=== PATIENT | female | born 1970 | race Caucasian/White ===

== ENCOUNTER 2019-07-11 16:27 | Emergency (ER) | payer OTHER, SELFPAY ==
[2019-07-11 16:30] VITALS: PULSE 78; RESP 18; TEMP 36.6; O2SAT 99; BMI 35.2
--- NOTE | 2019-07-11 16:38 | ED_ITS ---
Entered by Radha Lewis, acting as scribe for HPI - Abdominal Pain General: Chief Complaint: Abdominal Pain Stated Complaint: abd pain Time Seen by Provider: 07/11/19 16:36 Source: patient, family and RN notes reviewed Mode of arrival: ambulatory Limitations: no limitations History of Present Illness: HPI narrative: 48 yo female presents to ED with complaints of abdominal pain. She states she has had this for 1 week but it became severe last night. She said the pain is in her LUQ with radiation to her L shoulder and across her abdomen. She said her pain is constant but it is varying intensity. She has had shortness of breath, nausea, vomiting and mild diarrhea. She has a history of a hiatal hernia and diverticulitis. She has had gall bladder surgery and her tubes tied. MD elicited complaint: abdominal pain Pertinent past history: diverticulitis Onset (ago): week(s) (1) Pain Consistency: constant (worsening) Location: LUQ Severity: severe Quality: cramping and sharp Radiation: epigastric and chest (L side chest/shoulder) Migration to: epigastric and other (L side chest/shoulder) Exacerbating factors: movement Relieving factors: nothing Context: history of similar episodes Associated Symptoms: Reports diarrhea, nausea and vomiting; Denies chills, dysuria, fever(s), hematuria and syncope Review of Systems General: Reports: other (negative unless marked) Const: Denies: fever, chills, body aches, fatigue, malaise or diaphoresis Eyes: Denies: change in vision or blurry vision ENMT: Denies: throat pain, painful swallowing, hoarseness, ear pain, ear discharge, Change in hearing or nasal discharge Card: Denies: chest pain, palpitations, irregular heart rhythm, syncope, pre- syncope, shortness of breath on exertion or shortness of breath when lying down Resp: Denies: productive cough, non-productive cough, wheezing, coughing up blood or chest congestion GI: Reports: nausea, vomiting and diarrhea : Denies: flank pain, painful urination, urinary frequency, urinary urgency, decreased urine ouput, urinary incontinence or blood in urine Musc: Denies: neck pain, back pain, extremity pain, extremity swelling, joint pain, joint swelling, joint warmth or joint stiffness Skin/Breast: Denies: rash, skin tenderness or yellow skin Neuro: Denies: headache, numbness in extremities, weakness in extremities, changes in sensation, lack of coordination, difficulty walking, dizziness, vertigo or confusion Endo: Denies: excessive thirst, tired all the time, cold intolerance, excessive sweating, flushing or hot flashes Axel/Lymph: Denies: easy bruising, easy bleeding, petechiae or enlarged lymph nodes All/Imm: Denies: hives, throat swelling, tongue swelling, facial swelling or acute wheezing Physical Exam Const: COMMON NORMALS: no apparent distress, oriented x3, no limitations, healthy appearing and well nourished EXAM LIMITATIONS: no altered mental status GENERAL APPEARANCE: cooperative, well kempt and well developed ORIENTATION/CONSCIOUSNESS: Yes awake HENMT: COMMON NORMALS: normocephalic, head/scalp atraumatic, hearing grossly normal bilaterally, external ears normal, EAC's normal, external nose normal and moist oral mucous membranes HEAD & SCALP: normal to inspection, normocephalic and atraumatic FACE & SINUS: normal facial exam and face symmetric NOSE: external nose normal and nares normal EXTERNAL EAR: Yes external ears normal EXTERNAL AUDITORY CANAL: EAC's normal MOUTH: oral and palatal mucosa normal and tongue normal Eye: COMMON NORMALS: PERRL, EOMs intact bilaterally, conjunctivae normal and no scleral icterus GENERAL EYE: normal appearance of both eyes and normal light reflex CONJUNCTIVA: Yes conjunctivae normal SCLERA: sclerae normal CORNEA: Yes corneas normal PUPIL: Yes PERRL DIRECT OPHTHALMOSCOPY: Yes normal light reflex Neck/C-Spine: COMMON NORMALS: full ROM, no lymphadenopathy, supple, no meningeal signs and no JVD GENERAL: Yes normal visual inspection and Yes trachea midline CERVICAL SPINE: Yes cervical ROM normal Chest: COMMONS NORMALS: inspection of chest normal and palpation of chest normal Resp: COMMON NORMALS: normal respiratory effort, no retractions, no use of accessory muscles and clear to auscultation bilaterally EFFORT & INSPECTION: Yes able to speak in complete sentences AUSCULTATION: clear to auscultation bilaterally Cardio: COMMON NORMALS: no JVD, regular rate, regular rhythm, S1 normal heart sound, S2 normal heart sound, no gallops, no clicks, no murmurs and no rub JUGULAR VENOUS DISTENTION: no JVD RATE: regular rate RHYTHM: regular rhythm HEART SOUNDS: S1 normal and S2 normal GI: COMMON NORMALS: soft to palpation, no hepatosplenomegaly and no masses PALPATION: Yes soft and Yes no hepatosplenomegaly : COMMON NORMALS: Yes no CVA tenderness BLADDER/KIDNEY EXAM: Yes no CVA tenderness Back/Pelvis: COMMON NORMALS: no CVA tenderness, thoracic and lumbar spine normal to inspection, no thoracic nor lumbar tenderness and thoraco-lumbar ROM normal Extremity: COMMON NORMALS: normal to inspection, full ROM, normal capillary refill, no joint enlargement, no clubbing, cyanosis or edema and no calf tenderness Neuro: COMMON NORMALS: oriented x3, CN's II-XII intact bilaterally, moves all extremities, no focal motor deficits and no sensory deficits noted MENINGEAL SIGNS: Yes no meningeal signs Psych: COMMON NORMALS: mental status grossly normal, thought process normal, cooperative, affect normal, speech normal and activity/motor behavior normal APPEARANCE: Yes well kempt SPEECH: Yes normal speech THOUGHT PROCESS: normal thought process Skin: COMMON NORMALS: no rashes or lesions noted, skin turgor normal, no jaundice, no petechiae and no mottling GENERAL SKIN EXAM: no rashes or lesions noted and turgor normal Course Vital Signs: Vital signs: Vital Signs Temperature 97.8 F 07/11/19 18:42 Pulse Rate 67 07/11/19 18:42 Respiratory Rate 16 07/11/19 18:42 Blood Pressure 109/55 07/11/19 18:42 Pulse Oximetry 96 07/11/19 18:42 MDM - Abdominal Pain MDM Narrative: Medical decision making narrative: Miryam is a nice 48-year-old female who comes in complaining of left lower and left upper quadrant pain. This pain is exactly similar to when she is had diverticulitis in the past. Her CT scan is unremarkable. Her repeat abdominal exam does not show peritonitis. She has no vaginal discharge or bleeding or dysuria. None of her symptoms sound renal or urinary in nature. Her lab work is unremarkable. She is convinced this is her diverticulitis so I will go ahead and place her on Cipro and Flagyl for possible developing diverticular disease that is not seen on CT scan. She understands to return should her symptoms change or worsen but at this time she would like to be discharged. Lab Data: Attestation: I reviewed the patient's lab results. Labs: Lab Results 03/11/2207/11/19 07/11/19 Range/Units 16:47 16:47 16:47 WBC 6.5 (4.0-10.0) 10^3/ uL RBC 4.87 (4.1-5.3) 10^6/u L Hgb 13.1 (11.5-15.3) g/dL Hct 41.5 (37.0-47.0) % MCV 85.2 (81-99) fL MCH 26.9 L (28.0-34.0) pg MCHC 31.6 (30.0-36.0) g/dL RDW 13.2 (12.1-15.1) % Plt Count 353 (130-400) 10^3/c mm MPV 11.4 H (7.4-10.4) fL Neut % (Auto) 58.4 % Lymph % (Auto) 31.0 % Coles % (Auto) 7.0 % Eos % (Auto) 2.8 % Baso % (Auto) 0.6 % Neut # (Auto) 3.8 (1.8-7.7) 10^3/u L Lymph # (Auto) 2.0 (0.8-4.8) 10^3/u L Coles # (Auto) 0.5 (0.2-0.9) 10^3/u L Eos # (Auto) 0.2 (0.0-0.8) 10^3/u L Baso # (Auto) 0.0 (0.0-0.1) 10^3/u L Nucleated RBC % (a uto) 0 % Nucleated RBCs # 0.0 /100WBC Sodium 138 (136-145) mmol/L Potassium 3.8 (3.5-5.1) mmol/L Chloride 106 (98-107) mmol/L Carbon Dioxide 20 L (22-29) mmol/L Anion Gap 15.8 (5-19) BUN 8 (6-20) mg/dL Creatinine 0.7 (0.5-0.9) mg/dL GFR Calculation 90.1 (90-130) mL/min Glucose 115 (65-115) mg/dL Calcium 9.6 (8.5-10.5) mg/dL Total Bilirubin 1.3 H (0.15-1.2) mg/dL AST 20 (0-32) U/L ALT 17 (0-33) U/L Alkaline Phosphata se 59 (35-105) IU/L Total Protein 7.5 (6.6-8.7) g/dL Albumin 4.0 (3.5-5.2) g/dL Globulin 3.5 (1.3-4.6) g/dL Lipase 33 (13-60) U/L HCG, Qual Negative (Negative) Urine Color (Yellow) Urine Appearance (CLEAR) Urine pH (5-7) Ur Specific Gravit y (1.005-1.030) Urine Protein (Negative) Urine Glucose (UA) (Normal) Urine Ketones (Negative) Urine Blood (Negative) Urine Nitrate (Negative) Urine Bilirubin (NEGATIVE) Urine Urobilinogen (Negative) mg/dL Ur Leukocyte Haydee ase (Negative) Urine RBC (0-2) /hpf Urine WBC (0-5) /hpf Ur Squamous Epith Cells (0-5) Urine Bacteria (NONE) 07/11/19 Range/Units 17:54 WBC (4.0-10.0) 10^3/ uL RBC (4.1-5.3) 10^6/u L Hgb (11.5-15.3) g/dL Hct (37.0-47.0) % MCV (81-99) fL MCH (28.0-34.0) pg MCHC (30.0-36.0) g/dL RDW (12.1-15.1) % Plt Count (130-400) 10^3/c mm MPV (7.4-10.4) fL Neut % (Auto) % Lymph % (Auto) % Coles % (Auto) % Eos % (Auto) % Baso % (Auto) % Neut # (Auto) (1.8-7.7) 10^3/u L Lymph # (Auto) (0.8-4.8) 10^3/u L Coles # (Auto) (0.2-0.9) 10^3/u L Eos # (Auto) (0.0-0.8) 10^3/u L Baso # (Auto) (0.0-0.1) 10^3/u L Nucleated RBC % (a uto) % Nucleated RBCs # /100WBC Sodium (136-145) mmol/L Potassium (3.5-5.1) mmol/L Chloride (98-107) mmol/L Carbon Dioxide (22-29) mmol/L Anion Gap (5-19) BUN (6-20) mg/dL Creatinine (0.5-0.9) mg/dL GFR Calculation (90-130) mL/min Glucose (65-115) mg/dL Calcium (8.5-10.5) mg/dL Total Bilirubin (0.15-1.2) mg/dL AST (0-32) U/L ALT (0-33) U/L Alkaline Phosphata se (35-105) IU/L Total Protein (6.6-8.7) g/dL Albumin (3.5-5.2) g/dL Globulin (1.3-4.6) g/dL Lipase (13-60) U/L HCG, Qual (Negative) Urine Color Yellow (Yellow) Urine Appearance Clear (CLEAR) Urine pH 7.0 (5-7) Ur Specific Gravit y 1.010 (1.005-1.030) Urine Protein Neg (Negative) Urine Glucose (UA) Norm (Normal) Urine Ketones 1+ H (Negative) Urine Blood Neg (Negative) Urine Nitrate Negative (Negative) Urine Bilirubin Neg (NEGATIVE) Urine Urobilinogen 1 H (Negative) mg/dL Ur Leukocyte Haydee ase Negative (Negative) Urine RBC None (0-2) /hpf Urine WBC None (0-5) /hpf Ur Squamous Epith Cells 0-4 H (0-5) Urine Bacteria Trace (NONE) Imaging Data ^: CT Abd/Pel: Radiologist's impression: [place] [address] CT Scan Report Signed Patient: Elizabeth Yoder Unit #: [id number] : 10/30/1998 Age/Sex: 20 / F ADM Date: 07/11/19 Loc: ER Room/Bed: Attending Dr: Ordering Provider/Ordering MD: Lc Longoria NP Date of Service: 07/11/19 Procedure(s): CT abdomen pelvis w con* [id number] Accession Number(s): [id number] Report Number: [id number] PROCEDURE INFORMATION: Exam: CT Abdomen And Pelvis With Contrast Exam date and time: 07/11/2019 5:09 PM Age: 20 years old Clinical indication: Nausea and vomiting; Prior surgery; Surgery date: 6+ months; Surgery type: Gb; Additional info: Vomiting blood TECHNIQUE: Imaging protocol: Computed tomography of the abdomen and pelvis with intravenous contrast. Axial, coronal and sagittal reformatted images were created and reviewed. Total DLP: 1374.56 mGy-cm Radiation optimization: All CT scans at this facility use at least one of these dose optimization techniques: automated exposure control; mA and/or kV adjustment per patient size (includes targeted exams where dose is matched to clinical indication); or iterative reconstruction. Contrast material: OMNI 300; Contrast volume: 95 ml; Contrast route: LTAC; COMPARISON: CT abdomen pelvis w con* [id number] 11/03/2018 9:22 PM FINDINGS: Liver: Unremarkable. Gallbladder and bile ducts: Status post cholecystectomy. No biliary ductal dilatation. Pancreas: Unremarkable. Spleen: Unremarkable. Adrenals: Unremarkable. Kidneys and ureters: No mass. No radiodense calculi. No hydronephrosis. Stomach and bowel: No bowel wall thickening. No obstruction. No pneumatosis. Appendix: Normal. Intraperitoneal space: No free fluid. No organized fluid collection. No free air. Vasculature: Unremarkable. No aneurysm. Lymph nodes: Small mesenteric lymph nodes, nonspecific in appearance. No pathologically enlarged lymph nodes. Bladder: Unremarkable. Reproductive: Unremarkable. Bones/joints: No acute osseous abnormality. Soft tissues: Unremarkable. CT/CT abdomen pelvis w con* [id number]: 1[address] No [address] evidence of acute intra-abdominal or pelvic pathology. 2. Additional findings, as above. Radiation Dose CTDIVOL = (mGy): DLP = 1374.56 (mGy-cm) Dictated By: Quintin Mora MD Signed By: Quintin Mora MD Signed Date/Time: 07/11/191740 DD/ 38 Discharge Plan Discharge Patient Disposition: Home, Self-Care Clinical Impression: Abdominal pain Qualifiers: Abdominal location: left lower quadrant Qualified Code(s): R10.32 - Left lower quadrant pain Condition: Stable Prescriptions: New Zofran 4 mg tablet 4 mg PO Q6H PRN (Reason: nausea and vomiting) Qty: 20 RF: 0 Flagyl 500 mg tablet 500 mg PO TID 10 Days Qty: 30 RF: 0 Cipro 500 mg tablet 500 mg PO BID Qty: 20 RF: 0 Discharge Orders: Discharge Order (Routine); Ordered 07/11/19 Ordered By: Sahra Cordon Referrals: Arsenio Rossi MD [Primary Care Provider] - 1-3 days Discharge Diet: Clear Liquid Patient Instructions: Diverticulitis (ED), Abdominal Pain (ED) Activity Restrictions/Additional Instructions: Please return to the ER immediately for any of the signs or symptoms listed on your discharge instruction sheets, worsening/changing of your symptoms, you are not getting better as quickly as expected, or for ANY other cause or concerns. Discharge Date/Time: 07/11/19 18:41 Coding Level of Care Code ED Dining Room Hostess for g Fwd The documentation recorded by the Joshua valdovinos Valerie R, accurately reflects the service I personally performed and the decisions made by Bravo ravi Eli N Jul 11, 2019 16:27
--- NOTE | 2019-07-11 16:43 | CTR_ITS ---
PROCEDURE INFORMATION: Exam: CT Abdomen And Pelvis With Contrast Exam date and time: 07/11/2019 5:22 PM Age: 48 years old Clinical indication: Abdominal pain; Localized; Left; Prior surgery; Surgery date: 6+ months; Surgery type: Gb, tubal; Patient HX: C/O L sided abd pain w n/v TECHNIQUE: Imaging protocol: Computed tomography of the abdomen and pelvis with intravenous contrast. Total DLP: 1540.14 mGy-cm Radiation optimization: All CT scans at this facility use at least one of these dose optimization techniques: automated exposure control; mA and/or kV adjustment per patient size (includes targeted exams where dose is matched to clinical indication); or iterative reconstruction. Contrast material: OMNI 300; Contrast volume: 95 ml; Contrast route: 20G; COMPARISON: CT abdomen pelvis w con* [id number] 02/06/2019 10:40 PM FINDINGS: Lungs: Limited assessment of the lung bases without visible evidence of active cardiopulmonary pathology. Liver: Unremarkable. No mass. Gallbladder and bile ducts: Status post cholecystectomy. No intra or extrahepatic biliary ectasia. Pancreas: Pancreas unremarkable. No visible pancreatic ductal ectasia. Spleen: Small splenule. Spleen otherwise unremarkable. Adrenals: Adrenal glands unremarkable. Kidneys and ureters: Simple parapelvic cysts right kidney stable. No further workup recommended. No hydronephrosis or perinephric fluid bilaterally. Stable small focus of nonobstructing calyceal nephrolithiasis equator right kidney measuring under 5 mm. Stomach and bowel: Extensive diverticulosis coli, primarily of the sigmoid colon, without evidence for diverticulitis. No visible evidence of epiploic appendagitis. Appendix noninflamed. Nonobstructive bowel pattern. No visible adynamic or reactive ileus. Large paraesophageal hiatal hernia unchanged. Appendix: See Stomach And Bowel Finding. Intraperitoneal space: No free fluid the pelvis. Vasculature: The abdominal aorta is nonaneurysmal. Lymph nodes: Unremarkable. No enlarged lymph nodes. Bladder: Unremarkable as visualized. Reproductive: Unremarkable as visualized. Bones/joints: Age-appropriate degenerative disease of the spine. Soft tissues: Unremarkable. CT/CT abdomen pelvis w con* [id number] IMPRESSION: 1. Extensive diverticulosis coli, primarily the sigmoid colon, without evidence for active or acute diverticulitis. 2. Currently no visible evidence of active or acute abdominal or pelvic pathologic process. 3. Stable additional findings as detailed in text above. Radiation Dose CTDIVOL = (mGy): DLP = 1540.14 (mGy-cm)
[2019-07-11 16:53] LABS: Basophils % 0.6 %; Eosinophils # 0.2 10^3/uL (0.0-0.8); Eosinophils % 2.8 %; Hematocrit 41.5 % (37.0-47.0); Hemoglobin 13.1 g/dL (11.5-15.3); Mean Corpuscular HGB Conc 31.6 g/dL (30.0-36.0); Mean Corpuscular Hemoglobin 26.9 pg (28.0-34.0); Mean Corpuscular Volume 85.2 fL (81-99); Mean Platelet Volume 11.4 fL (7.4-10.4); Monocytes # 0.5 10^3/uL (0.2-0.9); Neutrophils # 3.8 10^3/uL (1.8-7.7); Neutrophils % 58.4 %; Nucleated Red Blood Cells % 0 %; Platelet Count 353 10^3/cmm (130-400); Red Blood Count 4.87 10^6/uL (4.1-5.3); Red Cell Distribution Width 13.2 % (12.1-15.1); White Blood Count 6.5 10^3/uL (4.0-10.0)
[2019-07-11] MEDS: ondansetron 2 mg/ML SDV 2 mL 4 MG IVP (16:53)
[2019-07-11 16:54] VITALS: RESP 17; O2SAT 98
[2019-07-11] MEDS: morphine 4 mg/mL SDV 1 mL IVP ×2 (16:54→17:56)
[2019-07-11 17:09] VITALS: BP 125/70; PULSE 78; RESP 18
[2019-07-11 17:10] LABS: HCG, Serum Qual Negative (Negative)
[2019-07-11 17:11] LABS: Alanine Aminotransferase 17 U/L (0-33); Alkaline Phosphatase 59 IU/L (35-105); Anion Gap 15.8 (5-19); Aspartate Amino Transferase 20 U/L (0-32); Blood Urea Nitrogen 8 mg/dL (6-20); Calcium 9.6 mg/dL (8.5-10.5); Carbon Dioxide 20 mmol/L (22-29); Chloride 106 mmol/L (98-107); Globulin 3.5 g/dL (1.3-4.6); Glomerular Filtration Rate 90.1 mL/min (90-130); Glucose 115 mg/dL (65-115); Lipase 33 U/L (13-60); Potassium 3.8 mmol/L (3.5-5.1); Sodium 138 mmol/L (136-145); Total Bilirubin 1.3 mg/dL (0.15-1.2); Total Protein 7.5 g/dL (6.6-8.7)
[2019-07-11] MEDS: iohexol 300 mg/mL 100 mL Btl IV (17:24)
[2019-07-11 17:56] VITALS: RESP 18; O2SAT 98
[2019-07-11 17:58] LABS: Bilirubin Urine Neg (NEGATIVE); Blood Urine Neg (Negative); Glucose Urine UA Norm (Normal); Ketones Urine 1+ (Negative); Leukocyte Esterase Urine Negative (Negative); Nitrate Urine Negative (Negative); Protein Urine Neg (Negative); Urine Appearance Clear (CLEAR); Urine Color Yellow (Yellow); Urobilinogen Urine 1 mg/dL (Negative)
[2019-07-11 18:15] LABS: Add Urine Culture? No; Bacteria Urine TRACE; Squamous Epithelial Cell Urine 0-4 (0-5)
[2019-07-11 18:42] VITALS: BP 109/55; PULSE 67; RESP 16; TEMP 36.6; O2SAT 96
== END 2019-07-11 18:41 | disposition home or self-care (01) ==
PROVIDERS: Emergency Provider Emergency Medicine; Family Provider Internal Medicine; PCP Internal Medicine
DX: R10.32 Left lower quadrant pain (principal); R10.12 Left upper quadrant pain; K57.30 Diverticulosis of large intestine without perforation or abscess without bleeding
CPT/HCPCS: 12345; 36415; 74177; 80053; 81001; 83690; 84703; 85025; 96374; 96375; 96376; 99282; 99283; A9270; J2270; J2405; Q9967

== ENCOUNTER 2019-08-26 07:36 | Day surgery (SDC) | payer OTHER, SELFPAY ==
[2019-08-25 15:43] VITALS: BMI 34.4
[2019-08-26 07:52] LABS: OR HCG Qualitative Urine Negative (Negative)
[2019-08-26 07:55] VITALS: BP 121/84; PULSE 74; RESP 16; TEMP 36.7
[2019-08-26] MEDS: sodium chloride 0.9% 1,000 ML 30 ML IV (08:08)
--- NOTE | 2019-08-26 08:15 | ANES.PREANE2 ---
Pre-Anesthetic Assessment Pre-Anesthetic Assessment: Height/Weight: Height 1.7 m Weight 99.79 kg Temp Pulse Resp BP 98.1 F 74 16 121/84 08/26/19 07:55 08/26/19 07:55 08/26/19 07:55 08/26/19 07:55 Preop Diagnosis: dysphagia Proposed Procedure: Operation Date: 08/26/19 09:10 Proposed Procedures p EGD Dilation W/ Bougie [id number] R13.10(Not Applicable) - Arsenio Rossi MD Familial anesthetic complications: None Was Beta Chandrika taken within 24 hours: N/A Last intake: Intake Last Liquid Date 08/25/19 Last Liquid Time 22:00 Last Solid Date 08/25/19 Last Solid Time 22:00 Social: Social History: No alcohol and No tobacco Exam: Pre-Anes Outpt Exam: alert, oriented x 3, clear to auscultation bilaterally and regular rate & rhythm Airway: Cervical ROM: WNL MP: 4 Additional comments: chipped, missing Pulmonary: Pulmonary: None reported CV/HEM: CV/HEM: Arrythmia Comments: ? atrial fibrillation : : None reported Hepatic: Comments: fatty liver disease GI: GI: GERD Metabolic: Metabolic: None reported Musc/skel: Musc/skel: None reported Neuropsych: Neuropsych: None reported Anesthetic Plan: ASA status: 2 Anesthesia: MAC Risk of > 500 ml blood loss (7ml/kg in children): No Meds/Allergies Current Medications: Current Medications Generic Name Dose Route Start Last Admin Trade Name Freq PRN Reason Stop Dose Admin Sodium Chloride 1,000 mls @ 30 ml s/hr 08/26/19 07:45 08/26/19 08:08 Sodium Chloride 0.9% IV 30 mls/hr .Q24H ROSANNE Administration PFSH Anesthesia PFSH: Medical History (Updated 08/25/19 @ 14:01 by Arsenio Rossi MD) GERD (gastroesophageal reflux disease) Hiatal hernia Surgical History (Updated 08/25/19 @ 13:52 by Arsenio Rossi MD) History of cholecystectomy Social History (Updated 08/25/19 @ 13:16 by Sydni Ceja RN) Smoking and tobacco status: former smoker Alcohol intake: current Alcohol intake frequency: holidays/special occasions only Female Reproductive History: Date of last menstrual period: 08/25/19 Data Anesthesia Other Labs: Laboratory Results - last 48 hr 08/26/19 07:39 Urine HCG, Qual Negative Cardiac Studies: No Data to Display
--- NOTE | 2019-08-26 09:23 | W.PM.OPSUD ---
Surgery/Procedure H&P Update DATE OF PROCEDURE: August 26, 2019 DATE H&P PERFORMED: 08/25/19 PREOP DIAGNOSIS: dysphagia PLANNED PROCEDURE: Operation Date: 08/26/19 09:10 Proposed Procedures p EGD Dilation W/ [place] [id number] R13.10(Not Applicable) - Arsenio Rossi MD
--- NOTE | 2019-08-26 09:38 | FL_ITS ---
WS: [id number] ESOPHAGRAM TECHNIQUE: Single contrast examination was performed with thin barium in the supine position due to r ecent anesthesia. CLINICAL INFORMATION: Very unusual anatomy as discovered on EGD COMPARISON: None. FINDINGS: Study performed in the supine position due to patient's difficulty standing from recent ane sthesia. Swallowing: Normal. Esophagus/stomach: No evidence of esophageal stricture or mass. Mild esophageal dysmotility with daniel yed emptying and reflux. Large esophageal hiatal hernia with intrathoracic stomach. Somewhat delayed imaging likely due to camarena pine position and recent anesthesia administration. Majority of the stomach is intrathoracic. Greater curvature extends below the diaphragm. Duodenal bulb and C-loop are normal. Proximal small bowel and jejunum are visualized.No evidence of high-grade obstruction or strangulation Gastroesophageal reflux: Present Fluoroscopy time: 3.1 minutes. FL/FL barium swallow [id number] IMPRESSION: 1. Exam performed in the supine position to the recent anesthesia. 2. Large esophageal hiatal hernia with majority of the stomach intrathoracic. Greater Curvature extending below the diaphragm. Normal duodenal C-loop and pro ximal small bowel visualized. 3. Active esophageal reflux is visualized in the supine position with delayed emptying. 4. No evidence of high-grade obstruction or strangulation
[2019-08-26 09:42] VITALS: BP 101/55; PULSE 71; RESP 16; TEMP 36.3; O2SAT 94
--- NOTE | 2019-08-26 09:45 | ANE.PACU2 ---
 Inpatient post-anesthesia follow up: Airway intact: Yes Vital signs: Temperature 98.1 F Pulse Rate 74 Respiratory Rate 16 Blood Pressure 121/84 Pulse Oximetry Oxygen Delivery Me thod Room Air Oxygen Flow Rate Fraction of Inspir ed Oxygen Hydration adequate: Yes Nausea and vomiting: No Pain level: 1 Mental status: Baseline
[2019-08-26 10:15] VITALS: BP 100/58; PULSE 77; RESP 18; O2SAT 96
== END 2019-08-26 12:20 | disposition home or self-care (01) ==
PROVIDERS: Anesthesiology; Family Provider Internal Medicine; PCP Internal Medicine; Visit Provider Internal Medicine
PROC: (CPT 43235; principal; 2019-08-26 09:00)
DX: R13.10 Dysphagia, unspecified (principal); K21.9 Gastro-esophageal reflux disease without esophagitis; Z87.891 Personal history of nicotine dependence; K31.89 Other diseases of stomach and duodenum; K44.9 Diaphragmatic hernia without obstruction or gangrene
CPT/HCPCS: 43235; 12345; 74220; 84703; J2001; J2704; J7030

== ENCOUNTER 2019-10-27 17:15 | Observation (INO) | payer OTHER, SELFPAY ==
[2019-10-26 10:14] VITALS: BMI 33.6
[2019-10-27] VITALS (23 sets, daily range): BP systolic 102–136; BP diastolic 57–103; PULSE 67–89; RESP 16–22; TEMP 36.2–36.8; O2SAT 92–100
[2019-10-27] MEDS: scopolamine 1.5 Patch 1 PATCH TRANSDERMA (09:06)
[2019-10-27] MEDS: heparin 5,000 unit/mL INJ 1 mL 3000 UNIT SUBCUT (09:24)
--- NOTE | 2019-10-27 09:26 | W.PM.OPSUD ---
Surgery/Procedure H&P Update DATE OF PROCEDURE: October 27, 2019 DATE H&P PERFORMED: 10/05/19 H&P UPDATE INFORMATION: I have reviewed H&P completed within last 30 days, I have examined patient prior to procedure and No changes to prior documentation (Except that the patient dropped her weight to 207 pounds) PREOP DIAGNOSIS: Symptomatic paraesophageal hernia PRIMARY INDICATION FOR PROCEDURE: The same PLANNED PROCEDURE: Operation Date: 10/27/19 10:05 Proposed Procedures p Laparoscopic poss open Esophageal Hernia Repair with Mesh [id number] K44.9(Not Applicable) - Dayday Montenegro MD s Laparoscopic Kellie Fundoplication(Not Applicable) - Dayday Montenegro MD s EGD(Not Applicable) - Dayday Montenegro MD
[2019-10-27 09:42] LABS: OR HCG Qualitative Urine Negative (Negative)
--- NOTE | 2019-10-27 09:45 | P.ANESASSM_ITS ---
Pre-Anesthetic Assessment Pre-Anesthetic Assessment: Height/Weight: Height 1.7 m Weight 97.522 kg Temp Pulse Resp BP Pulse Ox 98.2 F 77 18 131/77 98 10/27/19 08:49 10/27/19 08:49 10/27/19 08:49 10/27/19 08:49 10/27/19 08:49 Preop Diagnosis: Symptomatic paraesophageal hernia Proposed Procedure: Operation Date: 10/27/19 10:05 Proposed Procedures p Laparoscopic poss open Esophageal Hernia Repair with Mesh [id number] K44.9(Not Applicable) - Dayday Montenegro MD s Laparoscopic Kellie Fundoplication(Not Applicable) - Dayday Montenegro MD s EGD(Not Applicable) - Dayday Montenegro MD Last intake: Intake Last Liquid Date 10/26/19 Last Liquid Time 19:30 Last Solid Date 10/26/19 Last Solid Time 19:30 Social: Social History: Tobacco (quit 2006) and No alcohol Exam: Pre-Anes Outpt Exam: alert, oriented x 3, clear to auscultation bi laterally and regular rate & rhythm Airway: Submandibular: WNL Cervical ROM: WNL MP: 2 Dentition: Other (very poor dentation) History/ROS: No significant history except as noted Pulmonary: Pulmonary: None reported CV/HEM: CV/HEM: None reported : : None reported Hepatic: Comments: fatty liver GI: GI: GERD (occ) and Hiatus hernia Metabolic: Metabolic: Morbid obesity Musc/skel: Musc/skel: None reported Neuropsych: Neuropsych: Anxiety and Depression Anesthetic Plan: ASA status: 3 Anesthesia: Anesthesia Evaluation and General Risk of > 500 ml blood loss (7ml/kg in children): No PFSH Anesthesia PFSH: Medical History Diverticulitis Epigastric pain GERD (gastroesophageal reflux disease) Hiatal hernia Tubal infertility in female Surgical History History of cholecystectomy History of tubal ligation Family History Denies family history of Anesthesia complication Bleeding disorder Social History Smoking and tobacco status: former smoker Alcohol intake: current Alcohol intake frequency: holidays/special occasions only Female Reproductive History: Date of last menstrual period: 10/23/19 Data Anesthesia Other Labs: Laboratory Results - last 48 hr 10/27/19 09:40 Urine HCG, Qual Negative Cardiac Studies: No Data to Display
[2019-10-27] MEDS: sodium chloride 0.9% 1,000 ML 30 ML IV (10:23)
[2019-10-27] MEDS: lidocaine 2% INJ 20 mL INJECTION (11:33)
--- NOTE | 2019-10-27 11:44 | SUR.OPER ---
Called and updated him on surgical progress.
--- NOTE | 2019-10-27 12:53 | SUR.OPER ---
1235 Dr. Rossi in room at Dr. Montenegro' request to review scope image. Out of room at 1236.
--- NOTE | 2019-10-27 13:03 | SUR.OPER ---
called and updated on surgical progress.
--- NOTE | 2019-10-27 14:12 | SUR.OPER ---
Called and updated him on surgical progress.
[2019-10-27] MEDS: ceFAZolin 2,000 MG in sodium chloride 0.9% (plus) 50 ML 100 MG IV (15:41)
--- NOTE | 2019-10-27 15:52 | SUR.OPER ---
1525 patients updated of surgical progress
--- NOTE | 2019-10-27 16:19 | SUR.OPER ---
updated of surgical status
--- NOTE | 2019-10-27 16:38 | PM.OP ---
Operative Report Date of procedure: October 27, 2019 Pre-op Diagnosis: Symptomatic paraesophageal hernia Post-op diagnosis: same Post-op Findings: Incarcerated paraesophageal hernia Enlarged liver Procedure Done: Laparoscopic paraesophageal hernia repair with mesh placement and Kellie fundoplication with intraoperative EGD Excision of mediastinal lipoma 6 x 7 Implants: Bio A mesh Specimens removed/disposition: 1. Hernial sac 2. Mediastinal lipoma 5 x 6 cm Surgeon: Dayday Montenegro Nitrating Acid Mixer: Nitrating Acid Mixer surgeon Dr. Perez Surgical techs Luis Enrique Murray Jessica Circulating nurses Carmelita and Arabella Anesthesia: General (information systems coordinator is Ally, Keagan, Jose Angel and Will) Estimated blood loss (mL): 25 IV fluids (mL): 1,200 Urine output (mL): 300 Complications: No immediate complication Condition: stable Disposition: floor Brief History: This is a pleasant 49 years old female patient referred to my practice with symptomatic paraesophageal hernia, after thorough history physical examination and reviewing the images with my personal interpretation and further counseling the patient for laparoscopic paraesophageal hernia repair and Kellie fundoplication with possible mesh placement, patient agreed to proceed, and informed consent per chart. Procedure: Patient was identified in holding area,appropriate pharmacologic DVT prophylaxis was given, patient was then taken to the operating room where the patient was placed in supine position, intubated by anesthesia prophylactic antibiotics were given per protocol,Time-out was done verifying the patient's name/date of /planned procedure and destination after the procedure, all were in agreement. SCDs confirmed to be functioning, preoperative antibiotics administered per protocol, and beta rik protocol was confirmed. patient was placed in a low lithotomy position, both arms were tucked to the sides.and all pressure points were padded, a Ramírez catheter was placed by the circulating nurse that revealed clear urine. The patient was appropriately secured to the operating table, and I asked anesthesia to swing the table [id number] in different positions that the patient is appropriately secured to the OR table which it was the case. Prep and drape of the abdomen was done under the usual sterile technique, started by 1.2 cm transverse incision with 15 blade knife, 12 cm below the xiphoid and 3 cm to the left of the midline, followed by that a 12 mm optical trocar was used under direct vision and placed in the peritoneal cavity without difficulty. The peritoneal cavity was insufflated with CO2 gas up to 15 mmHg, followed by that an angled scope 10 mm was inserted in the abdominal cavity, the abdomen was surveyed there was no evidence of blood or fluid or other evidence of intra-abdominal injury Following that two 5 mm ports were placed one at 10 cm from the xiphoid process under the left subcostal region and the other one was placed at the left flank. A 12 mm port was placed in the subxiphoid region towards the right upper subcostal region. An epigastric incision was created with a 15 blade knife and the obturator of 5 mm trocar was used to have an access to the abdominal cavity where a laparoscopic clinch was introduced through this stab incision placed underneath the left lobe of the liver and onto the diaphragm to lift the liver up under direct visualization(as the liver was extending all the way to the left upper quadrant and occupied a big domain of the upper abdomen despite that the patient has been on liquid protein diet),yet that was not enough to retract the liver, I decided at this point to insert an additional 5 mm trocar 15 centimeter to the right of the xiphoid process at the upper abdomen, and liver retractor was placed under direct visualization to lift the liver up and helped for appropriate visualization of the hiatus, again was not enough so I had to substitute it by a 10 mm fan liver retractor that was handheld by one of my surgical scrub techs as the 10 mm placed to substitute the previously inserted the right upper quadrant 5 mm after extending the skin incision under direct visualization. Patient was placed in steep reverse T Gunderson and I stood between the patient's legs. I Started at that point delivering the Hiatal Hernia content about 70% of the stomach being up in the chest. Started dissecting using the harmonic scalpel near the caudate lobe and right chhaya of the diaphragm where it was identified. Dissection was continued around the border of the chhaya from the right side to the left side circumferentially, dissection was done as the sac was adherent to the stomach and up in the chest. A mediastinal lipoma measured about 6 x 7 cm were attached to the incarcerated structures in the chest that was dissected cautiously and hemostasis was achieved and was delivered for permanent pathology. After appropriate dissection circumferentially and the short gastrics were taken down, a latex free Bradford drain was passed behind the esophagus from the right side to the left side ends of the Bradford was secured in place and was held down to assist in retraction for better navigation. At that point once dissection and reduction of the hernia was complete, a portion of the hernia sac was dissected was taken out and sent for pathology for permanent. There was 3-4 cm of the esophagus now is intra-abdominal after appropriate dissection being with no tension. A well-lubricated bougie was inserted 54 Romansh in size, by the anesthesiologist without difficulty, to be used as a template to prevent narrowing of the esophagus. The posterior crura was reapproximated with 2-0 Ethibond sutures with pledgets.This closed the large hiatal defect leaving an opening that of the submits the esophagus to pass through comfortably. At This point I decided to place a BIO-A -mesh where it was secured to the undersurface of the diaphragm with interrupted sutures using silk and Ethibond suture. I found a loose fundus that I was able to grab the stomach around the GE junction from the left side to the right side.Shoeshine technique was applied at this point to make sure that the wrap carries no tension.First 2 stitches were taken stomach esophagus stomach, the the third stitch was stomach to stomach using 2-0 silk sutures about 1 cm apart.360? fundoplication was noted from securing the fundus to either side of the esophagus. The length was about 3-4 cm and followed by that an upper GI scope by my partner was introduced from the mouth down to the esophagus to the stomach preceded by bougie was taken out to make sure that there was no injury damage happened with the bougie, there was no blood on the tip of the bougie as well,nothing of significance, stomach looked fine was no injury and the wrap looked appropriate from within. Scope was then retrieved after deflation of the stomach. After adequate hemostasis the liver retractor was taken out under direct visualization, final laparoscopic survey was done showing no injuries to intra-abdominal structures, the 12 mm trocar and right upper quadrant 10 mm trocar sites were closed by Malik Adams under direct visualization using 0 Vicryl/PDS sutures,following that a TAP Block was done using Exparel then all ports were removed and both 12 mm ports.The rest of the stab incisions were closed by skin pardeep, followed by Band-Aids and patient tolerated the procedure well. Bilateral TAP (transversus abdominous plain peripheral nerve block )block using Exparel 20 mL Exparel 40 ml Normal saline 20 ml bupivacaine 0.25% 30 mL on each side injected 20 mL injected the port sites The count of instruments,needles and sponges was completed at the end of the procedure. Ramírez catheter was taken out at the end of the procedure without complications. Due to medical necessity. Nitrating Acid Mixer surgeon is required to assist in this procedure in the form of; Performance of intraoperative esoophaogastroduodenoscopy to check for leak and to assure intact 360 degree Kellie fundoplication which was the case..
[2019-10-27] MEDS: fentaNYL 50 mcg/mL INJ 2mL IVP ×2 (16:52→17:02)
[2019-10-27] MEDS: fentaNYL 50 mcg/mL INJ 2mL 100 MCG IVP (17:20)
--- NOTE | 2019-10-27 18:17 | SUR.PHASEI ---
1648 PT TO PACU AWAKE UP IN BED PT C/O OF PAIN , VSS ABD LARGE SOFT PT HAS CREPITIS NIPPLE LINE UP TO CHIN ANTERIOR AND POSTERIOR ON BILAT SHOULDERS, 1745 PT STATES PAIN IS BETTER, DR IBANEZ AT BEDSIDE, LISTENED TO PT CHEST PT OK TO GO TO FLOOR SEE EARLIER PAIN MEDS GIVEN, T STATES PAIN IS BETTER BUT NOT GONE, PT SLEEPS IF NOT DISTURBED, PT AWAKES EASILY TO VOICE AND VERBALIZES APPROPRIATELY. REPORT CALLED TO FLOOR. 1755 PT TO FLOOR PER BED HANDOFF AT BEDSIDE, BP 120/51, HRE 70 SATS ON 3LNC 100% RESP 20
[2019-10-27] MEDS: morphine 4 mg/mL SDV 1 mL 2 MG IVP ×2 (19:52→22:34)
[2019-10-27] MEDS: artificial tears Op Soln 15 mL Btl 1 DROP EYE-BOTH (20:09)
[2019-10-27] MEDS: sodium chloride 0.9% 1,000 ML 125 ML IV (20:12)
--- NOTE | 2019-10-27 21:23 | PC.NURSE ---
ROUNDING When assisting patient to elisha, she sat on side of the bed she stated she felt dizzy. After sitting for a couple minutes we stood up next to the bed patient was still dizzy and stated she didn't feel like she could ambulate to the bathroom. This nurse got a bedside commode and assisted patient.
[2019-10-28] VITALS (8 sets, daily range): BP systolic 99–121; BP diastolic 62–76; PULSE 68–86; RESP 16–22; TEMP 36.6–37.1; O2SAT 94–98
[2019-10-28 01:36] LABS: Hematocrit 40.1 % (37.0-47.0); Hemoglobin 12.6 g/dL (11.5-15.3)
[2019-10-28 01:46] LABS: Anion Gap 13.2 (5-19); Blood Urea Nitrogen 11 mg/dL (6-20); Calcium 8.1 mg/dL (8.5-10.5); Carbon Dioxide 22 mmol/L (22-29); Chloride 108 mmol/L (98-107); Glomerular Filtration Rate 107.2 mL/min (90-130); Glucose 129 mg/dL (65-115); Osmolality Calculated 286 mOsm/kg (285-295); Potassium 4.2 mmol/L (3.5-5.1); Sodium 139 mmol/L (136-145)
[2019-10-28] MEDS: morphine 4 mg/mL SDV 1 mL 2 MG IVP ×2 (03:11→09:27)
--- NOTE | 2019-10-28 06:13 | P.PN_ITS ---
Subjective Subjective: Interval history: Overall patient did well yet she has been complaining of blurry vision and burning of both eyes Good urine output Vitals/I&O/Wt Last Vital Signs Temp 98.8 F 10/28/19 04:56 Pulse 86 10/28/19 04:56 Resp 16 10/28/19 04:56 BP 102/67 10/28/19 04:56 Pulse Ox 95 10/28/19 04:56 10/27/19 10/27/19 10/28/19 14:59 22:59 06:59 Intake Total 1150 / 1150 250 / 1400 Output Total 625 / 625 800 / 1425 Balance 1150 / 1150 -375 / 775 -800 / -25 Weight last 48 hrs Weight 215 lb Physical Exam Narrative: EXAM NARRATIVE: Patient is conscious alert oriented X3 BMI 33.7 Head and neck examination PERRLA no masses no cervical lymphadenopathy no jaundice Cardiac examination audible S1-S2 no murmurs no gallops no arrhythmias Chest is clear bilateral,abscence of Rhonchi or wheezes,mild surgical emphysema Abdomen nontender except slightly for the incision site nondistended soft no organomegaly guarding or rigidity/no signs of peritonitis Extremities no cyanosis no clubbing no edema Urinary Catheter Management^: Ramírez: Cath Placed During This Visit: yes, but has since been removed by the nurse Urinary Catheter Date of Insertion: 10/27/19 Urinary Catheter Time of Insertion: 10:45 Date Urinary Catheter Removed: 10/27/19 Time Urinary Catheter Discontinued: 16:40 Data : 10/28/19 01:15 10/28/19 01:15 A&P Assessment and plan (1) Paraesophageal hiatal hernia: Encourage ambulation Spirometer every hour DC scopolamine likely causing the patient blurring of vision We will follow on upper GI study if that comes back appropriate we will start the patient slowly on clear liquid diet and likely will plan to discharge patient home tomorrow as she has been complaining of bilateral eye burning in 1 to make sure that she is tolerating liquid diet appropriately. Assurance and education All questions have been answered and all concerns have been addressed to patient's satisfaction. Evening rounds Upper GI study showed IMPRESSION: 1. Satisfactory appearance of the paraesophageal hernia repair and fu ndoplication. No obstruction. 2. Mild tertiary esophageal contraction. Status: Resolved Attestations Medical Necessity Statement*: Observation status Time Spent in Patient Care: 16 - 35 minutes (>than 50% of time spent in counselling and/or direct pt care on unit) . Coding Level of Care Code Acute Infection Control Rn for Miriam Gamez Diagnoses Paraesophageal hiatal hernia K44.9
--- NOTE | 2019-10-28 08:00 | FL_ITS ---
WS: [id number] Upper GI examination, limited. HISTORY: Paraesophageal hiatal hernia repair. Fluoroscopy time: 2.2 minutes. Gastrografin was utilized for the contrast. 2 separate attempts were performed to obtain adequate information concerning the surgical repair. On the second attempt there is good opacification of the esophagus. Mild tertiary contractions in the mi d to distal esophagus but there is no extravasation of contrast from the esophagus. The stomach is be low the diaphragm. Normal appearance of the fundoplication. Suspect very small LEFT pleural effusion. Patient terminated the study at this examination. [place] upper GI gastrografin 26214 IMPRESSION: 1. Satisfactory appearance of the paraesophageal hernia repair and fundoplicat ion. No obstruction. 2. Mild tertiary esophageal contraction.
[2019-10-28] MEDS: diatrizoate meglumine 120 mL Sol PO ×2 (08:09→12:06)
--- NOTE | 2019-10-28 08:20 | ANE.PACU2 ---
Inpatient post-anesthesia follow up: Airway intact: Yes Vital signs: Temperature 98.7 F Pulse Rate 68 Respiratory Rate 18 Blood Pressure 102/62 Pulse Oximetry 97 Oxygen Delivery Me thod Room Air Oxygen Flow Rate 2 Fraction of Inspir ed Oxygen Hydration adequate: Yes Nausea and vomiting: No Pain level: 3 Mental status: Baseline Additional Comments: Patient complaining of burning eyes since awakening from surgery (L worse than R). She states she's had blurry vision as well. She does have increased tearing and red eyes, with some apparent swelling of her L upper eyelid. She has been using lubricant drops with some improvement. Scoplamine patch was removed this morning. If no improvement today may need to assess for corneal abrasion, which would require consultation from opathalmology and possible need for antibiotic eye drops. Patient could also be having reaction to lubricant eye drops if used during her surgery. I do not suspect PION, because she is having discomfort and PION is painless.
[2019-10-28] MEDS: famotidine 20 mg/2 mL INJ IVP ×2 (08:57→20:32)
--- NOTE | 2019-10-28 10:04 | PC.CHAP ---
Pastoral Care Encounter/Spiritual Assessment Type of Contact [] Declined television audio engineer visit [] Patient/Family/Request visit [] Outpatient visit [] Follow-up visit [] Physician referral [] Code/Alert [x] Routine visit [] Staff referral [] Actively dying [] Patient sleeping [] Family support [] [] Out of room [] Palliative care [] [] Receiving care in room [] Pre-surgical visit [] Trauma [] Long length of stay [] ICU visit [] Other: Relational/Emotional Strength [] Patient feels connected with others/family/visitors/staff [] Distress [] Loneliness/isolation [] Abandonment Spirituality of Patient [] Person of Kinjal [] Attends Taoist of their Kinjal [] Believes in Prayer [] Reads Bible or Zoroastrianism materials [] There are Spiritual issues to be addressed [employer] Interventions [x] Prayer [x] Active listening [x] Non-anxious presence [x] Spiritual/emotional support [] Crisis/trauma care [] Spiritual counseling [] Bereavement support [] Provided bereavement packet [] Provided Bible/devotional materials [] Provided toy/stuffed animal, coloring book to patient or family member [] Provided Communion [] Anointing/[place] [] Salvation [x] Completed spiritual assessment [] Other: Impact on Illness or Injury [] Angry [] Fearful [x] Anxious [] Often cries [] Exhaustion [] Unable to work [] Unable to attend christian [] Unable to walk/stand [] Unable to read [] Unable to drive [] Unable to eat/drink [] Unable to sleep [] Unable to be with family [] Patient intubated [] Other: Summary Patient asking for meds, and liquids. [employer] located staff and requested same for patient. Time spent with patient 10 min
[2019-10-28] MEDS: sodium chloride 0.9% 1,000 ML 125 ML IV (13:51)
[2019-10-28] MEDS: HYDROcodone-APAP 7.5-325 mg/15 mL UDC PO (18:20)
[2019-10-28] MEDS: heparin 5,000 unit/mL INJ 1 mL 5000 UNIT SUBCUT (18:20)
[2019-10-28] MEDS: sodium chloride 0.9% 1,000 ML 75 ML IV (20:32)
[2019-10-29 03:01] LABS: Hemoglobin 12.4 g/dL (11.5-15.3)
[2019-10-29 03:31] LABS: Anion Gap 14.3 (5-19); Blood Urea Nitrogen 5 mg/dL (6-20); Calcium 8.5 mg/dL (8.5-10.5); Carbon Dioxide 22 mmol/L (22-29); Chloride 107 mmol/L (98-107); Glomerular Filtration Rate 171.1 mL/min (90-130); Glucose 91 mg/dL (65-115); Osmolality Calculated 285 mOsm/kg (285-295); Potassium 3.3 mmol/L (3.5-5.1); Sodium 140 mmol/L (136-145)
[2019-10-29] MEDS: heparin 5,000 unit/mL INJ 1 mL 5000 UNIT SUBCUT (03:49)
[2019-10-29 04:24] VITALS: BP 104/69; PULSE 73; RESP 16; TEMP 36.8; O2SAT 96
--- NOTE | 2019-10-29 05:40 | PM.DCS ---
Discharge Providers Date of Admission: 10/27/19 17:15 Date of Discharge: October 29, 2019 Attending Provider at Admission: Dayday Montenegro MD Attending Provider at Discharge: Dayday Montenegro MD Primary Care Provider: Arsenio Rossi MD Diagnoses at Discharge Discharge Diagnosis (1) Paraesophageal hiatal hernia: Status: Resolved Problem details: Condition resolved and patient tolerating well p.o. intake Reason for Visit Reason for Visit: paraesophageal hiatal hernia Hospital Course Discharge Summary: This is a pleasant 49 years old female patient with symptomatic paraesophageal hernia which has been interfering with her daily life activities, patient was seen and evaluated in my practice and appropriate work-up was done, and I did counselor/art therapist the patient for laparoscopic paraesophageal hernia repair and Kellie fundoplication with possible mesh placement, patient undergone uneventful procedure and has been doing well over the hospital course, undergone an upper GI study yesterday that showed: IMPRESSION: 1. Satisfactory appearance of the paraesophageal hernia repair and fundoplication. No obstruction. 2. Mild tertiary esophageal contraction. Patient has been having good urine output and tolerating p.o. intake Potassium today showed 3.3 and that is being replaced by p.o. 40 mEq KCl x1. Patient has been on pharmacologic DVT prophylaxis and was encouraged to ambulate on her incentive spirometer. We will plan to discharge patient home today and follow-up with me at surgery office in 1 week. Patient was well educated to avoid sodas, straws chewing gums and crack to avoid building a gas bubble. Physical Exam Narrative: EXAM NARRATIVE: Patient is conscious alert oriented X3 BMI 33.7 Head and neck examination PERRLA no masses no cervical lymphadenopathy no jaundice Cardiac examination audible S1-S2 no murmurs no gallops no arrhythmias Chest is clear bilateral,abscence of Rhonchi or wheezes,no surgical emphysema Abdomen nontender nondistended soft no organomegaly guarding or rigidity/no signs of peritonitis/all sounds are positive and incisions are clean dry and intact with skin pardeep in place Extremities no cyanosis no clubbing no edema Urinary Catheter Management^: Ramírez: Cath Placed During This Visit: yes, but has since been removed by the nurse Urinary Catheter Date of Insertion: 10/27/19 Urinary Catheter Time of Insertion: 10:45 Date Urinary Catheter Removed: 10/27/19 Time Urinary Catheter Discontinued: 16:40 Discharge Data Data Completed and Pending: Completed Studies During Hospitalization Category Date Time Status [place] upper GI gastr ografin 24235 Rout ine Exams 10/28/19 08:00 Completed Pending at discharge Category Date Time Status ES surgery / GI i mages Routine Exams 10/27/19 09:53 Taken Pathology: Surgic al [PTH] Routine Pth 10/27/19 16:53 Received Labs from last 24 hours 10/29/19 10/29/19 02:37 02:37 Hgb 12.4 Hct 39.0 Sodium 140 Potassium 3.3 L Chloride 107 Carbon Dioxide 22 Anion Gap 14.3 BUN 5 L Creatinine 0.4 L GFR Calculation 171.1 H Glucose 91 Calculated Osmolal ity 285 Calcium 8.5 Vitals: Last Vital Signs Temp 98.3 F 10/29/19 04:24 Pulse 73 10/29/19 04:24 Resp 16 10/29/19 04:24 BP 104/69 10/29/19 04:24 Pulse Ox 96 10/29/19 04:24 Discharge Plan Discharge Patient Disposition: Home, Self-Care Condition: Stable Prescriptions: [place] 5-325 mg tablet 1 tab PO Q6H PRN (Reason: pain) Qty: 28 RF: 0 Continued zinc 50 mg tablet 50 mg PO DAILY RF: 0 TUR-pidnid-dp [id number] no.[id number] mg tablet 1 tab PO DAILY RF: 0 Probiotic 15 billion cell capsule, sprinkle 1 cap PO DAILY RF: 0 Discharge Orders: Discharge Order (Routine); Ordered 10/29/19 Ordered By: Dayday Montenegro Referrals: Dayday Montenegro MD [Physician] - 11/05/19 2:45 pm (Return to surgery office in 7 days. You have an appointment on November 04 at 2:45.) Erin Espinosa OD, FAAO [Referring] - (Please schedule an appointment for evaluation of burning of the eyes soon as possible. You have an eye appointment SaturdayOctober 29 at 11:15am.) Discharge Diet: As Directed Patient Instructions: Hydrocodone/Acetaminophen (By mouth), Dysphagia, Gastroesophageal Reflux Disease (DC), Laparoscopic Paraesophageal Hernia Repair (DC), Surgical Site Infections (GEN) Activity Restrictions/Additional Instructions: 1. Patient can shower after 48 hours from surgery 2. Remove Dermabond 7 to 10 days after surgery, if there is a secondary dressing can take down after 48 hours. 3. Up and walking as tolerated 4. Do lift more than 5 pounds first 2 weeks after surgery and not more than 25 pounds 6 to 8 weeks after surgery. 5. Do not operate heavy machinery or drive while using pain medications. 6.Contact the office or return to the ER for worsening nausea vomiting fevers or chills, or noticing any redness around incision sites or discharge. 7. Clear liquid diet for the coming 5 days followed by full liquids Discharge Date/Time: 10/29/19 09:38 Discharge Attestations Time Spent in Discharge Care*: greater than 30 min Status at Discharge: Cognitive status at discharge: cognitively intact, Behavioral status at discharge: cooperative, Functional status at discharge: independent ambulation Quality Metrics Clinical Quality Measures During this hospital stay, did patient experience: None Coding Level of Care Code Acute Network Field Engineer for Miriam Gamez Diagnoses Paraesophageal hiatal hernia K44.9
[2019-10-29] MEDS: potassium chloride oral liq 20 mEq/15 mL UDC 40 MEQ PO (05:59)
[2019-10-29] MEDS: HYDROcodone-APAP 7.5-325 mg/15 mL UDC PO (06:05)
[2019-10-29 07:27] VITALS: BP 104/69; PULSE 73; RESP 16; TEMP 36.8; O2SAT 96
[2019-10-29 08:00] VITALS: BP 108/70; PULSE 96; RESP 16; TEMP 37; O2SAT 96
== END 2019-10-29 09:38 | disposition home or self-care (01) ==
LOC: MEDSURG 17:21
PROVIDERS: Anesthesiology; Surgery; Admitting Provider Surgery; PCP Internal Medicine; Visit Provider Surgery
PROC: 0DQ54ZZ Repair Esophagus, Percutaneous Endoscopic Approach (ICD-10-PCS; CPT 43281; principal; 2019-10-27 10:05)
PROC: 0DV44ZZ Restriction of Esophagogastric Junction, Percutaneous Endoscopic Approach (ICD-10-PCS; CPT 43280; 2019-10-27 10:05)
PROC: 0DJ08ZZ Inspection of Upper Intestinal Tract, Via Natural or Artificial Opening Endoscopic (ICD-10-PCS; CPT 43235; 2019-10-27 10:05)
DX: K44.0 Diaphragmatic hernia with obstruction, without gangrene (principal); D17.1 Benign lipomatous neoplasm of skin and subcutaneous tissue of trunk; K21.9 Gastro-esophageal reflux disease without esophagitis; E66.01 Morbid (severe) obesity due to excess calories; Z68.33 Body mass index [BMI] 33.0-33.9, adult; Z87.891 Personal history of nicotine dependence
CPT/HCPCS: 11406; 43333; 12345; 36415; 43235; 51702; 74240; 80048; 81025; 84703; 85014; 85018; 88302; 88304; 96361; 96365; 96372; 96375; C1713; C9290; G0378; J0131; J0690; J1100; J1644; J2001; J2270; J2405; J2704; J2710; J3010; J3490; J7030; Q9963

== ENCOUNTER 2020-01-03 16:29 | Emergency (ER) | payer OTHER, SELFPAY ==
[2020-01-03 16:37] VITALS: BP 112/67; PULSE 74; RESP 16; TEMP 36.7; O2SAT 98; BMI 31.1
[2020-01-03 18:23] LABS: Basophils # 0.1 10^3/uL (0.0-0.1); Basophils % 0.6 %; Eosinophils # 0.2 10^3/uL (0.0-0.8); Eosinophils % 2.7 %; Hematocrit 41.6 % (37.0-47.0); Lymphocytes # 2.1 10^3/uL (0.8-4.8); Lymphocytes % 23.2 %; Mean Corpuscular HGB Conc 31.3 g/dL (30.0-36.0); Mean Corpuscular Hemoglobin 28.4 pg (28.0-34.0); Mean Platelet Volume 11.9 fL (7.4-10.4); Monocytes # 0.6 10^3/uL (0.2-0.9); Monocytes % 7.1 %; Neutrophils # 5.83 10^3/uL (1.8-7.7); Neutrophils % 66.1 %; Nucleated Red Blood Cells % 0 %; Platelet Count 296 10^3/cmm (130-400); Red Blood Count 4.57 10^6/uL (4.1-5.3); Red Cell Distribution Width 13.2 % (12.1-15.1); White Blood Count 8.8 10^3/uL (4.0-10.0)
[2020-01-03 18:41] LABS: Alanine Aminotransferase 8 U/L (0-33); Albumin Level 4.1 g/dL (3.5-5.2); Alkaline Phosphatase 46 IU/L (35-105); Anion Gap 10.1 (5-19); Aspartate Amino Transferase 13 U/L (0-32); Blood Urea Nitrogen 14 mg/dL (6-20); Calcium 8.5 mg/dL (8.5-10.5); Carbon Dioxide 26 mmol/L (22-29); Chloride 105 mmol/L (98-107); Glomerular Filtration Rate 89.7 mL/min (90-130); Glucose 102 mg/dL (65-115); Lipase 53 U/L (13-60); Osmolality Calculated 280 mOsm/kg (285-295); Potassium 4.1 mmol/L (3.5-5.1); Sodium 137 mmol/L (136-145); Total Bilirubin 0.7 mg/dL (0.15-1.2); Total Protein 7.1 g/dL (6.6-8.7)
--- NOTE | 2020-01-03 18:41 | ED_ITS ---
HPI - Abdominal Pain General: Chief Complaint: Abdominal Pain Stated Complaint: AB PAIN Time Seen by Provider: 01/03/20 17:33 Source: patient Mode of arrival: ambulatory Limitations: no limitations History of Present Illness: HPI narrative: Patient is a 49-year-old female who presents to ED today with a complaint of upper abdominal pain. Patient tells me 2 days ago she feels like she felt something roll in her upper abdomen and reports she has had nausea since. She has not had any episodes of vomiting. She is concerned because she has a mesh placed from repair of a hiatal hernia that was completed in October of this year by Dr. Montenegro. Patient reports she has had previous upper abdominal pains before related to cases of diverticulitis. Patient reports she has had some mild constipation. She has not been running fevers. MD elicited complaint: abdominal pain Pertinent past history: diverticulitis and other (Surgical mesh present) Onset (ago): day(s) Location: Other (Throughout upper abdomen) Radiation: none Migration to: no migration Exacerbating factors: nothing Relieving factors: nothing Context: history of similar episodes (Episodes of diverticulitis) Associated Symptoms: Reports constipation; Denies chills, coffee ground emesis, diarrhea, dysuria, fever(s), heartburn, hematochezia, hematemesis, melena, nausea, syncope and vomiting Related Data: Date of Last Menstrual Period: 10/23/19 Review of Systems Const: Denies: fever(s), chills, body aches, fatigue or malaise Card: Denies: chest pain, palpitations, irregular heart rhythm, lightheadedness, syncope or dyspnea on exertion Resp: Denies: dyspnea, productive cough or pain on inspiration GI: Reports: abdominal pain and constipation; Denies: nausea, vomiting, hematemesis, coffee ground emesis, dysphagia, heartburn, diarrhea, hematochezia, melena or white/light colored stool : Denies: flank pain, difficulty voiding, dysuria, urinary frequency, urinary urgency or urinary hesitancy Musc: Denies: back pain Skin/Breast: Denies: rash Neuro: Denies: headache(s) PFS ED PFSH: Medical History (Updated 01/03/20 @ 20:27 by ALICE Noe) Diverticulitis Epigastric pain GERD (gastroesophageal reflux disease) Tubal infertility in female Surgical History Hiatal hernia History of cholecystectomy History of tubal ligation Status post laparoscopic Kellie fundoplication (~10/2019) Family History Denies family history of Anesthesia complication Bleeding disorder Social History Smoking and tobacco status: former smoker Alcohol intake: current Alcohol intake frequency: holidays/special occasions o nly Female Reproductive History: Date of last menstrual period: 10/23/19 Physical Exam Const: COMMON NORMALS: no acute distress, patient oriented x3, no limitations and alert Chest: COMMONS NORMALS: normal inspection of the chest and normal palpation of entire chest wall Resp: COMMON NORMALS: normal respiratory effort and clear to auscultation bilaterally AUSCULTATION: clear to auscultation bilaterally Cardio: COMMON NORMALS: regular rate and regular rhythm RATE: regular rate RHYTHM: regular rhythm GI: COMMON NORMALS: Normal to inspection, nondistended, normoactive bowel sounds present, Soft to palpation, No hepatosplenomegaly present and no masses PALPATION: Yes Soft to palpation, Yes Tenderness to palpation present (GI) (mild throughout upper abdomen ), No Guarding due to palpation present (GI) and Yes No hepatosplenomegaly present : COMMON NORMALS: Yes no CVA tenderness BLADDER/KIDNEY EXAM: Yes no CVA tenderness Back/Pelvis: COMMON NORMALS: no CVA tenderness Neuro: COMMON NORMALS: patient oriented x3 SENSORIUM/ORIENTATION: Yes alert Course Vital Signs: Vital signs: Vital Signs Temperature 98.1 F 01/03/20 16:37 Pulse Rate 63 01/03/20 20:51 Respiratory Rate 14 01/03/20 20:51 Blood Pressure 128/70 01/03/20 20:51 Pulse Oximetry 96 01/03/20 20:51 MDM - Abdominal Pain MDM Narrative: Medical decision making narrative: Postoperative hiatal hernia repair is intact. She does have some findings to her upper abdomen most likely consistent with postoperative changes. There was some concern for early diverticulitis. Patient tells me she has had similar symptoms previously with flareups of this therefore I will go ahead and place her on Cipro and Flagyl and recommend she follow-up with PCP if symptoms persist. She eventually may need follow-up with Dr. Montenegro. Return to ED precautions given. Lab Data: Labs: Lab Results 01/03/20 01/03/20 01/03/20 Range/Units 18:12 18:12 19:10 WBC 8.8 (4.0-10.0) 10^3/ uL RBC 4.57 (4.1-5.3) 10^6/u L Hgb 13.0 (11.5-15.3) g/dL Hct 41.6 (37.0-47.0) % MCV 91.0 (81-99) fL MCH 28.4 (28.0-34.0) pg MCHC 31.3 (30.0-36.0) g/dL RDW 13.2 (12.1-15.1) % Plt Count 296 (130-400) 10^3/c mm MPV 11.9 H (7.4-10.4) fL Neut % (Auto) 66.1 % Lymph % (Auto) 23.2 % [place] % (Auto) 7.1 % Eos % (Auto) 2.7 % Baso % (Auto) 0.6 % Neut # (Auto) 5.83 (1.8-7.7) 10^3/u L Lymph # (Auto) 2.1 (0.8-4.8) 10^3/u L [place] # (Auto) 0.6 (0.2-0.9) 10^3/u L Eos # (Auto) 0.2 (0.0-0.8) 10^3/u L Baso # (Auto) 0.1 (0.0-0.1) 10^3/u L Nucleated RBC % (a uto) 0 % Nucleated RBCs # 0.0 /100WBC Sodium 137 (136-145) mmol/L Potassium 4.1 (3.5-5.1) mmol/L Chloride 105 (98-107) mmol/L Carbon Dioxide 26 (22-29) mmol/L Anion Gap 10.1 (5-19) BUN 14 (6-20) mg/dL Creatinine 0.7 (0.5-0.9) mg/dL GFR Calculation 89.7 L (90-130) mL/min Glucose 102 (65-115) mg/dL Calculated Osmolal ity 280 L (285-295) mOsm/k g Calcium 8.5 (8.5-10.5) mg/dL Total Bilirubin 0.7 (0.15-1.2) mg/dL AST 13 (0-32) U/L ALT 8 (0-33) U/L Alkaline Phosphata se 46 (35-105) IU/L Total Protein 7.1 (6.6-8.7) g/dL Albumin 4.1 (3.5-5.2) g/dL Globulin 3.0 (1.3-4.6) g/dL Lipase 53 (13-60) U/L Urine Color Yellow (Yellow) Urine Appearance Sl cloudy A (CLEAR) Urine pH 8 H (5-7) Ur Specific Gravit y 1.015 (1.005-1.030) Urine Protein Neg (Negative) Urine Glucose (UA) Norm (Normal) Urine Ketones Negative (Negative) Urine Blood Neg (Negative) Urine Nitrate Negative (Negative) Urine Bilirubin Neg (NEGATIVE) Prot Sulfosalicyli c Acd Negative (Negative) Urine Urobilinogen Norm (Negative) mg/dL Ur Leukocyte Haydee ase Negative (Negative) Urine RBC 0-4 H (0-2) /hpf Urine WBC 0-4 H (0-5) /hpf Ur Squamous Epith Cells 0-4 H (0-5) Amorphous Sediment 4+ Urine Bacteria Trace (NONE) Imaging Data ^: CT Abd/Pel: Radiologist's impression: [address] [address] [address] Scan Report Signed Patient: Arlyn Lawson Unit #: [id number] : 1970 Age/Sex: 49 / F ADM Date: 01/03/20 Loc: ER Room/Bed: Attending Dr: Ordering Provider/Ordering MD: Muna Bah Date of Service: 01/03/20 Procedure(s): CT abdomen pelvis w con* [id number] Accession Number(s): [id number] Report Number: [id number] PROCEDURE INFORMATION: Exam: CT Abdomen And Pelvis With Contrast Exam date and time: 01/03/2020 6:55 PM Age: 49 years old Clinical indication: Abdominal pain; Prior surgery; Surgery date: 6+ months; Surgery type: Hernia mesh, gb, kellie; Additional info: Upper abdominal pain, nausea; HX of mesh for hiatal hernia TECHNIQUE: Imaging protocol: Computed tomography of the abdomen and pelvis with intravenous contrast. Radiation optimization: All CT scans at this facility use at least one of these dose optimization techniques: automated exposure control; mA and/or kV adjustment per patient size (includes targeted exams where dose is matched to clinical indication); or iterative reconstruction. Contrast material: OMNIPAQUE 300; Contrast volume: 95 ml; Contrast route: INTRAVENOUS (IV); COMPARISON: CT abdomen pelvis w con* [id number] 07/11/2019 5:37 PM RADIATION DOSE METRICS: Total DLP (mGy-cm): 1169.65 FINDINGS: Mediastinal space: The patient is status post hiatal hernia repair without recurrent hernia. Liver: There is a diffuse decrease in hepatic parenchymal density, consistent with fatty infiltration. Gallbladder and bile ducts: There has been a cholecystectomy. There is no common bile duct dilation. Pancreas: Normal. No ductal dilation. Spleen: Normal. No splenomegaly. Adrenals: Normal. No mass. Kidneys and ureters: There is no evidence of hydronephrosis. Unchanged right-sided parapelvic simple cysts are noted. There is unchanged right nephrolithiasis. The left kidney is normal. Stomach and bowel: There is mild wall thickening of the distal esophagus and fundus of the stomach. This could reflect postoperative changes or mild wall edema/versus lack of distension. The distal stomach and duodenum are unremarkable. There is no gas in the gastric wall. There is some haziness of the adjacent fat that may simply reflect postoperative changes. Extensive diverticulosis is present in the distal colon. There is mild haziness of the fat in the sigmoid colon adjacent to a diverticulum new since the prior exam concerning for early sigmoid diverticulitis. There is no evidence of intestinal perforation or obstruction. Appendix: No evidence of appendicitis. Intraperitoneal space: Unremarkable. No free air. No significant fluid collection. Vasculature: Unremarkable.No abdominal aortic aneurysm. Lymph nodes: Subcentimeter lymph nodes along the gastrohepatic ligament and arnaldo hepatis are unchanged. Bladder: Click bladder nonspecific. Reproductive: There is a 4.6 cm right ovarian simple cyst. There is a 1.7 cm left ovarian simple cyst. Uterus is unremarkable. Bones/joints: Unremarkable. No acute fracture. Soft tissues: There is a fat-containing umbilical hernia. Other findings: There is no extraluminal fluid collection. CT/CT abdomen pelvis w con* [id number] IMPRESSION: 1. Postoperative hiatal hernia repair is intact. No fluid collection or abscess. No free intraperitoneal air. The wall of the distal esophagus and gastric fundus is thickened. This may reflect postoperative changes, lack of distention or mild edema. There is some haziness of the adjacent fat that may reflect postoperative changes or mild edema due to wall thickening/gastritis. The distal stomach is unremarkable. Gastric ischemia is less likely. Endoscopy may be helpful for further evaluation. 2. There is mild haziness of the fat in the sigmoid colon adjacent to a diverticulum new since the prior exam concerning for early sigmoid diverticulitis. 3. Bilateral new ovarian cysts with the larger on the right measuring 4.6 cm in size. Radiation Dose CTDIVOL = (mGy): DLP = 1169.65 (mGy-cm) Dictated By: Gisel Sanchez Signed By: Gisel Sanchez Signed Date/Time: 01/03/201952 DD/ 50 Discharge Plan Discharge Patient Disposition: Home Clinical Impression: Diverticulitis Condition: Stable Prescriptions: New Zofran 4 mg tablet 4 mg PO Q6H PRN (Reason: nausea and vomiting) Qty: 14 RF: 0 Flagyl 500 mg tablet 500 mg PO BID 7 Days Qty: 14 RF: 0 Cipro 500 mg tablet 500 mg PO Q12H Qty: 14 RF: 0 No Action zinc 50 mg tablet 50 mg PO DAILY RF: 0 [id number] no.226 [id number] mg tablet 1 tab PO DAILY RF: 0 Probiotic 15 billion cell capsule, sprinkle 1 cap PO DAILY RF: 0 [place] 5-325 mg tablet 1 tab PO Q6H PRN (Reason: pain) Qty: 28 RF: 0 Discharge Orders: Discharge Order (Routine); Ordered 01/03/20 Ordered By: Muna Bah Referrals: Arsenio Rossi MD [Primary Care Provider] - Patient Instructions: Diverticulitis Activity Restrictions/Additional Instructions: Please follow-up with your primary care provider in 1 week for reevaluation. You may return to the emergency department for worsening abdominal pain, repetitive episodes of vomiting, blood in your vomit, bloody diarrhea, fevers greater than 100.4, or any other concerns you may have. Coding Level of Care Code ED Plant Maintenance Technician for Miriam Gamez
[2020-01-03] MEDS: ondansetron 2 mg/ML SDV 2 mL 4 MG IVP (19:05)
[2020-01-03 19:06] VITALS: BP 117/69; PULSE 69; RESP 14; O2SAT 98
[2020-01-03] MEDS: iohexol 300 mg/mL 100 mL Btl IV (19:23)
[2020-01-03 19:37] LABS: Add Urine Microscopic? YES; Bacteria Urine TRACE; Bilirubin Urine Neg (NEGATIVE); Blood Urine Neg (Negative); Glucose Urine UA Norm (Normal); Ketones Urine Negative (Negative); Leukocyte Esterase Urine Negative (Negative); Nitrate Urine Negative (Negative); Protein Urine Neg (Negative); RBC Urine 0-4 /hpf (0-2); Specific Gravity, Urine 1.015 (1.005-1.030); Squamous Epithelial Cell Urine 0-4 (0-5); Sulfosalicylic Acid Urine Negative (Negative); Urine Color Yellow (Yellow); Urobilinogen Urine Norm (Negative); WBC Urine 0-4 /hpf (0-5); pH Urine 8 (5-7)
[2020-01-03 19:38] LABS: Add Urine Culture? No; Amorphous Sediment Urine 4+
[2020-01-03 20:51] VITALS: BP 128/70; PULSE 63; RESP 14; O2SAT 96
[2020-01-03 21:35] VITALS: BP 115/65; PULSE 65; RESP 14; O2SAT 97
== END 2020-01-03 21:35 | disposition home or self-care (01) ==
PROVIDERS: Emergency Provider Physician Assistant; PCP Internal Medicine
DX: K57.92 Diverticulitis of intestine, part unspecified, without perforation or abscess without bleeding (principal); Z87.891 Personal history of nicotine dependence
CPT/HCPCS: 12345; 74177; 80053; 81001; 83690; 85025; 96374; 96375; 99283; J0131; J2405; Q9967

== ENCOUNTER 2020-01-15 01:26 | Emergency (ER) | payer OTHER, SELFPAY ==
[2020-01-15 01:29] VITALS: BP 111/76; PULSE 67; RESP 14; TEMP 36.7; O2SAT 98; BMI 31.0
--- NOTE | 2020-01-15 01:36 | CTR_ITS ---
PROCEDURE INFORMATION: Exam: CT Abdomen And Pelvis With Contrast Exam date and time: 01/15/2020 1:49 AM Age: 49 years old Clinical indication: Abdominal pain; Generalized; Prior surgery; Surgery type: Hernia mesh, cholecystectomy, btl; Additional info: Abd pain TECHNIQUE: Imaging protocol: Computed tomography of the abdomen and pelvis with intravenous contrast. Radiation optimization: All CT scans at this facility use at least one of these dose optimization techniques: automated exposure control; mA and/or kV adjustment per patient size (includes targeted exams where dose is matched to clinical indication); or iterative reconstruction. Contrast material: OMNI 300; Contrast volume: 95 ml; Contrast route: INTRAVENOUS (IV); COMPARISON: CT abdomen pelvis w con* [id number] 01/03/2020 7:17 PM RADIATION DOSE METRICS: Total DLP (mGy-cm): 1149.81 FINDINGS: Liver: Normal. No mass. Gallbladder and bile ducts: The gallbladder is surgically absent. For No ductal dilation. Pancreas: Normal. No ductal dilation. Spleen: Normal. No splenomegaly. Adrenals: Normal. No mass. Kidneys and ureters: Normal. No hydronephrosis. Stomach and bowel: Unremarkable. No obstruction. Diverticulosis of the left colon is present without diverticulitis. Large amount of fecal residue is present in the colon Appendix: The appendix is not discretely identified. Intraperitoneal space: Unremarkable. No free air. No significant fluid collection. Vasculature: Unremarkable. No abdominal aortic aneurysm. Lymph nodes: Unremarkable. No enlarged lymph nodes. Bladder: Unremarkable as visualized. Reproductive: The uterus is not enlarged. Unremarkable as visualized. Bones/joints: Degenerative changes are present. No acute fracture. Soft tissues: Unremarkable. CT/CT abdomen pelvis w con* [id number] IMPRESSION: 1. No acute findings. 2. The gallbladder is surgically absent. 3. Diverticulosis of the left colon is present without diverticulitis. 4. Constipation is noted. Radiation Dose CTDIVOL = (mGy): DLP = 1149.81 (mGy-cm)
--- NOTE | 2020-01-15 01:45 | W.ED.ABDPA2 ---
HPI - Abdominal Pain General: Chief Complaint: Abdominal Pain Stated Complaint: abd pain Time Seen by Provider: 01/15/20 01:37 Source: patient Mode of arrival: ambulatory Limitations: no limitations History of Present Illness: HPI narrative: 49-year-old female states she was diagnosed with diverticulitis 2 weeks ago. Patient states she finished her antibiotics a few days ago and pain started again today. States in the right lower quadrant currently. She states her pain before was in her left lower quadrant. States pain is sharp in nature rated 5-10. Denies any worsening or improving factors. MD elicited complaint: abdominal pain Onset (ago): day(s) Pain Consistency: constant Location: RUQ Associated Symptoms: Denies chills, dysuria and fever(s) Related Data: Date of Last Menstrual Period: 01/15/20 Review of Systems Const: Denies: fever(s), chills, body aches or change in appetite Eyes: Denies: blurry vision or eye discomfort ENMT: Denies: throat pain or dental pain Card: Denies: chest pain Resp: Denies: dyspnea GI: Reports: abdominal pain : Denies: dysuria Musc: Denies: neck pain or back pain Skin/Breast: Denies: rash Neuro: Denies: headache(s) Psych: Denies: depression Axel/Lymph: Denies: easy bruising All/Imm: Denies: urticaria PFSH ED PFSH: Medical History Diverticulitis Epigastric pain GERD (gastroesophageal reflux disease) Tubal infertility in female Surgical History Hiatal hernia History of cholecystectomy History of tubal ligation Status post laparoscopic Kellie fundoplication (~10/2019) Family History Denies family history of Anesthesia complication Bleeding disorder Social History Smoking and tobacco status: former smoker Alcohol intake: current Alcohol intake frequency: holidays/special occasions only Female Reproductive History: Date of last menstrual period: 01/15/20 Physical Exam Const: COMMON NORMALS: no acute distress, patient oriented x3 and healthy appearing HENMT: COMMON NORMALS: normocephalic and atraumatic HEAD & SCALP: normocephalic and atraumatic Eye: COMMON NORMALS: Equal, round and reactive pupils present and EOMs intact bilaterally PUPIL: Yes Equal, round and reactive pupils present Neck/C-Spine: COMMON NORMALS: full ROM and supple Chest: COMMONS NORMALS: normal inspection of the chest and normal palpation of entire chest wall Resp: COMMON NORMALS: normal respiratory effort, No retractions, No use of accessory muscles and clear to auscultation bilaterally AUSCULTATION: clear to auscultation bilaterally Cardio: COMMON NORMALS: regular rate, regular rhythm and No murmurs present (Cardio) RATE: regular rate RHYTHM: regular rhythm GI: COMMON NORMALS: Normal to inspection, nondistended, normoactive bowel sounds present, Soft to palpation, non-tender and no masses PALPATION: Yes Soft to palpation Extremity: COMMON NORMALS: normal to inspection and full ROM Neuro: COMMON NORMALS: patient oriented x3, moves all extremities and no focal motor deficits Psych: COMMON NORMALS: mental status grossly normal, Normal thought process present and cooperative THOUGHT PROCESS: Normal thought process present Skin: COMMON NORMALS: no rashes or lesions noted and no wounds GENERAL SKIN EXAM: no rashes or lesions noted Course Vital Signs: Vital signs: Vital Signs Temperature 98.0 F 01/15/20 01:29 Pulse Rate 94 01/15/20 02:30 Respiratory Rate 16 01/15/20 02:30 Blood Pressure 130/76 01/15/20 02:30 Pulse Oximetry 97 01/15/20 02:30 MDM - Abdominal Pain MDM Narrative: Medical decision making narrative: Patient presents here with abdominal pain and CT shows constipation. She has no signs of diverticulitis. Patient blood work is normal as well. Patient given lactulose here and is to take MiraLAX at home. She is stable for discharge and return if worsening. Lab Data: Labs: Lab Results 01/15/20 01/15/20 Range/Units 02:16 02:16 WBC 5.5 (4.0-10.0) 10^3/ uL RBC 4.55 (4.1-5.3) 10^6/u L Hgb 13.2 (11.5-15.3) g/dL Hct 40.4 (37.0-47.0) % MCV 88.8 (81-99) fL MCH 29.0 (28.0-34.0) pg MCHC 32.7 (30.0-36.0) g/dL RDW 13.3 (12.1-15.1) % Plt Count 298 (130-400) 10^3/c mm MPV 11.8 H (7.4-10.4) fL Neut % (Auto) 49.8 % Lymph % (Auto) 35.4 % [place] % (Auto) 10.5 % Eos % (Auto) 3.4 % Baso % (Auto) 0.7 % Neut # (Auto) 2.75 (1.8-7.7) 10^3/u L Lymph # (Auto) 2.0 (0.8-4.8) 10^3/u L [place] # (Auto) 0.6 (0.2-0.9) 10^3/u L Eos # (Auto) 0.2 (0.0-0.8) 10^3/u L Baso # (Auto) 0.0 (0.0-0.1) 10^3/u L Nucleated RBC % (a uto) 0 % Nucleated RBCs # 0.0 /100WBC Sodium 140 (136-145) mmol/L Potassium 3.3 L (3.5-5.1) mmol/L Chloride 109 H (98-107) mmol/L Carbon Dioxide 20 L (22-29) mmol/L Anion Gap 14.3 (5-19) BUN 9 (6-20) mg/dL Creatinine 0.7 (0.5-0.9) mg/dL GFR Calculation 89.7 L (90-130) mL/min Glucose 100 (65-115) mg/dL Calculated Osmolal ity 286 (285-295) mOsm/k g Calcium 8.8 (8.5-10.5) mg/dL Total Bilirubin 1.0 (0.15-1.2) mg/dL AST 21 (0-32) U/L ALT 19 (0-33) U/L Alkaline Phosphata se 43 (35-105) IU/L Total Protein 6.6 (6.6-8.7) g/dL Albumin 3.8 (3.5-5.2) g/dL Globulin 2.8 (1.3-4.6) g/dL Lipase 42 (13-60) U/L Imaging Data ^: CT Abd/Pel: Radiologist's impression: [address] [place] [address] CT Scan Report Signed Patient: Arlyn Lawson Unit #: [id number] : 1970 Age/Sex: 49 / F ADM Date: 01/15/20 Loc: ER Room/Bed: Attending Dr: Ordering Provider/Ordering MD: José Miguel Caballero MD Date of Service: 01/15/20 Procedure(s): CT abdomen pelvis w con* [id number] Accession Number(s): [id number] Report Number: [id number] PROCEDURE INFORMATION: Exam: CT Abdomen And Pelvis With Contrast Exam date and time: 01/15/2020 1:49 AM Age: 49 years old Clinical indication: Abdominal pain; Generalized; Prior surgery; Surgery type: Hernia mesh, cholecystectomy, btl; Additional info: Abd pain TECHNIQUE: Imaging protocol: Computed tomography of the abdomen and pelvis with intravenous contrast. Radiation optimization: All CT scans at this facility use at least one of these dose optimization techniques: automated exposure control; mA and/or kV adjustment per patient size (includes targeted exams where dose is matched to clinical indication); or iterative reconstruction. Contrast material: OMNI 300; Contrast volume: 95 ml; Contrast route: INTRAVENOUS (IV); COMPARISON: CT abdomen pelvis w con* [id number] 01/03/2020 7:17 PM RADIATION DOSE METRICS: Total DLP (mGy-cm): 1149.81 FINDINGS: Liver: Normal. No mass. Gallbladder and bile ducts: The gallbladder is surgically absent. For No ductal dilation. Pancreas: Normal. No ductal dilation. Spleen: Normal. No splenomegaly. Adrenals: Normal. No mass. Kidneys and ureters: Normal. No hydronephrosis. Stomach and bowel: Unremarkable. No obstruction. Diverticulosis of the left colon is present without diverticulitis. Large amount of fecal residue is present in the colon Appendix: The appendix is not discretely identified. Intraperitoneal space: Unremarkable. No free air. No significant fluid collection. Vasculature: Unremarkable. No abdominal aortic aneurysm. Lymph nodes: Unremarkable. No enlarged lymph nodes. Bladder: Unremarkable as visualized. Reproductive: The uterus is not enlarged. Unremarkable as visualized. Bones/joints: Degenerative changes are present. No acute fracture. Soft tissues: Unremarkable. CT/CT abdomen pelvis w con* [id number] IMPRESSION: 1. No acute findings. 2. The gallbladder is surgically absent. 3. Diverticulosis of the left colon is present without diverticulitis. 4. Constipation is noted. Discharge Plan Discharge Patient Disposition: Home Clinical Impression: Abdominal pain Qualifiers: Abdominal location: generalized Qualified Code(s): R10.84 - Generalized abdominal pain Constipation Qualifiers: Constipation type: unspecified constipation type Qualified Code(s): K59.00 - Constipation, unspecified Condition: Stable Prescriptions: New Miralax 17 gram/dose powder 17 gm PO DAILY PRN (Reason: constipation) Qty: 119 RF: 0 No Action zinc 50 mg tablet 50 mg PO DAILY RF: 0 [id number]-[id number] no.226 [id number] mg tablet 1 tab PO DAILY RF: 0 Probiotic 15 billion cell capsule, sprinkle 1 cap PO DAILY RF: 0 [place] 5-325 mg tablet 1 tab PO Q6H PRN (Reason: pain) Qty: 28 RF: 0 Zofran 4 mg tablet 4 mg PO Q6H PRN (Reason: nausea and vomiting) Qty: 14 RF: 0 Cipro 500 mg tablet 500 mg PO Q12H Qty: 14 RF: 0 Discharge Orders: Discharge Order (Routine); Ordered 01/15/20 Ordered By: José Miguel Caballero Referrals: Arsenio Rossi MD [Primary Care Provider] - 1-3 days Discharge Diet: Advance as tolerated Discharge Activity: Resume usual activity Patient Instructions: Constipation (ED), Abdominal Pain (ED) Coding Level of Care Code ED Application Security Specialist for Chg Fwd Exam Comprehensive
[2020-01-15 02:06] VITALS: BP 124/87; PULSE 66; RESP 16; O2SAT 100
[2020-01-15 02:21] LABS: Basophils % 0.7 %; Eosinophils # 0.2 10^3/uL (0.0-0.8); Eosinophils % 3.4 %; Hematocrit 40.4 % (37.0-47.0); Hemoglobin 13.2 g/dL (11.5-15.3); Lymphocytes % 35.4 %; Mean Corpuscular HGB Conc 32.7 g/dL (30.0-36.0); Mean Corpuscular Volume 88.8 fL (81-99); Mean Platelet Volume 11.8 fL (7.4-10.4); Monocytes # 0.6 10^3/uL (0.2-0.9); Monocytes % 10.5 %; Neutrophils # 2.75 10^3/uL (1.8-7.7); Neutrophils % 49.8 %; Nucleated Red Blood Cells % 0 %; Platelet Count 298 10^3/cmm (130-400); Red Blood Count 4.55 10^6/uL (4.1-5.3); Red Cell Distribution Width 13.3 % (12.1-15.1); White Blood Count 5.5 10^3/uL (4.0-10.0)
[2020-01-15 02:27] VITALS: RESP 16; O2SAT 99
[2020-01-15] MEDS: morphine 4 mg/mL SDV 1 mL IVP (02:27)
[2020-01-15] MEDS: ondansetron 2 mg/ML SDV 2 mL 4 MG IVP (02:28)
[2020-01-15] MEDS: sodium chloride 0.9% 1,000 ML 999 ML IV (02:29)
[2020-01-15 02:30] VITALS: BP 130/76; PULSE 94; RESP 16; O2SAT 97
[2020-01-15 02:39] LABS: Alanine Aminotransferase 19 U/L (0-33); Albumin Level 3.8 g/dL (3.5-5.2); Alkaline Phosphatase 43 IU/L (35-105); Anion Gap 14.3 (5-19); Aspartate Amino Transferase 21 U/L (0-32); Blood Urea Nitrogen 9 mg/dL (6-20); Calcium 8.8 mg/dL (8.5-10.5); Carbon Dioxide 20 mmol/L (22-29); Chloride 109 mmol/L (98-107); Globulin 2.8 g/dL (1.3-4.6); Glomerular Filtration Rate 89.7 mL/min (90-130); Glucose 100 mg/dL (65-115); Lipase 42 U/L (13-60); Osmolality Calculated 286 mOsm/kg (285-295); Potassium 3.3 mmol/L (3.5-5.1); Sodium 140 mmol/L (136-145); Total Protein 6.6 g/dL (6.6-8.7)
[2020-01-15] MEDS: iohexol 300 mg/mL 100 mL Btl IV (02:42)
[2020-01-15 03:11] VITALS: BP 113/51; PULSE 71; O2SAT 98
[2020-01-15] MEDS: lactulose oral liq 20 gm/30 mL UDC 30 GM PO (03:26)
[2020-01-15 03:36] VITALS: BP 111/73; PULSE 50; RESP 16; O2SAT 100
== END 2020-01-15 03:43 | disposition home or self-care (01) ==
PROVIDERS: Emergency Provider Emergency Medicine; PCP Internal Medicine
DX: K59.00 Constipation, unspecified (principal); Z87.891 Personal history of nicotine dependence
CPT/HCPCS: 12345; 74177; 80053; 83690; 85025; 96361; 96374; 96375; 99283; J2270; J2405; J7030; Q9967

== ENCOUNTER 2020-11-06 11:55 | Emergency (ER) | payer SELFPAY ==
[2020-11-06 12:07] VITALS: BP 130/79; PULSE 73; RESP 18; TEMP 36.7; O2SAT 99; BMI 34.0
--- NOTE | 2020-11-06 12:15 | XRR_ITS ---
PROCEDURE INFORMATION: Exam: XR Chest Exam date and time: 11/06/2020 12:15 PM Age: 50 years old Clinical indication: Shortness of breath; Additional info: Reduced breath sounds TECHNIQUE: Imaging protocol: XR of the chest. Views: Frontal portable upright view of the chest. COMPARISON: CR Chest 2 views* [id number] 07/17/2015 1:13 PM FINDINGS: Tubes, catheters and devices: EKG lead present overlying the right lateral chest. Lungs: Right suprahilar pulmonary subsegmental atelectasis. The lungs are otherwise peripherally clear bilaterally. The pulmonary vasculature is normal. Pleural spaces: No pleural effusion. No pneumothorax. Heart/Mediastinum: The heart is normal in size and contour. Mediastinum: Stable. Bones/joints: Stable. XR/XR chest 1V portable [id number] IMPRESSION: Right suprahilar pulmonary subsegmental atelectasis.
[2020-11-06 12:19] VITALS: O2SAT 100
--- NOTE | 2020-11-06 12:27 | ECG_ITS ---
[facility] Test Date: 2020-11-06 Pat Name: Arlyn Lawson Department: Room: Gender: Female House Servant: : 1970 Requested By: Margarito Garsia Order Number: [id number] Reading MD: SANDRA OROURKE Measurements Intervals [place] Rate: 72 P: 7 CA: 139 QRS: 23 QRSD: 86 T: 11 QT: 406 QTc: 445 Interpretive Statements SINUS RHYTHM NONSPECIFIC T-WAVE ABNORMALITY Compared to ECG 09/14/2017 20:58:15 Possible ischemia no longer present T-wave abnormality still present Electronically Signed On 11-07-2020 18:50:16 CDT by SANDRA OROURKE [email or web address]
[2020-11-06 12:36] LABS: Basophils % 0.5 %; Eosinophils # 0.1 10^3/uL (0.0-0.8); Eosinophils % 1.2 %; Hematocrit 42.9 % (37.0-47.0); Hemoglobin 14.2 g/dL (11.5-15.3); Lymphocytes # 1.3 10^3/uL (0.8-4.8); Lymphocytes % 22.3 %; Mean Corpuscular HGB Conc 33.1 g/dL (30.0-36.0); Mean Corpuscular Volume 90.5 fL (81-99); Mean Platelet Volume 11.8 fL (7.4-10.4); Monocytes # 0.5 10^3/uL (0.2-0.9); Monocytes % 8.3 %; Neutrophils % 67.5 %; Nucleated Red Blood Cells % 0 %; Platelet Count 286 10^3/cmm (130-400); Red Blood Count 4.74 10^6/uL (4.1-5.3); Red Cell Distribution Width 12.7 % (12.1-15.1); White Blood Count 5.8 10^3/uL (4.0-10.0)
--- NOTE | 2020-11-06 12:40 | W.ED.CHESTPA ---
HPI - Chest Pain General: Chief Complaint: Chest Pain Stated Complaint: CHEST PAIN; NAUSEA; HEADACHE Time Seen by Provider: 11/06/20 11:58 History of Present Illness: HPI narrative: The patient comes to the ER a 50-year-old female with past medical history frequent migraines and paroxysmal atrial fibrillation. She comes in complaining that she developed a migraine today and it made her nauseous which they often do but she vomited and when she began to vomit she said she began to have chest pain and palpitations that radiated up the left side of her neck. EMS arrived and gave her a nitroglycerin noted her to be in A. fib RVR with rate 1 30-1 60 however she spontaneously converted to sinus rhythm on her own. On arrival to the ER she denies chest pain and shortness of breath but continues to complain of a migraine. Associated symptoms: Reports nausea and vomiting; Deny abdominal pain, dyspnea or palpitations Review of Systems General: Reports: 10 or more systems reviewed and unremarkable except in HPI and below Const: Denies: fatigue Eyes: Denies: change in vision, blurry vision or eye redness ENMT: Denies: throat pain, swelling of lips/tongue, ear or mastoid pain or nasal congestion Card: Denies: chest pain, palpitations, irregular heart rhythm, edema, dyspnea on exertion or orthopnea Resp: Denies: dyspnea, productive cough or non-productive cough GI: Reports: nausea and vomiting; Denies: abdominal pain : Denies: flank pain, difficulty voiding, urinary frequency or urinary urgency Musc: Denies: neck pain, back pain, extremity pain, joint pain, joint redness, limited range of motion or muscle weakness Skin/Breast: Denies: rash, pruritus, erythema, skin pain or skin tenderness Neuro: Reports: headache(s); Denies: numbness in extremities, weakness in extremities, sensory changes, difficulty walking, dizziness, confusion or Slurred speech present Psych: Denies: anxiety or depression Endo: Denies: polyuria All/Imm: Denies: urticaria, throat swelling or tongue swelling PFSH ED PFSH: Medical History (Updated 11/06/20 @ 14:19 by Margarito Garsia MD) Diverticulitis Epigastric pain GERD (gastroesophageal reflux disease) Tubal infertility in female Surgical History Hiatal hernia History of cholecystectomy History of tubal ligation Status post laparoscopic Kellie fundoplication (~10/2019) Family History Denies family history of Anesthesia complication Bleeding disorder Social History Smoking and tobacco status: former smoker Alcohol intake: current Alcohol intake frequency: holidays/special occasions only Female Reproductive History: Date of last menstrual period: 11/06/20 Physical Exam Const: COMMON NORMALS: no acute distress, average body habitus, patient oriented x3, no limitations, healthy appearing, alert and well nourished GENERAL APPEARANCE: cooperative, comfortable, well kempt and well developed ORIENTATION/CONSCIOUSNESS: Yes awake, Yes oriented to person, Yes oriented to place and Yes oriented to time HENMT: COMMON NORMALS: normocephalic, external ears normal and Normal external nose present HEAD & SCALP: normal to inspection and normocephalic NOSE: Normal external nose present EXTERNAL EAR: Yes external ears normal MOUTH: Normal oral and palatal mucosa present THROAT: posterior oropharynx normal Eye: COMMON NORMALS: Equal, round and reactive pupils present and EOMs intact bilaterally GENERAL EYE: appearance normal, both eyes and all related structures PUPIL: Yes Equal, round and reactive pupils present Neck/C-Spine: COMMON NORMALS: full ROM, no lymphadenopathy, no meningeal signs and no JVD GENERAL: Yes normal visual inspection Lymph: LYMPHATIC: no lymphadenopathy noted Chest: COMMONS NORMALS: normal inspection of the chest and normal palpation of entire chest wall Resp: COMMON NORMALS: normal respiratory effort, No retractions, No use of accessory muscles, clear to auscultation bilaterally and percussion normal EFFORT & INSPECTION: Yes able to speak in complete sentences AUSCULTATION: clear to auscultation bilaterally PERCUSSION: percussion normal Cardio: COMMON NORMALS: no JVD, regular rate, regular rhythm, S1 normal heart sound present, S2 normal heart sound present and Peripheral pulses 2+ throughout RATE: regular rate RHYTHM: regular rhythm HEART SOUNDS: S1 normal heart sound present and S2 normal heart sound present PERIPHERAL PULSES: Peripheral pulses 2+ throughout GI: COMMON NORMALS: Normal to inspection, nondistended, normoactive bowel sounds present, Soft to palpation, non-tender and no masses INSPECTION: Yes normal to inspection PALPATION: Yes Soft to palpation : COMMON NORMALS: Yes no CVA tenderness BLADDER/KIDNEY EXAM: Yes no CVA tenderness Back/Pelvis: COMMON NORMALS: no CVA tenderness, thoracic and lumbar spine normal to inspection, no thoracic nor lumbar tenderness and thoraco-lumbar ROM normal Extremity: COMMON NORMALS: normal to inspection, full ROM, capillary refill normal, no joint enlargement and no pedal edema GENERAL: Yes normal exam except as noted Neuro: COMMON NORMALS: patient oriented x3, CN's II-XII intact bilaterally, moves all extremities, no focal motor deficits, no sensory deficits noted and gait normal SENSORIUM/ORIENTATION: Yes alert, Yes oriented to person, Yes oriented to place and Yes oriented to time MENINGEAL SIGNS: Yes no meningeal signs Psych: COMMON NORMALS: mental status grossly normal, Normal thought process present, cooperative, normal affect and speech normal APPEARANCE: Yes well kempt ATTITUDE: Yes calm SPEECH: Yes normal speech THOUGHT PROCESS: Normal thought process present Skin: COMMON NORMALS: no rashes or lesions noted GENERAL SKIN EXAM: no rashes or lesions noted Course Vital Signs: Vital signs: Vital Signs Temperature 98.0 F 11/06/20 12:07 Pulse Rate 60 11/06/20 14:01 Respiratory Rate 16 11/06/20 14:01 Blood Pressure 126/87 11/06/20 14:01 Pulse Oximetry 100 11/06/20 14:01 MDM - Chest Pain MDM Narrative: Medical decision making narrative: The patient has been in sinus rhythm here and has had no evidence of atrial fibrillation. She was given Tylenol, Phenergan, and IV fluids with resolution of her headache. She is requesting to go home and sleep it off. We discussed whether or not to start anticoagulation on her and opted not to because she is in sinus rhythm and she says she rarely is in atrial fibrillation. I said I will place a case management referral to help her get in with her primary doctor who can help her monitor this. She agrees to see him within the next week. ER with worsening symptoms at any time. Nausea and headache have resolved. She never had chest pain in the ED. Troponin normal. EKG normal. Telemetry shows sinus rhythm rate of 65 Lab Data: Labs: Lab Results 11/06/20 11/06/20 11/06/20 Range/Units 11:45 11:45 11:45 WBC 5.8 (4.0-10.0) 10^3/ uL RBC 4.74 (4.1-5.3) 10^6/u L Hgb 14.2 (11.5-15.3) g/dL Hct 42.9 (37.0-47.0) % MCV 90.5 (81-99) fL MCH 30.0 (28.0-34.0) pg MCHC 33.1 (30.0-36.0) g/dL RDW 12.7 (12.1-15.1) % Plt Count 286 (130-400) 10^3/c mm MPV 11.8 H (7.4-10.4) fL Neut % (Auto) 67.5 % Lymph % (Auto) 22.3 % [place] % (Auto) 8.3 % Eos % (Auto) 1.2 % Baso % (Auto) 0.5 % Neut # (Auto) 3.90 (1.8-7.7) 10^3/u L Lymph # (Auto) 1.3 (0.8-4.8) 10^3/u L [place] # (Auto) 0.5 (0.2-0.9) 10^3/u L Eos # (Auto) 0.1 (0.0-0.8) 10^3/u L Baso # (Auto) 0.0 (0.0-0.1) 10^3/u L Nucleated RBC % (a uto) 0 % Nucleated RBCs # 0.0 /100WBC D-Dimer 0.44 (0-0.59) ug/mIFE U Sodium 139 (136-145) mmol/L Potassium 4.2 (3.5-5.1) mmol/L Chloride 106 (98-107) mmol/L Carbon Dioxide 21 L (22-29) mmol/L Anion Gap 16.2 (5-19) BUN 13 (6-20) mg/dL Creatinine 0.7 (0.5-0.9) mg/dL GFR Calculation 89.3 L (90-130) mL/min Glucose 111 (65-115) mg/dL Calculated Osmolal ity 289 (285-295) mOsm/k g Calcium 9.3 (8.5-10.5) mg/dL Total Bilirubin 0.9 (0.15-1.2) mg/dL AST 14 (0-32) U/L ALT 13 (0-33) U/L Alkaline Phosphata se 52 (35-105) IU/L Troponin T Baselin e (0-10) ng/L NT-Pro-B Natriuret Pep 20 (0-125) pg/mL Total Protein 6.6 (6.6-8.7) g/dL Albumin 4.1 (3.5-5.2) g/dL Globulin 2.5 (1.3-4.6) g/dL 11/06/20 Range/Units 11:45 WBC (4.0-10.0) 10^3/ uL RBC (4.1-5.3) 10^6/u L Hgb (11.5-15.3) g/dL Hct (37.0-47.0) % MCV (81-99) fL MCH (28.0-34.0) pg MCHC (30.0-36.0) g/dL RDW (12.1-15.1) % Plt Count (130-400) 10^3/c mm MPV (7.4-10.4) fL Neut % (Auto) % Lymph % (Auto) % [place] % (Auto) % Eos % (Auto) % Baso % (Auto) % Neut # (Auto) (1.8-7.7) 10^3/u L Lymph # (Auto) (0.8-4.8) 10^3/u L [place] # (Auto) (0.2-0.9) 10^3/u L Eos # (Auto) (0.0-0.8) 10^3/u L Baso # (Auto) (0.0-0.1) 10^3/u L Nucleated RBC % (a uto) % Nucleated RBCs # /100WBC D-Dimer (0-0.59) ug/mIFE U Sodium (136-145) mmol/L Potassium (3.5-5.1) mmol/L Chloride (98-107) mmol/L Carbon Dioxide (22-29) mmol/L Anion Gap (5-19) BUN (6-20) mg/dL Creatinine (0.5-0.9) mg/dL GFR Calculation (90-130) mL/min Glucose (65-115) mg/dL Calculated Osmolal ity (285-295) mOsm/k g Calcium (8.5-10.5) mg/dL Total Bilirubin (0.15-1.2) mg/dL AST (0-32) U/L ALT (0-33) U/L Alkaline Phosphata se (35-105) IU/L Troponin T Baselin e 6 (0-10) ng/L NT-Pro-B Natriuret Pep (0-125) pg/mL Total Protein (6.6-8.7) g/dL Albumin (3.5-5.2) g/dL Globulin (1.3-4.6) g/dL Discharge Plan Discharge Patient Disposition: Home Clinical Impression: Migraine, PAF (paroxysmal atrial fibrillation) Condition: Stable Prescriptions: No Action zinc 50 mg tablet 50 mg PO DAILY RF: 0 [id number] no.[id number] mg tablet 1 tab PO DAILY RF: 0 polyethylene glycol 3350 [Miralax] 17 gram/dose powder 17 gm PO DAILY PRN (Reason: constipation) Qty: 119 RF: 0 [place] Oil 1,000 mg Capsule 1 cap PO TID RF: 0 Fiber One Probiotic 1 tab PO DAILY RF: 0 1 tab PO DAILY RF: 0 Vitamin C 1 tab PO DAILY RF: 0 Vitamin D3 1 tab PO DAILY RF: 0 milk thistle 1 tab PO DAILY RF: 0 vitamin E 1 tab PO DAILY RF: 0 Discharge Orders: Discharge ED (Routine); Ordered 11/06/20 Ordered By: Margarito Garsia Referrals: Arsenio Rossi MD [Primary Care Provider] - Patient Instructions: Atrial Fibrillation (ED), Migraine Headache (ED), Opioid Safety Activity Restrictions/Additional Instructions: You have had a migraine which is triggered nausea and likely a short episode of atrial fibrillation. The symptoms have all been resolved with Tylenol, Phenergan, and IV fluids. I have placed a case management to help you follow-up with a primary care physician within a week. Discuss at that time whether it is appropriate to start on anticoagulation. Return to the ER at anytime with worsening symptoms, palpitations, nausea vomiting or any other worrisome symptoms. Coding Level of Care Code ED Team Truck Driver for Miriam Fwd Exam Comprehensive
[2020-11-06 12:45] LABS: D Dimer 0.44 ug/mIFEU (0-0.59)
[2020-11-06 12:56] LABS: Troponin(5th) Baseline 6 ng/L (0-10)
[2020-11-06 13:03] LABS: Alanine Aminotransferase 13 U/L (0-33); Albumin Level 4.1 g/dL (3.5-5.2); Alkaline Phosphatase 52 IU/L (35-105); Aspartate Amino Transferase 14 U/L (0-32); Blood Urea Nitrogen 13 mg/dL (6-20); Calcium 9.3 mg/dL (8.5-10.5); Carbon Dioxide 21 mmol/L (22-29); Chloride 106 mmol/L (98-107); Globulin 2.5 g/dL (1.3-4.6); Glomerular Filtration Rate 89.3 mL/min (90-130); Glucose 111 mg/dL (65-115); NT Pro B Type Natriuretic Pept 20 pg/mL (0-125); Total Bilirubin 0.9 mg/dL (0.15-1.2); Total Protein 6.6 g/dL (6.6-8.7)
[2020-11-06] MEDS: sodium chloride 0.9% 1,000 ML 999 ML IV (13:04)
[2020-11-06] MEDS: promethazine 25 mg/mL SDV 1 mL IM (13:05)
[2020-11-06] MEDS: acetaminophen 325 mg Tablet 650 MG PO (13:05)
[2020-11-06 13:09] LABS: Anion Gap 16.2 (5-19); Osmolality Calculated 289 mOsm/kg (285-295); Potassium 4.2 mmol/L (3.5-5.1); Sodium 139 mmol/L (136-145)
[2020-11-06 14:01] VITALS: BP 126/87; PULSE 60; RESP 16; O2SAT 100
[2020-11-06 14:50] LABS: Troponin 5 2HR Delta 0 ABS# (0-10)
[2020-11-06 15:39] VITALS: BP 126/87; PULSE 65; O2SAT 99
== END 2020-11-06 14:40 | disposition home or self-care (01) ==
PROVIDERS: Emergency Provider Family Medicine; PCP Internal Medicine
DX: G43.909 Migraine, unspecified, not intractable, without status migrainosus (principal); I48.0 Paroxysmal atrial fibrillation; Z87.891 Personal history of nicotine dependence
CPT/HCPCS: 71045; 80053; 83880; 84484; 85025; 85378; 93005; 96360; 96372; 99284; J2550; J7030

== ENCOUNTER 2021-06-09 11:55 | Emergency (ER) | payer SELFPAY ==
[2021-06-09 12:32] VITALS: BP 163/100; PULSE 77; RESP 16; TEMP 36.9; O2SAT 98; BMI 35.2
--- NOTE | 2021-06-09 15:12 | ED_ITS ---
HPI - Eye Problem General: Chief complaint: Eye Problems Stated complaint: Red eye and sore Time Seen by Provider: 06/09/21 14:26 History of Present Illness: Patient states she has had some right eye redness the last few days been using Visine. Said her eye has been matted when she w akes up. Denies any other problems. Associated symptoms: Denies fever(s), headache(s), nausea or vomiting Review of Systems Const: Denies: fever(s), chills or body aches Eyes: Reports: eye discomfort, eye redness and other (Matting right eye on waking has been using his any) ENMT: Denies: throat pain Card: Denies: chest pain Resp: Denies: dyspnea GI: Denies: abdominal pain, nausea or vomiting Skin/Breast: Denies: rash Neuro: Denies: headache(s) Psych: Denies: depression or suicidal ideation [facility] ED PFSH: Medical History (Updated 06/09/21 @ 14:28 by PRADIP Mas) Diverticulitis Epigastric pain GERD (gastroesophageal reflux disease) Tubal infertility in female Surgical History Hiatal hernia History of cholecystectomy History of tubal ligation Status post laparoscopic Kellie fundoplication (~10/2019) Family History Denies family history of Anesthesia complication Bleeding disorder Social History Smoking and tobacco status: former smoker Alcohol intake: current Alcohol intake frequency: holidays/special occasions only Female Reproductive History: Date of last menstrual period: 11/06/20 Physical Exam Const: COMMON NORMALS: no acute distress, patient oriented x3 and alert HENMT: COMMON NORMALS: normocephalic HEAD & SCALP: normocephalic Eye: COMMON NORMALS: EOMs intact bilaterally SCLERA: scleral abnormal Laterality of scleral abnormality: positive right scleral injection Neck/C-Spine: COMMON NORMALS: no JVD Resp: COMMON NORMALS: normal respiratory effort and No use of accessory muscles Cardio: COMMON NORMALS: no JVD GI: INSPECTION: Yes normal to inspection Extremity: COMMON NORMALS: normal to inspection and full ROM Neuro: COMMON NORMALS: patient oriented x3 SENSORIUM/ORIENTATION: Yes alert Psych: COMMON NORMALS: mental status grossly normal Skin: COMMON NORMALS: no rashes or lesions noted GENERAL SKIN EXAM: no rashes or lesions noted Course Vital Signs: Vital signs: Vital Signs Temperature 98.4 F 06/09/21 12:32 Pulse Rate 77 06/09/21 12:32 Respiratory Rate 16 06/09/21 12:32 Blood Pressure 163/100 06/09/21 12:32 Pulse Oximetry 98 06/09/21 12:32 [facility] - Eye Problem Medical Decision Making Right eye conjunctivitis and scleritis. Prescription provided. Patient encouraged to check her blood pressure twice a day and report those readings back to her primary care provider in 2 weeks. Patient states she is not really had a history of hypertension. Discharge Plan Discharge Patient Disposition: Home Clinical Impression: Bacterial conjunctivitis, HTN (hypertension) Condition: Stable Prescriptions: New pwwjqixa-mendjxpkbh-tbdo-HC 3.5-400-10,000 mg-unit/g-1% ointment 1 applic ophthalmic (eye) TID 7 Days Qty: 3.5 0RF No Action zinc 50 mg tablet 50 mg PO DAILY 0RF [id number] no.226 [phone] mg tablet 1 tab PO DAILY 0RF polyethylene glycol 3350 [Miralax] 17 gram/dose powder 17 gm PO DAILY PRN (Reason: constipation) Qty: 119 0RF [place] Oil 1,000 mg Capsule 1 cap PO TID 0RF Fiber One Probiotic 1 tab PO DAILY 0RF 1 tab PO DAILY 0RF Vitamin C 1 tab PO DAILY 0RF Vitamin D3 1 tab PO DAILY 0RF milk thistle 1 tab PO DAILY 0RF vitamin E 1 tab PO DAILY 0RF Discharge Orders: Discharge ED (Routine); Ordered 06/09/21 Ordered By: Diony Orantes Referrals: Arsenio Rossi MD [Primary Care Provider] - Discharge Diet: Usual diet Discharge Activity: Resume usual activity Patient Instructions: Chronic Hypertension (ED), Conjunctivitis (ED) Activity Restrictions/Additional Instructions: Follow-up with medical provider as directed. Take medications as prescribed. Return to the ER or your medical provider if condition worsens. Please read and understand discharge instructions. If any questions ask please. Check blood pressure readings twice a day for 2 weeks and report those back to your primary care provider please Coding Level of Care Code ED Life Educator for Miriam Gamez
== END 2021-06-09 14:48 | disposition home or self-care (01) ==
PROVIDERS: Emergency Provider Nurse Practitioner Family; PCP Internal Medicine
DX: H10.89 Other conjunctivitis (principal); I10 Essential (primary) hypertension; Z87.891 Personal history of nicotine dependence
CPT/HCPCS: 99281

== ENCOUNTER 2021-08-01 10:50 | Emergency (ER) | payer SELFPAY ==
[2021-08-01 11:36] VITALS: BP 142/85; PULSE 74; RESP 18; TEMP 36.4; O2SAT 96; BMI 36.0
--- NOTE | 2021-08-01 11:55 | ED_ITS ---
HPI - Allergic Reaction General: Chief complaint: Allergic Reaction Stated complaint: rash on head Time Seen by Provider: 08/01/21 11:42 History of Present Illness: HPI narrative: Patient is a 50-year-old female comes to the ED with a pruritic rash. Rash has been going on now for several weeks. It is located on her neck and goes into her scalp. she does dye her hair and recently dyed hair before rash started. She went and saw urgent care couple weeks ago and they gave her an antibiotic cream that did not help. Associated symptoms: Deny abdominal pain, nausea or vomiting Review of Systems Const: Denies: fever(s), chills or fatigue Eyes: Denies: change in vision or eye discomfort ENMT: Denies: throat pain, odynophagia, nasal discharge or nasal congestion Card: Denies: chest pain, palpitations, edema, swelling of feet/ankles, dyspnea on exertion or orthopnea Resp: Denies: dyspnea, productive cough or non-productive cough GI: Denies: abdominal pain, nausea, vomiting, diarrhea, constipation or hematochezia : Denies: flank pain, dysuria or hematuria Musc: Denies: neck pain, back pain or extremity swelling Skin/Breast: Reports: rash (Pruritic rash on scalp and neck.); Denies: new lesions Neuro: Denies: headache(s), numbness in extremities or weakness in extremities PFSH ED PFSH: Medical History Diverticulitis Epigastric pain GERD (gastroesophageal reflux disease) Tubal infertility in female Surgical History Hiatal hernia History of cholecystectomy History of tubal ligation Status post laparoscopic Kellie fundoplication (~10/2019) Family History Denies family history of Anesthesia complication Bleeding disorder Social History Smoking and tobacco status: former smoker Alcohol intake: current Alcohol intake frequency: holidays/special occasions only Female Reproductive History: Date of last menstrual period: 11/06/20 Physical Exam Const: COMMON NORMALS: no acute distress, patient oriented x3 and alert GENERAL APPEARANCE: cooperative and comfortable HENMT: COMMON NORMALS: normocephalic HEAD & SCALP: normocephalic MOUTH: Normal oral and palatal mucosa present THROAT: posterior oropharynx normal and uvula midline Neck/C-Spine: COMMON NORMALS: supple GENERAL: Yes normal visual inspection Resp: COMMON NORMALS: normal respiratory effort, No retractions, No use of accessory muscles and clear to auscultation bilaterally AUSCULTATION: clear to auscultation bilaterally Cardio: COMMON NORMALS: regular rate, regular rhythm, S1 normal heart sound present, S2 normal heart sound present, No gallops present (Cardio), No clicks present (Cardio), No murmurs present (Cardio) and Peripheral pulses 2+ throug hout RATE: regular rate RHYTHM: regular rhythm HEART SOUNDS: S1 normal heart sound present and S2 normal heart sound present PERIPHERAL PULSES: Peripheral pulses 2+ throughout GI: COMMON NORMALS: Normal to inspection, nondistended, normoactive bowel sounds present, Soft to palpation, non-tender and no masses PALPATION: Yes Soft to palpation : COMMON NORMALS: Yes no CVA tenderness BLADDER/KIDNEY EXAM: Yes no CVA tenderness Back/Pelvis: COMMON NORMALS: no CVA tenderness Extremity: COMMON NORMALS: normal to inspection Neuro: COMMON NORMALS: patient oriented x3 and moves all extremities SENSORIUM/ORIENTATION: Yes alert Skin: NARRATIVE SKIN EXAM: Patient has pruritic/hives-like rash neck and scalp. GENERAL SKIN EXAM: dry skin Course Vital Signs: Vital signs: Vital Signs Temperature 97.5 F L 08/01/21 11:36 Pulse Rate 88 08/01/21 11:58 Respiratory Rate 16 08/01/21 11:58 Blood Pressure 142/85 08/01/21 11:58 Pulse Oximetry 98 08/01/21 11:58 MDM - Allergic Reaction Medical Decision Making Patient is a 50-year-old female comes to the ED with a pruritic rash. She has a pruritic rash that is on her neck and scalp that started shortly after she dyed her hair. Patient likely having allergic reaction to hair dye. I told her to go home and wash out dye and chemicals in hair. She was also discharged home with some triamcinolone cream and prednisone to help with allergic reaction. Follow-up with PCP if symptoms return evaluation. Return to ED precautions given. Patient understood and agreed with plan. Discharge Plan Discharge Patient Disposition: Home Clinical Impression: Allergic reaction Qualifiers: Encounter type: initial encounter Qualified Code(s): T78.40XA - Allergy, unspecified, initial encounter Condition: Stable Prescriptions: New triamcinolone acetonide 0.1 % cream 1 applic topical DAILY PRN (Reason: rash) Qty: 30 0RF prednisone 20 mg tablet 20 mg PO BID 5 Days Qty: 10 0RF No Action mupirocin 2 % ointment 1 applic topical TID 7 Days Qty: 22 0RF zinc 50 mg tablet 50 mg PO DAILY 0RF [id number] no.[phone] mg tablet 1 tab PO DAILY 0RF polyethylene glycol 3350 [Miralax] 17 gram/dose powder 17 gm PO DAILY PRN (Reason: constipation) Qty: 119 0RF [place] Oil 1,000 mg Capsule 1 cap PO TID 0RF Fiber One Probiotic 1 tab PO DAILY 0RF 1 tab PO DAILY 0RF Vitamin C 1 tab PO DAILY 0RF Vitamin D3 1 tab PO DAILY 0RF milk thistle 1 tab PO DAILY 0RF vitamin E 1 tab PO DAILY 0RF Discharge Orders: Discharge ED (Routine); Ordered 08/01/21 Ordered By: Igor Yost Referrals: Arsenio Rossi MD [Primary Care Provider] - Discharge Diet: Regular Discharge Activity: Resume usual activity Patient Instructions: Allergic Reaction Activity Restrictions/Additional Instructions: Follow-up with medical provider as directed in the next 7 to 10 days for reevaluation. I recommend rinsing out hair dye to remove any possible chemicals or irritants. Take all medications as prescribed. Return to the ER or your medical provider if condition worsens. Please read and understand discharge instructions. Thank you for choosing [facility] for your healthcare needs today. Please realize this is an emergency room and that we are providing you with a medical screening exam and this may not be complete and all inclusive of all the testing and or work up that you may need to determine your ailment or severity of your illness. It is very important that you follow up as instructed or that you return to the Emergency Department should you have concerns or if your condition changes or worsens in any way. Coding Level of Care Code ED Designer/Writer for Miriam Gamez Exam Comprehensive
[2021-08-01 11:58] VITALS: BP 142/85; PULSE 88; RESP 16; O2SAT 98
== END 2021-08-01 12:10 | disposition home or self-care (01) ==
PROVIDERS: Emergency Provider Physician Assistant; PCP Internal Medicine
DX: T78.40XA Allergy, unspecified, initial encounter (principal); L29.9 Pruritus, unspecified; Z87.891 Personal history of nicotine dependence
CPT/HCPCS: 99283

== ENCOUNTER 2021-09-17 21:05 | Emergency (ER) | payer SELFPAY ==
[2021-09-17 21:40] VITALS: BP 132/87; PULSE 98; RESP 20; TEMP 37.1; O2SAT 100
--- NOTE | 2021-09-17 22:18 | XRR_ITS ---
PROCEDURE INFORMATION: Exam: XR Right Hip Exam date and time: 09/18/2021 12:20 AM Age: 50 years old Clinical indication: Pain and injury or trauma; Fall; Blunt trauma (contusions or hematomas); Hip pain; Right hip; Additional info: Fall injury with right hip pain TECHNIQUE: Imaging protocol: XR Right hip. Views: 2 or 3 views hip with pelvis when performed. COMPARISON: CT abdomen pelvis w con* [id number] 01/15/2020 2:36 AM FINDINGS: Bones/joints: Unremarkable. No acute fracture. Soft tissues: Unremarkable. XR/XR hip RT 2-3V wo/w pel* [id number] IMPRESSION: No acute findings.
[2021-09-18 00:14] VITALS: BP 157/91; PULSE 78; RESP 18; O2SAT 97
[2021-09-18 01:00] VITALS: BP 145/95; PULSE 76; RESP 18; O2SAT 97
[2021-09-18 01:30] VITALS: BP 122/64; PULSE 68; RESP 18; O2SAT 97
--- NOTE | 2021-09-18 02:56 | ED_ITS ---
HPI - Fall General: Chief Complaint: Fall Stated Complaint: Swollen Hip Rabun POP Time Seen by Provider: 09/18/21 00:17 Source: patient History of Present Illness: 50-year-old female who says she fell and hit her thigh on a couch breaking the board in the couch around a month ago. She has had right hip/anterior thigh pain since that time. She seen her primary physician twice for this. She states that pain is not improved. She complains of a painful lump to the front of her thigh. She notes it is hard to walk and move her leg. It is especially hard to bend her knee. complaint: fall Onset (ago): week(s) Fall from: standing Fall witnessed: yes, by family Place fall occurred: home Loss of consciousness: None Context: tripped/slipped Location of injury - extremities: Right: thigh Quality: aching and throbbing Associated symptoms-after fall: Reports difficulty walking; Denies abdominal pain, chest pain, confusion, headache(s) or weakness Review of Systems Const: Denies: fever(s) or chills ENMT: Denies: throat pain Card: Denies: chest pain Resp: Denies: dyspnea, productive cough or non-productive cough GI: Denies: abdominal pain Musc: Denies: back pain Neuro: Reports: difficulty walking; Denies: headache(s) or confusion PFS ED PFSH: Medical History Diverticulitis Epigastric pain GERD (gastroesophageal reflux disease) Tubal infertility in female Surgical History Hiatal hernia History of cholecystectomy History of tubal ligation Status post laparoscopic Kellie fundoplication (~10/2019) Family History Denies family history of Anesthesia complication Bleeding disorder Social History Smoking and tobacco status: former smoker Alcohol intake: current Alcohol intake frequency: holidays/special occasions only Female Reproductive History: Date of last menstrual period: 11/06/20 Physical Exam Const: GENERAL APPEARANCE: cooperative; not ill appearing and not frail appearing HENMT: COMMON NORMALS: normocephalic and atraumatic HEAD & SCALP: normocephalic and atraumatic Eye: COMMON NORMALS: Equal, round and reactive pupils present and EOMs intact bilaterally PUPIL: Yes Equal, round and reactive pupils present Neck/C-Spine: GENERAL: Yes trachea midline Chest: CHEST: Yes Symmetrical chest wall rise Resp: COMMON NORMALS: normal respiratory effort and No use of accessory muscles Cardio: COMMON NORMALS: regular rate and regular rhythm RATE: regular rate RHYTHM: regular rhythm GI: COMMON NORMALS: Normal to inspection, nondistended, normoactive bowel sounds present, Soft to palpation and non-tender PALPATION: Yes Soft to palpation Back/Pelvis: PELVIS: Yes no pain with anterior-posterior compression Extremity: NARRATIVE EXTREMITY EXAM: Examination of the right thigh reveals a tender mass in the anterior right thigh musculature. Mild ecchymotic skin changes. No pain on logroll maneuver.AMY test is essentially negative. No pain on straight leg raise testing, although quad activation causes significant pain. Neuro: ABUNDIO COMA SCALE: document GCS findings Abundio coma scale eye opening: Spontaneous Abundio coma scale verbal response: Orientated [place] coma scale motor response: Obey commands Abundio coma scale total score: 15 Course Vital Signs: Vital signs: Vital Signs Temperature 98.7 F 09/17/21 21:40 Pulse Rate 68 09/18/21 01:30 Respiratory Rate 18 09/18/21 01:30 Blood Pressure 122/64 09/18/21 01:30 Pulse Oximetry 97 09/18/21 01:30 MDM - Fall Medical Decision Making 4-week-old fall. X-ray of the hip is negative. Bedside ultrasound shows what appears to be a hematoma in the anterior thigh. Fluid is somewhat heterogenous, likely clot formation in the hematoma. Because of this, attempt at aspiration was not made in the ER. Patient is not experiencing fever or chills. We will ask her to follow-up with orthopedics. Taper of steroid, pain medication, ice and heat. Importance of stretching to prevent myositis ossificans was reviewed with the patient. We will see if we can refer her to therapy as an outpatient as well. Lab Data Radiology Impressions Hip/Pelvis X-Ray 09/17/21 22:18 IMPRESSION: No acute findings. Discharge Plan Discharge Patient Disposition: Home Clinical Impression: Hematoma of right thigh Condition: Stable Prescriptions: New hydrocodone-acetaminophen 5-325 mg tablet 1 tab PO Q8H PRN (Reason: pain) Qty: 7 0RF Medrol (Junior) 4 mg tablets,dose pack See Rx Instructions .ROUTE .COMPLEX Qty: 21 0RF Rx Instructions: orally per package directions No Action mupirocin 2 % ointment 1 applic topical TID 7 Days Qty: 22 0RF zinc 50 mg tablet 50 mg PO DAILY 0RF [id number] [id number]-pybs no.226 [id number] mg tablet 1 tab PO DAILY 0RF prednisone 10 mg tablet See Rx Instructions .Route .COMPLEX Qty: 1 0RF Rx Instructions: Begin at 40 mg daily and reduce by 10 every three days till gone Dispense QS; polyethylene glycol 3350 [Miralax] 17 gram/dose powder 17 gm PO DAILY PRN (Reason: constipation) Qty: 119 0RF Lutz Oil 1,000 mg Capsule 1 cap PO TID 0RF Fiber One Probiotic 1 tab PO DAILY 0RF Vitamin C 1 tab PO DAILY 0RF Vitamin D3 1 tab PO DAILY 0RF milk thistle 1 tab PO DAILY 0RF vitamin E 1 tab PO DAILY 0RF triamcinolone acetonide 0.1 % cream 1 applic topical DAILY PRN (Reason: rash) Qty: 30 0RF Discharge Orders: Discharge ED (Routine); Ordered 09/18/21 Ordered By: Wayne Quinn Referrals: Arsenio Rossi MD [Primary Care Provider] - 1-3 days Jadyn Roman MD [Physician] - 4-7 days Discharge Diet: Advance as tolerated Discharge Activity: Increase activity as tolerated Patient Instructions: Hematoma (ED) Activity Restrictions/Additional Instructions: Ice frequently. Medication as directed. You should stretch to your tolerance at least twice daily. Case management has been contacted to create a physical therapy referral. You should get a call from them this week. Follow-up with orthopedics as directed. 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
--- NOTE | 2021-09-20 17:33 | DCPLANNER ---
Addendum entered by Hanna Perea 09/29/21 16:05: hydro generation manager was told that per nurse, patient can follow up with primary care, clinic will call patient and inform patient that she can followup with primary care physician. Original Note: hydro generation manager had message to schedule a follow up appointment for patient with ortho. hydro generation manager sent patients information to the front office staff at ortho. Patients information will be printed and reviewed. Clinic will call patient with appointment information.
== END 2021-09-18 01:30 | disposition home or self-care (01) ==
PROVIDERS: Emergency Provider Emergency Medicine; PCP Internal Medicine
DX: S70.11XA Contusion of right thigh, initial encounter (principal); W01.190A Fall on same level from slipping, tripping and stumbling with subsequent striking against furniture, initial encounter
CPT/HCPCS: 73502; 99283

== ENCOUNTER 2021-11-22 08:42 | Outpatient (CLI) | payer OTHER, SELFPAY ==
--- NOTE | 2021-11-22 08:53 | MM_ITS ---
WS: [id number] SCREENING DIGITAL BREAST TOMOSYNTHESIS MAMMOGRAM WITH CAD HISTORY: SCREENING COMPARISON: 06/01/2011 and 05/21/2011 Bilateral CC and MLO with tomosynthesis views submitted. Synthetic mammography reviewed. Computer aid ed detection analyzed. Breast composition: There are scattered areas of fibroglandular density. No suspicious masses, microc alcifications or architectural distortion. MM/[place] [id number] IMPRESSION: BI-RADS: 1-Negative FOLLOW UP: 1 Year Follow-up
== END 2021-11-22 08:43 | disposition home or self-care (01) ==
PROVIDERS: PCP Internal Medicine; Visit Provider Nurse Practitioner Family
DX: Z12.31 Encounter for screening mammogram for malignant neoplasm of breast (principal)
CPT/HCPCS: 77063; 77067

== ENCOUNTER 2022-02-22 08:22 | Outpatient (CLI) | payer OTHER, MEDICAID, SELFPAY ==
--- NOTE | 2022-02-22 08:49 | MR_ITS ---
WS: [id number] MRI RIGHT THIGH, noncontrast. COMPARISON: Radiograph RIGHT hip 09/18/2021 Multiplanar, multisequence imaging is performed without contrast. Multiple sequences are performed. Patient was unable to complete this examination due to pain. There is a very large soft tissue mass extending throughout a large portion of the RIGHT thigh. This mass begins at the level of the greater trochanter and extends inferiorly to just above the knee join t. The largest component of the mass is multiloculated extending over length of 25 cm and transversel y by 14 cm. There are multiple loculations with distortion and displacement of the adjacent muscles a nd soft tissues. There is extensive involvement of the anterior compartment. There are flow voids pre sent. This lobulated mass extends to abut the cortex of the femur but there is no bone remodeling. No marrow edema or thickening or periosteal reaction. Mass is predominantly low to intermediate signal on the T1 sequences with increased signal on the STI R and T2 sequences with multiple loculations and flow voids. MR/MR lower leg RT wo con* [id number] IMPRESSION: 1. Large soft tissue mass centered within the anterior and lateral compartment of the RIGHT thigh. Mass extends from the greater trochanter to just above the knee joint. Multiple loculations and a few flow voids. No contrast was given. No bone remodeling. 2. This mass needs to be further evaluated and the etiology determined. Differ ential this time includes large multiloculated hematoma from AVM, neoplasm (noel coma, and MFH) and lymphangioma. 3. Recommend follow-up CT with IV contrast of the RIGHT femur. Notified PRADIP Sadler at 02/22/2022 11:46 AM.
== END 2022-02-22 08:23 | disposition home or self-care (01) ==
PROVIDERS: PCP Nurse Practitioner Family; Visit Provider Family Medicine
DX: S70.11XD Contusion of right thigh, subsequent encounter (principal); S89.91XD Unspecified injury of right lower leg, subsequent encounter; X58.XXXD Exposure to other specified factors, subsequent encounter; R22.41 Localized swelling, mass and lump, right lower limb
CPT/HCPCS: 73718

== ENCOUNTER 2022-04-02 18:35 | Emergency (ER) | payer OTHER, MEDICAID, SELFPAY ==
[2022-04-02 18:49] VITALS: BP 122/83; PULSE 98; RESP 16; TEMP 36.9; O2SAT 98
--- NOTE | 2022-04-02 18:56 | ED_ITS ---
HPI - General Adult General: Chief complaint: General Medical Stated complaint: Cancer Center Sent her Here\Pain Time Seen by Provider: 04/02/22 18:55 History of Present Illness: 51-year-old female comes in today with complaints of right upper leg pain. 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 Patient at this time takes oxycodone for her pain but the pain is worse at night and she is unable to control it. Patient is scheduled to see a oncologist on Saturday but came here tonight for pain control. Patient appears nontoxic. Patient appears in moderate pain. Associated symptoms: Deny chest pain or dyspnea Review of Systems Const: Denies: fever(s) Card: Denies: chest pain Resp: Denies: dyspnea Musc: Reports: extremity pain PFSH ED PFSH: Medical History Diverticulitis Epigastric pain GERD (gastroesophageal reflux disease) Insect bite, infected Tubal infertility in female Surgical History Hiatal hernia History of cholecystectomy History of tubal ligation Status post laparoscopic Kellie fundoplication (~10/2019) Family History Denies family history of Anesthesia complication Bleeding disorder Social History Smoking and tobacco status: former smoker Alcohol intake: current Alcohol intake frequency: holidays/special occasions only Female Reproductive History: Date of last menstrual period: 11/06/20 Physical Exam Const: COMMON NORMALS: alert HENMT: COMMON NORMALS: normocephalic HEAD & SCALP: normocephalic Neck/C-Spine: COMMON NORMALS: full ROM Chest: COMMONS NORMALS: normal inspection of the chest Resp: COMMON NORMALS: normal respiratory effort and clear to auscultation bilaterally AUSCULTATION: clear to auscultation bilaterally Cardio: COMMON NORMALS: regular rate and regular rhythm RATE: regular rate RHYTHM: regular rhythm Extremity: RIGHT LOWER EXTREMITY: Yes upper leg (Palpable lateral mass to the right upper leg.) Right upper leg: Yes inspection and Yes palpation Neuro: SENSORIUM/ORIENTATION: Yes alert Psych: COMMON NORMALS: mental status grossly normal Skin: COMMON NORMALS: turgor normal GENERAL SKIN EXAM: turgor normal Course Vital Signs: Vital signs: Vital Signs Temperature 98.4 F 04/02/22 18:49 Pulse Rate 98 04/02/22 18:49 Respiratory Rate 16 04/02/22 18:49 Blood Pressure 122/83 04/02/22 18:49 Pulse Oximetry 98 04/02/22 18:49 Oxygen Delivery Me thod 04/02/22 18:49 MDM - General Adult Medical Decision Making Patient comes in for breakthrough pain to her right upper extremity due to carcinoma. On exam patient has a palpable mass to the right upper leg. No distal swelling is noted to the extremity. Pulses are intact distally. Vital signs are normal. Differential diagnosis includes metastatic cancer, cancer related pain, DVT, peripheral artery disease. No signs of vascular disease is noted at this time. Suspect uncontrolled cancer pain. We will medicate patient with 1 mg of Dilaudid and 30 mg Toradol IM. Patient was recommended to follow- up with primary care in the morning for alterations in care plan for pain management. Discharge Plan Discharge Condition: Stable Prescriptions: No Action [id number] D32-foct no.[phone] mg tablet 1 tab PO DAILY doxycycline hyclate 100 mg tablet 100 mg PO BID Qty: 14 0RF cyclobenzaprine 5 mg tablet 5 mg PO TID PRN tramadol 100 mg tablet 100 mg PO Q6H PRN (Reason: pain) Qty: 60 0RF polyethylene glycol 3350 [Miralax] 17 gram/dose powder 17 gm PO DAILY PRN (Reason: constipation) Qty: 119 0RF Oketo Oil 1,000 mg Capsule 1 cap PO TID Fiber One Probiotic 1 tab PO DAILY Vitamin C 1 tab PO DAILY Vitamin D3 1 tab PO DAILY vitamin E 1 tab PO DAILY Referrals: Aleyda Jean-Baptiste FNP [Primary Care Provider] - Coding Level of Care Code 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
[2022-04-02 19:36] VITALS: RESP 17
[2022-04-02] MEDS: HYDROmorphone 1 mg/mL INJ 1 mL IM (19:36)
[2022-04-02] MEDS: ketorolac 30 mg/mL INJ IM (19:39)
== END 2022-04-02 20:03 | disposition home or self-care (01) ==
PROVIDERS: Emergency Provider Nurse Practitioner Family; PCP Nurse Practitioner Family
DX: M79.604 Pain in right leg (principal); C49.21 Malignant neoplasm of connective and soft tissue of right lower limb, including hip
CPT/HCPCS: 96372; 99284; J1170; J1885

== ENCOUNTER 2022-04-04 12:36 | Oncology outpatient (recurring) (ONCR) | payer OTHER, SELFPAY | END 2022-04-04 23:59 | disposition home or self-care (01) | PROVIDERS: PCP Nurse Practitioner Family; Visit Provider Internal Medicine Medical Oncology | DX: C49.21 Malignant neoplasm of connective and soft tissue of right lower limb, including hip (principal) ==

== ENCOUNTER 2022-04-06 10:51 | Day surgery (SDC) | payer MEDICAID, SELFPAY ==
--- NOTE | 2022-04-06 10:57 | XR_ITS ---
WS: [id number] XR chest 1V portable [id number] REASON FOR EXAM: Postop Mediport placement FINDINGS: Chemotherapy infusion port in place over the left anterolateral chest. Transvenous left subclavian ve in port catheter with the tip at the cavoatrial junction. No pneumothorax. No other significant chest abnormality. XR/XR chest 1V portable [id number] IMPRESSION: Chemotherapy infusion port and catheter placement as above.
--- NOTE | 2022-04-06 10:57 | SC_ITS ---
WS: [id number] INTRAOPERATIVE TECHNIQUE: 3 Spot fluoroscopic images for intraoperative purposes. FLUOROSCOPY TIME: 4.5 seconds CLINICAL INFORMATION: Mediport placement COMPARISON: None. FINDINGS: LEFT Port-A-Cath with tip in the distal SVC. SC/C-arm FL for CVA [id number] IMPRESSION: Images obtained for intraoperative purposes.
[2022-04-06 11:12] VITALS: BP 153/74; PULSE 96; RESP 18; TEMP 36.1; O2SAT 96
[2022-04-06] MEDS: sodium chloride 0.9% 1,000 ML 30 ML IV (11:31)
--- NOTE | 2022-04-06 11:37 | ANES.PREANE2 ---
Pre-Anesthetic Assessment Height/Weight: Height 1.7 m Weight 96.162 kg Temp Pulse Resp BP Pulse Ox O2 Del Method 97 F L 96 18 153/74 96 04/06/22 11:12 04/06/22 11:12 04/06/22 11:12 04/06/22 11:12 04/06/22 11:12 04/06/22 11:12 Preop Diagnosis: Sarcoma right thigh Operation Date: 04/06/22 12:00 Proposed Procedures p port Placement 08376 C49.21(Not Applicable) - Woody Nicole DO Familial anesthetic complications: NOne Was Beta Chandrika taken within 24 hours: N/A Was Clonidine taken within 24 hours: N/A Last intake: Intake Last Liquid Date 04/05/22 Last Liquid Time 18:00 Last Solid Date 04/05/22 Last Solid Time 18:00 Social No alcohol and No tobacco Exam alert, oriented x 3, clear to auscultation bilaterally and regular rate & rhythm Airway Mallampati: Class II Dentition: other (no teeth) CV/HEM Atrial Fibrillation (paroxysmal) GI Gastroesophageal Reflux Disease and Hiatal Hernia Anesthetic Plan ASA status: 3 Anesthesia: General Risk of > 500 ml blood loss (7ml/kg in children): No Medications/Allergies Home Medications Medication Instructions Recorded Confirmed Last Taken Type cyclobenzaprine 5 mg tablet 5 mg PO TID PRN Muscle Spasm 01/17/22 04/06/22 04/04/22 History tramadol 100 mg tablet 100 mg PO Q6H PRN pain #60 tabs 01/17/22 04/06/22 03/27/22 Rx multivitamin 1 tab PO DAILY 04/04/22 04/06/22 04/05/22 History mvi,min-folic acid 400 mcg-black 1 tab PO DAILY 04/04/22 04/06/22 04/05/22 History coh 40 mg-isoflav 40 mg-jujube tablet (Estroven Menopause) oxycodone-acetaminophen 5 mg-325 1 tab PO Q4H PRN Pain 04/04/22 04/06/22 04/06/22 06:00 History mg tablet Cbd Gummies 1 gummy PO DAILY sleep 04/05/22 04/06/22 04/05/22 History Allergies Allergy/AdvReac Type Severity Reaction Status Date / Time bupropion [From Wellbutrin] Allergy Unknown Verified 04/06/22 11:06 clonazepam [From Klonopin] Allergy ADR-Irritab Verified 04/06/22 11:06 le fluoxetine [From Prozac] Allergy ADR-Irritab Verified 04/06/22 11:06 le latex Allergy ALGY-Rash Verified 04/06/22 11:06 venlafaxine [From Effexor] Allergy Unknown Verified 04/06/22 11:06 Current Medications Generic Name Dose Route Start Last Admin Trade Name Marlene PRN Reason Stop Dose Admin Sodium Chloride 1,000 mls @ 30 mls/hr 04/06/22 11:00 04/06/22 11:31 Sodium Chloride 0.9% IV 04/07/22 10:59 30 mls/hr .Q24H ROSANNE Administration PFSH Anesthesia Medical History GERD (gastroesophageal reflux disease) 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 Surgical History History of cholecystectomy History of tubal ligation Status post laparoscopic Kellie fundoplication (10/27/19) Laparoscopic paraesophageal hernia repair with mesh placement and Niesen fundoplication with intraoperative EGD Family History Father Dementia Brother CAD (coronary artery disease) Other Cancer Diabetes Hyperlipidemia Hypertension Psychiatric illness Stroke Denies family history of Clotting disorder Chronic kidney disease (CKD) Suicide Anesthesia complication Bleeding disorder Lung disease Social History Smoking and tobacco status: former smoker Alcohol intake: current Alcohol intake frequency: holidays/special occasions only Female Reproductive History Date of last menstrual period: 11/06/20 Data Anesthesia Cardiac Studies: No Data to Display
[2022-04-06 11:42] LABS: OR HCG Qualitative Urine Negative (Negative)
[2022-04-06] MEDS: ceFAZolin 2,000 MG in sodium chloride 0.9% (plus) 50 ML 100 MG IV (13:14)
[2022-04-06] MEDS: heparin, porcine 1,000 unit/mL INJ 10 mL 10000 UNIT INJECTION (13:34)
--- NOTE | 2022-04-06 13:42 | P.OP_ITS ---
Operative Report Date of procedure: April 06, 2022 Pre-op diagnosis: Preop Diagnosis Sarcoma right thigh Post-op diagnosis: same Procedure done: Mediport placement Implants: PowerPort Surgeon: Dr. Woody Nicole, DO Anesthesia: MAC Estimated blood loss (mL): 5 Complications: None apparent Brief History: This very pleasant 51-year-old female with the unfortunate diagnosis of sarcoma of the right thigh. Mediport placement for chemotherapy was indicated. The risks and benefits were explained and documented. Procedure: Patient was taken to the operating room and placed supine on the operating room table. All bony prominences were padded. She was given IV sedation and monitored throughout the case by the anesthesia personnel. SCDs were placed and turned on. The arms were tucked to the side. Patient received Ancef 2 g preoperatively IV. The bilateral chest wall was prepped and draped in usual sterile fashion using chlorhexidine base prep. Sterile drapes were applied. We did procedure pause prior to beginning. An 18 gauge needle was placed in the left subclavian vein. Dark, nonpulsatile blood was aspirated. A guidewire was placed through the needle centrally toward the atrial/vena caval junction. Fluoroscopy visualized good placement. The needle was removed and the guidewire was clipped to the drape with a hemostat. Further local anesthetic was infiltrated in the soft tissues of the left chest wall and a #15 blade was used to make a horizontal skin incision. A subcutaneous Mediport pocket was created using Bovie cautery, dissecting down through the skin and subcutaneous tissues. Meticulous hemostasis was achieved. The Mediport was sutured in position using 3-0 vicryl suture x2 stitches. A #15 blade was used to make a small skin homero around the guidewire insertion area. The Mediport tubing was tunneled through the subcutaneous tissues up to the needle insertion location. A dilator with a peel-away sheath was placed over the guidewire and placed centr ally. After measuring with fluoroscopy, the Mediport tubing was cut to length so that the tip would end at the atrial/vena caval junction. The inner cannula and the guidewire were removed, leaving the dilator sheath in place. The Mediport was flushed. The tip of the catheter was inserted through the peel-away sheath and the peel-away sheath removed in the standard fashion. The Mediport was accessed with a straight Carreon needle and dark, nonpulsatile blood was aspirated and flushed using heparinized saline to hep-lock the Mediport. Final fluoroscopy visualization showed no kink in the catheter and the tip of the Mediport tubing near the atrial/vena caval junction. Both skin incisions were thoroughly irrigated and suctioned dry. Meticulous hemostasis noted. The Mediport incision was closed using interrupted 3-0 Vicryl suture for the deep dermal layer and 4-0 Vicryl run to close the skin edge. The left subclavian insertion site incision was closed with a single subcuticular stitch. Skin glue was applied as a topical dressing. This was allowed to dry. Patient was awakened from anesthesia and transferred via her cart to the recovery room in stable condition. All needle, sponge, and instrument counts were correct per the operating personnel x2 counts.
[2022-04-06 13:56] VITALS: BP 111/69; PULSE 88; RESP 20; TEMP 36.2; O2SAT 95
[2022-04-06 14:01] VITALS: BP 114/65; PULSE 86; RESP 18; O2SAT 96
[2022-04-06 14:06] VITALS: BP 129/72; PULSE 84; RESP 16; TEMP 36.3; O2SAT 96
[2022-04-06 14:12] VITALS: BP 111/53; PULSE 83; RESP 18; TEMP 36.5; O2SAT 95
[2022-04-06 14:23] VITALS: BP 134/70; PULSE 91; RESP 18; TEMP 36.6; O2SAT 99
--- NOTE | 2022-04-06 15:02 | ANE.PACU2 ---
Inpatient post-anesthesia follow up: Airway intact: Yes Vital signs: Temperature 97.8 F Pulse Rate 91 Respiratory Rate 18 Blood Pressure 134/70 Pulse Oximetry 99 Oxygen Delivery Me thod Room Air Oxygen Flow Rate Fraction of Inspir ed Oxygen Hydration adequate: Yes Nausea and vomiting: No Pain level: 1 Mental status: Baseline
== END 2022-04-06 14:46 | disposition home or self-care (01) ==
PROVIDERS: PCP Nurse Practitioner Family; Visit Provider Surgery
PROC: (CPT 36561; principal; 2022-04-06 12:00)
DX: C49.21 Malignant neoplasm of connective and soft tissue of right lower limb, including hip (principal); I48.0 Paroxysmal atrial fibrillation; K21.9 Gastro-esophageal reflux disease without esophagitis; Z87.891 Personal history of nicotine dependence
CPT/HCPCS: 36561; 71045; 77001; 81025; 84703; C1788; J0690; J1644; J2250; J2704; J3010; J7030

== ENCOUNTER 2022-04-22 17:19 | Inpatient (IN) | payer MEDICAID, SELFPAY ==
[2022-04-22 17:26] VITALS: BP 111/62; PULSE 102; RESP 18; TEMP 36.9; O2SAT 98
--- NOTE | 2022-04-22 17:42 | ED_ITS ---
HPI - Fever General: Chief Complaint: Fever Stated Complaint: She has cancer, has high fever Time Seen by Provider: 04/22/22 17:42 History of Present Illness: Ms. Lawson is a 51-year-old lady with significant past medical history of sarcoma currently on chemotherapy last chemotherapy 4 days ago presenting due to fever. T-max at home 100.6. Notes associated abdominal pain and dysuria. Right lower quadrant feels sharp and moderate to severe in intensity. Worse with movement and urination. Does have a history of nephrolithiasis. Overall course of symptoms has been persistent. No other specific changes in health, exacerbating, or alleviating factors identified. 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 Surgical History History of cholecystectomy History of tubal ligation Status post laparoscopic Kellie fundoplication (10/27/19) Laparoscopic paraesophageal hernia repair with mesh placement and Niesen fundoplication with intraoperative EGD Family History Father Dementia Brother CAD (coronary artery disease) Other Cancer Diabetes Hyperlipidemia Hypertension Psychiatric illness Stroke Denies family history of Clotting disorder Chronic kidney disease (CKD) Suicide Anesthesia complication Bleeding disorder Lung disease Social History Smoking and tobacco status: former smoker Alcohol intake: current Alcohol intake frequency: holidays/special occasions only Female Reproductive History: Date of last menstrual period: 11/06/20 Physical Exam Const: COMMON NORMALS: alert GENERAL APPEARANCE: cooperative, well developed and ill appearing HENMT: COMMON NORMALS: normocephalic and atraumatic HEAD & SCALP: normocephalic and atraumatic THROAT: posterior oropharynx normal Eye: COMMON NORMALS: conjunctivae normal CONJUNCTIVA: Yes conjunctivae normal SCLERA: sclerae normal Neck/C-Spine: COMMON NORMALS: supple GENERAL: Yes trachea midline Resp: COMMON NORMALS: clear to auscultation bilaterally EFFORT & INSPECTION: Yes able to speak in complete sentences AUSCULTATION: clear to auscultation bilaterally Cardio: COMMON NORMALS: regular rhythm RATE: tachycardic RHYTHM: regular rhythm GI: COMMON NORMALS: Soft to palpation PALPATION: Yes Soft to palpation and Yes Tenderness to palpation present (GI) Extremity: GENERAL: Yes normal exam except as noted and No edema Neuro: COMMON NORMALS: moves all extremities SENSORIUM/ORIENTATION: Yes natali rt and No Orientation impaired Psych: COMMON NORMALS: mental status grossly normal and Normal thought process present THOUGHT PROCESS: Normal thought process present Course Vital Signs: Vital signs: Vital Signs Temperature 97.9 F 04/25/22 12:30 Pulse Rate 84 04/25/22 12:30 Respiratory Rate 18 04/25/22 12:30 Blood Pressure 102/62 04/25/22 12:30 Pulse Oximetry 97 04/25/22 12:30 Oxygen Delivery Me thod 04/25/22 08:00 MDM - Fever Medical Decision Making 51-year-old lady with history of sarcoma currently on chemotherapy presenting to the emerged department due to generalized illness. Patient is somewhat ill appearance with tachycardia noted however no fever. Labs notable for leukopenia with decreased ANC at 290. Anemia also present. Mild hypokalemia noted. CRP elevated. Urinalysis without evidence of urinary tract infection. Viral panel negative. Chest x-ray with no lobar consolidation or pneumothorax. CT abdomen pelvis with likely colitis. Incidental urinary finding also noted and discussed. During ED course patient apparently treated with antibiotics and IV fluids. Patient also received analgesia and antiemetic. Discussed with oncology service recommended admission with for continued antibiotic therapy and blood culture surveillance. The results of ED evaluation were discussed with the patient including plan for admission due to requirement for level of care not available if discharged to prevent significant worsening/deterioration. Patient agreeable with plan. Discussed with hospitalist service who was agreeable to admit patient. Medical Records I reviewed the patient's medical records. Lab Data I reviewed the patient's lab results. 04/22/22 17:58 04/22/22 17:58 Radiology Impressions Chest X-Ray 04/22/22 19:18 IMPRESSION: No acute findings. Abdomen/Pelvis CT 04/22/22 20:44 IMPRESSION: 1. There is mild dilatation of the right renal pelvis increased compared to the prior exam with minimal dilatation of the proximal right ureter compared to the prior exam without obstructing calculus. The remaining right ureter is normal in caliber. Abrupt transition at the UPJ junction may reflect a chronic UPJ narrowing. Otherwise , there is nonobstructive right nephrolithiasis. Left kidney is unremarkable. 2. There is diffuse small bowel wall thickening, consistent with mild infectious, ischemic, or inflammatory enteritis. 3. There is a heterogeneous mass at the edge of the field of view in the proximal right thigh measuring at least 12.6 x 15.3 cm compatible with the history of sarcoma. Laboratory Results WBC 1.1 10^3/uL (4.0-10.0) L 04/22/22 17:58 RBC 3.62 10^6/uL (4.1-5.3) L 04/22/22 17:58 Hgb 8.7 g/dL (11.5-15.3) L 04/22/22 17:58 Hct 29.5 % (37.0-47.0) L 04/22/22 17:58 MCV 81.5 fl (81-99) 04/22/22 17:58 MCH 24.0 pg (28.0-34.0) L 04/22/22 17:58 MCHC 29.5 g/dL (30.0-36.0) L 04/22/22 17:58 RDW 15.0 % (12.1-15.1) 04/22/22 17:58 Plt Count 204 10^3/cmm (130-400) 04/22/22 17:58 MPV 10.1 fL (7.4-10.4) 04/22/22 17:58 Neut % (Auto) 27.4 % 04/22/22 17:58 Lymph % (Auto) 42.5 % 04/22/22 17:58 [place] % (Auto) 26.4 % 04/22/22 17:58 Eos % (Auto) 1.9 % 04/22/22 17:58 Baso % (Auto) 0.9 % 04/22/22 17:58 Neut # (Auto) 0.29 10^3/uL (1.8-7.7) L* 04/22/22 17:58 Lymph # (Auto) 0.5 10^3/uL (0.8-4.8) L 04/22/22 17:58 [place] # (Auto) 0.3 10^3/uL (0.2-0.9) 04/22/22 17:58 Eos # (Auto) 0.0 10^3/uL (0.0-0.8) 04/22/22 17:58 Baso # (Auto) 0.0 10^3/uL (0.0-0.1) 04/22/22 17:58 Nucleated RBC % (auto) 0 % 04/22/22 17:58 Nucleated RBCs # 0.0 /100WBC 04/22/22 17:58 Hypochromasia Trace 04/22/22 17:58 Anisocytosis 1+ H 04/22/22 17:58 Ovalocytes Trace 04/22/22 17:58 Sodium 137 mmol/L (136-145) 04/22/22 17:58 Potassium 3.2 mmol/L (3.5-5.1) L 04/22/22 17:58 Chloride 100 mmol/L (98-107) 04/22/22 17:58 Carbon Dioxide 25 mmol/L (22-29) 04/22/22 17:58 Anion Gap 15.2 (5-19) 04/22/22 17:58 BUN 8 mg/dL (6-20) 04/22/22 17:58 Creatinine 0.5 mg/dL (0.5-0.9) 04/22/22 17:58 GFR Calculation 131.1 mL/min (90-130) H 04/22/22 17:58 Glucose 99 mg/dL (65-115) 04/22/22 17:58 Calculated Osmolality 282 mOsm/kg (285-295) L 04/22/22 17:58 Lactic Acid 2.2 mmol/L (0.5-2.2) 04/22/22 17:58 Calcium 9.2 mg/dL (8.5-10.5) 04/22/22 17:58 Iron 23 ug/dL (37-145) L 04/22/22 17:58 TIBC 143 mcg/dl 04/22/22 17:58 % Saturation 16.0 % (20-50) L 04/22/22 17:58 Unsat Iron Binding 120 ug/dL (112-347) 04/22/22 17:58 Ferritin 1522 ng/mL (15-150) H 04/22/22 17:58 Total Bilirubin 0.2 mg/dL (0.15-1.2) 04/22/22 17:58 AST 14 U/L (0-32) 04/22/22 17:58 ALT 15 U/L (0-33) 04/22/22 17:58 Alkaline Phosphatase 81 U/L (35-105) 04/22/22 17:58 C-Reactive Protein 121.4 mg/L (0.0-4.9) H 04/22/22 17:58 Total Protein 6.8 g/dL (6.6-8.7) 04/22/22 17:58 Albumin 3.1 g/dL (3.5-5.2) L 04/22/22 17:58 Globulin 3.7 g/dL (1.3-4.6) 04/22/22 17:58 Procalcitonin 0.30 ng/mL (0-0.5) 04/22/22 17:58 Procalcitonin 0.30 ng/mL (0-0.5) 04/22/22 17:58 Urine Color Yellow (Yellow) 04/22/22 20:40 Urine Appearance Clear (CLEAR) 04/22/22 20:40 Urine pH 9 (5-7) H 04/22/22 20:40 Ur Specific Bruni 1.015 (1.005-1.030) 04/22/22 20:40 Urine Protein Neg (Negative) 04/22/22 20:40 Urine Glucose (UA) Norm (Normal) 04/22/22 20:40 Urine Ketones Negative (Negative) 04/22/22 20:40 Urine Blood Neg (Negative) 04/22/22 20:40 Urine Nitrate Negative (Negative) 04/22/22 20:40 Urine Bilirubin Neg (Negative) 04/22/22 20:40 Prot Sulfosalicylic Acd Negative (Negative) 04/22/22 20:40 Urine Urobilinogen Neg mg/dL (Negative) 04/22/22 20:40 Ur Leukocyte Esterase Negative (Negative) 04/22/22 20:40 Coronavirus 229E (PCR) Not detected (NOT DETECT) 04/22/22 18:15 SARS-CoV-2 (PCR) Not detected (NOT DETECT) 04/22/22 18:15 Discharge Plan Discharge Patient Disposition: Admitted As Inpatient Admit Provider: Nadia Chanel Clinical Impression: Fever and neutropenia, Enteritis Condition: Stable Discharge Diet: Regular Discharge Activity: Increase activity as tolerated Coding Level of Care Code ED General Neurologist for Miriam Gamez
[2022-04-22 18:08] LABS: Basophils % 0.9 %; Eosinophils % 1.9 %; Hematocrit 29.5 % (37.0-47.0); Hemoglobin 8.7 g/dL (11.5-15.3); Lymphocytes # 0.5 10^3/uL (0.8-4.8); Lymphocytes % 42.5 %; Mean Corpuscular HGB Conc 29.5 g/dL (30.0-36.0); Mean Corpuscular Volume 81.5 fl (81-99); Mean Platelet Volume 10.1 fL (7.4-10.4); Monocytes # 0.3 10^3/uL (0.2-0.9); Monocytes % 26.4 %; Neutrophils % 27.4 %; Nucleated Red Blood Cells % 0 %; Platelet Count 204 10^3/cmm (130-400); Red Blood Count 3.62 10^6/uL (4.1-5.3); White Blood Count 1.1 10^3/uL (4.0-10.0)
[2022-04-22 18:25] LABS: Alanine Aminotransferase 15 U/L (0-33); Albumin Level 3.1 g/dL (3.5-5.2); Alkaline Phosphatase 81 U/L (35-105); Anion Gap 15.2 (5-19); Aspartate Amino Transferase 14 U/L (0-32); Blood Urea Nitrogen 8 mg/dL (6-20); C Reactive Protein 121.4 mg/L (0.0-4.9); Calcium 9.2 mg/dL (8.5-10.5); Carbon Dioxide 25 mmol/L (22-29); Chloride 100 mmol/L (98-107); Globulin 3.7 g/dL (1.3-4.6); Glomerular Filtration Rate 131.1 mL/min (90-130); Glucose 99 mg/dL (65-115); Osmolality Calculated 282 mOsm/kg (285-295); Potassium 3.2 mmol/L (3.5-5.1); Sodium 137 mmol/L (136-145); Total Bilirubin 0.2 mg/dL (0.15-1.2); Total Protein 6.8 g/dL (6.6-8.7)
[2022-04-22 19:06] LABS: Add RBC Morph Yes; Neutrophils # 0.29 10^3/uL (1.8-7.7); RBC Morph Comp No
[2022-04-22 19:07] LABS: Anisocytosis 1+; Hypochromasia Trace
[2022-04-22 19:08] LABS: Ovalocytes Trace
--- NOTE | 2022-04-22 19:18 | XRR_ITS ---
PROCEDURE INFORMATION: Exam: XR Chest Exam date and time: 04/22/2022 7:33 PM Age: 51 years old Clinical indication: Pain; Radiating; Prior surgery; Surgery date: 6+ months; Surgery type: Port placement; Patient HX: Fever; Neutropenia. HX of cancer; Additional info: Fever, neutropenia TECHNIQUE: Imaging protocol: Radiologic exam of the chest. Views: 1 view. COMPARISON: CR XR chest 1V portable [id number] 04/06/2022 2:02 PM FINDINGS: Tubes, catheters and devices: There is a left subclavian central line with tip in the superior vena cava. Lungs: Unremarkable. No consolidation. Lungs are hyperinflated. Pleural spaces: Unremarkable. No pleural effusion. No pneumothorax. Heart/Mediastinum: Unremarkable. No cardiomegaly. Bones/joints: No acute abnormality. XR/XR chest 1V portable [id number] IMPRESSION: No acute findings.
[2022-04-22] MEDS: ondansetron 2 mg/ML SDV 2 mL 4 MG IVP (20:03)
[2022-04-22] MEDS: sodium chloride 0.9% 1,000 ML 999 ML IV (20:03)
[2022-04-22 20:04] VITALS: RESP 19; O2SAT 100
[2022-04-22] MEDS: morphine 4 mg/mL SDV 1 mL IVP (20:04)
[2022-04-22] MEDS: cefepime 2,000 MG in sodium chloride 0.9% (plus) 50 ML 100 MG IV (20:12)
--- NOTE | 2022-04-22 20:44 | CTR_ITS ---
PROCEDURE INFORMATION: Exam: CT Abdomen And Pelvis With Contrast Exam date and time: 04/22/2022 8:54 PM Age: 51 years old Clinical indication: Abdominal pain; Localized; Right lower quadrant (rlq); Prior surgery; Surgery date: 6+ months; Surgery type: Cholecystectomy, hernia repair, chemo port (recently); Patient HX: Diagnosed w/ right thigh soft tissue sarcoma 03/09/2022. Finished first round of chemo x4 days ago per patient; Additional info: Rlq abd pain, fever, on chemo TECHNIQUE: Imaging protocol: Computed tomography of the abdomen and pelvis with contrast. Radiation optimization: All CT scans at this facility use at least one of these dose optimization techniques: automated exposure control; mA and/or kV adjustment per patient size (includes targeted exams where dose is matched to clinical indication); or iterative reconstruction. Contrast material: OMNI 350; Contrast volume: 100 ml; Contrast route: INTRAVENOUS (IV); COMPARISON: CT abdomen pelvis w con* [id number] 01/15/2020 2:36 AM RADIATION DOSE METRICS: Total DLP (mGy-cm): 1110.8 FINDINGS: Liver: Unremarkable.No mass. Gallbladder and bile ducts: There has been a cholecystectomy. There is no common bile duct dilation. Pancreas: The pancreas is normal. Spleen: The spleen is normal. An accessory splenule is present. Adrenal glands: Normal. No mass. Kidneys and ureters: There is no evidence of left hydronephrosis. There is mild dilatation of the right renal pelvis increased compared to the prior exam with minimal dilatation of the proximal right ureter compared to the prior exam without obstructing calculus. The remaining right ureter is normal in caliber. Abrupt transition at the UPJ junction may reflect a chronic UPJ narrowing. There is nonobstructive right nephrolithiasis with the largest calculus measuring 6 mm in size. Stomach and bowel: Extensive diverticulosis is present in the distal colon. There is no evidence of colitis/diverticulitis. There is diffuse small bowel wall thickening, consistent with infectious, ischemic, or inflammatory enteritis. Appendix: A normal appendix is identified. Intraperitoneal space: Unremarkable. No free air. No significant fluid collection. Vasculature: Unremarkable.No abdominal aortic aneurysm. Lymph nodes: Unremarkable.No enlarged lymph nodes. Urinary bladder: Unremarkable as visualized. Reproductive: Unremarkable as visualized. Bones/joints: Unremarkable. No acute fracture. Soft tissues: There is a fat-containing umbilical hernia. There is a heterogeneous mass at the edge of the field of view in the proximal right thigh measuring at least 12.6 x 15.3 cm compatible with the history of sarcoma. CT/CT abdomen pelvis w con* [id number] IMPRESSION: 1. There is mild dilatation of the right renal pelvis increased compared to the prior exam with minimal dilatation of the proximal right ureter compared to the prior exam without obstructing calculus. The remaining right ureter is normal in caliber. Abrupt transition at the UPJ junction may reflect a chronic UPJ narrowing. Otherwise , there is nonobstructive right nephrolithiasis. Left kidney is unremarkable. 2. There is diffuse small bowel wall thickening, consistent with mild infectious, ischemic, or inflammatory enteritis. 3. There is a heterogeneous mass at the edge of the field of view in the proximal right thigh measuring at least 12.6 x 15.3 cm compatible with the history of sarcoma.
[2022-04-22 20:51] LABS: Add Urine Microscopic? NO; Charge for UA Resulting for Rev
[2022-04-22] MEDS: iohexol 350 mg/mL 500 mL Btl (per mL) IV (21:02)
[2022-04-22 21:12] LABS: Bilirubin Urine Neg (Negative); Blood Urine Neg (Negative); Glucose Urine UA Norm (Normal); Ketones Urine Negative (Negative); Leukocyte Esterase Urine Negative (Negative); Nitrate Urine Negative (Negative); Protein Urine Neg (Negative); Specific Gravity, Urine 1.015 (1.005-1.030); Sulfosalicylic Acid Urine Negative (Negative); Urine Appearance Clear (CLEAR); Urine Color Yellow (Yellow); Urobilinogen Urine Neg (Negative); pH Urine 9 (5-7)
--- NOTE | 2022-04-22 21:36 | P.HP_ITS ---
Providers/Chief Complaint Primary Care Provider: Aleyda Jean-Baptiste Chief Complaint: She has cancer, has high fever History of Present Illness Arlyn Lawson is a 51 year old female with history of right thigh sarcoma recently had Mediport placement, started new adjuvant chemotherapy followed by radiation and concurrent chemotherapy presenting to the hospital for febrile episodes at home. In the ER she has been diagnosed with neutropenia and enteritis. She takes extended release oxycodone every 12 hours 15 mg and then Winona as needed for breakthrough pain on bowel regimen. Patient is stating that her last chemotherapy session was in [place] because she has to go inpatient for her chemotherapy after chemotherapy started experiencing right lower quadrant pain which intensified over the course of 4 days, she started noticing fever in the last 72 hours, her T-max was 100.6 and 100.9. She has not noticed diarrhea, vomiting or nausea she has not noticed any chest pain or shortness of breath Dr. Griffith has recommended inpatient admission T-max 99.8 patient does not meet sepsis criteria, lactic acid 2.2, no endorgan damage She has received antibiotics blood cultures have been taken Patient is stating that she was constipated and had a bowel movement today Review of Systems 2 Const: Reports: fever(s), chills, body aches and fatigue Eyes: Denies: change in vision ENMT: Denies: throat pain Card: Denies: chest pain Resp: Denies: dyspnea GI: Reports: abdominal pain; Denies: nausea : Denies: flank pain Musc: Reports: back pain Skin/Breast: Denies: rash Neuro: Reports: headache(s) Psych: Reports: anxiety Endo: Denies: polyuria Axel/Lymph: Denies: easy bruising All/Imm: Denies: urticaria Medications/Allergies Home Medications Medication Instructions Recorded Confirmed Last Taken Type cyclobenzaprine 5 mg tablet 5 mg PO TID PRN Muscle Spasm 01/17/22 04/06/22 04/04/22 History tramadol 100 mg tablet 100 mg PO Q6H PRN pain #60 tabs 01/17/22 04/06/22 03/27/22 Rx multivitamin 1 tab PO DAILY 04/04/22 04/06/22 04/05/22 History mvi,min-folic acid 400 mcg-black 1 tab PO DAILY 04/04/22 04/06/22 04/05/22 History coh 40 mg-isoflav 40 mg-jujube tablet (Estroven Menopause) oxycodone-acetaminophen 5 mg-325 1 tab PO Q4H PRN Pain 04/04/22 04/06/22 04/06/22 06:00 History mg tablet Cbd Gummies 1 gummy PO DAILY sleep 04/05/22 04/06/22 04/05/22 History Allergies Allergy/AdvReac Type Severity Reaction Status Date / Time bupropion [From Wellbutrin] Allergy Unknown Verified 04/06/22 11:06 clonazepam [From Klonopin] Allergy ADR-Irritab Verified 04/06/22 11:06 le fluoxetine [From Prozac] Allergy ADR-Irritab Verified 04/06/22 11:06 le latex Allergy ALGY-Rash Verified 04/06/22 11:06 venlafaxine [From Effexor] Allergy Unknown Verified 04/06/22 11:06 PFSH Acute PFSH: Medical History GERD (gastroesophageal reflux disease) 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 Surgical History History of cholecystectomy History of tubal ligation Status post laparoscopic Kellie fundoplication (10/27/19) Laparoscopic paraesophageal hernia repair with mesh placement and Niesen fundoplication with intraoperative EGD Family History Father Dementia Brother CAD (coronary artery disease) Other Cancer Diabetes Hyperlipidemia Hypertension Psychiatric illness Stroke Denies family history of Clotting disorder Chronic kidney disease (CKD) Suicide Anesthesia complication Bleeding disorder Lung disease Social History Smoking and tobacco status: former smoker Alcohol intake: current Alcohol intake frequency: holidays/special occasions only Female Reproductive History: Date of last menstrual period: 11/06/20 Vitals/I&O/Wt Last Vital Signs Temp 98.5 F 04/22/22 17:26 Pulse 102 H 04/22/22 17:26 Resp 19 H 04/22/22 20:04 BP 111/62 04/22/22 17:26 Pulse Ox 100 04/22/22 20:04 Weight last 48 hrs Weight 96.162 kg Physical Exam Narrative: Pleasant cooperative female in distress because of right lower quadrant pain Tender to deep palpation Abdomen is soft no active signs of peritonitis Clinically looks slightly dehydrated Currently doing well on room air S1, S2 Hemodynamically stable No audible stridor or wheezing No signs of mucositis EOMI, PERRLA Nonfocal neuro exam Data 04/22/22 17:58 04/22/22 17:58 Micro: Microbiology 04/22/22 18:34 Blood Culture - Preliminary Blood SPECIMEN COLLECTED A&P Assessment and plan (1) Fever and neutropenia: (2) Enteritis: (3) 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 Griffith in AM to see if she received Neulasta after her chemo, patient is stating that she has not received any Continue IV fluids DVT prophylaxis: Lovenox bland diet History of sarcoma continue opioids along bowel regimen Full code Nephrolithiasis without abnormal UA or kidney function Attestations Medical Necessity Statement*: Anticipating patient will stay more than 2 midnights for management of neutropenic enterocolitis Time Spent in Patient Care: 40 Coding Level of Care Code Acute Poultry Raiser for [facility] Fwd Diagnoses Fever and neutropenia D70.9; R50.81 Enteritis K52.9 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
[2022-04-22] MEDS: potassium chloride ER 20 mEq Tablet 40 MEQ PO (21:57)
[2022-04-22] MEDS: metroNIDAZOLE IV 500 MG/100 ML PREMIX 100 MG IV (21:57)
[2022-04-22 22:02] VITALS: BP 106/67; PULSE 92; RESP 18; TEMP 37.7; O2SAT 100
[2022-04-22 22:02] LABS: Lactic Sepsis W/Reflex 2.2 mmol/L (0.5-2.2)
[2022-04-22 22:05] LABS: Adenovirus Not Detected (NOT DETECT); Chlamydia Pneumoniae Not Detected (NOT DETECT); Coronavirus 229E,HKU1,NL63,OC4 Not Detected (NOT DETECT); Human Metapneumovirus Not Detected (NOT DETECT); Human Rhinovirus/Enterovirus Not Detected (NOT DETECT); Influenza A Not Detected (NOT DETECT); Influenza A H1 Not Detected (NOT DETECT); Influenza A H1-2009 Not Detected (NOT DETECT); Influenza A H3 Not Detected (NOT DETECT); Influenza B Not Detected (NOT DETECT); Mycoplasma Pneumoniae Not Detected (NOT DETECT); Parainfluenza Virus Type 1 Not Detected (NOT DETECT); Parainfluenza Virus Type 2 Not Detected (NOT DETECT); Parainfluenza Virus Type 3 Not Detected (NOT DETECT); Parainfluenza Virus Type 4 Not Detected (NOT DETECT); Respiratory Syncytial Virus A Not Detected (NOT DETECT); Respiratory Syncytial Virus B Not Detected (NOT DETECT); SARS-COV-2 Not Detected (NOT DETECT)
[2022-04-22 23:25] LABS: Iron 23 ug/dL (37-145); Total Iron Binding Capacity 143 mcg/dl; Unsaturated Iron Binding 120 ug/dL (112-347)
[2022-04-22 23:37] LABS: Reflex Lactate Order REFLEX LACTIC ORDERD
[2022-04-23] VITALS (13 sets, daily range): BP systolic 94–145; BP diastolic 56–83; PULSE 79–114; RESP 16–18; TEMP 36.4–37.1; O2SAT 97–100; BMI 32.8
[2022-04-23 00:05] LABS: Ferritin 1522 ng/mL (15-150)
[2022-04-23] MEDS: HYDROmorphone 1 mg/mL INJ 1 mL 0.2 MG IVP (00:07)
--- NOTE | 2022-04-23 00:56 | PC.PHAR ---
Pharmacokinetic dosing service Date: 04/23/22 Time: 56 Objective: Patient: Arlyn Lawson Floor: 269-1 Age: 51 yo Serum creatinine: 0.5 mg/dL Height: 67.0 Inches Weight (kg): 96.162 Diagnosis: Relevant medical/social history: Cultures and sensitivities: Other labs: Assessment: IBW (kg): 61.60 Dosing wt(kg): 96.162 Estimated Creatinine clearance (ml/min): 130 Clearance limited to 130 ml/min to reduce risk of overdosing. CRCL method: Cockcroft and Gault using ibw(default). Drug selected: Vancomycin Loading dose (mg): 0 Vd (liters): 86.5 (factor used: 0.9 L/kg) Rachid (hr-1): 0.112 Half life (hrs): 6.19 Recommended dose: 1500 mg Interval: 8 hrs Infusion time (hrs): 1.5 Predicted peak (mcg/mL): 27.0 Predicted trough (mcg/mL): 13.04 Total body weight is being used for vancomycin dosing. Renal function is stable [ ] /unstable [ ] Recommendations: Give Vancomycin 1500 mg q 8 hrs with an expected Cpeak of 27.0 mcg/ml and an expected Ctrough of 13.04 mcg/ml Renal dosing of other antibiotics (review renal dosing of other medications and list guidelines here): Thank you for the consult, will continue to follow. Signature: Kassandra Yun [facility]
[2022-04-23] MEDS: sodium chloride 0.9% 1,000 ML 75 ML IV ×2 (01:25→17:49)
[2022-04-23] MEDS: enoxaparin 40 mg/0.4 mL Syringe SUBCUT (01:25)
[2022-04-23] MEDS: vancomycin 1,500 MG/300 ML PIGGYBACK 200 MG IV ×3 (01:25→17:47)
[2022-04-23] MEDS: oxyCODONE-APAP 5-325 mg Tablet 1 TAB PO ×2 (02:42→07:08)
[2022-04-23 05:47] LABS: Basophils % 0.8 %; Eosinophils % 0.8 %; Hematocrit 26.8 % (37.0-47.0); Hemoglobin 8.1 g/dL (11.5-15.3); Lymphocytes # 0.7 10^3/uL (0.8-4.8); Lymphocytes % 51.2 %; Mean Corpuscular HGB Conc 30.2 g/dL (30.0-36.0); Mean Corpuscular Hemoglobin 24.2 pg (28.0-34.0); Monocytes # 0.4 10^3/uL (0.2-0.9); Monocytes % 29.5 %; Neutrophils % 17.7 %; Nucleated Red Blood Cells % 0 %; Platelet Count 213 10^3/cmm (130-400); Red Blood Count 3.35 10^6/uL (4.1-5.3); Red Cell Distribution Width 15.2 % (12.1-15.1); White Blood Count 1.3 10^3/uL (4.0-10.0)
[2022-04-23 05:55] LABS: D Dimer 1.09 ug/mIFEU (0-0.59)
[2022-04-23 06:09] LABS: Anion Gap 13.2 (5-19); Blood Urea Nitrogen 7 mg/dL (6-20); C Reactive Protein 126.7 mg/L (0.0-4.9); Calcium 8.7 mg/dL (8.5-10.5); Carbon Dioxide 22 mmol/L (22-29); Chloride 105 mmol/L (98-107); Glomerular Filtration Rate 169.7 mL/min (90-130); Glucose 91 mg/dL (65-115); Magnesium 1.8 mg/dL (1.7-2.3); Osmolality Calculated 282 mOsm/kg (285-295); Phosphorus 2.5 mg/dL (2.5-4.5); Potassium 3.2 mmol/L (3.5-5.1); Sodium 137 mmol/L (136-145)
[2022-04-23 06:19] LABS: Neutrophils # 0.23 10^3/uL (1.8-7.7)
[2022-04-23 06:21] LABS: Slide Review Slide Review Perform
--- NOTE | 2022-04-23 08:31 | PC.PHAR ---
Addendum entered by Letty Valdez 04/23/22 08:44: called cancer treatment center spoke with anurag in the chemo suite states the pt hasnt started with them on any treatment yet states the pt did see but no treatment has been given yet Original Note: pt states she takes care of her own medications-pt states she cant afford to get the oxycontin 15mg q12h filled 04/04/22 30d/s-
[2022-04-23] MEDS: cefepime 1,000 MG in sodium chloride 0.9% (plus) 50 ML 100 MG IV ×2 (09:34→19:50)
--- NOTE | 2022-04-23 09:36 | P.PN_ITS ---
Subjective Subjective: History and physical reviewed. Patient reports her chemotherapy was given over 3 days [facility]. Around this time prior to chemo she was treated for kidney stones which she passed. She also had an ER visit for abdominal pain attributed to constipation. She believes she got N estee, at the hospital. Medications: Reviewed: Yes Vitals/I&O/Wt Last Vital Signs Temp 98.5 F 04/23/22 08:00 Pulse 79 04/23/22 08:00 Resp 16 04/23/22 08:00 BP 97/62 04/23/22 08:00 Pulse Ox 98 04/23/22 08:00 O2 Del Method 04/23/22 08:00 04/22/22 04/23/22 04/23/22 22:59 06:59 14:59 Intake Total 1150 / 1150 300 / 1450 Balance 1150 / 1150 300 / 1450 Weight last 48 hrs Weight 95.028 kg Weight 96.162 kg Physical Exam Narrative: General exam is white female, in no distress, but complaining of some abdominal discomfort and right thigh discomfort Neck is supple no lymphadenopathy or thyromegaly Cardiovascular regular rate and rhythm, no murmur. Port right chest appears normal with no obvious infection Lungs clear Abdomen soft positive bowel sounds. Slight tenderness. exams deferred Extremities no cyanosis clubbing or edema Skin no rash Data 04/23/22 04:57 04/23/22 04:57 Micro: Microbiology 04/22/22 18:30 Blood Culture - Preliminary Blood SPECIMEN COLLECTED 04/22/22 18:34 Blood Culture - Preliminary Blood SPECIMEN COLLECTED A&P Assessment and plan (1) Fever and neutropenia: Patient presents with fever, neutropenia and anemia. I think it is likely that she got her Neulasta at the [facility] following her chemotherapy treatment. We will request records. Blood cultures have been drawn Continue cefepime and vancomycin COVID is negative. 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
[2022-04-23] MEDS: metroNIDAZOLE 500 MG Tablet PO ×3 (09:38→21:39)
[2022-04-23] MEDS: potassium chloride ER 20 mEq Tablet 40 MEQ PO ×2 (09:38→14:58)
[2022-04-23] MEDS: oxyCODONE 5 mg IR Tab/Cap 10 MG PO ×3 (11:27→21:38)
--- NOTE | 2022-04-23 12:18 | PC.CHAP ---
Pastoral Care Encounter/Spiritual Assessment Type of Contact [] Declined drier belt conveyor visit [] Patient/Family/Request visit [] Outpatient visit [] Follow-up visit [] Physician referral [] Code/Alert [x] Routine visit [] Staff referral [] Actively dying [] Patient sleeping [] Family support [] [] Out of room [] Palliative care [] [] Receiving care in room [] Pre-surgical visit [] Trauma [] Long length of stay [] ICU visit [x] Other: isolation Relational/Emotional Strength [] Patient feels connected with others/family/visitors/staff [] Distress [] Loneliness/isolation [] Abandonment Spirituality of Patient [] Person of Kinjal [] Attends Rastafari of their Kinjal [] Believes in Prayer [] Reads Bible or Mu-Ism materials [] There are Spiritual issues to be addressed Staffing Manager Interventions [] Prayer [] Active listening [] Non-anxious presence [] Spiritual/emotional support [] Crisis/trauma care [] Spiritual counseling [] Bereavement support [] Provided bereavement packet [] Provided Bible/devotional materials [] Provided toy/stuffed animal, coloring book to patient or family member [] Provided Communion [] Anointing/[place] [] Salvation [] Completed spiritual assessment [] Other: Impact on Illness or Injury [] Angry [] Fearful [] Anxious [] Often cries [] Exhaustion [] Unable to work [] Unable to attend islam [] Unable to walk/stand [] Unable to read [] Unable to drive [] Unable to eat/drink [] Unable to sleep [] Unable to be with family [] Patient intubated [] Other: Summary Time spent with patient
[2022-04-23] MEDS: cyclobenzaprine 10 mg Tablet 5 MG PO (21:38)
[2022-04-24] VITALS (13 sets, daily range): BP systolic 82–110; BP diastolic 46–70; PULSE 87–100; RESP 14–22; TEMP 36.6–38; O2SAT 97–100
[2022-04-24] MEDS: enoxaparin 40 mg/0.4 mL Syringe SUBCUT (00:26)
[2022-04-24] MEDS: HYDROmorphone 1 mg/mL INJ 1 mL 0.2 MG IVP (00:38)
[2022-04-24] MEDS: acetaminophen 500 mg Tablet PO ×2 (00:38→11:22)
[2022-04-24 01:10] LABS: Hematocrit 27.5 % (37.0-47.0); Hemoglobin 8.1 g/dL (11.5-15.3); Mean Corpuscular HGB Conc 29.5 g/dL (30.0-36.0); Mean Corpuscular Hemoglobin 23.9 pg (28.0-34.0); Mean Corpuscular Volume 81.1 fl (81-99); Mean Platelet Volume 10.5 fL (7.4-10.4); Platelet Count 214 10^3/cmm (130-400); Red Blood Count 3.39 10^6/uL (4.1-5.3); Red Cell Distribution Width 15.2 % (12.1-15.1); White Blood Count 2.6 10^3/uL (4.0-10.0)
[2022-04-24 01:36] LABS: Alanine Aminotransferase 10 U/L (0-33); Albumin Level 2.7 g/dL (3.5-5.2); Alkaline Phosphatase 68 U/L (35-105); Anion Gap 13.7 (5-19); Aspartate Amino Transferase 10 U/L (0-32); Blood Urea Nitrogen 5 mg/dL (6-20); Calcium 8.7 mg/dL (8.5-10.5); Carbon Dioxide 22 mmol/L (22-29); Chloride 105 mmol/L (98-107); Globulin 3.3 g/dL (1.3-4.6); Glomerular Filtration Rate 169.7 mL/min (90-130); Glucose 90 mg/dL (65-115); Osmolality Calculated 281 mOsm/kg (285-295); Potassium 3.7 mmol/L (3.5-5.1); Sodium 137 mmol/L (136-145); Total Bilirubin 0.2 mg/dL (0.15-1.2); Vancomycin Trough 22.9 ug/mL (10-15)
--- NOTE | 2022-04-24 02:28 | PC.NURSE ---
VANC T Vanc trough was done prior to Vanc dose at 0100. Came back at 22.9. Dosing adjusted by pharmacy and changes noted.
[2022-04-24] MEDS: oxyCODONE 5 mg IR Tab/Cap 10 MG PO ×4 (03:39→22:10)
[2022-04-24 04:32] LABS: Absolute Segmented Neutrophil 0.9 10/cmm (1.6-7.1); Band Neutrophils Absolute 0.2 10^3/cmm (0.0-1.2); Eosinophils 0 %; Lymphocytes 37 %; Monocytes Absolute 0.4 10^3/cmm (0.1-0.6); Segmented Neutrophils 36 %; Total Cells Counted 100 (0-100)
[2022-04-24 04:33] LABS: Anisocytosis 1+; Lymphocytes Absolute 1.1 10^3/cmm (1.2-3.4); Macrocytosis Trace; Ovalocytes 1+; Platelet Estimate Normal (Normal); Poikilocytosis 1+
[2022-04-24 04:35] LABS: Absolute Neutrophil 1.1 10^3/cmm (1.4-6.5)
[2022-04-24] MEDS: metroNIDAZOLE 500 MG Tablet PO ×3 (07:54→20:51)
[2022-04-24] MEDS: sodium chloride 0.9% 1,000 ML 75 ML IV (07:54)
--- NOTE | 2022-04-24 07:57 | P.PN_ITS ---
Subjective Subjective: Feels better. Does not really have any significant abdominal pain today. Right thigh still hurts. No nausea. Ran a fever last night, around midnight. Medications: Reviewed: Yes Vitals/I&O/Wt Last Vital Signs Temp 97.9 F 04/24/22 07:07 Pulse 89 04/24/22 07:07 Resp 18 04/24/22 07:54 BP 88/51 04/24/22 07:07 Pulse Ox 98 04/24/22 07:54 O2 Del Method 04/23/22 20:05 04/23/22 04/24/22 04/24/22 22:59 06:59 14:59 Intake Total 1880 / 2540 200 / 2740 1000 / 1000 Output Total 300 / 300 1200 / 1500 Balance 1580 / 2240 -1000 / 1240 1000 / 1000 Weight last 48 hrs Weight 95.028 kg Weight 96.162 kg Physical Exam Narrative: General exam is white female, no distress currently Neck is supple no lymphadenopathy or thyromegaly Cardiovascular regular rate and rhythm, no murmur. Port right chest appears normal with no obvious infection Lungs clear Abdomen soft positive bowel sounds. Slight tenderness. exams deferred Extremities no cyanosis clubbing or edema Skin no rash Data 04/24/22 00:54 04/24/22 00:54 Micro: Microbiology 04/22/22 18:30 Blood Culture - Preliminary Blood NEGATIVE TO DATE 04/22/22 18:34 Blood Culture - Preliminary Blood NEGATIVE TO DATE A&P Assessment and plan (1) Fever and neutropenia: Patient presents with fever, neutropenia and anemia. She had Neulasta at the [facility] following her chemotherapy treatment. Records have been received Blood cultures have been drawn and negative today Continue cefepime and vancomycin. Also on oral Flagyl COVID is negative. This would also have tested for influenza which is negative Continue hydration Continue antibiotics until patient is fever free greater than 24 hours, cultures are negative at 48 hours at a minimum, improvement of symptoms, and ANC greater than 500. ANC today is already greater than 500 and I suspect it may be possible for discharge tomorrow. 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
[2022-04-24] MEDS: cefepime 1,000 MG in sodium chloride 0.9% (plus) 50 ML 100 MG IV ×2 (08:00→17:04)
[2022-04-24] MEDS: ondansetron 2 mg/ML SDV 2 mL 4 MG IVP (11:22)
[2022-04-24] MEDS: vancomycin 1,500 MG/300 ML PIGGYBACK 200 MG IV (11:22)
[2022-04-25] VITALS (7 sets, daily range): BP systolic 101–112; BP diastolic 62–75; PULSE 82–100; RESP 16–22; TEMP 36.6–36.8; O2SAT 96–100
--- NOTE | 2022-04-25 00:26 | PC.NURSE ---
This nurse called pharmacy to verify the vancomycin dosing and they stated the dosing is currently correct and it had been adjusted to fit the most recent trough already.
[2022-04-25] MEDS: vancomycin 1,500 MG/300 ML PIGGYBACK 200 MG IV (00:32)
[2022-04-25] MEDS: enoxaparin 40 mg/0.4 mL Syringe SUBCUT (00:58)
[2022-04-25 03:34] LABS: Basophils # 0.1 10^3/uL (0.0-0.1); Basophils % 0.8 %; Eosinophils % 0.1 %; Hematocrit 30.3 % (37.0-47.0); Hemoglobin 8.8 g/dL (11.5-15.3); Lymphocytes # 1.3 10^3/uL (0.8-4.8); Lymphocytes % 18.2 %; Mean Corpuscular Hemoglobin 24.1 pg (28.0-34.0); Mean Platelet Volume 10.6 fL (7.4-10.4); Monocytes # 1.1 10^3/uL (0.2-0.9); Monocytes % 15.6 %; Neutrophils # 3.92 10^3/uL (1.8-7.7); Neutrophils % 53.7 %; Nucleated Red Blood Cells # 0.1 /100WBC; Nucleated Red Blood Cells % 0.7 %; Platelet Count 259 10^3/cmm (130-400); Red Blood Count 3.65 10^6/uL (4.1-5.3); Red Cell Distribution Width 15.6 % (12.1-15.1); White Blood Count 7.3 10^3/uL (4.0-10.0)
[2022-04-25] MEDS: oxyCODONE 5 mg IR Tab/Cap 10 MG PO ×2 (03:34→08:25)
[2022-04-25 03:58] LABS: Anion Gap 13.5 (5-19); Blood Urea Nitrogen 5 mg/dL (6-20); Calcium 8.9 mg/dL (8.5-10.5); Carbon Dioxide 22 mmol/L (22-29); Chloride 103 mmol/L (98-107); Glomerular Filtration Rate 169.7 mL/min (90-130); Glucose 92 mg/dL (65-115); Osmolality Calculated 277 mOsm/kg (285-295); Potassium 3.5 mmol/L (3.5-5.1); Sodium 135 mmol/L (136-145)
[2022-04-25] MEDS: sodium chloride 0.9% 1,000 ML 75 ML IV (04:38)
[2022-04-25 06:30] LABS: Glucose Point of Care 86 mg/dL (70-110)
[2022-04-25] MEDS: metroNIDAZOLE 500 MG Tablet PO (08:25)
--- NOTE | 2022-04-25 09:50 | P.DS_ITS ---
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 Cultures were obtained and she was placed on broad-spectrum antibiotics. There was concern of enteritis, with slight thickening of small intestine mendoza on CT abdomen and pelvis. Initial antibiotics were vancomycin, cefepime, and Flagyl orally. With this treatment s he had significant improvement over the course of several days. She had received Neulasta at the [facility] prior to her discharge. By the end of discharge she was afebrile for over 36 hours, cultures were negative, absolute neutrophil count was well above 500. It was thought she could take 5 more days of Levaquin and Flagyl, and follow-up with her primary care provider and primary care physician. Discussion of the plan occurred with the patient and she agreed. The abdominal pain she had on presentation had resolved on discharge. Physical Exam Narrative: ClubbingGeneral exam is no apparent distress Neck is supple no lymphadenopathy or thyromegaly Cardiovascular regular rate and rhythm without murmur Lungs clear no wheezing or crackles Abdomen is soft nontender positive bowel sounds Extremities no cyanosis clubbing or edema. Skin no rash Discharge Data Studies Completed and Pending Completed Studies During Hospitalization Category Date Time Status CT abdomen pelvis w con* [id number] Stat Cat Scan 04/22/22 20:44 Completed XR chest 1V portable [id number] Stat Exams 04/22/22 19:18 Completed Pending at discharge Category Date Time Status Blood Culture Stat Lab 04/22/22 18:30 Results Radiology Impressions Chest X-Ray 04/22/22 19:18 IMPRESSION: No acute findings. Abdomen/Pelvis CT 04/22/22 20:44 IMPRESSION: 1. There is mild dilatation of the right renal pelvis increased compared to the prior exam with minimal dilatation of the proximal right ureter compared to the prior exam without obstructing calculus. The remaining right ureter is normal in caliber. Abrupt transition at the UPJ junction may reflect a chronic UPJ narrowing. Otherwise , there is nonobstructive right nephrolithiasis. Left kidney is unremarkable. 2. There is diffuse small bowel wall thickening, consistent with mild infectious, ischemic, or inflammatory enteritis. 3. There is a heterogeneous mass at the edge of the field of view in the proximal right thigh measuring at least 12.6 x 15.3 cm compatible with the history of sarcoma. Laboratory Results WBC 7.3 10^3/uL (4.0-10.0) 04/25/22 03:00 RBC 3.65 10^6/uL (4.1-5.3) L 04/25/22 03:00 Hgb 8.8 g/dL (11.5-15.3) L 04/25/22 03:00 Hct 30.3 % (37.0-47.0) L 04/25/22 03:00 MCV 83.0 fl (81-99) 04/25/22 03:00 MCH 24.1 pg (28.0-34.0) L 04/25/22 03:00 MCHC 29.0 g/dL (30.0-36.0) L 04/25/22 03:00 RDW 15.6 % (12.1-15.1) H 04/25/22 03:00 Plt Count 259 10^3/cmm (130-400) 04/25/22 03:00 MPV 10.6 fL (7.4-10.4) H 04/25/22 03:00 Neut % (Auto) 53.7 % 04/25/22 03:00 Lymph % (Auto) 18.2 % 04/25/22 03:00 Storey % (Auto) 15.6 % 04/25/22 03:00 Eos % (Auto) 0.1 % 04/25/22 03:00 Baso % (Auto) 0.8 % 04/25/22 03:00 Neut # (Auto) 3.92 10^3/uL (1.8-7.7) 04/25/22 03:00 Lymph # (Auto) 1.3 10^3/uL (0.8-4.8) 04/25/22 03:00 Storey # (Auto) 1.1 10^3/uL (0.2-0.9) H 04/25/22 03:00 Eos # (Auto) 0.0 10^3/uL (0.0-0.8) 04/25/22 03:00 Baso # (Auto) 0.1 10^3/uL (0.0-0.1) 04/25/22 03:00 Nucleated RBC % (auto) 0.7 % 04/25/22 03:00 Total Counted 100 (0-100) 04/24/22 00:54 Atypical Lymphs % 4.0 % (0-5) 04/24/22 00:54 Absolute Neutrophils 1.1 10^3/cmm (1.4-6.5) L 04/24/22 00:54 Segmented Neutrophils 36 % 04/24/22 00:54 Abs Segm Neuts (Man) 0.9 10/cmm (1.6-7.1) L 04/24/22 00:54 Band Neutrophils 6.0 % 04/24/22 00:54 Abs Band Neuts (Man) 0.2 10^3/cmm (0.0-1.2) 04/24/22 00:54 Absolute Lymphocytes 1.1 10^3/cmm (1.2-3.4) L 04/24/22 00:54 Lymphocytes (Manual) 37 % 04/24/22 00:54 Monocytes (Manual) 16.0 % 04/24/22 00:54 Absolute Monocytes 0.4 10^3/cmm (0.1-0.6) 04/24/22 00:54 Eosinophils (Manual) 0 % 04/24/22 00:54 Absolute Eosinophils 0.0 10^3/cmm (0.0-0.7) 04/24/22 00:54 Basophils (Manual) 0.0 % 04/24/22 00:54 Absolute Basophils 0.0 10^3/cmm (0.0-0.2) 04/24/22 00:54 Metamyelocytes 1.0 % 04/24/22 00:54 Nucleated RBCs 3.0 /100WBC (0-1) H 04/24/22 00:54 Nucleated RBCs # 0.1 /100WBC 04/25/22 03:00 Platelet Estimate Normal (Normal) 04/24/22 00:54 Hypochromasia Trace 04/22/22 17:58 Poikilocytosis 1+ H 04/24/22 00:54 Anisocytosis 1+ H 04/24/22 00:54 Macrocytosis Trace 04/24/22 00:54 Ovalocytes 1+ H 04/24/22 00:54 D-Dimer 1.09 ug/mIFEU (0-0.59) H 04/23/22 04:57 Sodium 135 mmol/L (136-145) L 04/25/22 03:00 Potassium 3.5 mmol/L (3.5-5.1) 04/25/22 03:00 Chloride 103 mmol/L (98-107) 04/25/22 03:00 Carbon Dioxide 22 mmol/L (22-29) 04/25/22 03:00 Anion Gap 13.5 (5-19) 04/25/22 03:00 BUN 5 mg/dL (6-20) L 04/25/22 03:00 Creatinine 0.4 mg/dL (0.5-0.9) L 04/25/22 03:00 GFR Calculation 169.7 mL/min (90-130) H 04/25/22 03:00 Glucose 92 mg/dL (65-115) 04/25/22 03:00 POC Glucose 86 mg/dL (70-110) 04/25/22 06:27 Calculated Osmolality 277 mOsm/kg (285-295) L 04/25/22 03:00 Lactic Acid 2.2 mmol/L (0.5-2.2) 04/22/22 17:58 Calcium 8.9 mg/dL (8.5-10.5) 04/25/22 03:00 Phosphorus 2.5 mg/dL (2.5-4.5) 04/23/22 04:57 Magnesium 1.8 mg/dL (1.7-2.3) 04/23/22 04:57 Iron 23 ug/dL (37-145) L 04/22/22 17:58 TIBC 143 mcg/dl 04/22/22 17:58 % Saturation 16.0 % (20-50) L 04/22/22 17:58 Unsat Iron Binding 120 ug/dL (112-347) 04/22/22 17:58 Ferritin 1522 ng/mL (15-150) H 04/22/22 17:58 Total Bilirubin 0.2 mg/dL (0.15-1.2) 04/24/22 00:54 AST 10 U/L (0-32) 04/24/22 00:54 ALT 10 U/L (0-33) 04/24/22 00:54 Alkaline Phosphatase 68 U/L (35-105) 04/24/22 00:54 C-Reactive Protein 126.7 mg/L (0.0-4.9) H 04/23/22 04:57 Total Protein 6.0 g/dL (6.6-8.7) L 04/24/22 00:54 Albumin 2.7 g/dL (3.5-5.2) L 04/24/22 00:54 Globulin 3.3 g/dL (1.3-4.6) 04/24/22 00:54 Procalcitonin 0.30 ng/mL (0-0.5) 04/22/22 17:58 Procalcitonin 0.30 ng/mL (0-0.5) 04/22/22 17:58 Urine Color Yellow (Yellow) 04/22/22 20:40 Urine Appearance Clear (CLEAR) 04/22/22 20:40 Urine pH 9 (5-7) H 04/22/22 20:40 Ur Specific [place] 1.015 (1.005-1.030) 04/22/22 20:40 Urine Protein Neg (Negative) 04/22/22 20:40 Urine Glucose (UA) Norm (Normal) 04/22/22 20:40 Urine Ketones Negative (Negative) 04/22/22 20:40 Urine Blood Neg (Negative) 04/22/22 20:40 Urine Nitrate Negative (Negative) 04/22/22 20:40 Urine Bilirubin Neg (Negative) 04/22/22 20:40 Prot Sulfosalicylic Acd Negative (Negative) 04/22/22 20:40 Urine Urobilinogen Neg mg/dL (Negative) 04/22/22 20:40 Ur Leukocyte Esterase Negative (Negative) 04/22/22 20:40 Vancomycin Trough 22.9 ug/mL (10-15) H 04/24/22 00:54 Coronavirus 229E (PCR) Not detected (NOT DETECT) 04/22/22 18:15 SARS-CoV-2 (PCR) Not detected (NOT DETECT) 04/22/22 18:15 Vitals Last Vital Signs Temp 97.8 F 04/25/22 07:54 Pulse 82 04/25/22 07:54 Resp 18 04/25/22 08:25 BP 104/65 04/25/22 07:54 Pulse Ox 96 04/25/22 08:25 O2 Del Method 04/25/22 07:54 Discharge Plan Discharge Patient Disposition: Home Condition: Stable Prescriptions: New levofloxacin 500 mg tablet 500 mg PO DAILY 5 Days Qty: 5 0RF metronidazole 500 mg Tablet 500 mg PO TID Qty: 15 0RF Continued cyclobenzaprine 5 mg tablet 5 mg PO BEDTIME PRN (Reason: Spasms) tramadol 100 mg tablet 100 mg PO Q6H PRN (Reason: pain) Qty: 60 0RF multivitamin Tablet 1 tab PO QAM Estroven Menopause 400 mcg-40 mg- 40 mg-100 mg tablet 1 tab PO QAM oxycodone-acetaminophen 5-325 mg tablet 2 tab PO .EVERY 6 TO 8 HOURS PRN (Reason: Pain) Cbd Gummies 1 gummy PO BEDTIME PRN (Reason: sleep/pain) lidocaine 5 % Adhesive Patch,Medicated 1 patch TOPICAL DAILY PRN (Reason: Pain) Rx Instructions: leave on most painful area for up to 12 hrs Discharge Orders: Discharge Order (Routine); Ordered 04/25/22 Ordered By: Sanya Ospina Referrals: Aleyda Jean-Baptiste FNP [Primary Care Provider] - 4-7 days Prasad Griffith MD [Hospitalist] - 1 week Discharge Diet: Regular Discharge Activity: Increase activity as tolerated Patient Instructions: Opioid Safety Activity Restrictions/Additional Instructions: Joseph diet Encourage fluids Follow-up with oncology 1 week See your primary care provider in 3 to 5 days Return for any concerns Patient's Health Concerns: Abdominal pain, fever neutropenia Assessment: See above Plan of Treatment: Neutropenia is resolved Antibiotics for 5 days Discharge Attestations Time Spent in Discharge Care*: greater than 30 min Status at Discharge: Cognitive status at discharge: cognitively intact , Behavioral status at discharge: cooperative , Quality Metrics Clinical Quality Measures [ No reported AMI, CVA or VTE this stay] Coding Level of Care Code Acute Chg FW DC note Diagnoses Fever and neutropenia D70.9; R50.81 Enteritis K52.9 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
[2022-04-25] MEDS: cefepime 1,000 MG in sodium chloride 0.9% (plus) 50 ML 100 MG IV (10:12)
== END 2022-04-25 13:18 | disposition home or self-care (01) | DRG 809 ==
LOC: ER 21:29 → MEDSURG 23:43
PROVIDERS: Admitting Provider Internal Medicine; Emergency Provider Emergency Medicine; PCP Nurse Practitioner Family; Visit Provider Internal Medicine
DX: D70.1 Agranulocytosis secondary to cancer chemotherapy (principal); C49.21 Malignant neoplasm of connective and soft tissue of right lower limb, including hip; T45.1X5A Adverse effect of antineoplastic and immunosuppressive drugs, initial encounter; K52.9 Noninfective gastroenteritis and colitis, unspecified; Z79.899 Other long term (current) drug therapy; Z79.891 Long term (current) use of opiate analgesic; Z79.890 Hormone replacement therapy; Z95.828 Presence of other vascular implants and grafts; K21.9 Gastro-esophageal reflux disease without esophagitis; Z87.891 Personal history of nicotine dependence
CPT/HCPCS: 36415; 36416; 71045; 74177; 80048; 80053; 80202; 81003; 82728; 82962; 83540; 83550; 83605; 83735; 84100; 84145; 85007; 85025; 85378; 86140; 87040; 87635; 96365; 96367; 96372; 96375; 99285; J0692; J1170; J1650; J2270; J2405; J3370; J3490; J7030; Q9967

== ENCOUNTER 2022-05-31 13:00 | Oncology outpatient (recurring) (ONCR) | payer BC, SELFPAY ==
[2022-05-15 13:29] LABS: Basophils % 2.4 %; Eosinophils % 1.6 %; Hematocrit 29.6 % (37.0-47.0); Hemoglobin 8.8 g/dL (11.5-15.3); Lymphocytes # 0.6 10^3/uL (0.8-4.8); Lymphocytes % 44.1 %; Mean Corpuscular HGB Conc 29.7 g/dL (30.0-36.0); Mean Corpuscular Hemoglobin 24.4 pg (28.0-34.0); Mean Platelet Volume 10.5 fL (7.4-10.4); Monocytes # 0.3 10^3/uL (0.2-0.9); Monocytes % 23.6 %; Neutrophils % 26.7 %; Nucleated Red Blood Cells % 0 %; Platelet Count 118 10^3/cmm (130-400); Red Blood Count 3.61 10^6/uL (4.1-5.3); Red Cell Distribution Width 18.6 % (12.1-15.1); White Blood Count 1.3 10^3/uL (4.0-10.0)
[2022-05-15 14:06] LABS: Neutrophils # 0.34 10^3/uL (1.8-7.7)
[2022-05-17 12:59] LABS: Basophils % 0.6 %; Eosinophils % 1.3 %; Hematocrit 30.7 % (37.0-47.0); Hemoglobin 9.3 g/dL (11.5-15.3); Lymphocytes # 0.7 10^3/uL (0.8-4.8); Lymphocytes % 41.3 %; Mean Corpuscular HGB Conc 30.3 g/dL (30.0-36.0); Mean Corpuscular Hemoglobin 25.5 pg (28.0-34.0); Mean Corpuscular Volume 84.3 fl (81-99); Mean Platelet Volume 10.9 fL (7.4-10.4); Monocytes # 0.6 10^3/uL (0.2-0.9); Monocytes % 37.5 %; Neutrophils % 19.3 %; Nucleated Red Blood Cells % 0 %; Platelet Count 100 10^3/cmm (130-400); Red Blood Count 3.64 10^6/uL (4.1-5.3); Red Cell Distribution Width 21.2 % (12.1-15.1); White Blood Count 1.6 10^3/uL (4.0-10.0)
[2022-05-17 13:33] LABS: Neutrophils # 0.31 10^3/uL (1.8-7.7); Slide Review Slide Review Perform
== END 2022-06-05 23:59 | disposition home or self-care (01) ==
PROVIDERS: PCP Nurse Practitioner Family; Visit Provider Internal Medicine Medical Oncology
DX: C49.21 Malignant neoplasm of connective and soft tissue of right lower limb, including hip (principal)
CPT/HCPCS: 36415; 36591; 80053; 85025

== ENCOUNTER 2022-06-25 15:00 | Oncology outpatient (recurring) (ONCR) | payer BC, MEDICAID, SELFPAY ==
--- NOTE | 2022-06-18 13:43 | N.ONRAD NP_ITS ---
Radiation Oncology Consultation Patient Name: Arlyn Lawson Date of : 1970 Date of Service: 06/18/2022 Attending Physician: Magdy Rodriguez M.D. Arlyn Lawson was seen in consultation this afternoon at the request of Quintin Sebastian M.D. for evaluation regarding neoadjuvant radiotherapy in the management of a soft tissue sarcoma of the right thigh. The patient was evaluated by her primary care physician in February of 2022 for right lower extremity pain. An MRI of the right lower extremity obtained on February 22, 2022 described a large soft tissue mass within the right thigh beginning at the level of the greater trochanter extending to the distal aspect of the femur measuring 25 cm x 14 cm. 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 Neoadjuvant chemotherapy consisting of the AIM regimen (Adriamycin, ifosfamide, and mesna) was administered at the [place] [facility] for 4 cycles between the dates of April 17, 2022 through May 29, 2022. The patient was referred for neoadjuvant radiotherapy. I reviewed with Ms. Lawson The [place] [employer] on [employer] Staging for soft tissue sarcomas and the patient's clinical stage IIIB (T4aN0) associated with her diagnosis. I also discussed The National Comprehensive Cancer Network Guidelines recommending chemoradiation, radiotherapy, systemic therapy, isolated limb perfusion, or amputation/radical resection. I would endorse a five-week course of radiation therapy. I will order labs today. Prior to beginning treatment, a planning CT scan will be acquired to delineate the gross target volume. I addressed the potential toxicities of lower extremity radiotherapy. The patient has verbalized understanding and would like to proceed as recommended. The patient's medical treatment plan was discussed with Quintin Sebastian M.D. Signed by: Dr. Magdy Rodriguez 06/20/2022 2:04:09 PM
[2022-06-18] MEDS: alteplase 1 mg/mL SDV 2 mL 2 MG INTRACATH (14:08)
--- NOTE | 2022-06-18 14:58 | PC.NURSE ---
no blood return on port, patient unable to wait longer for a second dose, port deaccessed and lab drawn from RAC x1 attempt ,tolerated well.
[2022-06-18 15:23] LABS: Basophils # 0.1 10^3/uL (0.0-0.1); Basophils % 1.5 %; Eosinophils % 0.7 %; Hematocrit 33.5 % (37.0-47.0); Hemoglobin 10.3 g/dL (11.5-15.3); Mean Corpuscular HGB Conc 30.7 g/dL (30.0-36.0); Mean Corpuscular Hemoglobin 27.2 pg (28.0-34.0); Mean Corpuscular Volume 88.4 fl (81-99); Mean Platelet Volume 10.1 fL (7.4-10.4); Monocytes # 0.9 10^3/uL (0.2-0.9); Monocytes % 14.6 %; Neutrophils # 3.83 10^3/uL (1.8-7.7); Neutrophils % 65.9 %; Nucleated Red Blood Cells % 0 %; Platelet Count 592 10^3/cmm (130-400); Red Blood Count 3.79 10^6/uL (4.1-5.3); Red Cell Distribution Width 25.5 % (12.1-15.1); White Blood Count 5.8 10^3/uL (4.0-10.0)
[2022-06-18 15:33] LABS: Alanine Aminotransferase 16 U/L (0-33); Albumin Level 4.1 g/dL (3.5-5.2); Alkaline Phosphatase 84 U/L (35-105); Anion Gap 13.9 (5-19); Aspartate Amino Transferase 23 U/L (0-32); Blood Urea Nitrogen 11 mg/dL (6-20); Calcium 9.8 mg/dL (8.5-10.5); Carbon Dioxide 26 mmol/L (22-29); Chloride 102 mmol/L (98-107); Globulin 2.9 g/dL (1.3-4.6); Glomerular Filtration Rate 131.1 mL/min (90-130); Glucose 92 mg/dL (65-115); Osmolality Calculated 285 mOsm/kg (285-295); Potassium 3.9 mmol/L (3.5-5.1); Sodium 138 mmol/L (136-145); Total Bilirubin 0.3 mg/dL (0.15-1.2)
--- NOTE | 2022-06-25 | CT_ITS ---
Radiation Therapy Planning CT images; total exam DLP: 1570.47 mGy-cm MTDD
[2022-06-25 15:50] LABS: Basophils # 0.1 10^3/uL (0.0-0.1); Eosinophils # 0.7 10^3/uL (0.0-0.8); Eosinophils % 12.3 %; Hematocrit 34.7 % (37.0-47.0); Hemoglobin 10.7 g/dL (11.5-15.3); Lymphocytes # 1.1 10^3/uL (0.8-4.8); Lymphocytes % 19.1 %; Mean Corpuscular HGB Conc 30.8 g/dL (30.0-36.0); Mean Corpuscular Hemoglobin 27.7 pg (28.0-34.0); Mean Corpuscular Volume 89.9 fl (81-99); Mean Platelet Volume 10.5 fL (7.4-10.4); Monocytes # 0.8 10^3/uL (0.2-0.9); Monocytes % 14.4 %; Neutrophils # 3.04 10^3/uL (1.8-7.7); Nucleated Red Blood Cells % 0 %; Platelet Count 301 10^3/cmm (130-400); Red Blood Count 3.86 10^6/uL (4.1-5.3); Red Cell Distribution Width 23.8 % (12.1-15.1); White Blood Count 5.8 10^3/uL (4.0-10.0)
[2022-06-25 16:28] LABS: Alanine Aminotransferase 24 U/L (0-33); Albumin Level 3.6 g/dL (3.5-5.2); Alkaline Phosphatase 82 U/L (35-105); Anion Gap 12.5 (5-19); Aspartate Amino Transferase 25 U/L (0-32); Blood Urea Nitrogen 14 mg/dL (6-20); Calcium 9.4 mg/dL (8.5-10.5); Carbon Dioxide 24 mmol/L (22-29); Chloride 104 mmol/L (98-107); Globulin 3.3 g/dL (1.3-4.6); Glomerular Filtration Rate 131.1 mL/min (90-130); Glucose 104 mg/dL (65-115); Osmolality Calculated 285 mOsm/kg (285-295); Potassium 3.5 mmol/L (3.5-5.1); Sodium 137 mmol/L (136-145); Total Bilirubin 0.4 mg/dL (0.15-1.2); Total Protein 6.9 g/dL (6.6-8.7)
== END 2022-07-03 23:59 | disposition home or self-care (01) ==
PROVIDERS: Radiology Radiation Oncology; PCP Nurse Practitioner Family; Visit Provider Internal Medicine Medical Oncology
DX: C49.21 Malignant neoplasm of connective and soft tissue of right lower limb, including hip (principal)
CPT/HCPCS: 36415; 36591; 77290; 77334; 80053; 85025; 99205; J2997

== ENCOUNTER 2022-06-29 10:44 | Outpatient (CLI) | payer BC, MEDICAID, SELFPAY ==
--- NOTE | 2022-06-29 11:30 | CT_ITS ---
WS: [id number] CT CHEST, ABDOMEN AND PELVIS WITH CONTRAST. HISTORY: Evaluate for metastatic disease prior to treatment TECHNIQUE: Contiguous 5 mm axial imaging performed through the chest, abdomen and pelvis with IV cont rast, oral contrast has been provided. Coronal and sagittal reformats chest. Coronal and sagittal ref ormats through the abdomen and pelvis. All CT scans at [facility] use at least one of these d ose optimization techniques: automated exposure control; mA and/or kV adjustment per patient size (in cludes targeted exams where dose is matched to clinical indication); or iterative reconstruction. CONTRAST: Omnipaque 350; 100 mL IV. DLP: 1344.78 mGy.cm COMPARISON: 04/22/2022, 08/23/2018, 07/19/[address]: Pulmonary hyperinflation. 3 mm micronodules in the RIGHT upper lobe. Several of these micro nodules are associated with the pleura suggesting benignity. 4 mm nodule medial LEFT lower lobe abutt ing the mediastinum is not identified on prior studies. No pneumonia. There are a few mediastinal and hilar lymph nodes. These lymph nodes are not significantly enlarged but are new or more prominent as compared to 2010. The largest lymph nodes measure approximately 11 mm adjacent to the pericardium. H eart size is normal. Prior fundoplication. Abdomen CT: Hepatic steatosis. No liver mass. Normal portal vein. Prior cholecystectomy. Normal size spleen. Normal pancreas. No adrenal mass. Kidneys are enhancing normally. Parapelvic cyst RIGHT kidne y. Nonobstructing calcification upper pole LEFT kidney. Normal aorta. Lymphadenopathy surrounding the celiac axis and precaval. Largest lymph node measures 2.1 cm. There i s increased soft tissue encasing first portion of the duodenum. This may be due to peristalsis. No as cites. Normally distended stomach. There is no outlet obstruction although there is soft tissue encasing the proximal duodenum. No colon obstruction. Numerous diverticula of the descending and sigmoid colon. Pelvic CT: No pelvic adenopathy. Patient has a known neoplastic mass involving the proximal RIGHT femur which is partially visualized No destructive bone lesions are identified. CT/CT chest abdpel w/*[id number] IMPRESSION: 1. Indeterminate pulmonary nodules. Some of these nodules are along the fissur es suggesting they are benign. The largest is in the medial RIGHT lower lobe ab utting the mediastinum measuring 4 mm. 2. Indeterminate mediastinal and hilar lymph nodes. Largest lymph node is 11 m m adjacent to the heart. 3. Lymphadenopathy surrounding the celiac axis/precaval suspicious for metasta tic disease. 4. Soft tissue encasing the proximal duodenum. Differential includes focal per istalsis and tumor involvement. 5. Reidentified and partially visualized is a soft tissue mass associated with the RIGHT femur which has been previously described. 6. Consider PET/CT evaluation.
[2022-06-29] MEDS: iohexol 350 mg/mL 500 mL Btl (per mL) IV ×2 (12:03)
[2022-06-29] MEDS: iohexol 350 mg/mL 500 mL Btl (per mL) PO (12:04)
== END 2022-06-29 10:45 | disposition home or self-care (01) ==
LOC: RAD 10:47
PROVIDERS: PCP Nurse Practitioner Family; Visit Provider Radiology Radiation Oncology
DX: C49.21 Malignant neoplasm of connective and soft tissue of right lower limb, including hip (principal); R91.8 Other nonspecific abnormal finding of lung field
CPT/HCPCS: 71260; 74177; Q9967

== ENCOUNTER 2022-07-21 05:35 | Outpatient (CLI) | payer BC, MEDICAID, SELFPAY ==
--- NOTE | 2022-07-21 08:00 | PETR_ITS ---
PROCEDURE INFORMATION: Exam: PET/CT Skull Base to Mid-thigh Exam date and time: 07/21/2022 8:30 AM Age: 51 years old Clinical indication: Condition or disease; Condition/disease: Staging for sarcoma of lower extremity LABS AND CLINICAL REPORTS: Glucose: 117 mg/dl Treatment strategy for malignancy (PET staging): Initial Staging (PI) TECHNIQUE: Imaging protocol: Following at least four-hour fasting and following the injection of F-18-FDG, low dose CT images were obtained. Then, PET images were obtained. Attenuation corrected images were constructed using the CT scan. Fused images of PET and CT were reviewed. The standardized uptake values (SUV) reported below are maximum values within a region of interest, expressed in gm/ml. Exam includes orbital meatal line to mid-thigh. Radiopharmaceutical: 13.07 mCi F-18 FDG (Fluorodeoxyglucose), IV. Time of imaging post radiopharmaceutical administration: 1 hour Injection site: Not specified COMPARISON: CT chest abdpel w/*[id number] 06/29/2022 11:58 AM, CT right femur 02/23/2022 FINDINGS: Limitations: Motion artifact. Tubes, catheters and devices: A left subclavian central venous port catheter terminates in the distal SVC. Brain: Visualized brain has normal physiologic uptake. Pharynx: Bilateral palatine tonsillar uptake is noted, SUV max 6.0 on the right and SUV max 6.0 on the left. Larynx: No abnormal uptake. Lungs, pleura and trachea: No abnormal uptake. Heart: Normal physiologic uptake. Mediastinal space: No abnormal uptake. Liver: No abnormal uptake. Gallbladder and bile ducts: No abnormal uptake. Cholecystectomy clips are present. Pancreas: No abnormal uptake. Spleen: No abnormal uptake. Adrenal glands: No abnormal uptake. Kidneys and ureters: Normal physiologic uptake. Right renal parapelvic cysts appears similar. Nonobstructing left nephrolithiasis. Stomach and bowel: No abnormal uptake. There is physiologic appearing uptake in the region of the duodenum. There are scattered colonic diverticula. Vasculature: No abnormal uptake. Lymph nodes: A similar in size prominent lymph node posterior to the medial left clavicle measures 1.5 x 0.9 cm on series 3, image 54, SUV max 5.5. Mildly prominent additional similar in size mediastinal lymph nodes are noted with elevated uptake for example in the subcarinal space measuring 1.4 cm, SUV max 3.9. An inferior right paratracheal lymph node measures 1.1 cm on series 3, image 64, SUV max 4.0. A mildly prominent right axillary lymph node measures 1.8 x 0.8 cm on series 3, image 71, SUV max 7.9. Low-level uptake in the hilar regions is noted without well-defined lymph nodes, SUV max 3.5 on the left and SUV max 3.0 on the right. A mildly prominent level 2 lymph node on the left is noted measuring approximately 0.9 x 0.5 cm on series 3 image 41, SUV max 4.8. Uptake within ill-defined similar in size clustered lymph nodes in the upper abdomen near the celiac artery and extending into the region of the arnaldo hepatis are noted, SUV max 8.4 within the most confluent region of lymph nodes on series 3, image 100 measuring 4.5 x 1.7 cm. Bones/joints: Mild uptake in the region of the posteromedial left 8th rib is noted, SUV max 3.9 without evidence of a corresponding lesion on the CT images. Focal uptake between the medial clavicles is noted without a corresponding lesion consistent with a benign finding. Soft tissues: Elevated uptake is noted within a mass centered in the region of the vastus intermedius muscle of the right anterior thigh which demonstrates heterogeneous soft tissue density measuring up to 11.1 x 8.9 cm in the axial plane on series 3, image 188 by approximately 19.5 cm superior to inferior, SUV max 17.6. This mass is decreased in size compared with 02/23/2022. There are heterogeneous low-density portions of this mass which are not radiotracer avid. METRICS: Mediastinal blood pool: SUV max 2.5 PET/PET [facility] INITIAL [id number] IMPRESSION: 1. There are radiotracer avid lymph nodes in the left neck, mediastinum, right axillary region and upper abdomen concerning for malignancy. 2. A radiotracer avid mass in the anterior right thigh is noted consistent with the known primary malignancy (SUV max 17.6) with probable areas of necrosis. It appears decreased in size compared with 02/23/2022. 3. Uptake within the posteromedial left 8th rib is noted without evidence of an underlying lesion on the CT images. Although this may be artifactual in nature, attention to this region is recommended on follow-up imaging. 4. Physiologic appearing uptake is noted in the region of the duodenum. No definitive evidence of radiotracer avid mass in this region. Assessment is somewhat limited however secondary to lack of intraluminal contrast. 5. Bilateral palatine tonsillar uptake is noted, likely inflammatory or infectious in etiology. 6. Additional nonurgent findings as detailed above.
== END 2022-07-21 05:36 | disposition home or self-care (01) ==
LOC: RAD 07-23 05:36
PROVIDERS: PCP Nurse Practitioner Family; Visit Provider Radiology Radiation Oncology
DX: C49.21 Malignant neoplasm of connective and soft tissue of right lower limb, including hip (principal)
CPT/HCPCS: 78815; A9552

== ENCOUNTER 2022-08-03 11:01 | Oncology outpatient (recurring) (ONCR) | payer BC, MEDICAID, SELFPAY ==
--- NOTE | 2022-07-31 14:34 | ONCRAD TMN_ITS ---
Radiation Oncology Treatment Management Note Patient Name: Arlyn Lawson Date of : 1970 Date of Service: 07/31/2022 Attending Physician: Magdy Rodriguez M.D. 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 The patient was evaluated by her primary care physician in February of 2022 for right lower extremity pain. An MRI of the right lower extremity obtained on February 22, 2022 described a large soft tissue mass within the right thigh beginning at the level of the greater trochanter extending to the distal aspect of the femur measuring 25 cm x 14 cm. 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 Neoadjuvant chemotherapy consisting of the AIM regimen (Adriamycin, ifosfamide, and mesna) was administered at the [facility] for 4 cycles between the dates of April 17, 2022 through May 29, 2022. The patient has received 4 Gy of a prescribed 50 Montes with 3D-conformal radiotherapy plan utilizing opposed portal umanzor. Upon review of systems, she denied any musculoskeletal complaints of the lower extremity related to radiotherapy. On physical examination, she patient weighed 216 lbs. Her temperature was 97.4 ???F and the blood pressure was 135/90 mmHg. The pulse was 75 bpm and her respiratory rate was 18. Continue neoadjuvant radiotherapy to the right lower extremity as prescribed. Signed by: Magdy Rodriguez 07/31/2022 2:32:47 PM
== END 2022-08-03 23:59 | disposition home or self-care (01) ==
PROVIDERS: PCP Nurse Practitioner Family; Visit Provider Radiology Radiation Oncology
DX: Z51.0 Encounter for antineoplastic radiation therapy (principal); C49.21 Malignant neoplasm of connective and soft tissue of right lower limb, including hip
CPT/HCPCS: 77295; 77300; 77334; 77387; 77412

== ENCOUNTER 2022-08-30 13:35 | Oncology outpatient (recurring) (ONCR) | payer BC, MEDICAID, SELFPAY ==
--- NOTE | 2022-08-07 14:12 | ONCRAD TMN_ITS ---
Radiation Oncology Treatment Management Note Patient Name: Arlyn Lawson Date of : 1970 Date of Service: 08/07/2022 Attending Physician: Magdy Rodriguez M.D. 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 The patient was evaluated by her primary care physician in February of 2022 for right lower extremity pain. An MRI of the right lower extremity obtained on February 22, 2022 described a large soft tissue mass within the right thigh beginning at the level of the greater trochanter extending to the distal aspect of the femur measuring 25 cm x 14 cm. 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 Neoadjuvant chemotherapy consisting of the AIM regimen (Adriamycin, ifosfamide, and mesna) was administered at the [facility] for 4 cycles between the dates of April 17, 2022 through May 29, 2022. The patient has received 14 Gy of a prescribed 50 Montes with 3D-conformal radiotherapy plan utilizing opposed portal umanzor. Upon review of systems, she described a generalized rash. On physical examination, she patient weighed 216 lbs. Her temperature was 97.4 ???F and the blood pressure was 135/90 mmHg. The pulse was 75 bpm and her respiratory rate was 18. There was no erythema of the skin within the treatment field. A papular rash was present on her arms and legs. Continue neoadjuvant radiotherapy to the right lower extremity as planned. I will prescribe a Medrol Dosepak for the rash. Signed by: Magdy Rodriguez 08/07/2022 2:10:55 PM
--- NOTE | 2022-08-14 14:24 | ONCRAD TMN_ITS ---
Radiation Oncology Treatment Management Note Patient Name: Arlyn Lawson Date of : 1970 Date of Service: 08/14/2022 Attending Physician: Magdy Rodriguez M.D. 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 The patient was evaluated by her primary care physician in February of 2022 for right lower extremity pain. An MRI of the right lower extremity obtained on February 22, 2022 described a large soft tissue mass within the right thigh beginning at the level of the greater trochanter extending to the distal aspect of the femur measuring 25 cm x 14 cm. 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 Neoadjuvant chemotherapy consisting of the AIM regimen (Adriamycin, ifosfamide, and mesna) was administered at the [facility] for 4 cycles between the dates of April 17, 2022 through May 29, 2022. The patient has received 24 Gy of a prescribed 50 Montes with 3D-conformal radiotherapy plan utilizing opposed portal umanzor. Upon review of systems, she denied any complaints. On physical examination, she patient weighed 215 lbs. Her temperature was 96.4 ???F and the blood pressure was 117/77 mmHg. The pulse was 96 bpm and her respiratory rate was 18. There was no erythema of the skin within the treatment field. Continue neoadjuvant radiotherapy to the right lower extremity as prescribed. Signed by: Magdy Rodriguez 08/14/2022 2:56:28 PM
--- NOTE | 2022-08-21 14:17 | ONCRAD TMN_ITS ---
Radiation Oncology Treatment Management Note Patient Name: Arlyn Lawson Date of : 1970 Date of Service: 08/21/2022 Attending Physician: Magdy Rodriguez M.D. 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 The patient was evaluated by her primary care physician in February of 2022 for right lower extremity pain. An MRI of the right lower extremity obtained on February 22, 2022 described a large soft tissue mass within the right thigh beginning at the level of the greater trochanter extending to the distal aspect of the femur measuring 25 cm x 14 cm. A core needle biopsy performed at the 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 Neoadjuvant chemotherapy consisting of the AIM regimen (Adriamycin, ifosfamide, and mesna) was administered at the [facility] for 4 cycles between the dates of April 17, 2022 through May 29, 2022. The patient has received 34 Gy of a prescribed 50 Montes with 3D-conformal radiotherapy plan utilizing opposed portal umanzor. Upon review of systems, she did not report any complaints. On physical examination, she patient weighed 212 lbs. Her temperature was 96.4 ???F and the blood pressure was 142/98 mmHg. The pulse was 86 bpm and her respiratory rate was 18. There was no erythema of the skin within the treatment field. Continue neoadjuvant radiotherapy to the right lower extremity as planned. Signed by: Magdy Rodriguez 08/21/2022 2:16:14 PM
--- NOTE | 2022-08-27 14:26 | ONCRAD TMN_ITS ---
Radiation Oncology Treatment Management Note Patient Name: Arlyn Lawson Date of : 1970 Date of Service: 08/27/2022 Attending Physician: Magdy Rodriguez M.D. 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 The patient was evaluated by her primary care physician in February of 2022 for right lower extremity pain. An MRI of the right lower extremity obtained on February 22, 2022 described a large soft tissue mass within the right thigh beginning at the level of the greater trochanter extending to the distal aspect of the femur measuring 25 cm x 14 cm. 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 Neoadjuvant chemotherapy consisting of the AIM regimen (Adriamycin, ifosfamide, and mesna) was administered at the [facility] for 4 cycles between the dates of April 17, 2022 through May 29, 2022. The patient has received 40 Gy of a prescribed 50 Montes with 3D-conformal radiotherapy plan utilizing opposed portal umanzor. Upon review of systems, she described an inguinal rash. On physical examination, she patient weighed 215 lbs. Her temperature was 96.6 ???F and the blood pressure was 117/76 mmHg. The pulse was 83 bpm and her respiratory rate was 18. There was a grade II dermatitis of the skin within the right groin. Continue neoadjuvant radiotherapy to the right lower extremity as prescribed. Signed by: Magdy Rodriguez 08/27/2022 2:24:28 PM
--- NOTE | 2022-08-30 14:09 | N.ONRD TS_ITS ---
Radiation OncologyTreatment Summary Patient Name: Arlyn Lawson Date of : 1970 Date of Service: 08/30/2022 Attending Physician: Magdy Rodriguez M.D. 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 The patient was evaluated by her primary care physician in February of 2022 for right lower extremity pain. An MRI of the right lower extremity obtained on February 22, 2022 described a large soft tissue mass within the right thigh beginning at the level of the greater trochanter extending to the distal aspect of the femur measuring 25 cm x 14 cm. 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 Neoadjuvant chemotherapy consisting of the AIM regimen (Adriamycin, ifosfamide, and mesna) was administered at the [facility] for 4 cycles between the dates of April 17, 2022 through May 29, 2022. Daily radiotherapy was administered between the dates of July 30, 2022 through August 30, 2022. A prescribed dose of 44 Gy of an anticipated 50 Gy was delivered in 22 fractions encompassing 32 elapsed days. Treatment was discontinued on account of a grade III dermatitis involving the right inguinal skin. The right lower extremity mass was treated utilizing a 3-dimensional conformal radiotherapy plan with an opposed tangential portal umanzor. The medial field utilized a 340??? gantry angle with an associated collimator angle of 0???. The field size measured 9.1 cm x 9.7 cm within the X-direction and 18.2 cm x 17.2 cm within the Y-direction. The measured SSD was 92.1 cm with the field delivering 99 monitor units. Supplemental ports with multi-leaf collimation were designed allocating 11 MU and 9 MU. Low-energy photons were prescribed. The lateral field employed a gantry angle of 160??? and an associated collimator angle of 0???. The field size measured 9.7 cm x 9.1 cm within X-direction and 18.2 cm x 17.2 cm within the Y-direction. The SSD measured 83.7 cm with the field delivering 99 monitor units. An additional field with MLC was incorporated administering 10 MU. A photon energy of 6 MV was specified. All treatments were performed with the Farman linear accelerator with an isocentric technique. ???The dose was calculated by Anisotropic Analytic Algorithm with the plan normalized to deliver 95% of the prescription dose to 95% of the planning target volume. Signed by: Magdy Rodriguez 08/30/2022 2:08:05 PM
== END 2022-09-02 23:59 | disposition home or self-care (01) ==
PROVIDERS: PCP Nurse Practitioner Family; Visit Provider Radiology Radiation Oncology
DX: Z51.0 Encounter for antineoplastic radiation therapy (principal); C49.21 Malignant neoplasm of connective and soft tissue of right lower limb, including hip; L59.8 Other specified disorders of the skin and subcutaneous tissue related to radiation; Z79.899 Other long term (current) drug therapy; Z87.891 Personal history of nicotine dependence
CPT/HCPCS: 77336; 77387; 77412

== ENCOUNTER 2022-09-18 10:33 | Oncology outpatient (recurring) (ONCR) | payer BC, MEDICAID, SELFPAY ==
--- NOTE | 2022-09-18 11:06 | ONCRAD EPV_ITS ---
Radiation Oncology Follow-Up Note Patient Name: Arlyn Lawson Date of : 1970 Date of Service: 09/18/2022 Attending Physician: Magdy Rodriguez M.D. Arlyn Lawson returned to my office this morning for an unscheduled post-radiotherapy follow-up appointment. 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 The patient was evaluated by her primary care physician in February of 2022 for right lower extremity pain. An MRI of the right lower extremity obtained on February 22, 2022 described a large soft tissue mass within the right thigh beginning at the level of the greater trochanter extending to the distal aspect of the femur measuring 25 cm x 14 cm. 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 Neoadjuvant chemotherapy consisting of the AIM regimen (Adriamycin, ifosfamide, and mesna) was administered at the [facility] for 4 cycles between the dates of April 17, 2022 through May 29, 2022. Daily radiotherapy was administered between the dates of July 30, 2022 through August 30, 2022. A prescribed dose of 44 Gy of an anticipated 50 Gy was delivered in 22 fractions encompassing 32 elapsed days. Treatment was discontinued on account of a grade III dermatitis involving the right inguinal skin. On review of systems, she described pain in the right thigh. On physical examination, the patient weighed 214 lbs and the temperature was 96.2???F. Her blood pressure was 138/77 mmHg. The pulse was 69 bpm and her respiratory rate was 18 breaths per minute. Examination of the right lower extremity identified mild erythema of the skin of the lateral aspect of the thigh. The known mass was present. In summary, Ms. Lawson returned for a routine follow-up appointment. There were no sequelae from treatment. She has been scheduled for surgery next month. Signed by: Magdy Rodriguez 09/18/2022 11:05:28 AM
== END 2022-10-03 23:59 | disposition home or self-care (01) ==
LOC: ONCMED 10:34
PROVIDERS: PCP Nurse Practitioner Family; Visit Provider Radiology Radiation Oncology
DX: Z53.9 Procedure and treatment not carried out, unspecified reason (principal)

== ENCOUNTER 2022-09-24 18:53 | Emergency (ER) | payer BC, MEDICAID, SELFPAY ==
[2022-09-24] VITALS (8 sets, daily range): BP systolic 126–162; BP diastolic 74–102; PULSE 70–89; RESP 16–26; TEMP 36.8; O2SAT 94–100; BMI 33.3
[2022-09-24] MEDS: ketorolac 30 mg/mL INJ IVP (19:14)
[2022-09-24] MEDS: ondansetron 2 mg/ML SDV 2 mL 4 MG IVP (19:20)
[2022-09-24 19:28] LABS: Basophils % 0.3 %; Eosinophils # 0.2 10^3/uL (0.0-0.8); Eosinophils % 3.9 %; Hematocrit 39.8 % (37.0-47.0); Hemoglobin 12.9 g/dL (11.5-15.3); Lymphocytes # 1.5 10^3/uL (0.8-4.8); Lymphocytes % 25.6 %; Mean Corpuscular HGB Conc 32.4 g/dL (30.0-36.0); Mean Corpuscular Hemoglobin 28.9 pg (28.0-34.0); Mean Platelet Volume 10.4 fL (7.4-10.4); Monocytes # 0.7 10^3/uL (0.2-0.9); Monocytes % 12.6 %; Neutrophils # 3.37 10^3/uL (1.8-7.7); Neutrophils % 57.4 %; Nucleated Red Blood Cells % 0 %; Platelet Count 267 10^3/cmm (130-400); Red Blood Count 4.47 10^6/uL (4.1-5.3); Red Cell Distribution Width 12.6 % (12.1-15.1); White Blood Count 5.9 10^3/uL (4.0-10.0)
[2022-09-24 19:42] LABS: Alanine Aminotransferase 25 U/L (0-33); Alkaline Phosphatase 77 U/L (35-105); Anion Gap 17.6 (5-19); Aspartate Amino Transferase 21 U/L (0-32); Blood Urea Nitrogen 18 mg/dL (6-20); Calcium 9.2 mg/dL (8.5-10.5); Carbon Dioxide 21 mmol/L (22-29); Chloride 106 mmol/L (98-107); Glomerular Filtration Rate 66.5 mL/min (90-130); Glucose 97 mg/dL (65-115); Osmolality Calculated 294 mOsm/kg (285-295); Potassium 3.6 mmol/L (3.5-5.1); Sodium 141 mmol/L (136-145); Total Bilirubin 0.6 mg/dL (0.15-1.2)
--- NOTE | 2022-09-24 19:46 | ED_ITS ---
HPI - Abdominal Pain General: Chief Complaint: Abdominal Pain Stated Complaint: Abd pain Time Seen by Provider: 09/24/22 19:00 History of Present Illness: Patient presents to the ER with complaints of left lower quadrant and left flank pain that radiates to the hip/groin region. Patient also states she has a blood in her urine this evening. Patient states this all started within the last couple hours. MD elicited complaint: abdominal pain and flank pain Pertinent past history: kidney stones Onset (ago): hour(s) (A couple hours ago) Pain Consistency: constant Location: LLQ and L flank Severity: moderate Quality: stabbing and aching Radiation: suprapubic (And hip region) Migration to: no migration Exacerbating factors: nothing Relieving factors: nothing Associated Symptoms: Reports hematuria; Denies chills, diarrhea, fever(s), nausea and vomiting Review of Systems General: Reports: 10 or more systems reviewed and unremarkable except in HPI and below Const: Denies: fever(s) or chills Eyes: Denies: change in vision or photophobia ENMT: Denies: throat pain or odynophagia Card: Denies: chest pain or edema Resp: Denies: dyspnea or productive cough GI: Reports: abdominal pain; Denies: nausea, vomiting or diarrhea : Reports: hematuria; Denies: flank pain or difficulty voiding Musc: Denies: neck pain or back pain PFSH ED PFSH: Medical History GERD (gastroesophageal reflux disease) 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 Surgical History History of cholecystectomy History of tubal ligation Status post laparoscopic Kellie fundoplication (10/27/19) Laparoscopic paraesophageal hernia repair with mesh placement and Niesen fundoplication with intraoperative EGD Family History Father Dementia Brother CAD (coronary artery disease) Other Cancer Diabetes Hyperlipidemia Hypertension Psychiatric illness Stroke Denies family history of Clotting disorder Chronic kidney disease (CKD) Suicide Anesthesia complication Bleeding disorder Lung disease Social History Smoking and tobacco status: former smoker Alcohol intake: current Alcohol intake frequency: holidays/special occasions only Physical Exam Const: COMMON NORMALS: average body habitus, patient oriented x3, no limitations, healthy appearing, alert and well nourished HENMT: COMMON NORMALS: normocephalic, atraumatic, hearing grossly normal bilaterally, external ears normal, Normal external nose present and moist oral mucous membranes HEAD & SCALP: normocephalic and atraumatic NOSE: Normal external nose present EXTERNAL EAR: Yes external ears normal Eye: COMMON NORMALS: Equal, round and reactive pupils present, EOMs intact bilaterally, conjunctivae normal and no scleral icterus CONJUNCTIVA: Yes conjunctivae normal PUPIL: Yes Equal, round and reactive pupils present Neck/C-Spine: COMMON NORMALS: full ROM, no lymphadenopathy, supple, no meningeal signs, no JVD and Thyroid normal THYROID: Thyroid normal Chest: COMMONS NORMALS: normal inspection of the chest and normal palpation of entire chest wall Resp: COMMON NORMALS: normal respiratory effort, No retractions, No use of accessory muscles and clear to auscultation bilaterally AUSCULTATION: clear to auscultation bilaterally Cardio: COMMON NORMALS: no JVD, regular rate, S1 normal heart sound present, S2 normal heart sound present, No gallops present (Cardio), No clicks present (Cardio), No murmurs present (Cardio) and No rub (Cardio) RATE: regular rate HEART SOUNDS: S1 normal heart sound present and S2 normal heart sound present GI: COMMON NORMALS: Soft to palpation INSPECTION: Yes normal to inspection AUSCULTATION: Yes normoactive bowel sounds PALPATION: Yes Soft to palpation, Yes Tenderness to palpation present (GI) Details: LLQ and No Rebound tenderness present : BLADDER/KIDNEY EXAM: Yes CVA tenderness on the left Back/Pelvis: GENERAL BACK: Yes CVA tenderness Neuro: COMMON NORMALS: patient oriented x3 SENSORIUM/ORIENTATION: Yes alert MENINGEAL SIGNS: Yes no meningeal signs Course Vital Signs: Vital signs: Vital Signs Temperature 98.2 F 09/24/22 18:57 Pulse Rate 78 09/24/22 21:30 Respiratory Rate 16 09/24/22 21:30 Blood Pressure 142/76 09/24/22 21:30 Pulse Oximetry 100 09/24/22 21:30 Oxygen Delivery Me thod Room Air 09/24/22 21:14 MDM - Abdominal Pain Medical Decision Making Presents to the ER with left lower quadrant and left flank pain that started this evening. Physical well is blood in her urine. Patient was given Toradol and Zofran IV that did not relieve the pain she was given an 50-minute micrograms of fentanyl which relieved the pain. Lab work was obtained including urine and also a CT scan. Lab work was essentially benign UA showed gross he maturia with possible urinary tract infection, abdomen pelvis CT scan showed 3 mm stone noted in the proximal left ureter with surrounding inflammation. With punctate nonobstructing stone in the pole of the upper left kidney. Patient stated she had Toradol and oxycodone at home for pain. Patient will be discharged home on antibiotics and told to follow-up with her PCP and/or urologist. Differential Diagnosis Likely abdominal pain and calculus of kidney; Unlikely acute appendicitis, constipation, diverticulitis, endometriosis, gastroenteritis, pancreatitis or small bowel obstruction Medical Records I reviewed the patient's medical records. Lab Data I reviewed the patient's lab results. 09/24/22 19:15 09/24/22 19:15 Labs/Radiology: Radiology Impressions Abdomen/Pelvis CT 09/24/22 20:45 IMPRESSION: 1. 3 mm stone noted in the proximal left ureter with surrounding inflammation. 2. Punctate nonobstructing stone noted in the upper pole of the left kidney. 3. Similar lymphadenopathy surrounding the celiac axis. COMMENTS: Consistent with the [employer]'s Incidental Findings Committee white paper (J Am Valencia Radiol 2018): Any incidental renal lesion less than 1 cm or classified as too small to characterize, or any incidental cystic renal lesion characterized as simple-appearing, is likely benign. No follow-up imaging is recommended for these lesions per consensus recommendations based on imaging criteria. Laboratory Results WBC 5.9 10^3/uL (4.0-10.0) 09/24/22 19:15 RBC 4.47 10^6/uL (4.1-5.3) 09/24/22 19:15 Hgb 12.9 g/dL (11.5-15.3) 09/24/22 19:15 Hct 39.8 % (37.0-47.0) 09/24/22 19:15 MCV 89.0 fl (81-99) 09/24/22 19:15 MCH 28.9 pg (28.0-34.0) 09/24/22 19:15 MCHC 32.4 g/dL (30.0-36.0) 09/24/22 19:15 RDW 12.6 % (12.1-15.1) 09/24/22 19:15 Plt Count 267 10^3/cmm (130-400) 09/24/22 19:15 MPV 10.4 fL (7.4-10.4) 09/24/22 19:15 Neut % (Auto) 57.4 % 09/24/22 19:15 Lymph % (Auto) 25.6 % 09/24/22 19:15 Craig % (Auto) 12.6 % 09/24/22 19:15 Eos % (Auto) 3.9 % 09/24/22 19:15 Baso % (Auto) 0.3 % 09/24/22 19:15 Neut # (Auto) 3.37 10^3/uL (1.8-7.7) 09/24/22 19:15 Lymph # (Auto) 1.5 10^3/uL (0.8-4.8) 09/24/22 19:15 Craig # (Auto) 0.7 10^3/uL (0.2-0.9) 09/24/22 19:15 Eos # (Auto) 0.2 10^3/uL (0.0-0.8) 09/24/22 19:15 Baso # (Auto) 0.0 10^3/uL (0.0-0.1) 09/24/22 19:15 Nucleated RBC % (auto) 0 % 09/24/22 19:15 Nucleated RBCs # 0.0 /100WBC 09/24/22 19:15 Sodium 141 mmol/L (136-145) 09/24/22 19:15 Potassium 3.6 mmol/L (3.5-5.1) 09/24/22 19:15 Chloride 106 mmol/L (98-107) 09/24/22 19:15 Carbon Dioxide 21 mmol/L (22-29) L 09/24/22 19:15 Anion Gap 17.6 (5-19) 09/24/22 19:15 BUN 18 mg/dL (6-20) 09/24/22 19:15 Creatinine 0.9 mg/dL (0.5-0.9) 09/24/22 19:15 GFR Calculation 66.5 mL/min (90-130) L 09/24/22 19:15 Glucose 97 mg/dL (65-115) 09/24/22 19:15 Calculated Osmolality 294 mOsm/kg (285-295) 09/24/22 19:15 Calcium 9.2 mg/dL (8.5-10.5) 09/24/22 19:15 Total Bilirubin 0.6 mg/dL (0.15-1.2) 09/24/22 19:15 AST 21 U/L (0-32) 09/24/22 19:15 ALT 25 U/L (0-33) 09/24/22 19:15 Alkaline Phosphatase 77 U/L (35-105) 09/24/22 19:15 Total Protein 7.0 g/dL (6.6-8.7) 09/24/22 19:15 Albumin 4.0 g/dL (3.5-5.2) 09/24/22 19:15 Globulin 3.0 g/dL (1.3-4.6) 09/24/22 19:15 Urine Color Diana (Yellow) 09/24/22 20:07 Urine Appearance Cloudy (CLEAR) A 09/24/22 20:07 Urine pH 6 (5-7) 09/24/22 20:07 Ur Specific [place] 1.020 (1.005-1.030) 09/24/22 20:07 Urine Protein 2+ (Negative) H 09/24/22 20:07 Urine Glucose (UA) Norm (Normal) 09/24/22 20:07 Urine Ketones 1+ (Negative) H 09/24/22 20:07 Urine Blood 3+ (Negative) H 09/24/22 20:07 Urine Nitrate Negative (Negative) 09/24/22 20:07 Urine Bilirubin 1+ (Negative) H 09/24/22 20:07 Urine Urobilinogen 1 mg/dL (Negative) H 09/24/22 20:07 Ur Leukocyte Esterase 1+ (Negative) H 09/24/22 20:07 Urine RBC Too numerous to cnt /hpf (0-2) H 09/24/22 20:07 Urine WBC 5-10 /hpf (0-5) H 09/24/22 20:07 Ur Squamous Epith Cells 0-4 /hpf (0-5) H 09/24/22 20:07 Calcium Oxalate Crystal 0-4 /hpf H 09/24/22 20:07 Amorphous Sediment Not Reportable 09/24/22 20:07 Urine Bacteria Trace /hpf (NONE) 09/24/22 20:07 Urine Mucus 3+ /hpf 09/24/22 20:07 Urine Opiates Screen Negative ng/mL (Negative) 09/24/22 20:07 Ur Barbiturates Screen Negative ng/mL (Negative) 09/24/22 20:07 Ur Phencyclidine Scrn Negative ng/mL (Negative) 09/24/22 20:07 Ur Amphetamines Screen Negative ng/mL (Negative) 09/24/22 20:07 U Benzodiazepines Scrn Negative ng/mL (Negative) 09/24/22 20:07 Urine Cocaine Screen Negative ng/mL (Negative) 09/24/22 20:07 U Marijuana (THC) Screen Positive ng/mL (Negative) H 09/24/22 20:07 Discharge Plan Discharge Patient Disposition: Home Clinical Impression: Calculus of kidney Urinary tract infection Qualifiers: Urinary tract infection type: acute cystitis Hematuria presence: with hematuria Qualified Code(s): N30.01 - Acute cystitis with hematuria Condition: Stable Prescriptions: New ciprofloxacin HCl 500 mg tablet 500 mg PO Q12H Qty: 14 0RF No Action cyclobenzaprine 5 mg tablet 5 mg PO BEDTIME PRN (Reason: Spasms) tramadol 100 mg tablet 100 mg PO Q6H PRN (Reason: pain) Qty: 60 0RF multivitamin Tablet 1 tab PO QAM Estroven Menopause 400 mcg-40 mg- 40 mg-100 mg tablet 1 tab PO QAM oxycodone-acetaminophen 5-325 mg tablet 2 tab PO .EVERY 6 TO 8 HOURS PRN (Reason: Pain) levofloxacin 500 mg tablet 500 mg PO DAILY 7 Days Qty: 7 0RF vitamin E (dl, acetate) 180 mg (400 unit) capsule 180 mg PO DAILY Qty: 30 0RF methylprednisolone [Medrol (Junior)] 4 mg tablets,dose pack See Rx Instructions PO PER PKG DIR Qty: 21 0RF Rx Instructions: PO PER PKG DIR tramadol 50 mg tablet 50 mg PO Q6H PRN (Reason: pain) Qty: 30 0RF Cbd Gummies 1 gummy PO BEDTIME PRN (Reason: sleep/pain) lidocaine 5 % Adhesive Patch,Medicated 1 patch TOPICAL DAILY PRN (Reason: Pain) Rx Instructions: leave on most painful area for up to 12 hrs metronidazole 500 mg Tablet 500 mg PO TID Qty: 15 0RF Discharge Orders: Discharge ED (Routine); Ordered 09/24/22 Ordered By: Jonatan Lockhart Referrals: Aleyda Jean-Baptiste FNP [Primary Care Provider] - 1 week Patient Instructions: Kidney Stones, Urinary Tract Infection - Women Activity Restrictions/Additional Instructions: Please take the pain medicine you already have at home as directed as needed. Please finish all your antibiotics. Please follow-up with primary care and/or urologist as needed. Coding Level of Care Code ED [employer] for [employer]
[2022-09-24] MEDS: fentaNYL 50 mcg/mL INJ 2mL IVP (19:55)
[2022-09-24] MEDS: sodium chloride 0.9% 1,000 ML 999 ML IV (19:55)
[2022-09-24 20:25] LABS: Amphetamines Screen Urine Negative (Negative); Barbiturates Screen Urine Negative (Negative); Benzodiazepines Screen Urine Negative (Negative); Cocaine Screen Urine Negative (Negative); Opiate Screen Urine Negative (Negative); PCP Screen Urine Negative (Negative); THC Screen Urine Positive (Negative)
[2022-09-24 20:27] LABS: Glucose Urine UA Norm (Normal); Ketones Urine 1+ (Negative); Protein Urine 2+ (Negative); Urine Appearance Cloudy (CLEAR); Urine Color Amber (Yellow); pH Urine 6 (5-7)
[2022-09-24 20:28] LABS: Add Urine Microscopic? YES; Bacteria Urine TRACE /hpf; Bilirubin Urine 1+ (Negative); Blood Urine 3+ (Negative); Calcium Oxalate Crystals Urine 0-4 /hpf; Leukocyte Esterase Urine 1+ (Negative); Mucus Urine 3+ /hpf; Nitrate Urine Negative (Negative); RBC Urine TOO NUMEROUS TO CNT /hpf (0-2); Squamous Epithelial Cell Urine 0-4 /hpf (0-5); Urobilinogen Urine 1 mg/dL (Negative)
[2022-09-24 20:29] LABS: Add Urine Culture? Yes
--- NOTE | 2022-09-24 20:45 | CTR_ITS ---
PROCEDURE INFORMATION: Exam: CT Abdomen And Pelvis Without Contrast Exam date and time: 09/24/2022 9:03 PM Age: 51 years old Clinical indication: Abdominal pain; Prior surgery; Surgery date: 6+ months; Surgery type: Gb. Kellie fundoplication. Tubal; Patient HX: C/O left flank pain with hematuria. Known soft tissue sarcoma of RT thigh. ; Additional info: Left flank pain, hematuria, HX of kidney stones TECHNIQUE: Imaging protocol: Computed tomography of the abdomen and pelvis without contrast. Radiation optimization: All CT scans at this facility use at least one of these dose optimization techniques: automated exposure control; mA and/or kV adjustment per patient size (includes targeted exams where dose is matched to clinical indication); or iterative reconstruction. REPORTING DATA: Count of CT and Cardiac NM exams in prior 12 months: This patient has received 5 known CTs and 0 known cardiac nuclear medicine studies in the 12 months prior to the current study. COMPARISON: CT chest abdpel w/*[id number] 06/29/2022 11:58 AM RADIATION DOSE METRICS: Total DLP (mGy-cm): 845.93 FINDINGS: Liver: Normal. No mass. Gallbladder and bile ducts: Cholecystectomy. No ductal dilation. Pancreas: Normal. No ductal dilation. Spleen: Normal. No splenomegaly. Adrenal glands: Normal. No mass. Kidneys and ureters: Right perirenal cysts. Punctate nonobstructing stone noted in the upper pole the left kidney. There is a 3 mm stone in the proximal left ureter surrounding inflammation. Stomach and bowel: Colonic diverticulosis. No obstruction. No mucosal thickening. Appendix: No evidence of appendicitis. Intraperitoneal space: Unremarkable. No free air. No significant fluid collection. Vasculature: Unremarkable. No abdominal aortic aneurysm. Lymph nodes: Similar lymphadenopathy surrounding the celiac axis. Urinary bladder: Unremarkable as visualized. Reproductive: Unremarkable as visualized. Bones/joints: No acute fracture. Soft tissues: Unremarkable. CT/CT kidney stone [id number] IMPRESSION: 1. 3 mm stone noted in the proximal left ureter with surrounding inflammation. 2. Punctate nonobstructing stone noted in the upper pole of the left kidney. 3. Similar lymphadenopathy surrounding the celiac axis. COMMENTS: Consistent with the [employer]'s Incidental Findings Committee white paper (J Am Valencia Radiol 2018): Any incidental renal lesion less than 1 cm or classified as too small to characterize, or any incidental cystic renal lesion characterized as simple-appearing, is likely benign. No follow-up imaging is recommended for these lesions per consensus recommendations based on imaging criteria.
[2022-09-24] MEDS: ciprofloxacin 500 mg Tablet PO (22:53)
== END 2022-09-24 23:19 | disposition home or self-care (01) ==
PROVIDERS: Emergency Provider Emergency Medicine; PCP Nurse Practitioner Family
DX: N30.01 Acute cystitis with hematuria (principal); N20.0 Calculus of kidney; Z87.891 Personal history of nicotine dependence
CPT/HCPCS: 74176; 80053; 80306; 81001; 85025; 87086; 96361; 96374; 96375; 99284; J1642; J1885; J2405; J3010; J7030

== ENCOUNTER 2022-10-03 17:46 | Emergency (ER) | payer BC, MEDICAID, SELFPAY ==
[2022-10-03 17:51] VITALS: PULSE 105; RESP 19; TEMP 36.7; O2SAT 98; BMI 33.3
[2022-10-03 18:06] VITALS: BP 177/105; RESP 16
[2022-10-03 18:07] VITALS: BP 177/105; PULSE 106; RESP 22; O2SAT 98
--- NOTE | 2022-10-03 18:15 | USR_ITS ---
PROCEDURE INFORMATION: Exam: US Retroperitoneal; Complete; Kidneys and Bladder Exam date and time: 10/03/2022 6:59 PM Age: 51 years old Clinical indication: Other: Left flank pain; Patient HX: History of chronic nephrolithiasis since childhood. ; Additional info: Left renal colic TECHNIQUE: Imaging protocol: Real-time ultrasound of the retroperitoneum with image documentation. Complete exam focused on the kidneys and bladder. COMPARISON: CT kidney stone [id number] 09/24/2022 9:03 PM FINDINGS: Right kidney: Right kidney 2.3 cm parapelvic cyst. Left kidney: Left kidney minimal hydronephrosis, negative for obstructing lesion. Urinary bladder: Unremarkable. US/US renal BI* [id number] IMPRESSION: 1. Right kidney 2.3 cm parapelvic cyst. 2. Left kidney minimal hydronephrosis, negative for obstructing lesion.
--- NOTE | 2022-10-03 18:16 | ED_ITS ---
HPI - Abdominal Pain General: Chief Complaint: Abdominal Pain Stated Complaint: abd pain Time Seen by Provider: 10/03/22 18:04 Source: patient and family Mode of arrival: ambulatory Limitations: no limitations History of Present Illness: Patient returns to the emergency department because of recurrence of her left flank pain. She was seen in the emergency department last week and had what was thought to be renal colic related to a 3 mm stone. She states she has had some waxing and waning pain but it is markedly increased this afternoon approximate hour to 2 hours prior to arrival. She denies any fevers or chills. She did vomit once with the pain. She has had recurrent kidney stones since she was a child. She states she has been taking the medications previously prescribed faithfully. Otherwise her clinical condition is unchanged from her baseline. 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 MD elicited complaint: flank pain Location: L flank Severity: severe Quality: aching and sharp Radiation: L flank Migration to: no migration Associated Symptoms: Reports nausea and vomiting; Denies chills, fever(s) and syncope Review of Systems Const: Denies: fever(s) or chills Eyes: Denies: change in vision ENMT: Denies: odynophagia, nasal discharge or nasal congestion Card: Denies: chest pain, palpitations, irregular heart rhythm, syncope or pre-syncope Resp: Reports: dyspnea; Denies: productive cough or non-productive cough GI: Reports: abdominal pain, nausea and vomiting : Reports: flank pain; Denies: urinary frequency, urinary urgency or urinary hesitancy Musc: Reports: back pain; Denies: neck pain, extremity pain or extremity swelling Skin/Breast: Denies: rash Neuro: Reports: headache(s); Denies: numbness in extremities, weakness in extremities, dizziness or difficulty communicating thoughts Endo: Denies: polyuria or polydipsia Axel/Lymph: Denies: easy bruising or easy bleeding PFS ED PFSH: Medical History GERD (gastroesophageal reflux disease) 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 Surgical History History of cholecystectomy History of tubal ligation Status post laparoscopic Kellie fundoplication (10/27/19) Laparoscopic paraesophageal hernia repair with mesh placement and Niesen fundoplication with intraoperative EGD Family History Father Dementia Brother CAD (coronary artery disease) Other Cancer Diabetes Hyperlipidemia Hypertension Psychiatric illness Stroke Denies family history of Clotting disorder Chronic kidney disease (CKD) Suicide Anesthesia complication Bleeding disorder Lung disease Social History Smoking and tobacco status: former smoker Alcohol intake: current Alcohol intake frequency: holidays/special occasions only Physical Exam Narrative: EXAM NARRATIVE: Upon arrival she is anxious tearful and in obvious distress but is able to answer questions in an appropriate fashion. Const: COMMON NORMALS: patient oriented x3 and alert GENERAL APPEARANCE: in distress and diaphoretic NUTRITIONAL APPEARANCE: overweight ORIENTATION/CONSCIOUSNESS: Yes awake HENMT: COMMON NORMALS: normocephalic, Normal nasal mucous membranes and turbinates present, moist oral mucous membranes and oropharynx normal HEAD & SCALP: normocephalic NOSE: Normal nasal mucous membranes and turbinates present Eye: COMMON NORMALS: Equal, round and reactive pupils present, EOMs intact bilaterally and conjunctivae normal CONJUNCTIVA: Yes conjunctivae normal PUPIL: Yes Equal, round and reactive pupils present Neck/C-Spine: COMMON NORMALS: full ROM, no lymphadenopathy and Thyroid normal THYROID: Thyroid normal Chest: COMMONS NORMALS: normal inspection of the chest Resp: COMMON NORMALS: normal respiratory effort, No retractions, No use of accessory muscles and clear to auscultation bilaterally AUSCULTATION: clear to auscultation bilaterally Cardio: COMMON NORMALS: regular rate, regular rhythm, S1 normal heart sound present, No murmurs present (Cardio) and Peripheral pulses 2+ throughout RATE: regular rate RHYTHM: regular rhythm HEART SOUNDS: S1 normal heart sound present PERIPHERAL PULSES: Peripheral pulses 2+ throughout GI: COMMON NORMALS: Normal to inspection, nondistended, normoactive bowel sounds present and Soft to palpation PALPATION: Yes Soft to palpation and Yes Tenderness to palpation present (GI) (Left abdomen left flank) : BLADDER/KIDNEY EXAM: Yes CVA tenderness Back/Pelvis: COMMON NORMALS: thoracic and lumbar spine normal to inspection, thoraco-lumbar ROM normal and straight leg raise negative bilaterally GENERAL BACK: Yes CVA tenderness CVA tenderness: left Extremity: COMMON NORMALS: normal to inspection, capillary refill normal, no calf tenderness and no pedal edema Neuro: COMMON NORMALS: patient oriented x3, moves all extremities, no focal motor deficits and no sensory deficits noted SENSORIUM/ORIENTATION: Yes alert CRANIAL NERVES: Yes CN normal except as noted Course Reevaluation(s): Reevaluation #1: States she is feeling much better. Vital signs are normal. Examination reveals no significant flank or abdominal tenderness, no peritoneal signs etc. Discussed continued observation versus discharge on antibiotics with urology fo llow-up. She does not have a leukocytosis, no fever, no other findings to suggest obstructive left renal stone. Certainly suitable and reasonable for us to discharge her to urology outpatient follow-up and she voices understanding and agrees to that plan. Time: 21:44 Vital Signs: Vital signs: Vital Signs Temperature 98.0 F 10/03/22 17:51 Pulse Rate 100 10/03/22 18:56 Respiratory Rate 20 H 10/03/22 18:56 Blood Pressure 153/98 10/03/22 18:56 Pulse Oximetry 99 10/03/22 18:56 Oxygen Delivery Me thod Room Air 10/03/22 18:56 MDM - Abdominal Pain Medical Decision Making Patient presents with a left renal colic pain is worsened today. No history of fevers at home. He had a recent diagnosed 3 mm left distal ureteral stone in this emergency department. Her clinical examination revealed her to be uncomfortable but afebrile. She did have a left flank tenderness to palpation. Work-up ensued to include renal ultrasound, urinalysis and lab work. She received the benefit of IV hydration IV analgesics. Urinalysis revealed nitrite positive urine with other urinary sediment suggestive of urinary tract infection. She had intact renal function and no evidence of leukocytosis or other perturbation in her chemistries. Ultrasound is reassuring. She was given IV ceftriaxone. At this point she does not suggest sepsis or any other serious issue at this time that would require admission particularly in light of no evidence of obstructing lesion on her renal ultrasound. She is stable and desires to be discharged I think it is reasonable plan at this time. We will plan on culturing her current urine, placing her on cephalosporin, and arrange for urology follow-up. We also discussed return precautions in detail. Medical Records I reviewed the patient's medical records. Prior CT scan reviewed Lab Data I reviewed the patient's lab results. 10/03/22 18:18 10/03/22 18:18 Labs/Radiology: Radiology Impressions Renal Ultrasound 10/03/22 18:15 IMPRESSION: 1. Right kidney 2.3 cm parapelvic cyst. 2. Left kidney minimal hydronephrosis, negative for obstructing lesion. Laboratory Results WBC 9.5 10^3/uL (4.0-10.0) 10/03/22 18:18 RBC 4.83 10^6/uL (4.1-5.3) 10/03/22 18:18 Hgb 13.9 g/dL (11.5-15.3) 10/03/22 18:18 Hct 42.0 % (37.0-47.0) 10/03/22 18:18 MCV 87.0 fl (81-99) 10/03/22 18:18 MCH 28.8 pg (28.0-34.0) 10/03/22 18:18 MCHC 33.1 g/dL (30.0-36.0) 10/03/22 18:18 RDW 12.6 % (12.1-15.1) 10/03/22 18:18 Plt Count 265 10^3/cmm (130-400) 10/03/22 18:18 MPV 10.6 fL (7.4-10.4) H 10/03/22 18:18 Neut % (Auto) 72.2 % 10/03/22 18:18 Lymph % (Auto) 17.2 % 10/03/22 18:18 [place] % (Auto) 7.8 % 10/03/22 18:18 Eos % (Auto) 2.2 % 10/03/22 18:18 Baso % (Auto) 0.4 % 10/03/22 18:18 Neut # (Auto) 6.85 10^3/uL (1.8-7.7) 10/03/22 18:18 Lymph # (Auto) 1.6 10^3/uL (0.8-4.8) 10/03/22 18:18 [place] # (Auto) 0.7 10^3/uL (0.2-0.9) 10/03/22 18:18 Eos # (Auto) 0.2 10^3/uL (0.0-0.8) 10/03/22 18:18 Baso # (Auto) 0.0 10^3/uL (0.0-0.1) 10/03/22 18:18 Nucleated RBC % (auto) 0 % 10/03/22 18:18 Nucleated RBCs # 0.0 /100WBC 10/03/22 18:18 Sodium 139 mmol/L (136-145) 10/03/22 18:18 Potassium 3.5 mmol/L (3.5-5.1) 10/03/22 18:18 Chloride 108 mmol/L (98-107) H 10/03/22 18:18 Carbon Dioxide 18 mmol/L (22-29) L 10/03/22 18:18 Anion Gap 16.5 (5-19) 10/03/22 18:18 BUN 14 mg/dL (6-20) 10/03/22 18:18 Creatinine 0.9 mg/dL (0.5-0.9) 10/03/22 18:18 GFR Calculation 66.5 mL/min (90-130) L 10/03/22 18:18 Glucose 107 mg/dL (65-115) 10/03/22 18:18 Calculated Osmolality 289 mOsm/kg (285-295) 10/03/22 18:18 Calcium 9.4 mg/dL (8.5-10.5) 10/03/22 18:18 Total Bilirubin 0.7 mg/dL (0.15-1.2) 10/03/22 18:18 AST 21 U/L (0-32) 10/03/22 18:18 ALT 23 U/L (0-33) 10/03/22 18:18 Alkaline Phosphatase 78 U/L (35-105) 10/03/22 18:18 Total Protein 7.2 g/dL (6.6-8.7) 10/03/22 18:18 Albumin 4.2 g/dL (3.5-5.2) 10/03/22 18:18 Globulin 3.0 g/dL (1.3-4.6) 10/03/22 18:18 Urine Color [place] (Yellow) 10/03/22 18:58 Urine Appearance Clear (CLEAR) 10/03/22 18:58 Urine pH 5 (5-7) 10/03/22 18:58 Ur Specific [place] 1.025 (1.005-1.030) 10/03/22 18:58 Urine Protein 3+ (Negative) H 10/03/22 18:58 Urine Glucose (UA) Norm (Normal) 10/03/22 18:58 Urine Ketones Negative (Negative) 10/03/22 18:58 Urine Blood 3+ (Negative) H 10/03/22 18:58 Urine Nitrate Positive (Negative) H 10/03/22 18:58 Urine Bilirubin 2+ (Negative) H 10/03/22 18:58 Urine Urobilinogen 4 mg/dL (Negative) H 10/03/22 18:58 Ur Leukocyte Esterase Negative (Negative) 10/03/22 18:58 Urine RBC 15-25 /hpf (0-2) H 10/03/22 18:58 Urine WBC 25-40 /hpf (0-5) H 10/03/22 18:58 Ur Squamous Epith Cells 0-4 /hpf (0-5) H 10/03/22 18:58 Amorphous Sediment Not Reportable 10/03/22 18:58 Urine Bacteria Tr /hpf (NONE) 10/03/22 18:58 Urine Mucus 1+ /hpf 10/03/22 18:58 Discharge Plan Discharge Patient Disposition: Home Clinical Impression: Urinary tract infection Condition: Stable Prescriptions: New cephalexin 500 mg capsule 500 mg PO Q6H 10 Days Qty: 40 0RF ketorolac 10 mg tablet 10 mg PO TID PRN (Reason: pain) 5 Days Qty: 15 0RF Reglan 10 mg tablet 10 mg PO Q8H PRN (Reason: nausea and vomiting) Qty: 14 0RF No Action cyclobenzaprine 5 mg tablet 5 mg PO BEDTIME PRN (Reason: Spasms) tramadol 100 mg tablet 100 mg PO Q6H PRN (Reason: pain) Qty: 60 0RF multivitamin Tablet 1 tab PO QAM [place] Menopause 400 mcg-40 mg- 40 mg-100 mg tablet 1 tab PO QAM oxycodone-acetaminophen 5-325 mg tablet 2 tab PO .EVERY 6 TO 8 HOURS PRN (Reason: Pain) levofloxacin 500 mg tablet 500 mg PO DAILY 7 Days Qty: 7 0RF vitamin E (dl, acetate) 180 mg (400 unit) capsule 180 mg PO DAILY Qty: 30 0RF methylprednisolone [Medrol (Junior)] 4 mg tablets,dose pack See Rx Instructions PO PER PKG DIR Qty: 21 0RF Rx Instructions: PO PER PKG DIR tramadol 50 mg tablet 50 mg PO Q6H PRN (Reason: pain) Qty: 120 0RF Cbd Gummies 1 gummy PO BEDTIME PRN (Reason: sleep/pain) lidocaine 5 % Adhesive Patch,Medicated 1 patch TOPICAL DAILY PRN (Reason: Pain) Rx Instructions: leave on most painful area for up to 12 hrs metronidazole 500 mg Tablet 500 mg PO TID Qty: 15 0RF ciprofloxacin HCl 500 mg tablet 500 mg PO Q12H Qty: 14 0RF Discharge Orders: Discharge ED (Routine); Ordered 10/03/22 Ordered By: Ant Samuel Referrals: Aleyda Jean-Baptiste FNP [Primary Care Provider] - Discharge Diet: Advance as tolerated Discharge Activity: Resume usual activity Patient Instructions: Opioid Safety, Pain Management Activity Restrictions/Additional Instructions: As we discussed you have a kidney infection. You do not appear to have an obstructive kidney stone at this time based upon [facility]. We have prescribed an antibiotic she should take 4 times a day for the next 10 days. We have also provided some pain medication as well as medicine for nausea. If you develop fevers, intolerance to the medication, worsening pain return to this or the nearest emergency department immediately. We have also placed a consultation into see the urologist for follow-up. Continue all your usual activities. Make sure you are drinking at least 64 ounces or more of water daily in addition to your other fluids. Coding Level of Care Code ED [employer] for Miriam Gamez
[2022-10-03] MEDS: sodium chloride 0.9% 1,000 ML 999 ML IV (18:24)
[2022-10-03] MEDS: ondansetron 2 mg/ML SDV 2 mL 4 MG IVP (18:25)
[2022-10-03] MEDS: HYDROmorphone 1 mg/mL INJ 1 mL IVP (18:25)
[2022-10-03 18:34] LABS: Basophils % 0.4 %; Eosinophils # 0.2 10^3/uL (0.0-0.8); Eosinophils % 2.2 %; Hemoglobin 13.9 g/dL (11.5-15.3); Lymphocytes # 1.6 10^3/uL (0.8-4.8); Lymphocytes % 17.2 %; Mean Corpuscular HGB Conc 33.1 g/dL (30.0-36.0); Mean Corpuscular Hemoglobin 28.8 pg (28.0-34.0); Mean Platelet Volume 10.6 fL (7.4-10.4); Monocytes # 0.7 10^3/uL (0.2-0.9); Monocytes % 7.8 %; Neutrophils # 6.85 10^3/uL (1.8-7.7); Neutrophils % 72.2 %; Nucleated Red Blood Cells % 0 %; Platelet Count 265 10^3/cmm (130-400); Red Blood Count 4.83 10^6/uL (4.1-5.3); Red Cell Distribution Width 12.6 % (12.1-15.1); White Blood Count 9.5 10^3/uL (4.0-10.0)
[2022-10-03 18:56] VITALS: BP 153/98; PULSE 100; RESP 20; O2SAT 99
[2022-10-03 19:00] LABS: Alanine Aminotransferase 23 U/L (0-33); Albumin Level 4.2 g/dL (3.5-5.2); Alkaline Phosphatase 78 U/L (35-105); Anion Gap 16.5 (5-19); Aspartate Amino Transferase 21 U/L (0-32); Blood Urea Nitrogen 14 mg/dL (6-20); Calcium 9.4 mg/dL (8.5-10.5); Carbon Dioxide 18 mmol/L (22-29); Chloride 108 mmol/L (98-107); Glomerular Filtration Rate 66.5 mL/min (90-130); Glucose 107 mg/dL (65-115); Osmolality Calculated 289 mOsm/kg (285-295); Potassium 3.5 mmol/L (3.5-5.1); Sodium 139 mmol/L (136-145); Total Bilirubin 0.7 mg/dL (0.15-1.2)
[2022-10-03 19:17] LABS: Urine Appearance Clear (CLEAR); Urine Color Orange (Yellow); pH Urine 5 (5-7)
--- NOTE | 2022-10-03 19:17 | PC.NURSE ---
REPORT GIVEN TO HOMER FARLEY @ [id number].
[2022-10-03 19:18] LABS: Add Urine Microscopic? YES; Bilirubin Urine 2+ (Negative); Blood Urine 3+ (Negative); Glucose Urine UA Norm (Normal); Ketones Urine Negative (Negative); Leukocyte Esterase Urine Negative (Negative); Nitrate Urine Positive (Negative); Protein Urine 3+ (Negative); RBC Urine 15-25 /hpf (0-2); Specific Gravity, Urine 1.025 (1.005-1.030); Urobilinogen Urine 4 mg/dL (Negative); WBC Urine 25-40 /hpf (0-5)
[2022-10-03 19:19] LABS: Bacteria Urine TR /hpf; Mucus Urine 1+ /hpf; Squamous Epithelial Cell Urine 0-4 /hpf (0-5)
[2022-10-03 19:20] LABS: Add Urine Culture? Yes
[2022-10-03] MEDS: ketorolac 30 mg/mL INJ 15 MG IVP (20:49)
[2022-10-03] MEDS: metoclopramide 5 mg/mL SDV 2 mL 10 MG IVP (20:49)
[2022-10-03] MEDS: cefTRIAXone 2,000 MG in sodium chloride 0.9% (plus) 50 ML 100 MG IV (20:53)
[2022-10-03 20:57] LABS: Total Protein 7.2 g/dL (6.6-8.7)
[2022-10-03 21:30] VITALS: BP 133/63; O2SAT 98
[2022-10-03 22:26] VITALS: BP 133/63; PULSE 63; RESP 16; O2SAT 96
--- NOTE | 2022-10-04 07:28 | DCPLANNER ---
Addendum entered by Hanna Perea 10/10/22 11:29: Patient had a follow up appointment scheduled with urology - patient did attend appointment. Addendum entered by Hanna Perea 10/04/22 13:57: Patient has a follow up appointment scheduled for Sunday, October 09, [address]22 at 7:[address] Tidwell at urology. Original Note: processing manager had message to schedule a follow up appointment for patient with urology. processing manager sent patients information to the front office staff at urology. Patients information will be printed and reviewed. Clinic will call patient with appointment information.
== END 2022-10-03 22:27 | disposition home or self-care (01) ==
PROVIDERS: Emergency Provider Emergency Medicine; PCP Nurse Practitioner Family
DX: N39.0 Urinary tract infection, site not specified (principal); Z87.891 Personal history of nicotine dependence
CPT/HCPCS: 36415; 76770; 80053; 81001; 85025; 87086; 96365; 96375; 99285; J0696; J1170; J1642; J1885; J2405; J2765; J7030

== ENCOUNTER 2022-10-05 04:41 | Emergency (ER) | payer BC, MEDICAID, SELFPAY ==
--- NOTE | 2022-10-05 04:45 | ED_ITS ---
Documented by User: Junito Gomez MD 10/17/22 14:31 HPI - Abdominal Pain General: Chief Complaint: Abdominal Pain Stated Complaint: possible kidney stone Time Seen by Provider: 10/05/22 04:43 History of Present Illness: Ms. Lawson is a 51-year-old lady with a significant past medical history of sarcoma and recent diagnosis of nephrolithiasis with subsequent diagnosis of urinary tract infection presented to the emergency department for flank pain. She notes intermittent worsening symptoms over the past few days however since approximately 230 this morning she has had severe unrelenting pain. She has not been able to tolerate her medications secondary to vomiting. She feels nauseous. Patient radiates from right flank down towards the groin. Subjective fevers and chills however no measured fever. Denies other focal infectious symptoms. No other specific changes in health, exacerbating, or alleviating factors identified. 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 Urolithiasis Surgical History History of cholecystectomy History of tubal ligation Status post laparoscopic Kellie fundoplication (10/27/19) Laparoscopic paraesophageal hernia repair with mesh placement and Niesen fundoplication with intraoperative EGD Family History Father Dementia Brother CAD (coronary artery disease) Other Cancer Diabetes Hyperlipidemia Hypertension Psychiatric illness Stroke Denies family history of Clotting disorder Chronic kidney disease (CKD) Suicide Anesthesia complication Bleeding disorder Lung disease Social History Smoking and tobacco status: former smoker Alcohol intake: current Alcohol intake frequency: holidays/special occasions only Physical Exam Const: COMMON NORMALS: alert GENERAL APPEARANCE: cooperative and well developed HENMT: COMMON NORMALS: normocephalic and atraumatic HEAD & SCALP: normocephalic and atraumatic Eye: COMMON NORMALS: conjunctivae normal CONJUNCTIVA: Yes conjunctivae normal SCLERA: sclerae normal Neck/C-Spine: COMMON NORMALS: supple GENERAL: Yes trachea midline Resp: COMMON NORMALS: clear to auscultation bilaterally EFFORT & INS PECTION: Yes able to speak in complete sentences AUSCULTATION: clear to auscultation bilaterally Cardio: COMMON NORMALS: regular rate and regular rhythm RATE: regular rate RHYTHM: regular rhythm GI: COMMON NORMALS: Soft to palpation PALPATION: Yes Soft to palpation and Yes Tenderness to palpation present (GI) : BLADDER/KIDNEY EXAM: Yes CVA tenderness Back/Pelvis: GENERAL BACK: Yes CVA tenderness Extremity: GENERAL: Yes normal exam except as noted and No edema Neuro: COMMON NORMALS: moves all extremities SENSORIUM/ORIENTATION: Yes alert and No Orientation impaired Psych: COMMON NORMALS: mental status grossly normal and Normal thought process present THOUGHT PROCESS: Normal thought process present Course Vital Signs: Vital signs: Vital Signs Temperature 98 F 10/05/22 04:50 Pulse Rate 62 10/05/22 09:10 Respiratory Rate 16 10/05/22 06:33 Blood Pressure 143/70 10/05/22 09:10 Pulse Oximetry 100 10/05/22 09:10 MDM - Abdominal Pain Medical Decision Making 51-year-old lady presenting with known kidney stone now with more severe pain and nausea vomiting. Uncomfortable appearing due to pain. She is nontoxic. Handed off to Dr. Caballero pending completion of ED evaluation. Patient presents here with pain from kidney stone has moved her pain here is controlled she has no signs of urinary tract infection she has follow-up with urologist on the sixth she has pain meds and nausea medicine at home she is stable for discharge at this time follow-up with urology return if worsening. Lab Data 10/05/22 05:03 10/05/22 05:03 Labs/Radiology: Radiology Impressions Abdomen/Pelvis CT 10/05/22 05:29 IMPRESSION: There is persistent left hydronephrosis and hydroureter subtly increased with interval transit of the calculus now at the mid ureteral level. There is some subtle stranding which could also be seen with at least partial obstructive related change as well as superimposed urinary tract inflammation. COMMENTS: Consistent with the [employer]'s Incidental Findings Committee white paper (J Am Valencia Radiol 2018): Any incidental renal lesion less than 1 cm or classified as too small to characterize, or any incidental cystic renal lesion characterized as simple-appearing, is likely benign. No follow-up imaging is recommended for these lesions per consensus recommendations based on imaging criteria. Laboratory Results WBC 10.6 10^3/uL (4.0-10.0) H 10/05/22 05:03 RBC 4.65 10^6/uL (4.1-5.3) 10/05/22 05:03 Hgb 13.3 g/dL (11.5-15.3) 10/05/22 05:03 Hct 41.4 % (37.0-47.0) 10/05/22 05:03 MCV 89.0 fl (81-99) 10/05/22 05:03 MCH 28.6 pg (28.0-34.0) 10/05/22 05:03 MCHC 32.1 g/dL (30.0-36.0) 10/05/22 05:03 RDW 12.7 % (12.1-15.1) 10/05/22 05:03 Plt Count 247 10^3/cmm (130-400) 10/05/22 05:03 MPV 11.0 fL (7.4-10.4) H 10/05/22 05:03 Neut % (Auto) 80.3 % 10/05/22 05:03 Lymph % (Auto) 11.4 % 10/05/22 05:03 Maverick % (Auto) 6.2 % 10/05/22 05:03 Eos % (Auto) 1.6 % 10/05/22 05:03 Baso % (Auto) 0.2 % 10/05/22 05:03 Neut # (Auto) 8.48 10^3/uL (1.8-7.7) H 10/05/22 05:03 Lymph # (Auto) 1.2 10^3/uL (0.8-4.8) 10/05/22 05:03 Maverick # (Auto) 0.7 10^3/uL (0.2-0.9) 10/05/22 05:03 Eos # (Auto) 0.2 10^3/uL (0.0-0.8) 10/05/22 05:03 Baso # (Auto) 0.0 10^3/uL (0.0-0.1) 10/05/22 05:03 Nucleated RBC % (auto) 0 % 10/05/22 05:03 Nucleated RBCs # 0.0 /100WBC 10/05/22 05:03 Sodium 141 mmol/L (136-145) 10/05/22 05:03 Potassium 3.3 mmol/L (3.5-5.1) L 10/05/22 05:03 Chloride 106 mmol/L (98-107) 10/05/22 05:03 Carbon Dioxide 20 mmol/L (22-29) L 10/05/22 05:03 Anion Gap 18.3 (5-19) 10/05/22 05:03 BUN 15 mg/dL (6-20) 10/05/22 05:03 Creatinine 0.8 mg/dL (0.5-0.9) 10/05/22 05:03 GFR Calculation 76.2 mL/min (90-130) L 10/05/22 05:03 Glucose 96 mg/dL (65-115) 10/05/22 05:03 Calculated Osmolality 293 mOsm/kg (285-295) 10/05/22 05:03 Lactic Acid 1.4 mmol/L (0.5-2.2) 10/05/22 05:03 Calcium 9.7 mg/dL (8.5-10.5) 10/05/22 05:03 Total Bilirubin 0.8 mg/dL (0.15-1.2) 10/05/22 05:03 AST 22 U/L (0-32) 10/05/22 05:03 ALT 21 U/L (0-33) 10/05/22 05:03 Alkaline Phosphatase 71 U/L (35-105) 10/05/22 05:03 Total Protein 6.8 g/dL (6.6-8.7) 10/05/22 05:03 Albumin 4.0 g/dL (3.5-5.2) 10/05/22 05:03 Globulin 2.8 g/dL (1.3-4.6) 10/05/22 05:03 Lipase 44 U/L (13-60) 10/05/22 05:03 HCG, Qual Negative (Negative) 10/05/22 05:03 Urine Color [place] (Yellow) 10/05/22 06:00 Urine Appearance Clear (CLEAR) 10/05/22 06:00 Urine pH 5 (5-7) 10/05/22 06:00 Ur Specific [place] 1.020 (1.005-1.030) 10/05/22 06:00 Urine Protein 3+ (Negative) H 10/05/22 06:00 Urine Glucose (UA) Norm (Normal) 10/05/22 06:00 Urine Ketones 1+ (Negative) H 10/05/22 06:00 Urine Blood 3+ (Negative) H 10/05/22 06:00 Urine Nitrate TNP 10/05/22 06:00 Urine Bilirubin TNP 10/05/22 06:00 Urine Urobilinogen TNP 10/05/22 06:00 Ur Leukocyte Esterase Negative (Negative) 10/05/22 06:00 Urine RBC 50-80 /hpf (0-2) H 10/05/22 06:00 Urine WBC 0-4 /hpf (0-5) H 10/05/22 06:00 Ur Squamous Epith Cells 0-4 /hpf (0-5) H 10/05/22 06:00 Amorphous Sediment Not Reportable 10/05/22 06:00 Urine Bacteria Trace /hpf (NONE) 10/05/22 06:00 Hyaline Casts 0-4 /lpf H 10/05/22 06:00 Urine Mucus 1+ /hpf 10/05/22 06:00 Discharge Plan Discharge Patient Disposition: Home Clinical Impression: Kidney stones Condition: Stable Prescriptions: No Action metoclopramide HCl 10 mg tablet 10 mg PO Q6H PRN (Reason: Nausea) oxycodone 10 mg tablet 5 mg PO Q6H PRN (Reason: Renal colic) 4 Days Qty: 16 0RF cyclobenzaprine 5 mg tablet 5 mg PO BEDTIME PRN (Reason: Spasms) promethazine 25 mg tablet 25 mg PO Q6H PRN (Reason: nausea and vomiting) Qty: 14 0RF lidocaine 5 % Adhesive Patch,Medicated 1 patch TOPICAL DAILY PRN (Reason: Pain) Rx Instructions: leave on most painful area for up to 12 hrs Azo Discharge Orders: Discharge ED (Routine); Ordered 10/05/22 Ordered By: José Miguel Caballero Referrals: Estiven,Aleyda, [employer] [Primary Care Provider] - Discharge Diet: Advance as tolerated Discharge Activity: Resume usual activity Patient Instructions: Kidney Stones (ED) Coding Level of Care Code ED Winding Department Supervisor for Chg Fwd Documented by User: José Miguel Caballero MD 10/05/22 08:46 HPI - Abdominal Pain General: Chief Complaint: Abdominal Pain Stated Complaint: possible kidney stone Time Seen by Provider: 10/05/22 04:43 PFSH ED PFSH: Medical History (Updated 10/17/22 @ 08:35 by Jd Tidwell MD) GERD (gastroesophageal reflux disease) Left ureteral calculus 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 Urolithiasis Surgical History History of cholecystectomy History of tubal ligation Status post laparoscopic Kellie fundoplication (10/27/19) Laparoscopic paraesophageal hernia repair with mesh placement and Niesen fundoplication with intraoperative EGD Family History Father Dementia Brother CAD (coronary artery disease) Other Cancer Diabetes Hyperlipidemia Hypertension Psychiatric illness Stroke Denies family history of Clotting disorder Chronic kidney disease (CKD) Suicide Anesthesia complication Bleeding disorder Lung disease Social History Smoking and tobacco status: former smoker Alcohol intake: current Alcohol intake frequency: holidays/special occasions only Course Vital Signs: Vital signs: Vital Signs Temperature 98 F 10/05/22 04:50 Pulse Rate 62 10/05/22 09:10 Respiratory Rate 16 10/05/22 06:33 Blood Pressure 143/70 10/05/22 09:10 Pulse Oximetry 100 10/05/22 09:10 MDM - Abdominal Pain Medical Decision Making Patient presents here with pain from kidney stone has moved her pain here is controlled she has no signs of urinary tract infection she has follow-up with urologist on the sixth she has pain meds and nausea medicine at home she is stable for discharge at this time follow-up with urology return if worsening. Medical Records I reviewed the patient's medical records. Lab Data I reviewed the patient's lab results. 10/05/22 05:03 10/05/22 05:03 Labs/Radiology: Radiology Impressions Abdomen/Pelvis CT 10/05/22 05:29 IMPRESSION: There is persistent left hydronephrosis and hydroureter subtly increased with interval transit of the calculus now at the mid ureteral level. There is some subtle stranding which could also be seen with at least partial obstructive related change as well as superimposed urinary tract inflammation. COMMENTS: Consistent with the [employer]'s Incidental Findings Committee white paper (J Am Valencia Radiol 2018): Any incidental renal lesion less than 1 cm or classified as too small to characterize, or any incidental cystic renal lesion characterized as simple-appearing, is likely benign. No follow-up imaging is recommended for these lesions per consensus recommendations based on imaging criteria. Laboratory Results WBC 10.6 10^3/uL (4.0-10.0) H 10/05/22 05:03 RBC 4.65 10^6/uL (4.1-5.3) 10/05/22 05:03 Hgb 13.3 g/dL (11.5-15.3) 10/05/22 05:03 Hct 41.4 % (37.0-47.0) 10/05/22 05:03 MCV 89.0 fl (81-99) 10/05/22 05:03 MCH 28.6 pg (28.0-34.0) 10/05/22 05:03 MCHC 32.1 g/dL (30.0-36.0) 10/05/22 05:03 RDW 12.7 % (12.1-15.1) 10/05/22 05:03 Plt Count 247 10^3/cmm (130-400) 10/05/22 05:03 MPV 11.0 fL (7.4-10.4) H 10/05/22 05:03 Neut % (Auto) 80.3 % 10/05/22 05:03 Lymph % (Auto) 11.4 % 10/05/22 05:03 Maverick % (Auto) 6.2 % 10/05/22 05:03 Eos % (Auto) 1.6 % 10/05/22 05:03 Baso % (Auto) 0.2 % 10/05/22 05:03 Neut # (Auto) 8.48 10^3/uL (1.8-7.7) H 10/05/22 05:03 Lymph # (Auto) 1.2 10^3/uL (0.8-4.8) 10/05/22 05:03 Maverick # (Auto) 0.7 10^3/uL (0.2-0.9) 10/05/22 05:03 Eos # (Auto) 0.2 10^3/uL (0.0-0.8) 10/05/22 05:03 Baso # (Auto) 0.0 10^3/uL (0.0-0.1) 10/05/22 05:03 Nucleated RBC % (auto) 0 % 10/05/22 05:03 Nucleated RBCs # 0.0 /100WBC 10/05/22 05:03 Sodium 141 mmol/L (136-145) 10/05/22 05:03 Potassium 3.3 mmol/L (3.5-5.1) L 10/05/22 05:03 Chloride 106 mmol/L (98-107) 10/05/22 05:03 Carbon Dioxide 20 mmol/L (22-29) L 10/05/22 05:03 Anion Gap 18.3 (5-19) 10/05/22 05:03 BUN 15 mg/dL (6-20) 10/05/22 05:03 Creatinine 0.8 mg/dL (0.5-0.9) 10/05/22 05:03 GFR Calculation 76.2 mL/min (90-130) L 10/05/22 05:03 Glucose 96 mg/dL (65-115) 10/05/22 05:03 Calculated Osmolality 293 mOsm/kg (285-295) 10/05/22 05:03 Lactic Acid 1.4 mmol/L (0.5-2.2) 10/05/22 05:03 Calcium 9.7 mg/dL (8.5-10.5) 10/05/22 05:03 Total Bilirubin 0.8 mg/dL (0.15-1.2) 10/05/22 05:03 AST 22 U/L (0-32) 10/05/22 05:03 ALT 21 U/L (0-33) 10/05/22 05:03 Alkaline Phosphatase 71 U/L (35-105) 10/05/22 05:03 Total Protein 6.8 g/dL (6.6-8.7) 10/05/22 05:03 Albumin 4.0 g/dL (3.5-5.2) 10/05/22 05:03 Globulin 2.8 g/dL (1.3-4.6) 10/05/22 05:03 Lipase 44 U/L (13-60) 10/05/22 05:03 HCG, Qual Negative (Negative) 10/05/22 05:03 Urine Color [place] (Yellow) 10/05/22 06:00 Urine Appearance Clear (CLEAR) 10/05/22 06:00 Urine pH 5 (5-7) 10/05/22 06:00 Ur Specific [place] 1.020 (1.005-1.030) 10/05/22 06:00 Urine Protein 3+ (Negative) H 10/05/22 06:00 Urine Glucose (UA) Norm (Normal) 10/05/22 06:00 Urine Ketones 1+ (Negative) H 10/05/22 06:00 Urine Blood 3+ (Negative) H 10/05/22 06:00 Urine Nitrate TNP 10/05/22 06:00 Urine Bilirubin TNP 10/05/22 06:00 Urine Urobilinogen TNP 10/05/22 06:00 Ur Leukocyte Esterase Negative (Negative) 10/05/22 06:00 Urine RBC 50-80 /hpf (0-2) H 10/05/22 06:00 Urine WBC 0-4 /hpf (0-5) H 10/05/22 06:00 Ur Squamous Epith Cells 0-4 /hpf (0-5) H 10/05/22 06:00 Amorphous Sediment Not Reportable 10/05/22 06:00 Urine Bacteria Trace /hpf (NONE) 10/05/22 06:00 Hyaline Casts 0-4 /lpf H 10/05/22 06:00 Urine Mucus 1+ /hpf 10/05/22 06:00 Discharge Plan Discharge Patient Disposition: Home Clinical Impression: Kidney stones Condition: Stable Prescriptions: No Action metoclopramide HCl 10 mg tablet 10 mg PO Q6H PRN (Reason: Nausea) oxycodone 10 mg tablet 5 mg PO Q6H PRN (Reason: Renal colic) 4 Days Qty: 16 0RF cyclobenzaprine 5 mg tablet 5 mg PO BEDTIME PRN (Reason: Spasms) promethazine 25 mg tablet 25 mg PO Q6H PRN (Reason: nausea and vomiting) Qty: 14 0RF lidocaine 5 % Adhesive Patch,Medicated 1 patch TOPICAL DAILY PRN (Reason: Pain) Rx Instructions: leave on most painful area for up to 12 hrs Azo Discharge Orders: Discharge ED (Routine); Ordered 10/05/22 Ordered By: José Miguel Caballero Referrals: Aleyda Jean-Baptiste, [employer] [Primary Care Provider] - Discharge Diet: Advance as tolerated Discharge Activity: Resume usual activity Patient Instructions: Kidney Stones (ED) Coding Level of Care Code ED Winding Department Supervisor for Miriam Gamez
[2022-10-05 04:50] VITALS: BP 150/82; PULSE 87; RESP 18; TEMP 36.6; O2SAT 95; BMI 33.3
[2022-10-05] MEDS: ondansetron 2 mg/ML SDV 2 mL 4 MG IVP (05:10)
[2022-10-05] MEDS: morphine 4 mg/mL SDV 1 mL IVP (05:11)
[2022-10-05] MEDS: ketorolac 30 mg/mL INJ 15 MG IVP (05:11)
[2022-10-05 05:20] VITALS: BP 144/86; PULSE 84; RESP 16; O2SAT 97
--- NOTE | 2022-10-05 05:29 | CTR_ITS ---
PROCEDURE INFORMATION: Exam: CT Abdomen And Pelvis Without Contrast Exam date and time: 10/05/2022 5:49 AM Age: 51 years old Clinical indication: Abdominal pain; Flank; Left; Prior surgery; Surgery date: 6+ months; Surgery type: Tubal, gb, hernia; Additional info: Worsening L flank pain, HX ureterolithiasis, UTI.No history of trauma or recent surgery is provided. TECHNIQUE: Imaging protocol: Computed tomography of the abdomen and pelvis without contrast. 599image(s) are provided. Radiation optimization: All CT scans at this facility use at least one of these dose optimization techniques: automated exposure control; mA and/or kV adjustment per patient size (includes targeted exams where dose is matched to clinical indication); or iterative reconstruction. Other technique: Axial images are available with sagittal and coronal reconstruction views. Automated dose exposure control is utilized. The DLP is 836.23. REPORTING DATA: Count of CT and Cardiac NM exams in prior 12 months: This patient has received 6 known CTs and 0 known cardiac nuclear medicine studies in the 12 months prior to the current study. COMPARISON: 1. CT kidney stone [id number] 09/24/2022 9:[address] abdomen pelvis w con* [id number] 01/15/2020 2:[address] chest abdpel w/*[id number] 06/29/2022 11:58 AM 4. US renal BI* [id number] 10/03/2022 6:59 PM RADIATION DOSE METRICS: Total DLP (mGy-cm): 836.23 FINDINGS: Lungs: No lobar consolidation is appreciated. There is linear subsegmental atelectasis versus post inflammatory scarring demonstrated. Liver: Unremarkable. Gallbladder and bile ducts: Cholecystectomy clips are present. Pancreas: Unremarkable. Spleen: Unremarkable. Adrenal glands: Unremarkable. Kidneys and ureters: There are some nonobstructive renal corticomedullary calcifications bilaterally along with some parapelvic cystic type averaging on the right. This can also be seen with some complex slight calcific appearance along the cyst margin.There is similar proximal left hydroureter appearing slightly increased overall with some subtle adjacent stranding. There is however interval inferior transit of the previously described calculus now lower of the mid ureteral level measuring approximately 4 x 5 x 4 mm. Stomach and bowel: Some aspects of the colon are undistended. This may also be peristaltic related.There is abundant stool present limiting mucosal detail evaluation.The bowel gas pattern appears nonobstructive. There is a small sliding-type hiatal hernia demonstrated with slight gastroesophageal fold thickening. There are some calcific or post interventional changes suggested about diaphragmatic hiatus. There is some chronic diverticulosis demonstrated. Appendix: No evidence of appendicitis. Intraperitoneal space: No free air or free fluid collections are appreciated. Vasculature: No abdominal aortic aneurysmal dilatation or periaortic fluid is appreciated. Lymph nodes: There are some enlarged perivascular as well as periportal lymph nodes similar overall. Urinary bladder: The bladder is incompletely fluid filled for evaluation which may exagerate the wall thickness. This can also be seen with post inflammation sequela. Reproductive: Unremarkable as visualized. Bones/joints: Osseous alignment is maintained.No interval displaced fracture or dislocation is appreciated. There is some spondylosis present overall. Soft tissues: No radiopaque foreign body or subcutaneous emphysema is appreciated.No other significant interval changes are appreciated. CT/CT kidney stone [id number] IMPRESSION: There is persistent left hydronephrosis and hydroureter subtly increased with interval transit of the calculus now at the mid ureteral level. There is some subtle stranding which could also be seen with at least partial obstructive related change as well as superimposed urinary tract inflammation. COMMENTS: Consistent with the [employer]'s Incidental Findings Committee white paper (J Am Valencia Radiol 2018): Any incidental renal lesion less than 1 cm or classified as too small to characterize, or any incidental cystic renal lesion characterized as simple-appearing, is likely benign. No follow-up imaging is recommended for these lesions per consensus recommendations based on imaging criteria.
[2022-10-05 05:34] VITALS: PULSE 77; RESP 16; O2SAT 98
[2022-10-05 05:34] LABS: Basophils % 0.2 %; Eosinophils # 0.2 10^3/uL (0.0-0.8); Eosinophils % 1.6 %; Hematocrit 41.4 % (37.0-47.0); Hemoglobin 13.3 g/dL (11.5-15.3); Lymphocytes # 1.2 10^3/uL (0.8-4.8); Lymphocytes % 11.4 %; Mean Corpuscular HGB Conc 32.1 g/dL (30.0-36.0); Mean Corpuscular Hemoglobin 28.6 pg (28.0-34.0); Monocytes # 0.7 10^3/uL (0.2-0.9); Monocytes % 6.2 %; Neutrophils # 8.48 10^3/uL (1.8-7.7); Neutrophils % 80.3 %; Nucleated Red Blood Cells % 0 %; Platelet Count 247 10^3/cmm (130-400); Red Blood Count 4.65 10^6/uL (4.1-5.3); Red Cell Distribution Width 12.7 % (12.1-15.1); White Blood Count 10.6 10^3/uL (4.0-10.0)
[2022-10-05 05:40] LABS: HCG, Serum Qual Negative (Negative)
[2022-10-05 05:45] LABS: Alanine Aminotransferase 21 U/L (0-33); Alkaline Phosphatase 71 U/L (35-105); Anion Gap 18.3 (5-19); Aspartate Amino Transferase 22 U/L (0-32); Blood Urea Nitrogen 15 mg/dL (6-20); Calcium 9.7 mg/dL (8.5-10.5); Carbon Dioxide 20 mmol/L (22-29); Chloride 106 mmol/L (98-107); Creatinine Clr Calc Pharmacy 101.5299; Globulin 2.8 g/dL (1.3-4.6); Glomerular Filtration Rate 76.2 mL/min (90-130); Glucose 96 mg/dL (65-115); Lipase 44 U/L (13-60); Osmolality Calculated 293 mOsm/kg (285-295); Potassium 3.3 mmol/L (3.5-5.1); Sodium 141 mmol/L (136-145); Total Bilirubin 0.8 mg/dL (0.15-1.2); Total Protein 6.8 g/dL (6.6-8.7)
[2022-10-05 05:46] LABS: Lactic Sepsis W/Reflex 1.4 mmol/L (0.5-2.2)
[2022-10-05 06:10] VITALS: BP 152/85; PULSE 76; RESP 16; O2SAT 94
[2022-10-05 06:26] LABS: Glucose Urine UA Norm (Normal); Ketones Urine 1+ (Negative); Protein Urine 3+ (Negative); Urine Appearance Clear (CLEAR); Urine Color Orange (Yellow); pH Urine 5 (5-7)
[2022-10-05 06:27] LABS: Leukocyte Esterase Urine Negative (Negative)
[2022-10-05 06:29] LABS: Add Urine Microscopic? YES; Blood Urine 3+ (Negative)
[2022-10-05 06:32] LABS: Add Urine Culture? Yes; Bacteria Urine TRACE /hpf; Hyaline Casts Urine 0-4 /lpf; Mucus Urine 1+ /hpf; RBC Urine 50-80 /hpf (0-2); Squamous Epithelial Cell Urine 0-4 /hpf (0-5); WBC Urine 0-4 /hpf (0-5)
[2022-10-05 06:33] VITALS: BP 148/76; PULSE 70; RESP 16; O2SAT 99
[2022-10-05 09:10] VITALS: BP 143/70; PULSE 62; O2SAT 100
== END 2022-10-05 09:11 | disposition home or self-care (01) ==
PROVIDERS: Emergency Medicine; Emergency Provider Emergency Medicine; PCP Nurse Practitioner Family
DX: N13.2 Hydronephrosis with renal and ureteral calculous obstruction (principal); Z87.891 Personal history of nicotine dependence; Z87.442 Personal history of urinary calculi
CPT/HCPCS: 36415; 74176; 80053; 81001; 83605; 83690; 84703; 85025; 87040; 87086; 96374; 96375; 99285; J1885; J2270; J2405

== ENCOUNTER 2022-10-06 07:36 | Emergency (ER) | payer BC, MEDICAID, SELFPAY ==
[2022-10-06 07:50] VITALS: BP 142/110; PULSE 91; RESP 16; TEMP 36.9; O2SAT 98; BMI 32.8
[2022-10-06 08:04] VITALS: RESP 22
[2022-10-06] MEDS: morphine 4 mg/mL SDV 1 mL IVP (08:04)
[2022-10-06] MEDS: ondansetron 2 mg/ML SDV 2 mL 4 MG IVP (08:04)
--- NOTE | 2022-10-06 08:07 | ED_ITS ---
HPI - Female Genitourinary General: Chief complaint: Urogenital-Female Stated complaint: kidney stone pain Time Seen by Provider: 10/06/22 07:52 History of Present Illness: This patient is a 51 year old presenting with left flank pain. She has a known kidney stone on the left and has been having pain in that area for the past two weeks. She has been seen in the ED for this - she had a CT yesterday showing the stone and documenting that it had moved since prior imaging. She has ketoralac at home for pain and took one at 4 am. She says that it did not help, and she threw up at about 5 am. She has been having a lot of vomiting at home. Her pain is severe. She is having a lot of burning with urination. 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 No fever, no diarrhea. 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 Surgical History History of cholecystectomy History of tubal ligation Status post laparoscopic Kellie fundoplication (10/27/19) Laparoscopic paraesophageal hernia repair with mesh placement and Niesen fundoplication with intraoperative EGD Family History Father Dementia Brother CAD (coronary artery disease) Other Cancer Diabetes Hyperlipidemia Hypertension Psychiatric illness Stroke Denies family history of Clotting disorder Chronic kidney disease (CKD) Suicide Anesthesia complication Bleeding disorder Lung disease Social History Smoking and tobacco status: former smoker Alcohol intake: current Alcohol intake frequency: holidays/special occasions only Physical Exam Const: COMMON NORMALS: patient oriented x3, no limitations and alert HENMT: HEAD & SCALP: normal to inspection FACE & SINUS: normal facial exam Eye: GENERAL EYE: appearance normal, both eyes and all related structures Neck/C-Spine: COMMON NORMALS: supple, no meningeal signs and no JVD Chest: COMMONS NORMALS: normal inspection of the chest Resp: COMMON NORMALS: normal respiratory effort, No use of accessory muscles and clear to auscultation bilaterally AUSCULTATION: clear to auscultation bilaterally Cardio: COMMON NORMALS: no JVD, regular rate, regular rhythm and No murmurs present (Cardio) RATE: regular rate RHYTHM: regular rhythm GI: COMMON NORMALS: Normal to inspection, nondistended, normoactive bowel sounds present INSPECTION: Yes normal to inspection AUSCULTATION: Yes normoactive bowel sounds Back/Pelvis: COMMON NORMALS: thoracic and lumbar spine normal to inspection Extremity: COMMON NORMALS: normal to inspection Neuro: COMMON NORMALS: patient oriented x3, moves all extremities, no focal motor deficits and no sensory deficits noted SENSORIUM/ORIENTATION: Yes alert MENINGEAL SIGNS: Yes no meningeal signs Psych: COMMON NORMALS: mental status grossly normal, cooperative and normal affect MOOD & AFFECT: Yes anxious and Yes tearful Skin: COMMON NORMALS: no rashes or lesions noted and turgor normal GENERAL SKIN EXAM: no rashes or lesions noted and turgor normal Course Vital Signs: Vital signs: Vital Signs Temperature 98.4 F 10/06/22 07:50 Pulse Rate 101 H 10/06/22 10:31 Respiratory Rate 16 10/06/22 10:31 Blood Pressure 142/110 10/06/22 10:31 Pulse Oximetry 94 10/06/22 10:31 Oxygen Delivery Me thod Room Air 10/06/22 10:31 MDM - Female Medical Decision Making Known kidney stone on the left. Home pain meds and anti-emetics are not contr olling symptoms. IV pain meds and anti-emetics ordered. She just had a CT yesterday - I see no reason for another today. Her presentation is consistent with the known stone. Will check basic labs - renal function, wbc, UA. Manage pain and potential dehydration. IV narcotics with temporary pain relief. She took toradol at home so I was not able to give any IV until a while into her stay, and that did seem to help. She was willing to try going home with strong meds for pain and vomiting. She was given oxycodone in place of her tramadol, and promethazine in place of the metaclopramide. She has follow up with Dr. Tidwell on October 09. Urine cultures from the past few weeks have all been negative for infection. Lab Data 10/06/22 08:00 10/06/22 08:00 Laboratory Results WBC 7.0 10^3/uL (4.0-10.0) 10/06/22 08:00 RBC 4.44 10^6/uL (4.1-5.3) 10/06/22 08:00 Hgb 12.8 g/dL (11.5-15.3) 10/06/22 08:00 Hct 39.2 % (37.0-47.0) 10/06/22 08:00 MCV 88.3 fl (81-99) 10/06/22 08:00 MCH 28.8 pg (28.0-34.0) 10/06/22 08:00 MCHC 32.7 g/dL (30.0-36.0) 10/06/22 08:00 RDW 12.6 % (12.1-15.1) 10/06/22 08:00 Plt Count 232 10^3/cmm (130-400) 10/06/22 08:00 MPV 10.6 fL (7.4-10.4) H 10/06/22 08:00 Neut % (Auto) 68.9 % 10/06/22 08:00 Lymph % (Auto) 19.4 % 10/06/22 08:00 [place] % (Auto) 8.7 % 10/06/22 08:00 Eos % (Auto) 2.4 % 10/06/22 08:00 Baso % (Auto) 0.3 % 10/06/22 08:00 Neut # (Auto) 4.83 10^3/uL (1.8-7.7) 10/06/22 08:00 Lymph # (Auto) 1.4 10^3/uL (0.8-4.8) 10/06/22 08:00 [place] # (Auto) 0.6 10^3/uL (0.2-0.9) 10/06/22 08:00 Eos # (Auto) 0.2 10^3/uL (0.0-0.8) 10/06/22 08:00 Baso # (Auto) 0.0 10^3/uL (0.0-0.1) 10/06/22 08:00 Nucleated RBC % (auto) 0 % 10/06/22 08:00 Nucleated RBCs # 0.0 /100WBC 10/06/22 08:00 Sodium 142 mmol/L (136-145) 10/06/22 08:00 Potassium 3.6 mmol/L (3.5-5.1) 10/06/22 08:00 Chloride 107 mmol/L (98-107) 10/06/22 08:00 Carbon Dioxide 20 mmol/L (22-29) L 10/06/22 08:00 Anion Gap 18.6 (5-19) 10/06/22 08:00 BUN 18 mg/dL (6-20) 10/06/22 08:00 Creatinine 0.7 mg/dL (0.5-0.9) 10/06/22 08:00 GFR Calculation 88.9 mL/min (90-130) L 10/06/22 08:00 Glucose 98 mg/dL (65-115) 10/06/22 08:00 Calculated Osmolality 296 mOsm/kg (285-295) H 10/06/22 08:00 Calcium 9.6 mg/dL (8.5-10.5) 10/06/22 08:00 Total Bilirubin 0.7 mg/dL (0.15-1.2) 10/06/22 08:00 AST 22 U/L (0-32) 10/06/22 08:00 ALT 22 U/L (0-33) 10/06/22 08:00 Alkaline Phosphatase 69 U/L (35-105) 10/06/22 08:00 Total Protein 6.8 g/dL (6.6-8.7) 10/06/22 08:00 Albumin 4.0 g/dL (3.5-5.2) 10/06/22 08:00 Globulin 2.8 g/dL (1.3-4.6) 10/06/22 08:00 Lipase 40 U/L (13-60) 10/06/22 08:00 Urine Color Dixon (Yellow) 10/06/22 09:00 Urine Appearance Clear (CLEAR) 10/06/22 09:00 Urine pH TNP 10/06/22 09:00 Ur Specific Merrill TNP 10/06/22 09:00 Urine Protein TNP 10/06/22 09:00 Urine Glucose (UA) TNP 10/06/22 09:00 Urine Ketones TNP 10/06/22 09:00 Urine Blood TNP 10/06/22 09:00 Urine Nitrate TNP 10/06/22 09:00 Urine Bilirubin TNP 10/06/22 09:00 Urine Urobilinogen TNP 10/06/22 09:00 Ur Leukocyte Esterase TNP 10/06/22 09:00 Urine RBC 15-25 /hpf (0-2) H 10/06/22 09:00 Urine WBC 0-4 /hpf (0-5) H 10/06/22 09:00 Ur Squamous Epith Cells 0-4 /hpf (0-5) H 10/06/22 09:00 Calcium Oxalate Crystal 0-4 /hpf H 10/06/22 09:00 Amorphous Sediment Not Reportable 10/06/22 09:00 Urine Bacteria 1+ /hpf (NONE) H 10/06/22 09:00 Urine Mucus 1+ /hpf 10/06/22 09:00 Discharge Plan Discharge Patient Disposition: Home Clinical Impression: Renal colic on left side Condition: Stable Prescriptions: New oxycodone 10 mg tablet 5 mg PO Q6H PRN (Reason: pain) Qty: 14 0RF promethazine 25 mg tablet 25 mg PO Q6H PRN (Reason: nausea and vomiting) Qty: 14 0RF Discontinued tramadol 100 mg tablet 100 mg PO Q6H PRN (Reason: pain) Qty: 60 0RF oxycodone-acetaminophen 5-325 mg tablet 2 tab PO .EVERY 6 TO 8 HOURS PRN (Reason: Pain) levofloxacin 500 mg tablet 500 mg PO DAILY 7 Days Qty: 7 0RF tramadol 50 mg tablet 50 mg PO Q6H PRN (Reason: pain) Qty: 120 0RF cephalexin 500 mg capsule 500 mg PO Q6H 10 Days Qty: 40 0RF metoclopramide HCl [Reglan] 10 mg tablet 10 mg PO Q8H PRN (Reason: nausea and vomiting) Qty: 14 0RF ciprofloxacin HCl 500 mg tablet 500 mg PO Q12H Qty: 14 0RF No Action cyclobenzaprine 5 mg tablet 5 mg PO BEDTIME PRN (Reason: Spasms) multivitamin Tablet 1 tab PO QAM Estroven Menopause 400 mcg-40 mg- 40 mg-100 mg tablet 1 tab PO QAM vitamin E (dl, acetate) 180 mg (400 unit) capsule 180 mg PO DAILY Qty: 30 0RF methylprednisolone [Medrol (Junior)] 4 mg tablets,dose pack See Rx Instructions PO PER PKG DIR Qty: 21 0RF Rx Instructions: PO PER PKG DIR ketorolac 10 mg tablet 10 mg PO TID PRN (Reason: pain) 5 Days Qty: 15 0RF Cbd Gummies 1 gummy PO BEDTIME PRN (Reason: sleep/pain) lidocaine 5 % Adhesive Patch,Medicated 1 patch TOPICAL DAILY PRN (Reason: Pain) Rx Instructions: leave on most painful area for up to 12 hrs metronidazole 500 mg Tablet 500 mg PO TID Qty: 15 0RF Discharge Orders: Discharge ED (Routine); Ordered 10/06/22 Ordered By: Shelby Goff Referrals: Aleyda Jean-Baptiste FNP [Primary Care Provider] - Jd Tidwell MD [Physician] - 10/09/22 Discharge Diet: Advance as tolerated Discharge Activity: Increase activity as tolerated Patient Instructions: Abdominal Pain (ED), Opioid Safety, Pain Management Coding Level of Care Code ED Permanent Waver for Miriam Gamez
[2022-10-06 08:16] LABS: Basophils % 0.3 %; Eosinophils # 0.2 10^3/uL (0.0-0.8); Eosinophils % 2.4 %; Hematocrit 39.2 % (37.0-47.0); Hemoglobin 12.8 g/dL (11.5-15.3); Lymphocytes # 1.4 10^3/uL (0.8-4.8); Lymphocytes % 19.4 %; Mean Corpuscular HGB Conc 32.7 g/dL (30.0-36.0); Mean Corpuscular Hemoglobin 28.8 pg (28.0-34.0); Mean Corpuscular Volume 88.3 fl (81-99); Mean Platelet Volume 10.6 fL (7.4-10.4); Monocytes # 0.6 10^3/uL (0.2-0.9); Monocytes % 8.7 %; Neutrophils # 4.83 10^3/uL (1.8-7.7); Neutrophils % 68.9 %; Nucleated Red Blood Cells % 0 %; Platelet Count 232 10^3/cmm (130-400); Red Blood Count 4.44 10^6/uL (4.1-5.3); Red Cell Distribution Width 12.6 % (12.1-15.1)
[2022-10-06] MEDS: LORazepam 2 mg/mL INJ 1 mL 1 MG IVP (08:27)
[2022-10-06 08:46] LABS: Alanine Aminotransferase 22 U/L (0-33); Alkaline Phosphatase 69 U/L (35-105); Anion Gap 18.6 (5-19); Aspartate Amino Transferase 22 U/L (0-32); Blood Urea Nitrogen 18 mg/dL (6-20); Calcium 9.6 mg/dL (8.5-10.5); Carbon Dioxide 20 mmol/L (22-29); Chloride 107 mmol/L (98-107); Globulin 2.8 g/dL (1.3-4.6); Glomerular Filtration Rate 88.9 mL/min (90-130); Glucose 98 mg/dL (65-115); Lipase 40 U/L (13-60); Osmolality Calculated 296 mOsm/kg (285-295); Potassium 3.6 mmol/L (3.5-5.1); Sodium 142 mmol/L (136-145); Total Bilirubin 0.7 mg/dL (0.15-1.2); Total Protein 6.8 g/dL (6.6-8.7)
[2022-10-06 09:05] VITALS: RESP 18
[2022-10-06] MEDS: HYDROmorphone 1 mg/mL INJ 1 mL 0.5 MG IVP (09:05)
[2022-10-06 10:08] LABS: Urine Appearance Clear (CLEAR); Urine Color Orange (Yellow)
[2022-10-06 10:09] LABS: Add Urine Culture? No; Add Urine Microscopic? YES; Bacteria Urine 1+ /hpf; Calcium Oxalate Crystals Urine 0-4 /hpf; Mucus Urine 1+ /hpf; RBC Urine 15-25 /hpf (0-2); Squamous Epithelial Cell Urine 0-4 /hpf (0-5); WBC Urine 0-4 /hpf (0-5)
[2022-10-06 10:31] VITALS: BP 142/110; PULSE 101; RESP 16; O2SAT 94
[2022-10-06] MEDS: ketorolac 30 mg/mL INJ 15 MG IVP (11:32)
[2022-10-06 12:54] VITALS: BP 131/95; PULSE 90; RESP 16; O2SAT 96
== END 2022-10-06 13:00 | disposition home or self-care (01) ==
PROVIDERS: Emergency Provider Emergency Medicine; PCP Nurse Practitioner Family
DX: N23 Unspecified renal colic (principal); Z87.891 Personal history of nicotine dependence
CPT/HCPCS: 80053; 81001; 83690; 85025; 96374; 96375; 99284; J1170; J1885; J2060; J2270; J2405

== ENCOUNTER 2022-10-09 07:01 | Outpatient (CLI) | payer BC, MEDICAID, SELFPAY ==
--- NOTE | 2022-10-09 07:09 | XR_ITS ---
WS: [id number] KUB, AP view, Clinical Data: STONES Comparison: KUB, 02/06/2017. Findings: No abnormal intraabdominal masses or calcifications are seen. There is no dilatated small bowel or ev idence of obstruction. There is a large amount of fecal material throughout the colon. XR/XR KUB [id number] Impression: Large amount of fecal material in the colon.
== END 2022-10-09 07:02 | disposition home or self-care (01) ==
LOC: RAD 07:03
PROVIDERS: PCP Nurse Practitioner Family; Visit Provider Urology
DX: N39.0 Urinary tract infection, site not specified (principal); N20.9 Urinary calculus, unspecified
CPT/HCPCS: 74018; 87086

== ENCOUNTER 2022-10-10 05:40 | Day surgery (SDC) | payer BC, MEDICAID, SELFPAY ==
[2022-10-09 14:15] VITALS: BMI 33.0
[2022-10-10] VITALS (12 sets, daily range): BP systolic 73–142; BP diastolic 45–76; PULSE 60–90; RESP 16–18; TEMP 36.1–36.6; O2SAT 91–99
--- NOTE | 2022-10-10 05:45 | XRR_ITS ---
PROCEDURE INFORMATION: Exam: XR Abdomen Exam date and time: 10/10/2022 5:57 AM Age: 51 years old Clinical indication: Condition or disease; Kidney or ureter condition; Calculus (stone) in ureter; Prior surgery; Surgery date: 6+ months; Surgery type: Choley, hernia, tubal; Additional info: Left ureteral calculus TECHNIQUE: Imaging protocol: Radiologic exam of the abdomen. Views: Frontal supine view of the abdomen. 1 View. COMPARISON: CR XR KUB [id number] 10/09/2022 7:27 AM FINDINGS: Gastrointestinal tract: Mild right-sided bowel dilatation , prominent stool, and diverticula. Incomplete visualization of the superior and lateral abdomen. Intraperitoneal space: Multiple punctate pelvic calcifications. If urolithiasis is of clinical concern, CT may be of benefit for further evaluation. Bones/joints: Unremarkable. XR/XR KUB [id number] IMPRESSION: 1. Mild right-sided bowel dilatation , prominent stool, and diverticula. 2. Multiple punctate pelvic calcifications. If urolithiasis is of clinical concern, CT may be of benefit for further evaluation.
--- NOTE | 2022-10-10 05:45 | SC_ITS ---
WS: [id number] C-arm fluoroscopy for left ureteral stent placement, 10/10/2022 Clinical Data: Left ureteroscopy Comparison: None. Findings: Dr. Tidwell inserted a left ureteral stent SC/C-arm FL for Urology Impression: Left ureteral stent placement
[2022-10-10] MEDS: scopolamine 1.5 Patch 1 PATCH TRANSDERMA (06:38)
--- NOTE | 2022-10-10 06:39 | ANES.PREANE2 ---
Pre-Anesthetic Assessment Height/Weight: Height 1.7 m Weight 95.708 kg Temp Pulse Resp BP Pulse Ox O2 Del Method 97.8 F 90 18 142/72 96 Room Air 10/10/22 06:13 10/10/22 06:13 10/10/22 06:13 10/10/22 06:13 10/10/22 06:13 10/10/22 06:18 Preop Diagnosis: Refractory left ureteral calculus with severe symptoms Operation Date: 10/10/22 07:00 Proposed Procedures p Cystoscopy(Left) - Jd Tidwell MD s Retrograde Pyelogram(Left) - Jd Tidwell MD s Ureteroscopy(Left) - Jd Tidwell MD s Laser Lithotripsy(Left) - Jd Tidwell MD s CYSTOSCOPY, LEFT: RETROGRADE, URETEROSCOPY, LASER, STENT [id number] MODIFIER 26 48830, N20.1(Left) - Jd Tidwell MD Familial anesthetic complications: None Was Beta Chandrika taken within 24 hours: N/A Was Clonidine taken within 24 hours: N/A Last intake: Intake Last Liquid Date 10/10/22 Last Liquid Time 04:00 Last Solid Date 10/09/22 Last Solid Time 21:00 Social No alcohol and No tobacco former smoker Exam alert, oriented x 3, clear to auscultation bilaterally and regular rate & rhythm Airway Mallampati: Class III Dentition: full CV/HEM states episode of A fib in the past, but primary doctor hasn't ever put her on any medications for it GI hiatal hernia Anesthetic Plan ASA status: 3 Anesthesia: General Risk of > 500 ml blood loss (7ml/kg in children): No Medications/Allergies Home Medications Medication Instructions Recorded Confirmed Last Taken Type cyclobenzaprine 5 mg tablet 5 mg PO BEDTIME PRN Spasms 01/17/22 10/09/22 09/26/22 History lidocaine 5 % topical patch 1 patch topical DAILY PRN Pain 04/23/22 10/09/22 10/08/22 History promethazine 25 mg tablet 25 mg PO Q6H PRN nausea and 10/06/22 10/09/22 09/05/22 Rx vomiting #14 tabs Azo 10/09/22 10/09/22 History metoclopramide HCl 10 mg tablet 10 mg PO Q6H PRN Nausea 06/10/2610/09/22 10/08/22 History oxycodone 10 mg tablet 5 mg PO Q6H PRN Renal colic 4 days 10/09/22 10/09/22 10/09/22 Rx #16 tabs Allergies Allergy/AdvReac Type Severity Reaction Status Date / Time bee venom protein (honey bee) Allergy ALGY-Anaphy Verified 10/10/22 06:07 laxis bupropion [From Wellbutrin] Allergy Unknown Verified 10/09/22 07:43 clonazepam [From Klonopin] Allergy ADR-Irritab Verified 10/09/22 07:43 le fluoxetine [From Prozac] Allergy ADR-Irritab Verified 10/09/22 07:43 le latex Allergy ALGY-Rash Verified 10/09/22 07:43 venlafaxine [From Effexor] Allergy Unknown Verified 10/09/22 07:43 PFS Anesthesia Medical History GERD (gastroesophageal reflux disease) Left ureteral calculus 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 Surgical History History of cholecystectomy History of tubal ligation Status post laparoscopic Kellie fundoplication (10/27/19) Laparoscopic paraesophageal hernia repair with mesh placement and Niesen fundoplication with intraoperative EGD Family History Father Dementia Brother CAD (coronary artery disease) Other Cancer Diabetes Hyperlipidemia Hypertension Psychiatric illness Stroke Denies family history of Clotting disorder Chronic kidney disease (CKD) Suicide Anesthesia complication Bleeding disorder Lung disease Social History Smoking and tobacco status: former smoker Alcohol intake: current Alcohol intake frequency: holidays/special occasions only Female Reproductive History Date of last menstrual period: 10/04/21 Data Anesthesia Cardiac Studies: No Data to Display
[2022-10-10] MEDS: sodium chloride 0.9% 1,000 ML 30 ML IV (06:40)
[2022-10-10] MEDS: ondansetron 2 mg/ML SDV 2 mL 4 MG IVP ×2 (06:44→09:45)
--- NOTE | 2022-10-10 06:51 | W.PM.OPSUD ---
Surgery/Procedure H&P Update DATE OF PROCEDURE: October 10, 2022 DATE H&P PERFORMED: 10/09/22 H&P UPDATE INFORMATION: I have reviewed H&P completed within last 30 days, I have examined patient prior to procedure, No changes to prior documentation and H&P is in [facility] on date indicated CHANGES TO PREVIOUS DOCUMENTATION: I reviewed the KUB and I cannot clearly identify the stone. She is still having pain. Has been straining her urine has not passed the stone. Bowel cleanout went very well yesterday. PREOP DIAGNOSIS: Refractory left ureteral calculus with severe symptoms PLANNED PROCEDURE: Operation Date: 10/10/22 07:00 Proposed Procedures p Cystoscopy(Left) - Jd Tidwell MD s Retrograde Pyelogram(Left) - Jd Tidwell MD s Ureteroscopy(Left) - Jd Tidwell MD s Laser Lithotripsy(Left) - Jd Tidwell MD s CYSTOSCOPY, LEFT: RETROGRADE, URETEROSCOPY, LASER, STENT [id number] MODIFIER 26 [id number], N20.1(Left) - Jd Tidwell MD
[2022-10-10] MEDS: levofloxacin-dextrose 5 % 500 MG/100 ML PREMIX 100 MG IV (07:01)
--- NOTE | 2022-10-10 08:12 | P.OP_ITS ---
Operative Report Date of procedure: October 10, 2022 Pre-op diagnosis: Left distal ureteral stone with severe refractory symptoms Post-op diagnosis: Left distal ureteral stone with severe refractory symptoms Procedure done: 1. Cystoscopy, LEFT: Retrograde, ureteroscopy, laser, stent Implants: Left ureteral stent, 6 Austrian by 26 cm double-pigtail without string Specimens removed/disposition: Stone fragments Pathology: Stone fragments Surgeon: Diann Estimated blood loss: Minimal Urine output: Not measured Complications: None Findings: Anesthesia: General Condition: Stable Disposition: PACU Intraoperative findings: * Stone in the expected position above the left pelvic vessels. Required fragmentation for removal. * 6 Austrian by 28 cm double-pigtail left in place at the completion of the procedure. No string Brief History: Ms. Lawson is a very pleasant 51-year-old white female who has been suffering severe renal colicky symptoms, nausea and vomiting associated with a 3 to 4 mm left ureteral stone identified initially on CT scan stone protocol in the emergency department on 09/24/2022. Since that time she has had 3 additional ER visits and an office visit for evaluation of this. While the stone has shown progression she has had refractory nausea vomiting and renal colic. No evidence of definitive UTI. She was seen in my office yesterday and requested intervention due to the refractory nature of the pain. The stone had progressed somewhat on serial CT scans down to just above the pelvic vessels on the left side but could not clearly be identified on KUB. Was still having pain this morning. Has been diligently straining her urine with no passage. ADDITIONAL punctate left renal calculus possibly in a collecting duct. Procedure: After routine preoperative evaluation examination and obtaining of informed consent she was taken to the operating suite on 10/10/2022 where general anesthesia was administered without difficulty after appropriate timeout was performed, SCDs confirmed to be functioning, preoperative antibiotics administered, beta-rik protocol confirmed. Prepped and draped in usual sterile fashion in dorsolithotomy position pain careful attention to avoiding pressure points. 21 Austrian cystoscope with 30 degree lens was introduced into the urethral meatus and advanced into the bladder under videoscopy. The bladder was systematically examined. No stone was seen. An 8 Austrian cone-tip catheter was intubated into the left ureteral orifice for left retrograde ureteropyelogram which demonstrated: Normal course and caliber of the ureter distal to the stone. The filling defect consistent with a stone was in exactly the same position has been seen on the recent CT scan about 2 cm above the crossing of the left pelvic vessels. Ureter proximal to that point was dilated. Additional filling defects were identified Flexible tip guidewire was then advanced up the left ureter without difficulty bypassing the stone curling in the area of the renal pelvis. The distal ureter was then dilated with a 15 Austrian 4 cm balloon. The wire was secured to the drapes as a safety wire and a second wire was passed as a working wire. A 24 cm ureteral access sheath was then advanced over the working wire under fluoroscopic monitoring into appropriate position below the level of the stone. A 7 Austrian offset semirigid ureteroscope was then advanced without difficulty through the sheath to the level of the stone which was partially fragmented with laser lithotripsy. Fragments removed with grasping forceps basket. Final passage of the scope revealed no proximal migration of stone fragments and no residual fragments of substance remaining in the ureter. The ureter was inspected as the scope was removed after backing the sheath down onto the hub of the scope. Scope was then backloaded over the guidewire and a 4.5 Austrian by 26 cm double-pigtail stent without string was advanced over the guidewire through the cystoscope into the ureter but did not appear to be long enough. It was then exchanged for a 6 Austrian by 28 cm double-pigtail stent which was the appropriate length. Position was confirmed via fluoroscopy and cystoscopy. Bladder was drained and the procedure was completed. She tolerated procedure without Complication and was awakened in the operating room and transferred to PACU in stable condition. PLANS: 1. Anticipate discharge from outpatient surgery today 2. Follow-up next week for cystoscopy and stent removal in the clinic. No KUB
[2022-10-10] MEDS: oxyCODONE 5 mg IR Tab/Cap PO (09:14)
--- NOTE | 2022-10-10 13:22 | ANE.PACU2 ---
Inpatient post-anesthesia follow up: Airway intact: Yes Vital signs: Temperature 97.5 F Pulse Rate 66 Respiratory Rate 18 Blood Pressure 132/66 Pulse Oximetry 98 Oxygen Delivery Me thod Room Air Oxygen Flow Rate 6 Fraction of Inspir ed Oxygen Hydration adequate: Yes Nausea and vomiting: Yes Pain level: 1 Mental status: Baseline
[2022-10-15 22:19] LABS: Stone Source LEFT URETER
== END 2022-10-10 10:00 | disposition home or self-care (01) ==
PROVIDERS: PCP Nurse Practitioner Family; Visit Provider Urology
PROC: 0TJB8ZZ Inspection of Bladder, Via Natural or Artificial Opening Endoscopic (ICD-10-PCS; CPT 52000; principal; 2022-10-10 07:00)
PROC: (CPT 74420; 2022-10-10 07:00)
PROC: 0TJ98ZZ Inspection of Ureter, Via Natural or Artificial Opening Endoscopic (ICD-10-PCS; CPT 52351; 2022-10-10 07:00)
PROC: (CPT 52356; 2022-10-10 07:00)
PROC: (CPT 50605; 2022-10-10 07:00)
DX: N20.1 Calculus of ureter (principal); I48.91 Unspecified atrial fibrillation; Z87.891 Personal history of nicotine dependence; Z79.891 Long term (current) use of opiate analgesic; K21.9 Gastro-esophageal reflux disease without esophagitis; K44.9 Diaphragmatic hernia without obstruction or gangrene
CPT/HCPCS: 52356; 74018; 76000; 82365; 88300; J1956; J2250; J2405; J2710; J3010; J3490; J7030

== ENCOUNTER → 2022-10-17 08:00 | Outpatient (BNVA) | payer MEDICAID, SELFPAY | PROVIDERS: PCP Nurse Practitioner Family; Visit Provider Urology | DX: N20.1 Calculus of ureter (principal); Z96.0 Presence of urogenital implants | CPT/HCPCS: 52000; 52310; 81003; 99213 ==

== ENCOUNTER 2022-10-26 03:47 | Emergency (ER) | payer MEDICAID, SELFPAY ==
[2022-10-26 03:54] VITALS: BP 128/73; PULSE 107; RESP 20; TEMP 36.9; O2SAT 95; BMI 33.3
--- NOTE | 2022-10-26 04:04 | W.ED.WOUNDLC ---
HPI - Wound/Laceration General: Chief Complaint: Wound/Laceration Stated Complaint: dranage tube leaking Time Seen by Provider: 10/26/22 03:57 Source: patient Mode of arrival: ambulatory Limitations: no limitations History of Present Illness: 52-year-old female who states that she had had a skin cancer removed on her right leg last week in [place] she has a WEI drain and states that it is no longer really holding suction and the sutures of came loose. She had some drainage around it. Denies any fever denies any pain. 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 Urolithiasis Surgical History History of cholecystectomy History of tubal ligation Status post laparoscopic Kellie fundoplication (10/27/19) Laparoscopic paraesophageal hernia repair with mesh placement and Niesen fundoplication with intraoperative EGD Family History Father Dementia Brother CAD (coronary artery disease) Other Cancer Diabetes Hyperlipidemia Hypertension Psychiatric illness Stroke Denies family history of Clotting disorder Chronic kidney disease (CKD) Suicide Anesthesia complication Bleeding disorder Lung disease Social History Smoking and tobacco status: former smoker Alcohol intake: current Alcohol intake frequency: holidays/special occasions only Physical Exam Const: COMMON NORMALS: no acute distress and patient oriented x3 HENMT: COMMON NORMALS: normocephalic and atraumatic HEAD & SCALP: normocephalic and atraumatic Eye: COMMON NORMALS: conjunctivae normal CONJUNCTIVA: Yes conjunctivae normal Neck/C-Spine: COMMON NORMALS: supple Chest: COMMONS NORMALS: normal inspection of the chest Resp: COMMON NORMALS: normal respiratory effort Cardio: COMMON NORMALS: regular rate RATE: regular rate GI: INSPECTION: Yes normal to inspection Extremity: COMMON NORMALS: normal to inspection Neuro: COMMON NORMALS: patient oriented x3 Psych: COMMON NORMALS: mental status grossly normal Skin: NARRATIVE SKIN EXAM: Wound to right thigh is clean dry and intact she does have a WEI drain her suture has loosened Procedures Laceration Laceration 1: Site: lower extremity Side (If applicable): right Description: other (wei drain) Local Anesthetic: lidocaine 1% Amount of anesthesia used (mL): 8 Size (cm): 4-0 Number of sutures: 1 Technique: simple interrupted and other (WEI drain was sutured in place with 1 stitch) Course Vital Signs: Vital signs: Vital Signs Temperature 98.4 F 10/26/22 03:54 Pulse Rate 107 H 10/26/22 03:54 Respiratory Rate 20 H 10/26/22 03:54 Blood Pressure 128/73 10/26/22 03:54 Pulse Oximetry 95 10/26/22 03:54 MDM - Wound/Laceration Medical Decision Making Patient presents here with WEI drain and sutures became loose around the drain to a right leg surgical site. I did resuture it to where it was tied back to skin so it would not become dislodged the bulb is now working where it is suctioning she is stable for discharge she is to follow-up with her surgeon as scheduled next week Discharge Plan Discharge Patient Disposition: Home Clinical Impression: Draining postoperative wound Condition: Stable Prescriptions: No Action metoclopramide HCl 10 mg tablet 10 mg PO Q6H PRN (Reason: Nausea) oxycodone 10 mg tablet 5 mg PO Q6H PRN (Reason: Renal colic) 4 Days Qty: 16 0RF cyclobenzaprine 5 mg tablet 5 mg PO BEDTIME PRN (Reason: Spasms) promethazine 25 mg tablet 25 mg PO Q6H PRN (Reason: nausea and vomiting) Qty: 14 0RF lidocaine 5 % Adhesive Patch,Medicated 1 patch TOPICAL DAILY PRN (Reason: Pain) Rx Instructions: leave on most painful area for up to 12 hrs Azo Discharge Orders: Discharge ED (Routine); Ordered 10/26/22 Ordered By: José Miguel Caballero Referrals: Aleyda Jean-Baptiste FNP [Primary Care Provider] - Discharge Diet: Advance as tolerated Discharge Activity: Resume usual activity [facility] Coding Level of Care Code ED Motor Mechanic for Miriam Gamez
[2022-10-26] MEDS: lidocaine 1% INJ 10 mL (per mL) 20 ML INJECTION (04:25)
[2022-10-26 04:29] VITALS: BP 128/73; PULSE 93; O2SAT 94
== END 2022-10-26 04:30 | disposition home or self-care (01) ==
PROVIDERS: Emergency Provider Emergency Medicine; PCP Nurse Practitioner Family
DX: T85.638A Leakage of other specified internal prosthetic devices, implants and grafts, initial encounter (principal); Y84.8 Other medical procedures as the cause of abnormal reaction of the patient, or of later complication, without mention of misadventure at the time of the procedure
CPT/HCPCS: 99282

== ENCOUNTER 2022-11-21 19:27 | Emergency (ER) | payer MEDICAID, SELFPAY ==
[2022-11-21 19:34] VITALS: BP 113/61; PULSE 109; RESP 18; TEMP 37.8; O2SAT 98; BMI 33.3
[2022-11-21 19:50] LABS: Basophils % 0.1 %; Eosinophils # 0.3 10^3/uL (0.0-0.8); Eosinophils % 3.3 %; Hematocrit 34.9 % (37.0-47.0); Hemoglobin 10.7 g/dL (11.5-15.3); Lymphocytes # 1.2 10^3/uL (0.8-4.8); Lymphocytes % 15.9 %; Mean Corpuscular HGB Conc 30.7 g/dL (30.0-36.0); Mean Corpuscular Hemoglobin 27.4 pg (28.0-34.0); Mean Corpuscular Volume 89.3 fl (81-99); Mean Platelet Volume 10.1 fL (7.4-10.4); Monocytes # 0.7 10^3/uL (0.2-0.9); Monocytes % 8.8 %; Neutrophils % 71.6 %; Nucleated Red Blood Cells % 0 %; Platelet Count 316 10^3/cmm (130-400); Red Blood Count 3.91 10^6/uL (4.1-5.3); Red Cell Distribution Width 13.8 % (12.1-15.1); White Blood Count 7.5 10^3/uL (4.0-10.0)
[2022-11-21 20:10] LABS: Alanine Aminotransferase 10 U/L (0-33); Albumin Level 3.6 g/dL (3.5-5.2); Alkaline Phosphatase 92 U/L (35-105); Anion Gap 15.5 (5-19); Aspartate Amino Transferase 14 U/L (0-32); Blood Urea Nitrogen 14 mg/dL (6-20); Calcium 9.6 mg/dL (8.5-10.5); Carbon Dioxide 22 mmol/L (22-29); Chloride 103 mmol/L (98-107); Creatinine Clr Calc Pharmacy 133.8856; Globulin 3.7 g/dL (1.3-4.6); Glomerular Filtration Rate 105.8 mL/min (90-130); Glucose 88 mg/dL (65-115); Osmolality Calculated 284 mOsm/kg (285-295); Potassium 3.5 mmol/L (3.5-5.1); Sodium 137 mmol/L (136-145); Total Bilirubin 0.5 mg/dL (0.15-1.2); Total Protein 7.3 g/dL (6.6-8.7)
--- NOTE | 2022-11-21 20:15 | W.ED.GENADLT ---
HPI - General Adult General: Chief complaint: General Medical Stated complaint: Burning where drain tub was\fever\swollen Time Seen by Provider: 11/21/22 19:57 History of Present Illness: 52 yo lady with history of sarcoma with recent removal and removal of drain on November 14 presented the emergency department for 1 day history of increased redness, warmth, pain, swelling of the region of surgery. Notes fevers. Generalized malaise. Moderate intensity symptoms. No other specific changes in health, exacerbating, or alleviating factors identified. 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 Urolithiasis Surgical History History of cholecystectomy History of tubal ligation Status post laparoscopic Kellie fundoplication (10/27/19) Laparoscopic paraesophageal hernia repair with mesh placement and Niesen fundoplication with intraoperative EGD Family History Father Dementia Brother CAD (coronary artery disease) Other Cancer Diabetes Hyperlipidemia Hypertension Psychiatric illness Stroke Denies family history of Clotting disorder Chronic kidney disease (CKD) Suicide Anesthesia complication Bleeding disorder Lung disease Social History Smoking and tobacco status: former smoker Alcohol intake: current Alcohol intake frequency: holidays/special occasions only Physical Exam Const: COMMON NORMALS: alert GENERAL APPEARANCE: cooperative and well developed HENMT: COMMON NORMALS: normocephalic and atraumatic HEAD & SCALP: normocephalic and atraumatic Eye: COMMON NORMALS: conjunctivae normal CONJUNCTIVA: Yes conjunctivae normal SCLERA: sclerae normal Neck/C-Spine: COMMON NORMALS: supple GENERAL: Yes trachea midline Resp: COMMON NORMALS: clear to auscultation bilaterally EFFORT & INSPECTION: Yes able to speak in complete sentences AUSCULTATION: clear to auscultation bilaterally Cardio: COMMON NORMALS: regular rate and regular rhythm RATE: regular rate RHYTHM: regular rhythm GI: COMMON NORMALS: Soft to palpation PALPATION: Yes Soft to palpation and No Tenderness to palpation present (GI) Extremity: NARRATIVE EXTREMITY EXAM: Distal CMS intact. There is warmth and tenderness however this is somewhat remote from actual surgical site. Surgical site appears well-healing without evidence of wound dehiscence or drainage. GENERAL: Yes normal exam except as noted and No edema Neuro: COMMON NORMALS: moves all extremities SENSORIUM/ORIENTATION: Yes alert and No Orientation impaired Psych: COMMON NORMALS: mental status grossly normal and Normal thought process present THOUGHT PROCESS: Normal thought process present Course Vital Signs: Vital signs: Vital Signs Temperature 100.0 F H 11/22/22 00:06 Pulse Rate 109 H 11/22/22 00:06 Respiratory Rate 18 11/22/22 00:06 Blood Pressure 113/61 11/22/22 00:06 Pulse Oximetry 98 11/22/22 00:06 MDM - General Adult Medical Decision Making 52-year-old lady presenting the emergency department for concern over postoperative changes after drain removal post sarcoma removal. Exam as above. Nontoxic. Labs with no leukocytosis, normocytic anemia, normal platelet count. Metabolic panel without electrolyte derangement. Lactic acid is normal. CRP and ESR are elevated. CT of the lower extremity demonstrates deep fluid collection as well as additional fluid collection in the subcutaneous fat. There is additional subcutaneous edema which likely correlates with cellulitic findings. Challenging situation given extensive nature of patient's surgery. I did discuss with physician on-call for patient's operating physician. Challenging situation given bed availability. Given patient's current nontoxic appearance and improvement with treatment in the emergency department plan for strict follow-up in the morning. Blood cultures were obtained and patient treated with IV antibiotics. Outpatient oral antibiotics will be initiated. The results of ED evaluation were discussed with the patient including prescriptions and/or symptomatic cares (if applicable) including appropriate and responsible use, followup plan, and return precautions. The patient verbalized understanding and felt safe for discharge. Medical Records I reviewed the patient's medical records. Lab Data I reviewed the patient's lab results. 11/21/22 19:44 11/21/22 19:44 Radiology Impressions Lower Extremity CT 11/21/22 20:32 IMPRESSION: 1. Fluid collection measuring 15 x 6.1 cm seen overlying the proximal anterolateral aspect of the femoral diaphysis within the musculature along with additional fluid in the subcutaneous fat may be postsurgical in nature, infection is not excluded. Diffuse subcutaneous edema of the thigh is also seen, nonspecific, please correlate for cellulitis. 2. Diverticulosis without diverticulitis Laboratory Results WBC 7.5 10^3/uL (4.0-10.0) 11/21/22 19:44 RBC 3.91 10^6/uL (4.1-5.3) L 11/21/22 19:44 Hgb 10.7 g/dL (11.5-15.3) L 11/21/22 19:44 Hct 34.9 % (37.0-47.0) L 11/21/22 19:44 MCV 89.3 fl (81-99) 11/21/22 19:44 MCH 27.4 pg (28.0-34.0) L 11/21/22 19:44 MCHC 30.7 g/dL (30.0-36.0) 11/21/22 19:44 RDW 13.8 % (12.1-15.1) 11/21/22 19:44 Plt Count 316 10^3/cmm (130-400) 11/21/22 19:44 MPV 10.1 fL (7.4-10.4) 11/21/22 19:44 Neut % (Auto) 71.6 % 11/21/22 19:44 Lymph % (Auto) 15.9 % 11/21/22 19:44 [place] % (Auto) 8.8 % 11/21/22 19:44 Eos % (Auto) 3.3 % 11/21/22 19:44 Baso % (Auto) 0.1 % 11/21/22 19:44 Neut # (Auto) 5.40 10^3/uL (1.8-7.7) 11/21/22 19:44 Lymph # (Auto) 1.2 10^3/uL (0.8-4.8) 11/21/22 19:44 [place] # (Auto) 0.7 10^3/uL (0.2-0.9) 11/21/22 19:44 Eos # (Auto) 0.3 10^3/uL (0.0-0.8) 11/21/22 19:44 Baso # (Auto) 0.0 10^3/uL (0.0-0.1) 11/21/22 19:44 Nucleated RBC % (auto) 0 % 11/21/22 19:44 Nucleated RBCs # 0.0 /100WBC 11/21/22 19:44 ESR 71 mm/hr (0-15) H 11/21/22 19:44 Sodium 137 mmol/L (136-145) 11/21/22 19:44 Potassium 3.5 mmol/L (3.5-5.1) 11/21/22 19:44 Chloride 103 mmol/L (98-107) 11/21/22 19:44 Carbon Dioxide 22 mmol/L (22-29) 11/21/22 19:44 Anion Gap 15.5 (5-19) 11/21/22 19:44 BUN 14 mg/dL (6-20) 11/21/22 19:44 Creatinine 0.6 mg/dL (0.5-0.9) 11/21/22 19:44 GFR Calculation 105.8 mL/min (90-130) 11/21/22 19:44 Glucose 88 mg/dL (65-115) 11/21/22 19:44 Calculated Osmolality 284 mOsm/kg (285-295) L 11/21/22 19:44 Lactic Acid 1.1 mmol/L (0.5-2.2) 11/21/22 19:44 Calcium 9.6 mg/dL (8.5-10.5) 11/21/22 19:44 Total Bilirubin 0.5 mg/dL (0.15-1.2) 11/21/22 19:44 AST 14 U/L (0-32) 11/21/22 19:44 ALT 10 U/L (0-33) 11/21/22 19:44 Alkaline Phosphatase 92 U/L (35-105) 11/21/22 19:44 C-Reactive Protein 171.2 mg/L (0.0-4.9) H 11/21/22 19:44 Total Protein 7.3 g/dL (6.6-8.7) 11/21/22 19:44 Albumin 3.6 g/dL (3.5-5.2) 11/21/22 19:44 Globulin 3.7 g/dL (1.3-4.6) 11/21/22 19:44 Discharge Plan Discharge Patient Disposition: Home Clinical Impression: Cellulitis, Post-operative state Condition: Stable Prescriptions: No Action metoclopramide HCl 10 mg tablet 10 mg PO Q6H PRN (Reason: Nausea) cyclobenzaprine 5 mg tablet 5 mg PO BEDTIME PRN (Reason: Spasms) nystatin 100,000 unit/mL suspension 6 ml PO QID 7 Days Qty: 168 0RF Rx Instructions: administer 1/2 of dose in each side of the mouth promethazine 25 mg tablet 25 mg PO Q6H PRN (Reason: nausea and vomiting) Qty: 14 0RF lidocaine 5 % Adhesive Patch,Medicated 1 patch TOPICAL DAILY PRN (Reason: Pain) Rx Instructions: leave on most painful area for up to 12 hrs Azo Discharge Orders: Discharge ED (Routine); Ordered 11/21/22 Ordered By: Junito Gomez Referrals: Aleyda Jean-Baptiste FNP [Primary Care Provider] - Discharge Diet: Usual diet Discharge Activity: Limit activity as instructed Patient Instructions: Cellulitis (ED), Opioid Safety Activity Restrictions/Additional Instructions: Thank you for visiting the emergency department. You were seen and evaluated for leg pain and swelling with postoperative state. The most likely cause of your symptoms is skin infection which will be treated with antibiotics. As discussed you do fluid collections that require further follow-up. Please call your orthopedic surgeon in the morning. Return for worsening symptoms or anything else that you are concerned about and feel needs emergency department evaluation. Coding Level of Care Code ED Ramp Lead for Miriam Gamez
--- NOTE | 2022-11-21 20:32 | CTR_ITS ---
PROCEDURE INFORMATION: Exam: CT Right Lower Extremity Without Contrast; Thigh Exam date and time: 11/21/2022 9:15 PM Age: 52 years old Clinical indication: Other: Fever, redness, swelling, sarcoma removal; Prior surgery; Surgery date: <1 month; Surgery type: Sarcoma removal 10/23, drain removal 11/14; Additional info: R thigh, increased redness and swelling, HX sarcoma removal TECHNIQUE: Imaging protocol: CT of the right lower extremity without contrast was performed. Exam focused on the thigh. Radiation optimization: All CT scans at this facility use at least one of these dose optimization techniques: automated exposure control; mA and/or kV adjustment per patient size (includes targeted exams where dose is matched to clinical indication); or iterative reconstruction. Contrast material: OMNI 350; Contrast volume: 100 ml; Contrast route: INTRAVENOUS (IV); REPORTING DATA: Count of CT and Cardiac NM exams in prior 12 months: This patient has received 7 known CTs and 0 known cardiac nuclear medicine studies in the 12 months prior to the current study. COMPARISON: CT femur RT w con [id number] 02/23/2022 9:24 AM RADIATION DOSE METRICS: Total DLP (mGy-cm): 700.51 FINDINGS: Bones/joints: Normal. No acute fracture or dislocation. Soft tissues: Fluid collection measuring 15 x 6.1 cm seen overlying the proximal anterolateral aspect of the femoral diaphysis within the musculature along with additional fluid in the subcutaneous fat may be postsurgical in nature, infection is not excluded. Diffuse subcutaneous edema of the thigh is also seen, nonspecific, please correlate for cellulitis. Bowel: Diverticulosis without diverticulitis CT/CT lower leg RT w con [id number] IMPRESSION: 1. Fluid collection measuring 15 x 6.1 cm seen overlying the proximal anterolateral aspect of the femoral diaphysis within the musculature along with additional fluid in the subcutaneous fat may be postsurgical in nature, infection is not excluded. Diffuse subcutaneous edema of the thigh is also seen, nonspecific, please correlate for cellulitis. 2. Diverticulosis without diverticulitis
[2022-11-21 20:42] LABS: Lactic Sepsis W/Reflex 1.1 mmol/L (0.5-2.2)
[2022-11-21 20:46] LABS: Erythrocyte Sedimentation Rate 71 mm/hr (0-15)
[2022-11-21 20:48] LABS: C Reactive Protein 171.2 mg/L (0.0-4.9)
[2022-11-21] MEDS: iohexol 350 mg/mL 500 mL Btl (per mL) IV (21:13)
[2022-11-21] MEDS: clindamycin 600 MG/50 ML PREMIX 100 MG IV (22:20)
[2022-11-21] MEDS: sodium chloride 0.9% 1,000 ML 999 ML IV (22:20)
[2022-11-22 00:06] VITALS: BP 113/61; PULSE 109; RESP 18; TEMP 37.8; O2SAT 98
== END 2022-11-22 00:07 | disposition home or self-care (01) ==
PROVIDERS: Emergency Medicine; Emergency Provider Emergency Medicine; PCP Nurse Practitioner Family
DX: L03.115 Cellulitis of right lower limb (principal); Z98.890 Other specified postprocedural states; Z87.891 Personal history of nicotine dependence
CPT/HCPCS: 36415; 73701; 80053; 83605; 85025; 85651; 86140; 87040; 96365; 96366; 99285; J3490; J7030; Q9967

== ENCOUNTER → 2023-01-15 09:20 | Outpatient (BNVA) | payer MEDICAID, SELFPAY | PROVIDERS: PCP Nurse Practitioner Family; Referring Provider Family Medicine; Visit Provider Internal Medicine Cardiovascular Disease | DX: I48.91 Unspecified atrial fibrillation (principal) | CPT/HCPCS: 93225 ==

== ENCOUNTER 2023-02-04 09:12 | Outpatient (CLI) | payer MEDICAID, SELFPAY ==
--- NOTE | 2023-02-04 09:33 | MM_ITS ---
WS: [id number] SCREENING DIGITAL TOMOSYNTHESIS MAMMOGRAM WITH CAD HISTORY: SCREENING COMPARISON: 11/22/2021 and 06/01/2011 Bilateral CC and MLO with tomosynthesis views submitted. Synthetic mammography reviewed. Computer aid ed detection analyzed. Breast composition: There are scattered areas of fibroglandular density. No suspicious masses, microc alcifications or architectural distortion. IMPRESSION: MM/[place] [id number] BI-RADS: 1-Negative FOLLOW UP: 1 Year Follow-up
== END 2023-02-04 09:13 | disposition home or self-care (01) ==
LOC: RAD 09:15
PROVIDERS: PCP Nurse Practitioner Family; Visit Provider Family Medicine
DX: Z12.31 Encounter for screening mammogram for malignant neoplasm of breast (principal)
CPT/HCPCS: 77063; 77067

== ENCOUNTER 2023-04-13 23:07 | Emergency (ER) | payer MEDICAID, SELFPAY ==
[2023-04-13 23:13] VITALS: BP 142/65; PULSE 80; RESP 16; TEMP 36.8; O2SAT 97
--- NOTE | 2023-04-14 00:58 | W.ED.EYEPROB ---
HPI - Eye Problem General: Chief complaint: Eye Problems Stated complaint: Rt Eye Pain Time Seen by Provider: 04/14/23 00:49 Source: patient Mode of arrival: ambulatory Limitations: no limitations History of Present Illness: Patient is a 52-year-old female presents to ED today with a complaint of right eye pain and itching over the past 5 days or so. Patient states she was cleaning out a hoarder home and wonders if maybe she got something in her eye. She does not complain of a foreign body sensation. She has not noticed any discharge from the eye. She does feel like eye looks a little red and noticed it looked a little puffy this morning. She has not had any visual changes or visual loss. She does not wear contacts. 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 Surgical History Status post laparoscopic Kellie fundoplication (10/27/19) Laparoscopic paraesophageal hernia repair with mesh placement and Niesen fundoplication with intraoperative EGD History of tubal ligation History of cholecystectomy Family History Father Dementia Brother CAD (coronary artery disease) Other Cancer Diabetes Hyperlipidemia Hypertension Psychiatric illness Stroke Denies family history of Clotting disorder Chronic kidney disease (CKD) Suicide Anesthesia complication Bleeding disorder Lung disease Social History Smoking and tobacco/nicotine status: former use of tobacco/nicotine Alcohol intake: current Alcohol intake frequency: holidays/special occasions only Physical Exam Const: COMMON NORMALS: no acute distress, average body habitus, patient oriented x3, no limitations, healthy appearing, alert and well nourished GENERAL APPEARANCE: anxious HENMT: COMMON NORMALS: Normal external nose present HEAD & SCALP: normal to inspection FACE & SINUS: normal facial exam NOSE: Normal external nose present MOUTH: Normal oral and palatal mucosa present and lip normal THROAT: posterior oropharynx normal and tonsils normal Eye: COMMON NORMALS: Equal, round and reactive pupils present, EOMs intact bilaterally, no scleral icterus, normal visual umanzor by confrontation and fundi normal bilaterally GENERAL EYE: appearance normal, both eyes and all related structures and normal light reflex VISUAL ACUITY: Yes acuity normal ALIGNMENT: Yes alignment normal PERIORBITAL: periorbital findings normal EYELID: eyelids normal CONJUNCTIVA: Yes conjunctival abnormal positive right (mild injection medially) SCLERA: sclerae normal CORNEA: Yes corneas normal and fluorescein used PUPIL: Yes Equal, round and reactive pupils present DIRECT OPHTHALMOSCOPY: Yes normal light reflex and Yes fundi normal bilaterally OTHER: bilateral eye pressures 15 mmHg; no corneal abrasion/ulceration or abnormal stain uptake noted; no evidence for globe injury or signs of trauma; no ciliary flare/flush Neuro: COMMON NORMALS: patient oriented x3 SENSORIUM/ORIENTATION: Yes alert Course Vital Signs: Vital signs: Vital Signs Temperature 98.2 F 04/13/23 23:13 Pulse Rate 73 04/14/23 01:26 Respiratory Rate 18 04/14/23 01:26 Blood Pressure 142/65 04/13/23 23:13 Pulse Oximetry 99 04/14/23 01:26 MDM - Eye Problem Medical Decision Making Recommend she continue [id number] lubricating eyedrops as well as allergy/antihistamine drops. Recommend she follow-up with her primary care provider. If symptoms worsen over the next 24 to 48 hours or if she begins to have severe eye pain, visual loss, blurry vision, foreign body sensation she was instructed to return to the emergency department. No radiology studies performed this visit Discharge Plan Discharge Patient Disposition: Home Clinical Impression: Conjunctivitis Qualifiers: Conjunctivitis type: acute Acute conjunctivitis type: unspecified Laterality: right Qualified Code(s): H10.31 - Unspecified acute conjunctivitis, right eye Condition: Stable Prescriptions: No Action tramadol 50 mg tablet 50 mg PO BID PRN amoxicillin-pot clavulanate 875-125 mg tablet 1 tab PO BID 7 Days Qty: 14 0RF cyclobenzaprine 5 mg tablet 5 mg PO BEDTIME PRN (Reason: Spasms) lidocaine 5 % Adhesive Patch,Medicated 1 patch TOPICAL DAILY PRN (Reason: Pain) Rx Instructions: leave on most painful area for up to 12 hrs Discharge Orders: Discharge ED (Routine); Ordered 04/14/23 Ordered By: Muna Bah Referrals: Aleyda Jean-Baptiste FNP [Primary Care Provider] - Activity Restrictions/Additional Instructions: As we discussed you can continue using the [id number] moisture eye lubricating drops as well as the allergy relief drops. Please follow-up with your primary care provider next week if symptoms persist. You need to return to the emergency department immediately for worsening eye pain, foreign body sensation, visual loss or visual changes, or any other concerns you may have. Coding Level of Care Code ED Staff Development Coordinator for Miriam Gamez
[2023-04-14] MEDS: fluorescein 1 mg Strip EYE-RIGHT (01:21)
[2023-04-14] MEDS: tetracaine 0.5% Op Soln 4 mL Btl 1 DROP EYE-RIGHT (01:21)
[2023-04-14] MEDS: eye irrigation 30 mL Btl EYE-RIGHT (01:21)
[2023-04-14 01:26] VITALS: PULSE 73; RESP 18; O2SAT 99
== END 2023-04-14 01:27 | disposition home or self-care (01) ==
PROVIDERS: Emergency Provider Physician Assistant; PCP Nurse Practitioner Family
DX: H10.31 Unspecified acute conjunctivitis, right eye (principal)
CPT/HCPCS: 99283

== ENCOUNTER 2023-07-15 07:38 | Emergency (ER) | payer MEDICAID, SELFPAY ==
[2023-07-15] VITALS (7 sets, daily range): BP systolic 119–150; BP diastolic 65–99; PULSE 67–82; RESP 16; TEMP 36.6; O2SAT 94–99; BMI 34.4
--- NOTE | 2023-07-15 07:50 | W.ED.ABDPA2 ---
HPI - Abdominal Pain General: Chief Complaint: Abdominal Pain Stated Complaint: abd pain Time Seen by Provider: 07/15/23 07:42 Source: patient Mode of arrival: ambulatory History of Present Illness: 52-year-old female presents emergency room with complaint of left lower quadrant pain with nausea and vomiting continuous cramping last several days been progressively worsening. Previously has had issues with ovarian cysts. She denies any hematochezia melena hematemesis coffee-ground emesis. No dysuria urgency or frequency. 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 Surgical History Status post laparoscopic Kellie fundoplication (10/27/19) Laparoscopic paraesophageal hernia repair with mesh placement and Niesen fundoplication with intraoperative EGD History of tubal ligation History of cholecystectomy Family History Father Dementia Brother CAD (coronary artery disease) Other Cancer Diabetes Hyperlipidemia Hypertension Psychiatric illness Stroke Denies family history of Clotting disorder Chronic kidney disease (CKD) Suicide Anesthesia complication Bleeding disorder Lung disease Social History Smoking and tobacco/nicotine status: former use of tobacco/nicotine Alcohol intake: current Alcohol intake frequency: holidays/special occasions only Physical Exam Const: GENERAL APPEARANCE: cooperative and comfortable ORIENTATION/CONSCIOUSNESS: Yes awake, Yes oriented to person, Yes oriented to place and Yes oriented to time HENMT: COMMON NORMALS: normocephalic, atraumatic and hearing grossly normal bilaterally HEAD & SCALP: normocephalic and atraumatic Resp: COMMON NORMALS: normal respiratory effort, No retractions, No use of accessory muscles and clear to auscultation bilaterally AUSCULTATION: clear to auscultation bilaterally Cardio: COMMON NORMALS: regular rate, regular rhythm and No murmurs present (Cardio) RATE: regular rate RHYTHM: regular rhythm GI: COMMON NORMALS: Soft to palpation and No hepatosplenomegaly present AUSCULTATION: Yes normoactive bowel sounds PALPATION: Yes Soft to palpation, No Tenderness to palpation present (GI), No Guarding due to palpation present (GI) and Yes No hepatosplenomegaly present Extremity: COMMON NORMALS: normal to inspection, capillary refill normal, no clubbing, cyanosis or edema, no calf tenderness and no pedal edema Neuro: SENSORIUM/ORIENTATION: Yes oriented to person, Yes oriented to place and Yes oriented to time Skin: COMMON NORMALS: no rashes or lesions noted GENERAL SKIN EXAM: no rashes or lesions noted Course Vital Signs: Vital signs: Vital Signs Temperature 97.8 F 07/15/23 07:42 Pulse Rate 77 07/15/23 10:00 Respiratory Rate 16 07/15/23 07:42 Blood Pressure 119/74 07/15/23 10:00 Pulse Oximetry 95 07/15/23 10:00 Oxygen Delivery Me thod Room Air 07/15/23 10:00 MDM - Abdominal Pain Medical Decision Making Labs and imaging reviewed. CT shows acute diverticulitis no other significant finding no leukocytosis. Liquid diet to start her on the Cipro and Flagyl hydrocodone for pain Zofran for nausea if not improving recheck. Differential Diagnosis Likely abdominal pain, calculus of kidney, diverticulitis and small bowel obstruction Medical Records I reviewed the patient's medical records. Lab Data I reviewed the patient's lab results. 07/15/23 09:13 07/15/23 09:13 Labs/Radiology: Laboratory Results WBC 8.65 10^3/uL (3.29-11.43) 07/15/23 09:13 RBC 4.27 10^6/uL (3.85-5.65) 07/15/23 09:13 Hgb 12.50 g/dL (11.27-16.99) 07/15/23 09:13 Hct 39.1 % (36-47) 07/15/23 09:13 MCV 91.6 fl (85-98) 07/15/23 09:13 MCH 29.3 pg (27-33) 07/15/23 09:13 MCHC 32.0 g/dL (30-55) 07/15/23 09:13 RDW 12.8 % (12.1-15.1) 07/15/23 09:13 Plt Count 249 10^3/cmm (157-399) 07/15/23 09:13 MPV 10.6 fL (7.4-10.4) H 07/15/23 09:13 Neut % (Auto) 79.9 % 07/15/23 09:13 Lymph % (Auto) 10.6 % 07/15/23 09:13 [place] % (Auto) 7.5 % 07/15/23 09:13 Eos % (Auto) 1.5 % 07/15/23 09:13 Baso % (Auto) 0.3 % 07/15/23 09:13 Neut # (Auto) 6.90 10^3/uL (1.8-7.7) 07/15/23 09:13 Lymph # (Auto) 0.9 10^3/uL (0.8-4.8) 07/15/23 09:13 [place] # (Auto) 0.7 10^3/uL (0.2-0.9) 07/15/23 09:13 Eos # (Auto) 0.1 10^3/uL (0.0-0.8) 07/15/23 09:13 Baso # (Auto) 0.0 10^3/uL (0.0-0.1) 07/15/23 09:13 Nucleated RBC % (auto) 0 % 07/15/23 09:13 Nucleated RBCs # 0.0 /100WBC 07/15/23 09:13 Sodium 141 mmol/L (136-145) 07/15/23 09:13 Potassium 3.9 mmol/L (3.5-5.1) 07/15/23 09:13 Chloride 109 mmol/L (98-107) H 07/15/23 09:13 Carbon Dioxide 20 mmol/L (22-29) L 07/15/23 09:13 Anion Gap 15.9 (5-19) 07/15/23 09:13 BUN 12 mg/dL (6-20) 07/15/23 09:13 Creatinine 0.6 mg/dL (0.5-0.9) 07/15/23 09:13 GFR Calculation 105.8 mL/min (90-130) 07/15/23 09:13 Glucose 90 mg/dL (65-115) 07/15/23 09:13 Calculated Osmolality 291 mOsm/kg (285-295) 07/15/23 09:13 Calcium 8.5 mg/dL (8.5-10.5) 07/15/23 09:13 Total Bilirubin 0.5 mg/dL (0.15-1.2) 07/15/23 09:13 AST 16 U/L (0-32) 07/15/23 09:13 ALT 17 U/L (0-33) 07/15/23 09:13 Alkaline Phosphatase 86 U/L (35-105) 07/15/23 09:13 Total Protein 6.4 g/dL (6.6-8.7) L 07/15/23 09:13 Albumin 3.5 g/dL (3.5-5.2) 07/15/23 09:13 Globulin 2.9 g/dL (1.3-4.6) 07/15/23 09:13 Lipase 41 U/L (13-60) 07/15/23 09:13 Urine Color Yellow (Yellow) 07/15/23 09:28 Urine Appearance Clear (CLEAR) 07/15/23 09:28 Urine pH 5 (5-7) 07/15/23 09:28 Ur Specific [place] 1.010 (1.005-1.030) 07/15/23 09:28 Urine Protein Neg (Negative) 07/15/23 09:28 Urine Glucose (UA) Norm (Normal) 07/15/23 09:28 Urine Ketones Negative (Negative) 07/15/23 09:28 Urine Blood Neg (Negative) 07/15/23 09:28 Urine Nitrate Negative (Negative) 07/15/23 09:28 Urine Bilirubin Neg (Negative) 07/15/23 09:28 Urine Urobilinogen Norm mg/dL (Negative) 07/15/23 09:28 Ur Leukocyte Esterase Negative (Negative) 07/15/23 09:28 All radiology interpretation(s) finalized by discharge Discharge Plan Discharge Patient Disposition: Home Clinical Impression: Diverticulitis Condition: Stable Prescriptions: New Cipro 500 mg tablet 500 mg PO BID Qty: 14 0RF metformin 500 mg tablet 500 mg PO BID Qty: 14 0RF hydrocodone-acetaminophen 5-325 mg tablet 1 tab PO Q6H PRN (Reason: pain) Qty: 15 0RF ondansetron HCl 4 mg tablet 4 mg PO Q6H PRN (Reason: nausea and vomiting) Qty: 20 0RF No Action vitamin E 268 mg (400 unit) Capsule 268 mg PO DAILY Vitamin D3 25 mcg (1,000 unit) Capsule 25 mcg PO DAILY Women's One Daily 18 mg iron-400 mcg-500 mg Ca Tablet 1 tab PO DAILY cranberry fruit 500 mg Tablet,Chewable 500 mg PO BID [place] 155 mg Capsule 1 cap PO DAILY Discharge Orders: Discharge ED (Routine); Ordered 07/15/23 Ordered By: Jw Villegas Referrals: Aleyda Jean-Baptiste FNP [Primary Care Provider] - Discharge Diet: Full LIquid Discharge Activity: Increase activity as tolerated Patient Instructions: Diverticulitis (ED), Opioid Safety, Pain Management Activity Restrictions/Additional Instructions: Thank you for choosing [facility] for your healthcare needs today. Please realize this is an emergency room and that we are providing you with a medical screening exam and this may not be complete and all inclusive of all the testing and or work up that you may need to determine your ailment or severity of your illness. It is very important that you follow up as instructed or that you return to the Emergency Department should you have concerns or if your condition changes or worsens in any way. 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
--- NOTE | 2023-07-15 07:51 | CT_ITS ---
WS: [id number] CT ABDOMEN AND PELVIS WITH CONTRAST HISTORY: abd pain TECHNIQUE: Imaging performed of the abdomen and pelvis with IV contrast. Single phase imaging of the abdomen. Coronal and sagittal reformats are submitted. All CT scans at [facility] use at [address] one of these dose optimization techniques: automated exposure control; mA and/or kV adjustment per patient size (includes targeted exams where dose is matched to clinical indication); or iterative re construction. IV CONTRAST: Omnipaque 350; 100 mL IV. Oral contrast: No DLP: 963.24 mGy.cm COMPARISON: 10/05/2022, 01/03/2020, 02/06/2019, 04/22/2022 Lower thorax: Lung bases are clear. Heart is normal size. Moderate size hiatal hernia. Size hiatal he rnia. Liver/biliary system: Normal size with no intrahepatic dilatation. Gallbladder: Prior cholecystectomy. Pancreas: Normal size pancreas and pancreatic duct. No adjacent inflammation. Spleen: Normal size spleen. No mass or infarct. Adrenal glands: Normal. Right kidney: No obstruction. Central parapelvic cysts. Left kidney: Nonobstructing 4 mm calcification upper pole. No hydronephrosis. Aorta: Normal. Lymphadenopathy: There are several mildly enlarged lymph nodes in the central abdomen with the larges t measuring 1.7 cm near the celiac axis. There are several lymph nodes which are slightly smaller in size as compared to 04/22/2022. These lymph nodes are new since 02/06/2019. There are a few additional small retroperitoneal lymph nodes. LEFT iliac lymph node 1.2 cm Free fluid: None. GI tract: Nondistended stomach. No small bowel obstruction. Tortuous overlapping loops of colon with moderate fecal retention. Appendix is normal. Increasing diverticular burden towards the splenic flex ure. There is mild wall thickening in the mid descending colon with pericolonic stranding. There is e xtensive wall thickening distally the colon. There is an additional area significant wall thickening and mild inflammation in the central pelvis from acute diverticulitis. The lumen is narrowed and the wall measures up to 11 mm. No abscess at this time. Abdominal wall: Fat containing umbilical hernia. Pelvis: No free fluid. Uterus is midline. Postsurgical changes proximal RIGHT thigh. Bones: Unremarkable. IMPRESSION: 1. Acute diverticulitis involving a loop of sigmoid colon deep within the pelvis. The lumen is narro wed and there is pericolonic inflammation but no abscess. 2. There is an additional area in the mid descending colon of very mild acute diverticulitis. 3. There is significant diverticular burden throughout the sigmoid colon. 4. Prior cholecystectomy. 5. Central mesenteric lymph nodes are mildly prominent measuring up to 1.7 cm with an additional sma ll LEFT iliac lymph node. These lymph nodes were present on 04/22/2022 and are slightly smaller today . These may be reactive from the patient's acute diverticulitis. 6. Normal appendix.
[2023-07-15] MEDS: sodium chloride 0.9% 1,000 ML 999 ML IV (07:55)
[2023-07-15] MEDS: iohexol 350 mg/mL 500 mL Btl (per mL) IV (08:51)
[2023-07-15 09:20] LABS: Basophils % 0.3 %; Eosinophils # 0.1 10^3/uL (0.0-0.8); Eosinophils % 1.5 %; Hematocrit 39.1 % (36-47); Lymphocytes # 0.9 10^3/uL (0.8-4.8); Lymphocytes % 10.6 %; Mean Corpuscular Hemoglobin 29.3 pg (27-33); Mean Corpuscular Volume 91.6 fl (85-98); Mean Platelet Volume 10.6 fL (7.4-10.4); Monocytes # 0.7 10^3/uL (0.2-0.9); Monocytes % 7.5 %; Neutrophils % 79.9 %; Nucleated Red Blood Cells % 0 %; Platelet Count 249 10^3/cmm (157-399); Red Blood Count 4.27 10^6/uL (3.85-5.65); Red Cell Distribution Width 12.8 % (12.1-15.1); White Blood Count 8.65 10^3/uL (3.29-11.43)
[2023-07-15 09:41] LABS: Add Urine Microscopic? NO; Charge for UA Resulting for Rev
[2023-07-15 09:48] LABS: Alanine Aminotransferase 17 U/L (0-33); Albumin Level 3.5 g/dL (3.5-5.2); Alkaline Phosphatase 86 U/L (35-105); Anion Gap 15.9 (5-19); Aspartate Amino Transferase 16 U/L (0-32); Blood Urea Nitrogen 12 mg/dL (6-20); Calcium 8.5 mg/dL (8.5-10.5); Carbon Dioxide 20 mmol/L (22-29); Chloride 109 mmol/L (98-107); Creatinine Clr Calc Pharmacy 136.1346; Globulin 2.9 g/dL (1.3-4.6); Glomerular Filtration Rate 105.8 mL/min (90-130); Glucose 90 mg/dL (65-115); Lipase 41 U/L (13-60); Osmolality Calculated 291 mOsm/kg (285-295); Potassium 3.9 mmol/L (3.5-5.1); Sodium 141 mmol/L (136-145); Total Bilirubin 0.5 mg/dL (0.15-1.2); Total Protein 6.4 g/dL (6.6-8.7)
[2023-07-15 10:04] LABS: Blood Urine Neg (Negative); Glucose Urine UA Norm (Normal); Ketones Urine Negative (Negative); Protein Urine Neg (Negative); Urine Appearance Clear (CLEAR); Urine Color Yellow (Yellow); pH Urine 5 (5-7)
[2023-07-15 10:05] LABS: Bilirubin Urine Neg (Negative); Leukocyte Esterase Urine Negative (Negative); Nitrate Urine Negative (Negative); Urobilinogen Urine Norm (Negative)
== END 2023-07-15 10:27 | disposition home or self-care (01) ==
PROVIDERS: Emergency Provider Family Medicine; PCP Nurse Practitioner Family
DX: K57.92 Diverticulitis of intestine, part unspecified, without perforation or abscess without bleeding (principal); Z87.891 Personal history of nicotine dependence
CPT/HCPCS: 36415; 74177; 80053; 81003; 83690; 85025; 96360; 99285; J7030; Q9967

== ENCOUNTER 2023-10-14 05:22 | Emergency (ER) | payer MEDICAID, SELFPAY ==
[2023-10-14 05:26] VITALS: BP 151/114; PULSE 89; RESP 20; TEMP 36.6; O2SAT 99; BMI 34.4
--- NOTE | 2023-10-14 05:38 | CTR_ITS ---
PROCEDURE INFORMATION: Exam: CT Abdomen And Pelvis With Contrast Exam date and time: 10/14/2023 5:53 AM Age: 52 years old Clinical indication: Abdominal pain; Localized; Left lower quadrant (llq); Prior surgery; Surgery date: 6+ months; Surgery type: Gb. Kellie fundoplication. Hernia repair. Tubal. Patient HX: C/O sudden severe llq pain. History of diverticulitis. TECHNIQUE: Imaging protocol: Computed tomography of the abdomen and pelvis with contrast. Radiation optimization: All CT scans at this facility use at least one of these dose optimization techniques: automated exposure control; mA and/or kV adjustment per patient size (includes targeted exams where dose is matched to clinical indication); or iterative reconstruction. Contrast material: OMNI 350; Contrast volume: 100 ml; Contrast route: INTRAVENOUS (IV); COMPARISON: CT abdomen pelvis w con* [id number] 07/15/2023 7:47 AM RADIATION DOSE METRICS: Total DLP (mGy-cm): 927.46 FINDINGS: Liver: Normal. No mass. Gallbladder and bile ducts: Status post cholecystectomy. Pancreas: Normal. No ductal dilation. Spleen: Normal. No splenomegaly. Adrenal glands: Normal. No mass. Kidneys and ureters: There 2 pelvicaliceal cysts present within the right kidney, the largest measuring 2.1 cm. Stomach and bowel: Diverticula are seen scattered descending and sigmoid colon. There is focal bowel wall thickening is seen within the distal descending colon in the left iliac fossa measuring 5.5 cm in length. There are surrounding hazy and strandy inflammatory changes present the fascia. These findings are compatible with diverticulitis. Appendix: The appendix is visualized and is normal in configuration. Intraperitoneal space: Unremarkable. No free air. No significant fluid collection. Vasculature: Unremarkable. No abdominal aortic aneurysm. Lymph nodes: Unremarkable. No enlarged lymph nodes. Urinary bladder: Unremarkable as visualized. Reproductive: Unremarkable as visualized. Bones/joints: Unremarkable. No acute fracture. Soft tissues: There is a small umbilical hernia present containing fat. CT/CT abdomen pelvis w con* [id number] IMPRESSION: 1. Diverticula are seen in the descending and sigmoid colon. Focal inflammatory changes and bowel wall thickening is seen within the distal descending colon compatible with diverticulitis. 2. Two pelvicaliceal cysts within the right kidney, the largest measuring 2.1 cm. No further workup needed. 3. Normal appendix 4. Small umbilical hernia containing fat COMMENTS: Consistent with the [employer] [employer]'s Incidental Findings Committee white paper (J Am Valencia Radiol 2018): Any incidental renal lesion less than 1 cm or classified as too small to characterize, or any incidental cystic renal lesion characterized as simple-appearing, is likely benign. No follow-up imaging is recommended for these lesions per consensus recommendations based on imaging criteria.
[2023-10-14 05:39] VITALS: PULSE 78; O2SAT 99
--- NOTE | 2023-10-14 05:39 | ED_ITS ---
Documented by User: José Miguel Caballero MD 10/14/23 05:41 HPI - Abdominal Pain 2 General: Chief Complaint: Abdominal Pain Stated Complaint: ABD Pain on Left Side Time Seen by Provider: 10/14/23 05:31 Source: patient Mode of arrival: ambulatory Limitations: no limitations History of Present Illness: 52-year-old female states she been havin g some left lower quadrant pain through the weekend states pain got much worse 1 hour ago with pain to the 9 out of 10 she had some vomiting with the pain over the last hour she denies any dysuria she denies any worsening improving factors denies any diarrhea she has had a history of diverticulitis and kidney stones in the past Associated Symptoms: Reports nausea and vomiting; Denies chills, diarrhea, dysuria and fever(s) Review of Systems 2 Const: Denies: fever(s), chills, body aches or change in appetite ENMT: Denies: throat pain or dental pain Card: Denies: chest pain Resp: Denies: dyspnea GI: Reports: abdominal pain, nausea and vomiting; Denies: diarrhea : Denies: dysuria Musc: Denies: neck pain or back pain Skin/Breast: Denies: rash Neuro: Denies: headache(s) 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 Surgical History Status post laparoscopic Kellie fundoplication (10/27/19) Laparoscopic paraesophageal hernia repair with mesh placement and Niesen fundoplication with intraoperative EGD History of tubal ligation History of cholecystectomy Family History Father Dementia Brother CAD (coronary artery disease) Other Cancer Diabetes Hyperlipidemia Hypertension Psychiatric illness Stroke Denies family history of Clotting disorder Chronic kidney disease (CKD) Suicide Anesthesia complication Bleeding disorder Lung disease Social History Smoking and tobacco/nicotine status: former use of tobacco/nicotine Alcohol intake: current Alcohol intake frequency: holidays/special occasions only Physical Exam 2 Const: COMMON NORMALS: no acute distress, patient oriented x3 and healthy appearing HENMT: COMMON NORMALS: normocephalic and atraumatic HEAD & SCALP: n ormocephalic and atraumatic Neck/C-Spine: COMMON NORMALS: full ROM and supple Chest: COMMONS NORMALS: normal inspection of the chest Resp: COMMON NORMALS: normal respiratory effort Cardio: COMMON NORMALS: regular rate, regular rhythm and No murmurs present (Cardio) RATE: regular rate RHYTHM: regular rhythm GI: COMMON NORMALS: Normal to inspection, nondistended, normoactive bowel sounds present, Soft to palpation and no masses PALPATION: Yes Soft to palpation and Yes Tenderness to palpation present (GI) Details: LLQ Extremity: COMMON NORMALS: normal to inspection and full ROM Neuro: COMMON NORMALS: patient oriented x3, moves all extremities and no focal motor deficits Psych: COMMON NORMALS: mental status grossly normal, Normal thought process present and cooperative THOUGHT PROCESS: Normal thought process present Skin: COMMON NORMALS: no rashes or lesions noted and no wounds GENERAL SKIN EXAM: no rashes or lesions noted Course 2 Vital Signs: Vital signs: Vital Signs Temperature 97.9 F 10/14/23 05:26 Pulse Rate 71 10/14/23 07:00 Respiratory Rate 16 10/14/23 07:00 Blood Pressure 177/105 10/14/23 07:00 Pulse Oximetry 99 10/14/23 07:00 Oxygen Delivery Me thod Room Air 10/14/23 06:28 MDM - Abdominal Pain Lab Data 10/14/23 05:37 10/14/23 05:37 Labs/Radiology: Radiology Impressions Abdomen/Pelvis CT 10/14/23 05:38 IMPRESSION: 1. Diverticula are seen in the descending and sigmoid colon. Focal inflammatory changes and bowel wall thickening is seen within the distal descending colon compatible with diverticulitis. 2. Two pelvicaliceal cysts within the right kidney, the largest measuring 2.1 cm. No further workup needed. 3. Normal appendix 4. Small umbilical hernia containing fat COMMENTS: Consistent with the [employer]'s Incidental Findings Committee white paper (J Am Valencia Radiol 2018): Any incidental renal lesion less than 1 cm or classified as too small to characterize, or any incidental cystic renal lesion characterized as simple-appearing, is likely benign. No follow-up imaging is recommended for these lesions per consensus recommendations based on imaging criteria. Laboratory Results WBC 6.25 10^3/uL (3.29-11.43) 10/14/23 05:37 RBC 4.85 10^6/uL (3.85-5.65) 10/14/23 05:37 Hgb 14.20 g/dL (11.27-16.99) 10/14/23 05:37 Hct 43.5 % (36-47) 10/14/23 05:37 MCV 89.7 fl (85-98) 10/14/23 05:37 MCH 29.3 pg (27-33) 10/14/23 05:37 MCHC 32.6 g/dL (30-55) 10/14/23 05:37 RDW 13.7 % (12.1-15.1) 10/14/23 05:37 Plt Count 262 10^3/cmm (157-399) 10/14/23 05:37 MPV 10.4 fL (7.4-10.4) 10/14/23 05:37 Neut % (Auto) 63.5 % 10/14/23 05:37 Lymph % (Auto) 23.4 % 10/14/23 05:37 [place] % (Auto) 10.2 % 10/14/23 05:37 Eos % (Auto) 2.6 % 10/14/23 05:37 Baso % (Auto) 0.3 % 10/14/23 05:37 Neut # (Auto) 3.97 10^3/uL (1.8-7.7) 10/14/23 05:37 Lymph # (Auto) 1.5 10^3/uL (0.8-4.8) 10/14/23 05:37 [place] # (Auto) 0.6 10^3/uL (0.2-0.9) 10/14/23 05:37 Eos # (Auto) 0.2 10^3/uL (0.0-0.8) 10/14/23 05:37 Baso # (Auto) 0.0 10^3/uL (0.0-0.1) 10/14/23 05:37 Nucleated RBC % (auto) 0 % 10/14/23 05:37 Nucleated RBCs # 0.0 /100WBC 10/14/23 05:37 Sodium 145 mmol/L (136-145) 10/14/23 05:37 Potassium 3.6 mmol/L (3.5-5.1) 10/14/23 05:37 Chloride 110 mmol/L (98-107) H 10/14/23 05:37 Carbon Dioxide 21 mmol/L (22-29) L 10/14/23 05:37 Anion Gap 17.6 (5-19) 10/14/23 05:37 BUN 12 mg/dL (6-20) 10/14/23 05:37 Creatinine 0.6 mg/dL (0.5-0.9) 10/14/23 05:37 GFR Calculation 105.8 mL/min (90-130) 10/14/23 05:37 Glucose 97 mg/dL (65-115) 10/14/23 05:37 Calculated Osmolality 300 mOsm/kg (285-295) H 10/14/23 05:37 Calcium 9.3 mg/dL (8.5-10.5) 10/14/23 05:37 Total Bilirubin 0.8 mg/dL (0.15-1.2) 10/14/23 05:37 AST 17 U/L (0-32) 10/14/23 05:37 ALT 19 U/L (0-33) 10/14/23 05:37 Alkaline Phosphatase 99 U/L (35-105) 10/14/23 05:37 Total Protein 7.0 g/dL (6.6-8.7) 10/14/23 05:37 Albumin 4.0 g/dL (3.5-5.2) 10/14/23 05:37 Globulin 3.0 g/dL (1.3-4.6) 10/14/23 05:37 Lipase 42 U/L (13-60) 10/14/23 05:37 Urine Color Yellow (Yellow) 10/14/23 05:49 Urine Appearance Clear (CLEAR) 10/14/23 05:49 Urine pH 5 (5-7) 10/14/23 05:49 Ur Specific [place] 1.030 (1.005-1.030) 10/14/23 05:49 Urine Protein Neg (Negative) 10/14/23 05:49 Urine Glucose (UA) Norm (Normal) 10/14/23 05:49 Urine Ketones Negative (Negative) 10/14/23 05:49 Urine Blood Neg (Negative) 10/14/23 05:49 Urine Nitrate Negative (Negative) 10/14/23 05:49 Urine Bilirubin Neg (Negative) 10/14/23 05:49 Urine Urobilinogen Neg mg/dL (Negative) 10/14/23 05:49 Ur Leukocyte Esterase Negative (Negative) 10/14/23 05:49 Discharge Plan Discharge Patient Disposition: Home Clinical Impression: Diverticulitis Condition: Stable Prescriptions: New Cipro 500 mg tablet 500 mg PO BID Qty: 14 0RF metronidazole 500 mg tablet 500 mg PO BID 7 Days Qty: 14 0RF Discontinued ciprofloxacin HCl [Cipro] 500 mg tablet 500 mg PO BID Qty: 14 0RF No Action Women's One Daily 18 mg iron-400 mcg-500 mg Ca Tablet 1 tab PO DAILY melatonin 5 mg Tablet 5 mg PO BEDTIME PRN (Reason: Sleep) Cbd Gummies 1 ea PO PRN Discharge Orders: Discharge ED (Routine); Ordered 10/14/23 Ordered By: Jw Villegas Referrals: Aleyda Jean-Baptiste FNP [Primary Care Provider] - Discharge Diet: Usual diet Discharge Activity: Increase activity as tolerated Patient Instructions: Diverticulitis (ED), Diverticulitis Diet (ED), Opioid Safety, Pain Management Activity Restrictions/Additional Instructions: Thank you for choosing [facility] for your healthcare needs today. It is very important that you follow up as instructed or that you return to the Emergency Department should you have concerns or if your condition changes or worsens in any way. You were seen today in the emergency room for complaint of abdominal pain CT shows early diverticulitis. Your white count was normal. Recommend starting ciprofloxacin 1 twice a day and metronidazole also 1 twice a day both for 7 days. Clear liquid diet for 24 to 48 hours and advance as tolerated. 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 Surgical History Status post laparoscopic Kellie fundoplication (10/27/19) Laparoscopic paraesophageal hernia repair with mesh placement and Niesen fundoplication with intraoperative EGD History of tubal ligation History of cholecystectomy Family History Father Dementia Brother CAD (coronary artery disease) Other Cancer Diabetes Hyperlipidemia Hypertension Psychiatric illness Stroke Denies family history of Clotting disorder Chronic kidney disease (CKD) Suicide Anesthesia complication Bleeding disorder Lung disease Social History Smoking and tobacco/nicotine status: former use of tobacco/nicotine Alcohol intake: current Alcohol intake frequency: holidays/special occasions only Course 2 Vital Signs: Vital signs: Vital Signs Temperature 97.9 F 10/14/23 05:26 Pulse Rate 71 10/14/23 07:00 Respiratory Rate 16 10/14/23 07:00 Blood Pressure 177/105 10/14/23 07:00 Pulse Oximetry 99 10/14/23 07:00 Oxygen Delivery Me thod Room Air 10/14/23 06:28 MDM - Abdominal Pain Medical Decision Making Care assumed at change of shift from Dr. Caballero CT results show diverticulitis. She has no leukocytosis she has received fluids at Dr. Caballero in order we will discharge her home on Cipro and Flagyl for 7 days. She does have ondansetron at home. Encourage patient to do clear liquid diet for 24 to 48 hours and advance as tolerated recheck if not improving Differential Diagnosis Likely abdominal pain, calculus of kidney, constipation and diverticulitis Medical Records I reviewed the patient's medical records. Lab Data I reviewed the patient's lab results. 10/14/23 05:37 10/14/23 05:37 Labs/Radiology: Radiology Impressions Abdomen/Pelvis CT 10/14/23 05:38 IMPRESSION: 1. Diverticula are seen in the descending and sigmoid colon. Focal inflammatory changes and bowel wall thickening is seen within the distal descending colon compatible with diverticulitis. 2. Two pelvicaliceal cysts within the right kidney, the largest measuring 2.1 cm. No further workup needed. 3. Normal appendix 4. Small umbilical hernia containing fat COMMENTS: Consistent with the [employer]'s Incidental Findings Committee white paper (J Am Valencia Radiol 2018): Any incidental renal lesion less than 1 cm or classified as too small to characterize, or any incidental cystic renal lesion characterized as simple-appearing, is likely benign. No follow-up imaging is recommended for these lesions per consensus recommendations based on imaging criteria. Laboratory Results WBC 6.25 10^3/uL (3.29-11.43) 10/14/23 05:37 RBC 4.85 10^6/uL (3.85-5.65) 10/14/23 05:37 Hgb 14.20 g/dL (11.27-16.99) 10/14/23 05:37 Hct 43.5 % (36-47) 10/14/23 05:37 MCV 89.7 fl (85-98) 10/14/23 05:37 MCH 29.3 pg (27-33) 10/14/23 05:37 MCHC 32.6 g/dL (30-55) 10/14/23 05:37 RDW 13.7 % (12.1-15.1) 10/14/23 05:37 Plt Count 262 10^3/cmm (157-399) 10/14/23 05:37 MPV 10.4 fL (7.4-10.4) 10/14/23 05:37 Neut % (Auto) 63.5 % 10/14/23 05:37 Lymph % (Auto) 23.4 % 10/14/23 05:37 [place] % (Auto) 10.2 % 10/14/23 05:37 Eos % (Auto) 2.6 % 10/14/23 05:37 Baso % (Auto) 0.3 % 10/14/23 05:37 Neut # (Auto) 3.97 10^3/uL (1.8-7.7) 10/14/23 05:37 Lymph # (Auto) 1.5 10^3/uL (0.8-4.8) 10/14/23 05:37 [place] # (Auto) 0.6 10^3/uL (0.2-0.9) 10/14/23 05:37 Eos # (Auto) 0.2 10^3/uL (0.0-0.8) 10/14/23 05:37 Baso # (Auto) 0.0 10^3/uL (0.0-0.1) 10/14/23 05:37 Nucleated RBC % (auto) 0 % 10/14/23 05:37 Nucleated RBCs # 0.0 /100WBC 10/14/23 05:37 Sodium 145 mmol/L (136-145) 10/14/23 05:37 Potassium 3.6 mmol/L (3.5-5.1) 10/14/23 05:37 Chloride 110 mmol/L (98-107) H 10/14/23 05:37 Carbon Dioxide 21 mmol/L (22-29) L 10/14/23 05:37 Anion Gap 17.6 (5-19) 10/14/23 05:37 BUN 12 mg/dL (6-20) 10/14/23 05:37 Creatinine 0.6 mg/dL (0.5-0.9) 10/14/23 05:37 GFR Calculation 105.8 mL/min (90-130) 10/14/23 05:37 Glucose 97 mg/dL (65-115) 10/14/23 05:37 Calculated Osmolality 300 mOsm/kg (285-295) H 10/14/23 05:37 Calcium 9.3 mg/dL (8.5-10.5) 10/14/23 05:37 Total Bilirubin 0.8 mg/dL (0.15-1.2) 10/14/23 05:37 AST 17 U/L (0-32) 10/14/23 05:37 ALT 19 U/L (0-33) 10/14/23 05:37 Alkaline Phosphatase 99 U/L (35-105) 10/14/23 05:37 Total Protein 7.0 g/dL (6.6-8.7) 10/14/23 05:37 Albumin 4.0 g/dL (3.5-5.2) 10/14/23 05:37 Globulin 3.0 g/dL (1.3-4.6) 10/14/23 05:37 Lipase 42 U/L (13-60) 10/14/23 05:37 Urine Color Yellow (Yellow) 10/14/23 05:49 Urine Appearance Clear (CLEAR) 10/14/23 05:49 Urine pH 5 (5-7) 10/14/23 05:49 Ur Specific [place] 1.030 (1.005-1.030) 10/14/23 05:49 Urine Protein Neg (Negative) 10/14/23 05:49 Urine Glucose (UA) Norm (Normal) 10/14/23 05:49 Urine Ketones Negative (Negative) 10/14/23 05:49 Urine Blood Neg (Negative) 10/14/23 05:49 Urine Nitrate Negative (Negative) 10/14/23 05:49 Urine Bilirubin Neg (Negative) 10/14/23 05:49 Urine Urobilinogen Neg mg/dL (Negative) 10/14/23 05:49 Ur Leukocyte Esterase Negative (Negative) 10/14/23 05:49 All radiology interpretation(s) finalized by discharge Discharge Plan Discharge Patient Disposition: Home Clinical Impression: Diverticulitis Condition: Stable Prescriptions: New Cipro 500 mg tablet 500 mg PO BID Qty: 14 0RF metronidazole 500 mg tablet 500 mg PO BID 7 Days Qty: 14 0RF Discontinued ciprofloxacin HCl [Cipro] 500 mg tablet 500 mg PO BID Qty: 14 0RF No Action Women's One Daily 18 mg iron-400 mcg-500 mg Ca Tablet 1 tab PO DAILY melatonin 5 mg Tablet 5 mg PO BEDTIME PRN (Reason: Sleep) Cbd Gummies 1 ea PO PRN Discharge Orders: Discharge ED (Routine); Ordered 10/14/23 Ordered By: Jw Villegas Referrals: Aleyda Jean-Baptiste FNP [Primary Care Provider] - Discharge Diet: Usual diet Discharge Activity: Increase activity as tolerated Patient Instructions: Diverticulitis (ED), Diverticulitis Diet (ED), Opioid Safety, Pain Management Activity Restrictions/Additional Instructions: Thank you for choosing [facility] for your healthcare needs today. It is very important that you follow up as instructed or that you return to the Emergency Department should you have concerns or if your condition changes or worsens in any way. You were seen today in the emergency room for complaint of abdominal pain CT shows early diverticulitis. Your white count was normal. Recommend starting ciprofloxacin 1 twice a day and metronidazole also 1 twice a day both for 7 days. Clear liquid diet for 24 to 48 hours and advance as tolerated. Coding Level of Care Code ED Helicopter Specialist for Miriam Gamez
[2023-10-14 05:45] LABS: Basophils % 0.3 %; Eosinophils # 0.2 10^3/uL (0.0-0.8); Eosinophils % 2.6 %; Hematocrit 43.5 % (36-47); Lymphocytes # 1.5 10^3/uL (0.8-4.8); Lymphocytes % 23.4 %; Mean Corpuscular HGB Conc 32.6 g/dL (30-55); Mean Corpuscular Hemoglobin 29.3 pg (27-33); Mean Corpuscular Volume 89.7 fl (85-98); Mean Platelet Volume 10.4 fL (7.4-10.4); Monocytes # 0.6 10^3/uL (0.2-0.9); Monocytes % 10.2 %; Neutrophils # 3.97 10^3/uL (1.8-7.7); Neutrophils % 63.5 %; Nucleated Red Blood Cells % 0 %; Platelet Count 262 10^3/cmm (157-399); Red Blood Count 4.85 10^6/uL (3.85-5.65); Red Cell Distribution Width 13.7 % (12.1-15.1); White Blood Count 6.25 10^3/uL (3.29-11.43)
[2023-10-14 05:53] LABS: Add Urine Microscopic? NO; Charge for UA Resulting for Rev
[2023-10-14] MEDS: iohexol 350 mg/mL 500 mL Btl (per mL) IV (05:54)
[2023-10-14 06:07] LABS: Alanine Aminotransferase 19 U/L (0-33); Alkaline Phosphatase 99 U/L (35-105); Anion Gap 17.6 (5-19); Aspartate Amino Transferase 17 U/L (0-32); Blood Urea Nitrogen 12 mg/dL (6-20); Calcium 9.3 mg/dL (8.5-10.5); Carbon Dioxide 21 mmol/L (22-29); Chloride 110 mmol/L (98-107); Creatinine Clr Calc Pharmacy 136.1346; Glomerular Filtration Rate 105.8 mL/min (90-130); Glucose 97 mg/dL (65-115); Lipase 42 U/L (13-60); Osmolality Calculated 300 mOsm/kg (285-295); Potassium 3.6 mmol/L (3.5-5.1); Sodium 145 mmol/L (136-145); Total Bilirubin 0.8 mg/dL (0.15-1.2)
[2023-10-14 06:09] LABS: Bilirubin Urine Neg (Negative); Blood Urine Neg (Negative); Glucose Urine UA Norm (Normal); Ketones Urine Negative (Negative); Leukocyte Esterase Urine Negative (Negative); Nitrate Urine Negative (Negative); Protein Urine Neg (Negative); Urine Appearance Clear (CLEAR); Urine Color Yellow (Yellow); Urobilinogen Urine Neg (Negative); pH Urine 5 (5-7)
[2023-10-14] MEDS: morphine 4 mg/mL SDV 1 mL IVP (06:13)
[2023-10-14] MEDS: ondansetron 2 mg/ML SDV 2 mL 4 MG IVP (06:15)
[2023-10-14] MEDS: sodium chloride 0.9% 1,000 ML 999 ML IV (06:18)
[2023-10-14 06:28] VITALS: BP 177/105; PULSE 72; RESP 15; O2SAT 95
[2023-10-14 07:00] VITALS: BP 177/105; PULSE 71; RESP 16; O2SAT 99
== END 2023-10-14 07:36 | disposition home or self-care (01) ==
PROVIDERS: Emergency Medicine; Emergency Provider Family Medicine; PCP Nurse Practitioner Family
DX: K57.92 Diverticulitis of intestine, part unspecified, without perforation or abscess without bleeding (principal); Z87.891 Personal history of nicotine dependence
CPT/HCPCS: 74177; 80053; 81003; 83690; 85025; 96374; 96375; 99285; J2270; J2405; J7030; Q9967

== ENCOUNTER 2024-02-13 10:13 | Emergency (ER) | payer MEDICAID, SELFPAY ==
[2024-02-13 10:52] VITALS: BP 171/116; PULSE 67; RESP 18; TEMP 36.8; O2SAT 99
[2024-02-13 12:14] LABS: Basophils % 0.3 %; Eosinophils # 0.1 10^3/uL (0.0-0.8); Eosinophils % 0.8 %; Hematocrit 47.8 % (36-47); Lymphocytes # 1.1 10^3/uL (0.8-4.8); Lymphocytes % 11.2 %; Mean Corpuscular HGB Conc 31.6 g/dL (30-55); Mean Corpuscular Hemoglobin 29.4 pg (27-33); Mean Platelet Volume 10.8 fL (7.4-10.4); Monocytes # 0.5 10^3/uL (0.2-0.9); Monocytes % 5.4 %; Neutrophils # 7.89 10^3/uL (1.8-7.7); Nucleated Red Blood Cells % 0 %; Platelet Count 265 10^3/cmm (157-399); Red Blood Count 5.14 10^6/uL (3.85-5.65); White Blood Count 9.63 10^3/uL (3.29-11.43)
--- NOTE | 2024-02-13 12:16 | CT_ITS ---
WS: [id number] CT ABDOMEN PELVIS TECHNIQUE: Contrast-enhanced CT of the abdomen and pelvis with coronal and sagittal reformatted image s. CLINICAL INFORMATION: Abdominal pain COMPARISON: 10/14/2023 DLP: 911.[address] scans at [facility] use at least one of these dose optimization techniques: automated e xposure control; mA and/or kV adjustment per patient size (includes targeted exams where dose is matc hed to clinical indication); or iterative reconstruction. FINDINGS: Obstructing 5 mm calculus in the mid to distal LEFT ureter with urothelial enhancement. LEFT ureterec tasis with mild to moderate LEFT hydronephrosis. This is new from the prior examination. Distal LEFT ureter appears decompressed. RIGHT renal pelvic cysts. Lung bases are well aerated. Tiny esophageal hiatal hernia. Diffuse fatty i nfiltration of the liver. Cholecystectomy clips. Normal portal vein and splenic vein. Adrenal glands are normal. Normal pancreatic parenchymal enhancement. Normal caliber abdominal aorta. Few small fabricio aortic lymph nodes likely reactive. Extensive sigmoid diverticulosis. No evidence of acute diverticulitis. Tiny fat-containing umbilical hernia. CT/CT abdomen pelvis w con* [id number] IMPRESSION: 1. Obstructing 5 mm calculus in the mid to distal LEFT ureter with LEFT ureter ectasis and urothelial enhancement. Mild to moderate hydronephrosis LEFT kidney . 2. Extensive sigmoid diverticulosis. No evidence of acute diverticulitis. Notified Anne Arce MD at 02/13/2024 1:14 PM.
--- NOTE | 2024-02-13 12:17 | ED_ITS ---
HPI - Abdominal Pain 2 General: Chief Complaint: Abdominal Pain Stated Complaint: abd pain Time Seen by Provider: 02/13/24 11:43 History of Present Illness: 53-year-old female who presents emergenc y room with left-sided abdomen and flank pain. She said this started overnight. She has had nausea and vomiting. No fevers. No dysuria. She says she has a history of diverticulitis and she thinks it might be that. Related Data Home Medications Medication Instructions Recorded Confirmed Cbd Gummies 1 ea PO PRN 10/14/23 02/13/24 melatonin 5 mg tablet 5 mg PO BEDTIME PRN Sleep 10/14/23 02/13/24 alprazolam 0.5 mg tablet 0.5 mg PO DAILY PRN Anxiety 02/13/24 02/13/24 cyclobenzaprine 5 mg tablet 5 mg PO DAILY 02/13/24 02/13/24 Previous Rx's Medication Instructions Recorded cephalexin 500 mg capsule 500 mg PO BID 10 days #20 caps 02/13/24 hydrocodone 5 mg-acetaminophen 325 1 tab PO Q6H PRN pain #20 tabs 02/13/24 mg tablet ondansetron 8 mg disintegrating 8 mg PO Q6H #14 tabs 02/13/24 tablet tamsulosin 0.4 mg capsule (Flomax) 0.4 mg PO DAILY #30 caps 02/13/24 Allergies Allergy/AdvReac Type Severity Reaction Status Date / Time bee venom protein (honey bee) Allergy ALGY-Anaphy Verified 10/14/23 05:31 laxis bupropion [From Wellbutrin] Allergy Unknown Verified 10/14/23 05:31 clonazepam [From Klonopin] Allergy ADR-Irritab Verified 10/14/23 05:31 le fluoxetine [From Prozac] Allergy ADR-Irritab Verified 10/14/23 05:31 le latex Allergy ALGY-Rash Verified 10/14/23 05:31 trazodone Allergy ADV-Weaknes Verified 10/14/23 05:31 s venlafaxine [From Effexor] Allergy Unknown Verified 10/14/23 05:31 Review of Systems 2 Narrative: Constitutional symptoms: Negative except as documented in HPI. Skin symptoms: Negative except as documented in HPI. Eye symptoms: Negative except as documented in HPI. ENMT symptoms: Negative except as documented in HPI. Respiratory symptoms: Negative except as documented in HPI. Cardiovascular symptoms: Negative except as documented in HPI. Gastrointestinal symptoms: Negative except as documented in HPI. Genitourinary symptoms: Negative except as documented in HPI. Musculoskeletal symptoms: Negative except as documented in HPI. Neurologic symptoms: Negative except as documented in HPI. Psychiatric symptoms: Negative except as documented in HPI. Endocrine symptoms: Negative except as documented in HPI. 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 Surgical History Status post laparoscopic Kellie fundoplication (10/27/19) Laparoscopic paraesophageal hernia repair with mesh placement and Niesen fundoplication with intraoperative EGD History of tubal ligation History of cholecystectomy Family History Father Dementia Brother CAD (coronary artery disease) Other Cancer Diabetes Hyperlipidemia Hypertension Psychiatric illness Stroke Denies family history of Clotting disorder Chronic kidney disease (CKD) Suicide Anesthesia complication Bleeding disorder Lung disease Social History Smoking and tobacco/nicotine status: former use of tobacco/nicotine Alcohol intake: current Alcohol intake frequency: holidays/special occasions only Physical Exam 2 Narrative: EXAM NARRATIVE: General: Alert, no acute distress. Skin: Warm, dry. Head: Normocephalic, atraumatic. Neck: Supple, trachea midline. Eye: Extraocular movements are intact. Ears, nose, mouth and throat: mucosa moist. Cardiovascular: Regular, Normal peripheral perfusion. Respiratory: Lungs are clear to auscultation, respirations are non-labored, breath sounds are equal, Symmetrical chest wall expansion. Gastrointestinal: Soft, patient is having pain in her left lower abdomen and flank., Non distended Musculoskeletal: Normal ROM, no deformity. Neurological: Alert and oriented, No focal neurological deficit observed. Psychiatric: Cooperative, appropriate mood & affect. Course 2 Vital Signs: Vital signs: Vital Signs Temperature 98.2 F 02/13/24 10:52 Pulse Rate 67 02/13/24 10:52 Respiratory Rate 20 H 02/13/24 12:40 Blood Pressure 171/116 02/13/24 10:52 Pulse Oximetry 100 02/13/24 12:40 MDM - Abdominal Pain Medical Decision Making Medical decision making: Differential diagnosis including but not limited to and based on the above HPI, review of systems and physical exam: Ureterolithiasis. Urinary tract infection. Appendicitis. Cholecystis. Musculoskeletal / back pain. Pyelonephritis. Diverticulitis. Orders placed to evaluate differential diagnosis based on the above differential, HPI and physical exam Lab Review: Laboratory results were reviewed and interpreted by myself the emergency room physician. No leukocytosis. No anemia. No renal failure. Urinalysis shows hematuria but no infection. CT of the abdomen pelvis shows an obstructing 5 mm calculus in the distal left ureter with hydronephrosis. She has extensive diverticulosis but no diverticulitis. This was reviewed and interpreted by myself the emergency room physician. I also reviewed the radiology report. I reviewed the patient's medical record. Reexamination: Patient remained stable. No increased work of breathing. No altered mental status. No focal motor deficits. Patient says her pain is quite a bit improved with pain medications. Assessment and plan: Ureterolithiasis ?Rocephin, Dilaudid and Zofran. - Discharged home - Discussed findings and plan with patient. Answered any questions. - All laboratory values were reviewed and interpreted personally by myself, the ER physician - All imaging was reviewed and interpreted personally by myself, the ER physician. - Evaluation and treatment of this problem were appropriate in the emergency setting Lab Data 02/13/24 12:04 02/13/24 12:04 Labs/Radiology: Radiology Impressions Abdomen/Pelvis CT 02/13/24 12:16 IMPRESSION: 1. Obstructing 5 mm calculus in the mid to distal LEFT ureter with LEFT ureterectasis and urothelial enhancement. Mild to moderate hydronephrosis LEFT kidney. 2. Extensive sigmoid diverticulosis. No evidence of acute diverticulitis. Notified Anne Arce MD at 02/13/2024 1:14 PM. Laboratory Results WBC 9.63 10^3/uL (3.29-11.43) 02/13/24 12:04 RBC 5.14 10^6/uL (3.85-5.65) 02/13/24 12:04 Hgb 15.10 g/dL (11.27-16.99) 02/13/24 12:04 Hct 47.8 % (36-47) H 02/13/24 12:04 MCV 93.0 fl (85-98) 02/13/24 12:04 MCH 29.4 pg (27-33) 02/13/24 12:04 MCHC 31.6 g/dL (30-55) 02/13/24 12:04 RDW 13.0 % (12.1-15.1) 02/13/24 12:04 Plt Count 265 10^3/cmm (157-399) 02/13/24 12:04 MPV 10.8 fL (7.4-10.4) H 02/13/24 12:04 Neut % (Auto) 82.0 % 02/13/24 12:04 Lymph % (Auto) 11.2 % 02/13/24 12:04 [place] % (Auto) 5.4 % 02/13/24 12:04 Eos % (Auto) 0.8 % 02/13/24 12:04 Baso % (Auto) 0.3 % 02/13/24 12:04 Neut # (Auto) 7.89 10^3/uL (1.8-7.7) H 02/13/24 12:04 Lymph # (Auto) 1.1 10^3/uL (0.8-4.8) 02/13/24 12:04 [place] # (Auto) 0.5 10^3/uL (0.2-0.9) 02/13/24 12:04 Eos # (Auto) 0.1 10^3/uL (0.0-0.8) 02/13/24 12:04 Baso # (Auto) 0.0 10^3/uL (0.0-0.1) 02/13/24 12:04 Nucleated RBC % (auto) 0 % 02/13/24 12:04 Nucleated RBCs # 0.0 /100WBC 02/13/24 12:04 Sodium 141 mmol/L (136-145) 02/13/24 12:04 Potassium 3.8 mmol/L (3.5-5.1) 02/13/24 12:04 Chloride 106 mmol/L (98-107) 02/13/24 12:04 Carbon Dioxide 23 mmol/L (22-29) 02/13/24 12:04 Anion Gap 15.8 (5-19) 02/13/24 12:04 BUN 16 mg/dL (6-20) 02/13/24 12:04 Creatinine 0.8 mg/dL (0.5-0.9) 02/13/24 12:04 GFR Calculation 75.6 mL/min (90-130) L 02/13/24 12:04 Glucose 108 mg/dL (65-115) 02/13/24 12:04 Calculated Osmolality 294 mOsm/kg (285-295) 02/13/24 12:04 Lactic Acid 1.7 mmol/L (0.5-2.2) 02/13/24 12:04 Calcium 9.3 mg/dL (8.5-10.5) 02/13/24 12:04 Total Bilirubin 0.7 mg/dL (0.15-1.2) 02/13/24 12:04 AST 20 U/L (0-32) 02/13/24 12:04 ALT 20 U/L (0-33) 02/13/24 12:04 Alkaline Phosphatase 105 U/L (35-105) 02/13/24 12:04 C-Reactive Protein 4.5 mg/L (0.0-4.9) 02/13/24 12:04 Total Protein 7.6 g/dL (6.6-8.7) 02/13/24 12:04 Albumin 4.5 g/dL (3.5-5.2) 02/13/24 12:04 Globulin 3.1 g/dL (1.3-4.6) 02/13/24 12:04 Urine Color Yellow (Yellow) 02/13/24 12:43 Urine Appearance Clear (CLEAR) 02/13/24 12:43 Urine pH 5.5 (5-7) 02/13/24 12:43 Ur Specific [place] 1.013 (1.005-1.030) 02/13/24 12:43 Urine Protein 1+ (Negative) A 02/13/24 12:43 Urine Glucose (UA) Negative (Normal) 02/13/24 12:43 Urine Ketones Negative (Negative) 02/13/24 12:43 Urine Blood 3+ (Negative) A 02/13/24 12:43 Urine Nitrate Negative (Negative) 02/13/24 12:43 Urine Bilirubin Negative (Negative) 02/13/24 12:43 Urine Urobilinogen 1.0 mg/dL (Negative) 02/13/24 12:43 Ur Leukocyte Esterase Trace (Negative) A 02/13/24 12:43 Urine RBC >100 /hpf (0-2) H 02/13/24 12:43 Urine WBC 0-5 /hpf (0-5) 02/13/24 12:43 Ur Squamous Epith Cells 0-5 /hpf (0-5) 02/13/24 12:43 Amorphous Sediment Not Reportable 02/13/24 12:43 Urine Bacteria None seen /hpf (NONE) 02/13/24 12:43 Hyaline Casts 1.65 /lpf 02/13/24 12:43 All radiology interpretation(s) finalized by discharge Discharge Plan Discharge Patient Disposition: Home Clinical Impression: Ureterolithiasis Condition: Stable Prescriptions: New hydrocodone-acetaminophen 5-325 mg tablet 1 tab PO Q6H PRN (Reason: pain) Qty: 20 0RF ondansetron 8 mg tablet,disintegrating 8 mg PO Q6H Qty: 14 0RF Rx Instructions: Take 1/2-1 tab every 6 hours as needed for nausea and vomiting tamsulosin [Flomax] 0.4 mg capsule 0.4 mg PO DAILY Qty: 30 0RF cephalexin 500 mg capsule 500 mg PO BID 10 Days Qty: 20 0RF No Action melatonin 5 mg Tablet 5 mg PO BEDTIME PRN (Reason: Sleep) Cbd Gummies 1 ea PO PRN alprazolam 0.5 mg tablet 0.5 mg PO DAILY PRN (Reason: Anxiety) cyclobenzaprine 5 mg tablet 5 mg PO DAILY Discharge Orders: Discharge ED (Routine); Ordered 02/13/24 Ordered By: Anne Arce Referrals: Aleyda Jean-Baptiste, PRADIP [Primary Care Provider] - Discharge Diet: Usual diet Discharge Activity: Increase activity as tolerated Patient Instructions: Kidney Stones (ED) Activity Restrictions/Additional Instructions: Call for appointment with urology. If fever (temp >100.4) develops return to the emergency room immediately, as this is an emergency. Take nausea medication prior to taking pain medications. Thank you for choosing [facility] for your healthcare needs today. Please realize this is an emergency room and that we are providing you with a medical screening exam and this may not be complete and all inclusive of all the testing and or work up that you may need to determine your ailment or severity of your illness. You have been screened and evaluated and felt safe for discharge. Health conditions do change or evolve sometimes and as such it is important that you follow up with your Primary Doctor to be re checked, 3-5 days is a general good time frame for follow up. You are always welcome to return to the ED for re assessment if your symptoms are worsening or you have new concerns Coding Level of Care Code ED Wallpaper Remover Steam for Miriam [employer]
[2024-02-13 12:39] LABS: Alanine Aminotransferase 20 U/L (0-33); Albumin Level 4.5 g/dL (3.5-5.2); Alkaline Phosphatase 105 U/L (35-105); Anion Gap 15.8 (5-19); Aspartate Amino Transferase 20 U/L (0-32); Blood Urea Nitrogen 16 mg/dL (6-20); C Reactive Protein 4.5 mg/L (0.0-4.9); Calcium 9.3 mg/dL (8.5-10.5); Carbon Dioxide 23 mmol/L (22-29); Chloride 106 mmol/L (98-107); Globulin 3.1 g/dL (1.3-4.6); Glomerular Filtration Rate 75.6 mL/min (90-130); Glucose 108 mg/dL (65-115); Lactic Sepsis W/Reflex 1.7 mmol/L (0.5-2.2); Osmolality Calculated 294 mOsm/kg (285-295); Potassium 3.8 mmol/L (3.5-5.1); Sodium 141 mmol/L (136-145); Total Bilirubin 0.7 mg/dL (0.15-1.2); Total Protein 7.6 g/dL (6.6-8.7)
[2024-02-13 12:40] VITALS: RESP 20; O2SAT 100
[2024-02-13] MEDS: HYDROmorphone 1 mg/mL INJ 1 mL IVP (12:40)
[2024-02-13] MEDS: ondansetron 2 mg/ML SDV 2 mL 8 MG IVP (12:40)
[2024-02-13] MEDS: iohexol 350 mg/mL 500 mL Btl (per mL) IV (12:51)
[2024-02-13 12:53] LABS: Bilirubin Urine Negative (Negative); Blood Urine 3+ (Negative); Glucose Urine UA Negative (Normal); Ketones Urine Negative (Negative); Leukocyte Esterase Urine Trace (Negative); Nitrate Urine Negative (Negative); Protein Urine 1+ (Negative); Specific Gravity, Urine 1.013 (1.005-1.030); Urine Appearance Clear (CLEAR); Urine Color Yellow (Yellow); pH Urine 5.5 (5-7)
[2024-02-13 12:57] LABS: Bacteria Urine None Seen /hpf; Hyaline Casts Urine 1.65 /lpf; RBC Urine >100 /hpf (0-2); Squamous Epithelial Cell Urine 0-5 /hpf (0-5); WBC Urine 0-5 /hpf (0-5)
[2024-02-13 13:08] LABS: Add Urine Culture? Yes
[2024-02-13] MEDS: cefTRIAXone 1,000 mg SDV 1000 MG IVP (14:11)
[2024-02-13 14:16] VITALS: BP 154/112; PULSE 83; RESP 16; O2SAT 97
[2024-02-13 14:28] VITALS: BP 129/104; PULSE 91; RESP 16; O2SAT 98
== END 2024-02-13 14:30 | disposition home or self-care (01) ==
PROVIDERS: Emergency Provider Emergency Medicine; PCP Nurse Practitioner Family
DX: N13.2 Hydronephrosis with renal and ureteral calculous obstruction (principal); Z87.891 Personal history of nicotine dependence; Z87.442 Personal history of urinary calculi
CPT/HCPCS: 74177; 80053; 81001; 83605; 85025; 86140; 87086; 96374; 96375; 99285; J0696; J1170; J2405

== ENCOUNTER 2024-02-23 07:49 | Emergency (ER) | payer MEDICAID, SELFPAY ==
[2024-02-23 07:52] VITALS: BP 140/80; PULSE 90; RESP 24; TEMP 36.7; O2SAT 96
--- NOTE | 2024-02-23 08:00 | CTR_ITS ---
PROCEDURE INFORMATION: Exam: CT Abdomen And Pelvis Without Contrast Exam date and time: 02/23/2024 8:05 AM Age: 53 years old Clinical indication: Abdominal pain; Flank; Prior surgery; Surgery date: 6+ months; Surgery type: Hernia, hyster, gb; Patient HX: Left ureterel stent placed Saturday follow stone retrieval; Additional info: L flank pain TECHNIQUE: Imaging protocol: Computed tomography of the abdomen and pelvis without contrast. Radiation optimization: All CT scans at this facility use at least one of these dose optimization techniques: automated exposure control; mA and/or kV adjustment per patient size (includes targeted exams where dose is matched to clinical indication); or iterative reconstruction. COMPARISON: CT abdomen pelvis 02/13/2024 RADIATION DOSE METRICS: Total DLP (mGy-cm): 874.63 FINDINGS: Interval placement of left ureteral stent with the proximal coil near the left UPJ and distal coil in the urinary bladder. Interval resolution of the left hydronephrosis present previously. There is mild diffuse left periureteral fluid. The left ureteral stone present on the prior study has apparently been removed in the interval. Right renal peripelvic cyst is again noted. There is dependent calcific density within the right mid kidney posteriorly (series 3, image 80), without significant change from previous exam. No obvious hydronephrosis or ureteral calculus on the right. No obvious new abnormality of liver, spleen, pancreas, or adrenal glands compared to 02/13/2024 CT exam. The gallbladder is surgically absent and there is no biliary duct dilation. Abdominal aorta has normal caliber. A few mildly prominent lymph nodes in the abdomen and upper pelvis are stable compared to 02/13/2024. Images through the pelvis show no evidence of bowel obstruction. Colonic diverticulosis is present without obvious acute diverticulitis. Appendix borderline prominent in caliber without evidence of acute inflammation. Tiny umbilical hernia contains only fat. No acute osseous abnormality identified. CT/CT kidney stone [id number] IMPRESSION: Interval removal of left ureteral stone. Interval decompression of left hydronephrosis following left ureteral stent placement.
--- NOTE | 2024-02-23 08:03 | ED_ITS ---
HPI - Female Genitourinary 2 General: Chief complaint: Urogenital-Female Stated complaint: urinary issues Time Seen by Provider: 02/23/24 07:55 Source: patient Mode of arrival: ambulatory Limitations: no limitations History of Present Illness: 53-year-old female with history of kidne y stones she had a stent placed at [facility] on Saturday on the left ureter states she woke up this morning with severe left flank pain felt like another kidney stone states pain sharp in nature she had a low-grade fever she has been taking Azo as well. Denies any worsening improving factors rates her pain a 9 out of 10 currently Associated symptoms: Reports abdominal pain; Deny headache(s) or nausea Related Data Home Medications Medication Instructions Recorded Confirmed Cbd Gummies 1 ea PO PRN 10/14/23 02/13/24 melatonin 5 mg tablet 5 mg PO BEDTIME PRN Sleep 10/14/23 02/13/24 alprazolam 0.5 mg tablet 0.5 mg PO DAILY PRN Anxiety 02/13/24 02/13/24 cyclobenzaprine 5 mg tablet 5 mg PO DAILY 02/13/24 02/13/24 Previous Rx's Medication Instructions Recorded hydrocodone 5 mg-acetaminophen 325 1 tab PO Q6H PRN pain #20 tabs 02/13/24 mg tablet ondansetron 8 mg disintegrating 8 mg PO Q6H #14 tabs 02/13/24 tablet tamsulosin 0.4 mg capsule (Flomax) 0.4 mg PO DAILY #30 caps 02/13/24 Allergies Allergy/AdvReac Type Severity Reaction Status Date / Time bee venom protein (honey bee) Allergy ALGY-Anaphy Verified 10/14/23 05:31 laxis bupropion [From Wellbutrin] Allergy Unknown Verified 10/14/23 05:31 clonazepam [From Klonopin] Allergy ADR-Irritab Verified 10/14/23 05:31 le fluoxetine [From Prozac] Allergy ADR-Irritab Verified 10/14/23 05:31 le latex Allergy ALGY-Rash Verified 10/14/23 05:31 ondansetron [From Zofran] Allergy Unknown Verified 02/23/24 08:42 trazodone Allergy ADV-Weaknes Verified 10/14/23 05:31 s venlafaxine [From Effexor] Allergy Unknown Verified 10/14/23 05:31 Review of Systems 2 Const: Denies: fever(s), chills, body aches or change in appetite ENMT: Denies: throat pain or dental pain Card: Denies: chest pain Resp: Denies: dyspnea GI: Reports: abdominal pain; Denies: nausea, vomiting or diarrhea : Reports: flank pain Musc: Denies: neck pain or back pain Skin/Breast: Denies: rash Neuro: Denies: headache(s) 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 Surgical History Status post laparoscopic Kellie fundoplication (10/27/19) Laparoscopic paraesophageal hernia repair with mesh placement and Niesen fundoplication with intraoperative EGD History of tubal ligation History of cholecystectomy Family History Father Dementia Brother CAD (coronary artery disease) Other Cancer Diabetes Hyperlipidemia Hypertension Psychiatric illness Stroke Denies family history of Clotting disorder Chronic kidney disease (CKD) Suicide Anesthesia complication Bleeding disorder Lung disease Social History Smoking and tobacco/nicotine status: former use of tobacco/nicotine Alcohol intake: current Alcohol intake frequency: holidays/special occasions only Physical Exam 2 Const: COMMON NORMALS: no acute distress, patient oriented x3 and healthy appearing HENMT: COMMON NORMALS: normocephalic and atraumatic HEAD & SCALP: n ormocephalic and atraumatic Eye: COMMON NORMALS: conjunctivae normal CONJUNCTIVA: Yes conjunctivae normal Neck/C-Spine: COMMON NORMALS: full ROM and supple Chest: COMMONS NORMALS: normal inspection of the chest Resp: COMMON NORMALS: normal respiratory effort Cardio: COMMON NORMALS: regular rate, regular rhythm and No murmurs present (Cardio) RATE: regular rate RHYTHM: regular rhythm GI: COMMON NORMALS: Normal to inspection, nondistended, normoactive bowel sounds present, Soft to palpation, non-tender and no masses PALPATION: Yes Soft to palpation Extremity: COMMON NORMALS: normal to inspection and full ROM Neuro: COMMON NORMALS: patient oriented x3, moves all extremities and no focal motor deficits Psych: COMMON NORMALS: mental status grossly normal, Normal thought process present and cooperative THOUGHT PROCESS: Normal thought process present Skin: COMMON NORMALS: no rashes or lesions noted and no wounds GENERAL SKIN EXAM: no rashes or lesions noted Course 2 Vital Signs: Vital signs: Vital Signs Temperature 98.0 F 02/23/24 07:52 Pulse Rate 78 02/23/24 08:30 Respiratory Rate 20 H 02/23/24 08:30 Blood Pressure 124/86 02/23/24 08:26 Pulse Oximetry 94 02/23/24 08:30 Oxygen Delivery Me thod Room Air 02/23/24 08:26 MDM - Female Medical Decision Making Patient presents with flank pain stent position is good no hydro her pain is much improved here she is afebrile here white counts normal she has taken Azo which is thrown off her urine she is to follow-up with her urologist in 1 to 2 days return to ER if worsening she understands agrees to plan she has antibiotics and pain meds at home she is continue to take those. Lab Data 02/23/24 08:23 02/23/24 08:23 Radiology Impressions Abdomen/Pelvis CT 02/23/24 08:00 IMPRESSION: Interval removal of left ureteral stone. Interval decompression of left hydronephrosis following left ureteral stent placement. Laboratory Results WBC 8.09 10^3/uL (3.29-11.43) 02/23/24 08:23 RBC 5.10 10^6/uL (3.85-5.65) 02/23/24 08:23 Hgb 14.70 g/dL (11.27-16.99) 02/23/24 08:23 Hct 45.2 % (36-47) 02/23/24 08:23 MCV 88.6 fl (85-98) 02/23/24 08:23 MCH 28.8 pg (27-33) 02/23/24 08:23 MCHC 32.5 g/dL (30-55) 02/23/24 08:23 RDW 13.2 % (12.1-15.1) 02/23/24 08:23 Plt Count 270 10^3/cmm (157-399) 02/23/24 08:23 MPV 10.9 fL (7.4-10.4) H 02/23/24 08:23 Neut % (Auto) 67.8 % 02/23/24 08:23 Lymph % (Auto) 21.1 % 02/23/24 08:23 [place] % (Auto) 9.0 % 02/23/24 08:23 Eos % (Auto) 1.5 % 02/23/24 08:23 Baso % (Auto) 0.4 % 02/23/24 08:23 Neut # (Auto) 5.48 10^3/uL (1.8-7.7) 02/23/24 08:23 Lymph # (Auto) 1.7 10^3/uL (0.8-4.8) 02/23/24 08:23 [place] # (Auto) 0.7 10^3/uL (0.2-0.9) 02/23/24 08:23 Eos # (Auto) 0.1 10^3/uL (0.0-0.8) 02/23/24 08:23 Baso # (Auto) 0.0 10^3/uL (0.0-0.1) 02/23/24 08:23 Nucleated RBC % (auto) 0 % 02/23/24 08: Nucleated RBCs # 0.0 /100WBC 02/23/24 08:23 Sodium 138 mmol/L (136-145) 02/23/24 08:23 Potassium 3.7 mmol/L (3.5-5.1) 02/23/24 08:23 Chloride 105 mmol/L (98-107) 02/23/24 08:23 Carbon Dioxide 21 mmol/L (22-29) L 02/23/24 08:23 Anion Gap 15.7 (5-19) 02/23/24 08:23 BUN 13 mg/dL (6-20) 02/23/24 08:23 Creatinine 0.7 mg/dL (0.5-0.9) 02/23/24 08:23 GFR Calculation 88.2 mL/min (90-130) L 02/23/24 08:23 Glucose 113 mg/dL (65-115) 02/23/24 08:23 Calculated Osmolality 287 mOsm/kg (285-295) 02/23/24 08:23 Calcium 9.2 mg/dL (8.5-10.5) 02/23/24 08:23 Total Bilirubin 0.9 mg/dL (0.15-1.2) 02/23/24 08: AST 20 U/L (0-32) 02/23/24 08:23 ALT 20 U/L (0-33) 02/23/24 08: Alkaline Phosphatase 91 U/L (35-105) 02/23/24 08: Total Protein 7.4 g/dL (6.6-8.7) 02/23/24 08: Albumin 4.4 g/dL (3.5-5.2) 02/23/24 08: Globulin 3.0 g/dL (1.3-4.6) 02/23/24 08:23 Urine Color [place] (Yellow) A 02/23/24 08:00 Urine Appearance Turbid (CLEAR) A 02/23/24 08:00 Urine pH 5.0 (5-7) 02/23/24 08:00 Ur Specific [place] 1.019 (1.005-1.030) 02/23/24 08:00 Urine Protein 3+ (Negative) A 02/23/24 08:00 Urine Glucose (UA) Negative (Normal) 02/23/24 08:00 Urine Ketones Negative (Negative) 02/23/24 08:00 Urine Blood 3+ (Negative) A 02/23/24 08:00 Urine Nitrate Positive (Negative) A 02/23/24 08:00 Urine Bilirubin 1+ (Negative) H 02/23/24 08:00 Urine Urobilinogen 1.0 mg/dL (Negative) 02/23/24 08:00 Ur Leukocyte Esterase 3+ (Negative) A 02/23/24 08:00 Urine RBC 80-100 /hpf (0-2) H 02/23/24 08:00 Urine WBC 25-40 /hpf (0-5) H 02/23/24 08:00 Amorphous Sediment Not Reportable 02/23/24 08:00 Urine Bacteria 2+ /hpf (NONE) H 02/23/24 08:00 Hyaline Casts 5-10 /lpf H 02/23/24 08:00 All radiology interpretation(s) finalized by discharge Discharge Plan Discharge Patient Disposition: Home Clinical Impression: Flank pain Condition: Stable Prescriptions: No Action melatonin 5 mg Tablet 5 mg PO BEDTIME PRN (Reason: Sleep) Cbd Gummies 1 ea PO PRN alprazolam 0.5 mg tablet 0.5 mg PO DAILY PRN (Reason: Anxiety) cyclobenzaprine 5 mg tablet 5 mg PO DAILY hydrocodone-acetaminophen 5-325 mg tablet 1 tab PO Q6H PRN (Reason: pain) Qty: 20 0RF ondansetron 8 mg tablet,disintegrating 8 mg PO Q6H Qty: 14 0RF Rx Instructions: Take 1/2-1 tab every 6 hours as needed for nausea and vomiting tamsulosin [Flomax] 0.4 mg capsule 0.4 mg PO DAILY Qty: 30 0RF Discharge Orders: Discharge ED (Routine); Ordered 02/23/24 Ordered By: José Miguel Caballero Referrals: Aleyda Jean-Baptiste FNP [Primary Care Provider] - Discharge Diet: Advance as tolerated Discharge Activity: Resume usual activity Patient Instructions: Flank Pain (ED) Coding Level of Care Code ED Ball Fringe Machine Operator for Miriam Gamez
[2024-02-23 08:26] VITALS: BP 124/86; PULSE 96; RESP 18; O2SAT 95; O2SAT 96
[2024-02-23] MEDS: HYDROmorphone 1 mg/mL INJ 1 mL IVP (08:26)
[2024-02-23 08:29] LABS: Basophils % 0.4 %; Eosinophils # 0.1 10^3/uL (0.0-0.8); Eosinophils % 1.5 %; Hematocrit 45.2 % (36-47); Lymphocytes # 1.7 10^3/uL (0.8-4.8); Lymphocytes % 21.1 %; Mean Corpuscular HGB Conc 32.5 g/dL (30-55); Mean Corpuscular Hemoglobin 28.8 pg (27-33); Mean Corpuscular Volume 88.6 fl (85-98); Mean Platelet Volume 10.9 fL (7.4-10.4); Monocytes # 0.7 10^3/uL (0.2-0.9); Neutrophils # 5.48 10^3/uL (1.8-7.7); Neutrophils % 67.8 %; Nucleated Red Blood Cells % 0 %; Platelet Count 270 10^3/cmm (157-399); Red Cell Distribution Width 13.2 % (12.1-15.1); White Blood Count 8.09 10^3/uL (3.29-11.43)
[2024-02-23 08:30] VITALS: PULSE 78; RESP 20; O2SAT 94
[2024-02-23 08:31] LABS: Bilirubin Urine 1+ (Negative); Blood Urine 3+ (Negative); Glucose Urine UA Negative (Normal); Ketones Urine Negative (Negative); Leukocyte Esterase Urine 3+ (Negative); Nitrate Urine Positive (Negative); Protein Urine 3+ (Negative); Specific Gravity, Urine 1.019 (1.005-1.030); Urine Appearance Turbid (CLEAR)
[2024-02-23] MEDS: diphenhydrAMINE 50 mg/mL SDV 1mL 25 MG IVP (08:39)
[2024-02-23] MEDS: metoclopramide 5 mg/mL SDV 2 mL IVP (08:39)
[2024-02-23 08:49] LABS: Alanine Aminotransferase 20 U/L (0-33); Albumin Level 4.4 g/dL (3.5-5.2); Alkaline Phosphatase 91 U/L (35-105); Aspartate Amino Transferase 20 U/L (0-32); Blood Urea Nitrogen 13 mg/dL (6-20); Calcium 9.2 mg/dL (8.5-10.5); Carbon Dioxide 21 mmol/L (22-29); Chloride 105 mmol/L (98-107); Creatinine Clr Calc Pharmacy 114.0286; Glomerular Filtration Rate 88.2 mL/min (90-130); Glucose 113 mg/dL (65-115); Osmolality Calculated 287 mOsm/kg (285-295); Sodium 138 mmol/L (136-145); Total Bilirubin 0.9 mg/dL (0.15-1.2); Total Protein 7.4 g/dL (6.6-8.7)
[2024-02-23 08:50] LABS: Anion Gap 15.7 (5-19); Potassium 3.7 mmol/L (3.5-5.1)
[2024-02-23 08:51] LABS: UA Slide Review UA Slide Review Perf; Urine Color Orange (Yellow)
[2024-02-23 08:52] LABS: Add Urine Culture? Yes; Add Urine Microscopic? YES; Bacteria Urine 2+ /hpf; RBC Urine 80-100 /hpf (0-2); UA Manual Slide Review YES; WBC Urine 25-40 /hpf (0-5)
[2024-02-23] MEDS: ketorolac 30 mg/mL INJ 15 MG IVP (09:33)
[2024-02-23 09:34] VITALS: BP 140/76; PULSE 75; O2SAT 99
== END 2024-02-23 09:51 | disposition home or self-care (01) ==
PROVIDERS: Emergency Provider Emergency Medicine; PCP Nurse Practitioner Family
DX: R10.9 Unspecified abdominal pain (principal); Z87.891 Personal history of nicotine dependence; Z87.442 Personal history of urinary calculi
CPT/HCPCS: 74176; 80053; 81001; 85025; 87086; 96374; 96375; 99285; J1170; J1200; J1885; J2765

== ENCOUNTER 2024-02-25 10:13 | Emergency (ER) | payer MEDICAID, SELFPAY ==
[2024-02-25 10:25] VITALS: BP 149/87; PULSE 80; RESP 18; TEMP 36.8; O2SAT 97; BMI 33.6
[2024-02-25 11:04] LABS: Basophils % 0.4 %; Eosinophils # 0.2 10^3/uL (0.0-0.8); Eosinophils % 2.3 %; Hematocrit 43.2 % (36-47); Lymphocytes # 1.4 10^3/uL (0.8-4.8); Mean Corpuscular HGB Conc 32.9 g/dL (30-55); Mean Corpuscular Hemoglobin 29.6 pg (27-33); Mean Corpuscular Volume 90.2 fl (85-98); Mean Platelet Volume 10.9 fL (7.4-10.4); Monocytes # 0.6 10^3/uL (0.2-0.9); Monocytes % 9.1 %; Neutrophils # 4.81 10^3/uL (1.8-7.7); Neutrophils % 68.1 %; Nucleated Red Blood Cells % 0 %; Platelet Count 251 10^3/cmm (157-399); Red Blood Count 4.79 10^6/uL (3.85-5.65); Red Cell Distribution Width 13.2 % (12.1-15.1); White Blood Count 7.06 10^3/uL (3.29-11.43)
[2024-02-25 11:12] VITALS: PULSE 86; RESP 28; O2SAT 98
--- NOTE | 2024-02-25 11:15 | CT_ITS ---
WS: [id number] CT ABDOMEN PELVIS TECHNIQUE: Noncontrast CT of the abdomen and pelvis with coronal and sagittal reformatted images. CLINICAL INFORMATION: flank pain COMPARISON: 02/23/2024 and 02/13/2024 DLP: 941.[address] scans at [facility] use at least one of these dose optimization techniques: automated e xposure control; mA and/or kV adjustment per patient size (includes targeted exams where dose is matc hed to clinical indication); or iterative reconstruction. FINDINGS: Double-J ureteral stent with proximal stent in the LEFT proximal ureter at the UPJ presumably migrate d from the renal pelvis. Distal stent in good position within the bladder. Recommend urology evaluati on. LEFT renal pelvis dilatation has progressed compared to 02/23/2024. No hydronephrosis in the RIGHT kidney. RIGHT peripelvic renal cysts. No obstructing RIGHT renal or ur eteral calculi. No other significant changes compared to previous. Lung bases are well aerated. Moder ate esophageal hiatal hernia. Adrenal glands are normal. Normal caliber abdominal aorta. Extensive si gmoid diverticulosis. Tiny fat-containing umbilical hernia. CT/CT abdomen pelvis wo con [id number] IMPRESSION: 1. LEFT double-J ureteral stent with proximal end in the LEFT UPJ with increas ed dilatation of the LEFT renal pelvis compared to previous. Distal stent in go od position in the bladder. Recommend urology evaluation. 2. No other significant changes compared to previous. 3. Prior cholecystectomy. 4. Moderate esophageal hernia. 5. Stable RIGHT renal parapelvic cysts. 6. Extensive sigmoid diverticulosis. Notified Anne Arce MD at 02/25/2024 12:22 PM.
--- NOTE | 2024-02-25 11:16 | ED_ITS ---
HPI - Back Pain/Injury 2 General: Chief Complaint: Back Pain/Injury Stated Complaint: low back pain stint place saturday Time Seen by Provider: 02/25/24 11:10 History of Present Illness: 53-year-old female who had lithotripsy a nd a stent placed few days ago at [facility] emergency room with continued flank pain. She was seen a couple days ago here in the emergency room for this. Today pain is worse. She is supposed to get the stent out tomorrow at [facility]. No known fevers. Nausea with no vomiting. Related Data Home Medications Medication Instructions Recorded Confirmed Cbd Gummies 1 ea PO PRN 10/14/23 02/13/24 melatonin 5 mg tablet 5 mg PO BEDTIME PRN Sleep 10/14/23 02/13/24 alprazolam 0.5 mg tablet 0.5 mg PO DAILY PRN Anxiety 02/13/24 02/13/24 cyclobenzaprine 5 mg tablet 5 mg PO DAILY 02/13/24 02/13/24 Previous Rx's Medication Instructions Recorded hydrocodone 5 mg-acetaminophen 325 1 tab PO Q6H PRN pain #20 tabs 02/13/24 mg tablet ondansetron 8 mg disintegrating 8 mg PO Q6H #14 tabs 02/13/24 tablet tamsulosin 0.4 mg capsule (Flomax) 0.4 mg PO DAILY #30 caps 02/13/24 oxycodone 5 mg tablet 5 mg PO Q8H PRN pain #20 tabs 02/25/24 Allergies Allergy/AdvReac Type Severity Reaction Status Date / Time bee venom protein (honey bee) Allergy ALGY-Anaphy Verified 10/14/23 05:31 laxis bupropion [From Wellbutrin] Allergy Unknown Verified 10/14/23 05:31 clonazepam [From Klonopin] Allergy ADR-Irritab Verified 10/14/23 05:31 le fluoxetine [From Prozac] Allergy ADR-Irritab Verified 10/14/23 05:31 le latex Allergy ALGY-Rash Verified 10/14/23 05:31 ondansetron [From Zofran] Allergy Unknown Verified 02/23/24 08:42 trazodone Allergy ADV-Weaknes Verified 10/14/23 05:31 s venlafaxine [From Effexor] Allergy Unknown Verified 10/14/23 05:31 Review of Systems 2 Narrative: Constitutional symptoms: Negative except as documented in HPI. Skin symptoms: Negative except as documented in HPI. Eye symptoms: Negative except as documented in HPI. ENMT symptoms: Negative except as documented in HPI. Respiratory symptoms: Negative except as documented in HPI. Cardiovascular symptoms: Negative except as documented in HPI. Gastrointestinal symptoms: Negative except as documented in HPI. Genitourinary symptoms: Negative except as documented in HPI. Musculoskeletal symptoms: Negative except as documented in HPI. Neurologic symptoms: Negative except as documented in HPI. Psychiatric symptoms: Negative except as documented in HPI. Endocrine symptoms: Negative except as documented in HPI. 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 Surgical History Status post laparoscopic Kellie fundoplication (10/27/19) Laparoscopic paraesophageal hernia repair with mesh placement and Niesen fundoplication with intraoperative EGD History of tubal ligation History of cholecystectomy Family History Father Dementia Brother CAD (coronary artery disease) Other Cancer Diabetes Hyperlipidemia Hypertension Psychiatric illness Stroke Denies family history of Clotting disorder Chronic kidney disease (CKD) Suicide Anesthesia complication Bleeding disorder Lung disease Social History Smoking and tobacco/nicotine status: former use of tobacco/nicotine Alcohol intake: current Alcohol intake frequency: holidays/special occasions only Physical Exam 2 Narrative: EXAM NARRATIVE: General: Alert, no acute distress. Skin: Warm, dry. Head: Normocephalic, atraumatic. Neck: Supple, trachea midline. Eye: Extraocular movements are intact. Ears, nose, mouth and throat: mucosa moist. Cardiovascular: Regular, Normal peripheral perfusion. Respiratory: Lungs are clear to auscultation, respirations are non-labored, breath sounds are equal, Symmetrical chest wall expansion. Gastrointestinal: Soft, flank pain, Non distended Musculoskeletal: Normal ROM, no deformity. Neurological: Alert and oriented, No focal neurological deficit observed. Psychiatric: Cooperative, patient is very tearful Course 2 Vital Signs: Vital signs: Vital Signs Temperature 98.3 F 02/25/24 10:25 Pulse Rate 86 02/25/24 11:12 Respiratory Rate 24 H 02/25/24 11:24 Blood Pressure 149/87 02/25/24 10:25 Pulse Oximetry 96 02/25/24 11:24 Oxygen Delivery Me thod Room Air 02/25/24 11:12 MDM - Back Pain/Injury Medical Decision Making Medical decision making: Differential diagnosis including but not limited to and based on the above HPI, review of systems and physical exam: Ureterolithiasis. Urinary tract infection. Appendicitis. Cholecystis. Musculoskeletal / back pain. Pyelonephritis Orders placed to evaluate differential diagnosis based on the above differential, HPI and physical exam Lab Review: Laboratory results were reviewed and interpreted by myself the emergency room physician. Lab work is fairly unremarkable. No leukocytosis. No anemia. No renal failure. She does have hematuria which would be expected with a stent. CT of the abdomen pelvis without contrast: There does seem to be some migration of the top of the stent out of the renal pelvis which is causing some hydronephrosis of the renal pelvis. This likely is what is causing her pain. This was reviewed and interpreted by myself the emergency room physician. I also reviewed the radiology report. Consultation: I spoke with Dr. Oswald. We discussed findings of the CT. Recommends pain control and follow-up tomorrow as planned to have the stent removed. I reviewed the patient's medical record. Reexamination: Patient has better controlled pain at discharge. No altered mental status. No focal motor deficits. She is not as tearful as she was. She apologizes for having a panic attack. Assessment and plan: Renal colic ? 2 doses of IV Dilaudid and a dose of Toradol in the emergency room. - Discharged home - Discussed plan with patient. Answered any questions. - Evaluation and treatment of this problem were appropriate in the emergency setting. Labs 02/25/24 10:54 02/25/24 10:54 Radiology Impressions Abdomen/Pelvis CT 02/25/24 11:15 IMPRESSION: 1. LEFT double-J ureteral stent with proximal end in the LEFT UPJ with increased dilatation of the LEFT renal pelvis compared to previous. Distal stent in good position in the bladder. Recommend urology evaluation. 2. No other significant changes compared to previous. 3. Prior cholecystectomy. 4. Moderate esophageal hernia. 5. Stable RIGHT renal parapelvic cysts. 6. Extensive sigmoid diverticulosis. Notified Anne Arce MD at 02/25/2024 12:22 PM. Laboratory Results WBC 7.06 10^3/uL (3.29-11.43) 02/25/24 10:54 RBC 4.79 10^6/uL (3.85-5.65) 02/25/24 10:54 Hgb 14.20 g/dL (11.27-16.99) 02/25/24 10:54 Hct 43.2 % (36-47) 02/25/24 10:54 MCV 90.2 fl (85-98) 02/25/24 10:54 MCH 29.6 pg (27-33) 02/25/24 10:54 MCHC 32.9 g/dL (30-55) 02/25/24 10:54 RDW 13.2 % (12.1-15.1) 02/25/24 10:54 Plt Count 251 10^3/cmm (157-399) 02/25/24 10:54 MPV 10.9 fL (7.4-10.4) H 02/25/24 10:54 Neut % (Auto) 68.1 % 02/25/24 10:54 Lymph % (Auto) 20.0 % 02/25/24 10:54 [place] % (Auto) 9.1 % 02/25/24 10:54 Eos % (Auto) 2.3 % 02/25/24 10:54 Baso % (Auto) 0.4 % 02/25/24 10:54 Neut # (Auto) 4.81 10^3/uL (1.8-7.7) 02/25/24 10:54 Lymph # (Auto) 1.4 10^3/uL (0.8-4.8) 02/25/24 10:54 [place] # (Auto) 0.6 10^3/uL (0.2-0.9) 02/25/24 10:54 Eos # (Auto) 0.2 10^3/uL (0.0-0.8) 02/25/24 10:54 Baso # (Auto) 0.0 10^3/uL (0.0-0.1) 02/25/24 10:54 Nucleated RBC % (auto) 0 % 02/25/24 10:54 Nucleated RBCs # 0.0 /100WBC 02/25/24 10:54 Sodium 139 mmol/L (136-145) 02/25/24 10:54 Potassium 3.8 mmol/L (3.5-5.1) 02/25/24 10:54 Chloride 107 mmol/L (98-107) 02/25/24 10:54 Carbon Dioxide 19 mmol/L (22-29) L 02/25/24 10:54 Anion Gap 16.8 (5-19) 02/25/24 10:54 BUN 13 mg/dL (6-20) 02/25/24 10:54 Creatinine 0.7 mg/dL (0.5-0.9) 02/25/24 10:54 GFR Calculation 88.2 mL/min (90-130) L 02/25/24 10:54 Glucose 97 mg/dL (65-115) 02/25/24 10:54 Calculated Osmolality 288 mOsm/kg (285-295) 02/25/24 10:54 Calcium 9.0 mg/dL (8.5-10.5) 02/25/24 10:54 Total Bilirubin 1.2 mg/dL (0.15-1.2) 02/25/24 10:54 AST 18 U/L (0-32) 02/25/24 10:54 ALT 17 U/L (0-33) 02/25/24 10:54 Alkaline Phosphatase 91 U/L (35-105) 02/25/24 10:54 Total Protein 6.9 g/dL (6.6-8.7) 02/25/24 10:54 Albumin 4.1 g/dL (3.5-5.2) 02/25/24 10:54 Globulin 2.8 g/dL (1.3-4.6) 02/25/24 10:54 Urine Color [place] (Yellow) A 02/25/24 11:16 Urine Appearance Cloudy (CLEAR) A 02/25/24 11:16 Urine pH TNP 02/25/24 11:16 Ur Specific [place] TNP 02/25/24 11:16 Urine Protein TNP 02/25/24 11:16 Urine Glucose (UA) TNP 02/25/24 11:16 Urine Ketones TNP 02/25/24 11:16 Urine Blood TNP 02/25/24 11:16 Urine Nitrate TNP 02/25/24 11:16 Urine Bilirubin TNP 02/25/24 11:16 Urine Urobilinogen TNP 02/25/24 11:16 Ur Leukocyte Esterase TNP 02/25/24 11:16 Urine RBC Too numerous to cnt /hpf (0-2) H 02/25/24 11:16 Urine WBC 0-4 /hpf (0-5) H 02/25/24 11:16 Ur Squamous Epith Cells 0-4 /hpf (0-5) H 02/25/24 11:16 Amorphous Sediment Not Reportable 02/25/24 11:16 Urine Bacteria Trace /hpf (NONE) 02/25/24 11:16 All radiology interpretation(s) finalized by discharge Discharge Plan Discharge Patient Disposition: Home Clinical Impression: Renal colic Condition: Stable Prescriptions: New oxycodone 5 mg tablet 5 mg PO Q8H PRN (Reason: pain) Qty: 20 0RF No Action melatonin 5 mg Tablet 5 mg PO BEDTIME PRN (Reason: Sleep) Cbd Gummies 1 ea PO PRN alprazolam 0.5 mg tablet 0.5 mg PO DAILY PRN (Reason: Anxiety) cyclobenzaprine 5 mg tablet 5 mg PO DAILY hydrocodone-acetaminophen 5-325 mg tablet 1 tab PO Q6H PRN (Reason: pain) Qty: 20 0RF ondansetron 8 mg tablet,disintegrating 8 mg PO Q6H Qty: 14 0RF Rx Instructions: Take 1/2-1 tab every 6 hours as needed for nausea and vomiting tamsulosin [Flomax] 0.4 mg capsule 0.4 mg PO DAILY Qty: 30 0RF Discharge Orders: Discharge ED (Routine); Ordered 02/25/24 Ordered By: Anne Arce Referrals: Aleyda Jean-Baptiste FNP [Primary Care Provider] - Junito Oswald MD [Referring] - 02/26/24 (Keep your follow-up with Dr. Oswald for tomorrow.) Patient Instructions: Renal Colic (ED) Activity Restrictions/Additional Instructions: If fever (temp >100.4) develops return to the emergency room immediately, as this is an emergency. Take nausea medication prior to taking pain medications. Thank you for choosing [facility] for your healthcare needs today. Please realize this is an emergency room and that we are providing you with a medical screening exam and this may not be complete and all inclusive of all the testing and or work up that you may need to determine your ailment or severity of your illness. You have been screened and evaluated and felt safe for discharge. Health conditions do change or evolve sometimes and as such it is important that you follow up with your Primary Doctor to be re checked, 3-5 days is a general good time frame for follow up. You are always welcome to return to the ED for re assessment if your symptoms are worsening or you have new concerns Coding Level of Care Code ED Legal Counsel for Miriam Gamez
[2024-02-25 11:20] LABS: Alanine Aminotransferase 17 U/L (0-33); Albumin Level 4.1 g/dL (3.5-5.2); Alkaline Phosphatase 91 U/L (35-105); Anion Gap 16.8 (5-19); Aspartate Amino Transferase 18 U/L (0-32); Blood Urea Nitrogen 13 mg/dL (6-20); Carbon Dioxide 19 mmol/L (22-29); Chloride 107 mmol/L (98-107); Creatinine Clr Calc Pharmacy 114.0286; Globulin 2.8 g/dL (1.3-4.6); Glomerular Filtration Rate 88.2 mL/min (90-130); Glucose 97 mg/dL (65-115); Osmolality Calculated 288 mOsm/kg (285-295); Potassium 3.8 mmol/L (3.5-5.1); Sodium 139 mmol/L (136-145); Total Bilirubin 1.2 mg/dL (0.15-1.2); Total Protein 6.9 g/dL (6.6-8.7)
[2024-02-25 11:24] VITALS: RESP 24; O2SAT 96
[2024-02-25] MEDS: HYDROmorphone 1 mg/mL INJ 1 mL IVP ×2 (11:24→12:39)
[2024-02-25 11:39] LABS: Add Urine Microscopic? YES; Urine Appearance Cloudy (CLEAR); Urine Color Red (Yellow)
[2024-02-25 11:40] LABS: Add Urine Culture? Yes; Bacteria Urine TRACE /hpf; RBC Urine TOO NUMEROUS TO CNT /hpf (0-2); Squamous Epithelial Cell Urine 0-4 /hpf (0-5); UA Manual Slide Review YES; UA Slide Review UA Slide Review Perf; WBC Urine 0-4 /hpf (0-5)
[2024-02-25 12:30] VITALS: BP 150/60; PULSE 89; O2SAT 99
[2024-02-25] MEDS: ketorolac 30 mg/mL INJ IVP (12:38)
[2024-02-25 12:39] VITALS: RESP 18; O2SAT 100
[2024-02-25 12:48] VITALS: BP 170/81; PULSE 88; O2SAT 97
== END 2024-02-25 12:50 | disposition home or self-care (01) ==
PROVIDERS: Physician Assistant; Emergency Provider Emergency Medicine; PCP Nurse Practitioner Family
DX: N23 Unspecified renal colic (principal); Z87.891 Personal history of nicotine dependence
CPT/HCPCS: 36415; 74176; 80053; 81001; 85025; 87086; 96374; 96375; 96376; 99285; J1171; J1885

== ENCOUNTER 2024-02-27 19:42 | Emergency (ER) | payer MEDICAID, SELFPAY ==
[2024-02-27 19:43] VITALS: BP 175/95; PULSE 97; RESP 20; TEMP 37.2; O2SAT 95
[2024-02-27 21:19] VITALS: BP 133/76; PULSE 81; RESP 18; O2SAT 95
--- NOTE | 2024-02-27 21:23 | PC.NURSE ---
Patient with left kidney stones with stent removal yesterday due to slipping. Dr. Oswald in [place]. States took motrin and other spasm pill green pill but vomited after due to pain. Did not take pain medication as was afraid she would vomit it up.
[2024-02-27] MEDS: phenazopyridine 100 mg Tablet 200 MG PO (21:36)
[2024-02-27] MEDS: ketorolac 60 mg/2 mL INJ IM (21:37)
[2024-02-27] MEDS: tamsulosin 0.4 mg Capsule PO (21:37)
[2024-02-27] MEDS: metoclopramide 5 mg/mL SDV 2 mL 10 MG IM (21:38)
[2024-02-27 21:44] VITALS: BP 135/64; PULSE 65; RESP 18; O2SAT 97
--- NOTE | 2024-02-27 21:51 | ED_ITS ---
HPI - Female Genitourinary General: Chief complaint: Urogenital-Female Stated complaint: ABD Pain\Fever Time Seen by Provider: 02/27/24 21:24 History of Present Illness: Presents to the ER with left flank pain rating down to her left groin. She has been seen several times for this she has known kidney stones, she had a ureteral stent placed in [place] and he was removed yesterday. Patient did good throughout the day but now she is rating sharp stabbing pain to 9 out of 10. Patient tried to take her medication but she said she vomited up due to pain. Related Data Home Medications Medication Instructions Recorded Confirmed Cbd Gummies 1 ea PO PRN 10/14/23 02/13/24 melatonin 5 mg tablet 5 mg PO BEDTIME PRN Sleep 10/14/23 02/13/24 alprazolam 0.5 mg tablet 0.5 mg PO DAILY PRN Anxiety 02/13/24 02/13/24 cyclobenzaprine 5 mg tablet 5 mg PO DAILY 02/13/24 02/13/24 Previous Rx's Medication Instructions Recorded hydrocodone 5 mg-acetaminophen 325 1 tab PO Q6H PRN pain #20 tabs 02/13/24 mg tablet ondansetron 8 mg disintegrating 8 mg PO Q6H #14 tabs 02/13/24 tablet tamsulosin 0.4 mg capsule (Flomax) 0.4 mg PO DAILY #30 caps 02/13/24 oxycodone 5 mg tablet 5 mg PO Q8H PRN pain #20 tabs 02/25/24 Allergies Allergy/AdvReac Type Severity Reaction Status Date / Time bee venom protein (honey bee) Allergy ALGY-Anaphy Verified 02/27/24 19:50 laxis bupropion [From Wellbutrin] Allergy Unknown Verified 02/27/24 19:50 clonazepam [From Klonopin] Allergy ADR-Irritab Verified 02/27/24 19:50 le fluoxetine [From Prozac] Allergy ADR-Irritab Verified 02/27/24 19:50 le latex Allergy ALGY-Rash Verified 02/27/24 19:50 ondansetron [From Zofran] Allergy Unknown Verified 02/27/24 19:50 trazodone Allergy ADV-Weaknes Verified 02/27/24 19:50 s venlafaxine [From Effexor] Allergy Unknown Verified 02/27/24 19:50 Review of Systems General: Reports: 10 or more systems reviewed and unremarkable except in HPI and below PFSH ED PFSH: Medical History Urolithiasis Left ureteral calculus GERD (gastroesophageal reflux disease) 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 Surgical History Status post laparoscopic Kellie fundoplication (10/27/19) Laparoscopic paraesophageal hernia repair with mesh placement and Niesen fundoplication with intraoperative EGD History of tubal ligation History of cholecystectomy Family History Father Dementia Brother CAD (coronary artery disease) Other Cancer Diabetes Hyperlipidemia Hypertension Psychiatric illness Stroke Denies family history of Clotting disorder Chronic kidney disease (CKD) Suicide Anesthesia complication Bleeding disorder Lung disease Social History Smoking and tobacco/nicotine status: former use of tobacco/nicotine Alcohol intake: current Alcohol intake frequency: holidays/special occasions only Physical Exam Const: COMMON NORMALS: no acute distress, average body habitus, patient oriented x3, no limitations, healthy appearing, alert and well nourished Eye: COMMON NORMALS: Equal, round and reactive pupils present, EOMs intact bilaterally, conjunctivae normal and no scleral icterus CONJUNCTIVA: Yes conjunctivae normal PUPIL: Yes Equal, round and reactive pupils present Neck/C-Spine: COMMON NORMALS: no JVD Chest: COMMONS NORMALS: normal inspection of the chest and normal palpation of entire chest wall Resp: COMMON NORMALS: normal respiratory effort, No retractions, No use of accessory muscles and clear to auscultation bilaterally AUSCULTATION: clear to auscultation bilaterally Cardio: COMMON NORMALS: no JVD, regular rate, regular rhythm, S1 normal heart sound present, S2 normal heart sound present, No gallops present (Cardio), No clicks present (Cardio), No murmurs present (Cardio) and No rub (Cardio) RATE: regular rate RHYTHM: regular rhythm HEART SOUNDS: S1 normal heart sound present and S2 normal heart sound present GI: COMMON NORMALS: Normal to inspection, nondistended, normoactive bowel sounds present, Soft to palpation, non-tender, No hepatosplenomegaly present and no masses PALPATION: Yes Soft to palpation and Yes No hepatosplenomegaly present Neuro: COMMON NORMALS: patient oriented x3 SENSORIUM/ORIENTATION: Yes alert Course Vital Signs: Vital signs: Vital Signs Temperature 99.0 F 02/27/24 19:43 Pulse Rate 72 02/27/24 22:00 Respiratory Rate 18 02/27/24 22:00 Blood Pressure 114/82 02/27/24 22:00 Pulse Oximetry 95 02/27/24 22:00 Oxygen Delivery Me thod Room Air 02/27/24 22:00 MDM - Female Medical Decision Making Patient urinalysis here in the showed 1+ leukocyte esterase, 11-20 white blood cells, 3+ blood, patient has been on Bactrim for 24 hours. Patient was given Toradol 60 mg, Reglan 10 mg, Pyridium 200 mg, Flomax 0.4 mg, patient is feeling much better. We will discharge patient home and wait for the culture data to on her urine to come back. Medical Records I reviewed the patient's medical records. Lab Data I reviewed the patient's lab results. Laboratory Results Urine Color [place] (Yellow) A 02/27/24 21: Urine Appearance Cloudy (CLEAR) A 02/27/24 21: Urine pH 5.0 (5-7) 02/27/24 21:15 Ur Specific [place] 1.023 (1.005-1.030) 02/27/24 21: Urine Protein 3+ (Negative) A 02/27/24 21: Urine Glucose (UA) Negative (Normal) 02/27/24 21: Urine Ketones Negative (Negative) 02/27/24 21: Urine Blood 3+ (Negative) A 02/27/24 21: Urine Nitrate Positive (Negative) A 02/27/24 21: Urine Bilirubin 1+ (Negative) H 02/27/24 21: Urine Urobilinogen 1.0 mg/dL (Negative) 02/27/24 21: Ur Leukocyte Esterase 1+ (Negative) A 02/27/24 21: Urine RBC 51-100 /hpf (0-2) H 02/27/24 21:15 Urine WBC 11-20 /hpf (0-5) H 02/27/24 21:15 Ur Squamous Epith Cells 0-5 /hpf (0-5) 02/27/24 21:15 Amorphous Sediment Not Reportable 02/27/24 21:15 Urine Bacteria None seen /hpf (NONE) 02/27/24 21:15 Hyaline Casts 0.40 /lpf 02/27/24 21:15 No radiology studies performed this visit Discharge Plan Discharge Patient Disposition: Home Clinical Impression: Flank pain Condition: Stable Prescriptions: No Action oxycodone 5 mg tablet 5 mg PO Q8H PRN (Reason: pain) Qty: 20 0RF melatonin 5 mg Tablet 5 mg PO BEDTIME PRN (Reason: Sleep) Cbd Gummies 1 ea PO PRN alprazolam 0.5 mg tablet 0.5 mg PO DAILY PRN (Reason: Anxiety) cyclobenzaprine 5 mg tablet 5 mg PO DAILY hydrocodone-acetaminophen 5-325 mg tablet 1 tab PO Q6H PRN (Reason: pain) Qty: 20 0RF ondansetron 8 mg tablet,disintegrating 8 mg PO Q6H Qty: 14 0RF Rx Instructions: Take 1/2-1 tab every 6 hours as needed for nausea and vomiting tamsulosin [Flomax] 0.4 mg capsule 0.4 mg PO DAILY Qty: 30 0RF Discharge Orders: Discharge ED (Routine); Ordered 02/27/24 Ordered By: Jonatan Lockhart Referrals: Aleyda Jean-Baptiste FNP [Primary Care Provider] - 1 week Patient Instructions: Flank Pain (ED) Activity Restrictions/Additional Instructions: Please continue the Bactrim and the oxycodone you have at home as directed. Once we get the culture data back we may be giving a call if we need to change you to a different antibiotic. Otherwise follow-up with your primary care doctor and/or urologist within the next 7 days for further evaluation and treatment. Coding Level of Care Code ED Insect Control Inspector for Miriam Gamez
[2024-02-27 22:00] VITALS: BP 114/82; PULSE 72; RESP 18; O2SAT 95
[2024-02-27 22:05] LABS: Bilirubin Urine 1+ (Negative); Blood Urine 3+ (Negative); Glucose Urine UA Negative (Normal); Ketones Urine Negative (Negative); Leukocyte Esterase Urine 1+ (Negative); Nitrate Urine Positive (Negative); Protein Urine 3+ (Negative); Specific Gravity, Urine 1.023 (1.005-1.030); Urine Appearance Cloudy (CLEAR)
[2024-02-27 22:07] LABS: Add Urine Microscopic? YES; Bacteria Urine None Seen /hpf; RBC Urine 51-100 /hpf (0-2); Squamous Epithelial Cell Urine 0-5 /hpf (0-5)
[2024-02-27 22:11] LABS: Urine Color Orange (Yellow)
[2024-02-27 22:12] LABS: Add Urine Culture? Yes
[2024-02-27 23:09] VITALS: BP 118/93; PULSE 79; RESP 18; O2SAT 93
== END 2024-02-27 23:06 | disposition home or self-care (01) ==
PROVIDERS: Emergency Provider Emergency Medicine; PCP Nurse Practitioner Family
DX: R10.9 Unspecified abdominal pain (principal)
CPT/HCPCS: 81001; 87086; 96372; 99284; J1885; J2765

== ENCOUNTER → 2024-07-02 10:56 | Outpatient (BNVA) | payer MEDICAID, SELFPAY | PROVIDERS: PCP Nurse Practitioner Family; Visit Provider Surgery | DX: Z95.828 Presence of other vascular implants and grafts (principal); C49.21 Malignant neoplasm of connective and soft tissue of right lower limb, including hip | CPT/HCPCS: 99214 ==

== ENCOUNTER 2024-09-28 10:19 | Emergency (ER) | payer MEDICAID, SELFPAY ==
[2024-09-28 10:39] VITALS: BP 140/85; PULSE 86; TEMP 36.8; O2SAT 98
--- NOTE | 2024-09-28 12:10 | W.ED.SKABFB ---
HPI - Skin/Abscess/Foreign Bdy General: Chief complaint: Skin/Abscess/Foreign Body Stated complaint: rash on L hip area Time Seen by Provider: 09/28/24 12:06 Source: patient Mode of arrival: ambulatory Limitations: no limitations History of Present Illness: Patient is a 53-year-old female presents to ED today with complaint of a painful/burning and pruritic rash to her left buttock that radiates around to her anterior groin and thigh. She states she noticed symptoms on Saturday/2 days ago. No other complaints or issues at this time. MD complaint: rash Onset (ago): day(s) Tetanus up to date: yes Location: buttocks and LLE Severity: moderate Quality: burning Pain Consistency: constant Relieving factors: none Exacerbating factors: none Context: none Associated symptoms: Reports no associated symptoms; Deny chills or fever(s) Treatments prior to arrival: none Related Data Home Medications ?Medication ?Instructions ?Recorded ?Confirmed Cbd Gummies 1 ea PO PRN 10/14/23 07/02/24 melatonin 5 mg tablet 5 mg PO BEDTIME PRN Sleep 10/14/23 07/02/24 alprazolam 0.5 mg tablet 0.5 mg PO DAILY PRN Anxiety 02/13/24 07/02/24 cyclobenzaprine 5 mg tablet 5 mg PO DAILY 02/13/24 07/02/24 Previous Rx's ?Medication ?Instructions ?Recorded hydrocodone 5 mg-acetaminophen 325 1 tab PO Q6H PRN pain #20 tabs 02/13/24 mg tablet ondansetron 8 mg disintegrating 8 mg PO Q6H #14 tabs 02/13/24 tablet tamsulosin 0.4 mg capsule (Flomax) 0.4 mg PO DAILY #30 caps 02/13/24 oxycodone 5 mg tablet 5 mg PO Q8H PRN pain #20 tabs 02/25/24 hydrocodone 5 mg-acetaminophen 325 1 tab PO Q6H PRN pain #14 tabs 09/28/24 mg tablet prednisone 10 mg tablet 10 mg PO DAILY 7 days #27 tabs 09/28/24 valacyclovir 1 gram tablet 1,000 mg PO Q8H 7 days #21 tabs 09/28/24 (Valtrex) Allergies Allergy/AdvReac Type Severity Reaction Status Date / Time bee venom protein (honey bee) Allergy ALGY-Anaphy Verified 09/28/24 10:44 laxis bupropion (From Wellbutrin) Allergy Unknown Verified 09/28/24 10:44 clonazepam (From Klonopin) Allergy ADR-Irritab Verified 09/28/24 10:44 le fluoxetine (From Prozac) Allergy ADR-Irritab Verified 09/28/24 10:44 le latex Allergy ALGY-Rash Verified 09/28/24 10:44 ondansetron (From Zofran) Allergy Unknown Verified 09/28/24 10:44 trazodone Allergy ADV-Weaknes Verified 09/28/24 10:44 s venlafaxine (From Effexor) Allergy Unknown Verified 09/28/24 10:44 Review of Systems Const: Denies: fever(s), chills, body aches, fatigue or malaise Card: Denies: chest pain Resp: Denies: dyspnea GI: Denies: abdominal pain : Denies: flank pain or dysuria Musc: Denies: neck pain, back pain, extremity pain, extremity swelling, joint pain, joint swelling or joint redness Skin/Breast: Reports: rash Neuro: Denies: headache(s), numbness in extremities, weakness in extremities, sensory changes or difficulty walking PFSH ED PFSH: Medical History Urolithiasis Left ureteral calculus GERD (gastroesophageal reflux disease) 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 Surgical History Status post laparoscopic Kellie fundoplication (10/27/19) Laparoscopic paraesophageal hernia repair with mesh placement and Niesen fundoplication with intraoperative EGD History of tubal ligation History of cholecystectomy Family History Father Dementia Brother CAD (coronary artery disease) Other Cancer Diabetes Hyperlipidemia Hypertension Psychiatric illness Stroke Denies family history of Clotting disorder Chronic kidney disease (CKD) Suicide Anesthesia complication Bleeding disorder Lung disease Social History Smoking and tobacco/nicotine status: never used tobacco/nicotine Alcohol intake: current Alcohol intake frequency: holidays/special occasions only Physical Exam Const: COMMON NORMALS: no acute distress, average body habitus, patient oriented x3, no limitations, healthy appearing, alert and well nourished GENERAL APPEARANCE: cooperative Resp: COMMON NORMALS: normal respiratory effort and clear to auscultation bilaterally AUSCULTATION: clear to auscultation bilaterally Cardio: COMMON NORMALS: regular rate and regular rhythm RATE: regular rate RHYTHM: regular rhythm Back/Pelvis: COMMON NORMALS: thoracic and lumbar spine normal to inspection, no thoracic nor lumbar tenderness, thoraco-lumbar ROM normal and straight leg raise negative bilaterally BACK IMAGE (FEMALE):  1. clusters of erythematous vesicles traveling in dermatomal pattern consistent with shingles Extremity: COMMON NORMALS: full ROM GENERAL: Yes normal exam except as noted Neuro: COMMON NORMALS: patient oriented x3, moves all extremities, no focal motor deficits, no sensory deficits noted and gait normal SENSORIUM/ORIENTATION: Yes alert Skin: RASHES: rashes noted Course Vital Signs: Vital signs: Vital Signs Temperature 98.3 F 09/28/24 10:39 Pulse Rate 86 09/28/24 10:39 Blood Pressure 140/85 09/28/24 10:39 Pulse Oximetry 98 09/28/24 10:39 Oxygen Delivery Me thod Room Air 09/28/24 10:39 MDM - Skin/Abscess/Foreign Bdy Medicial Decision Making Patient presents with classic shingles rash. She will be treated with anti-virals, steroids, pain meds. Recommending she follow up with PCP later this week/early next week for re-evaluation. Medical Records I reviewed the patient's medical records. No radiology studies performed this visit Discharge Plan Discharge Patient Disposition: Home Clinical Impression: Shingles Qualifiers: Herpes zoster complications: without complications Qualified Code(s): B02.9 - Zoster without complications Condition: Stable Prescriptions: New prednisone 10 mg tablet 10 mg PO DAILY 7 Days Qty: 27 0RF Rx Instructions: 6 tabs on days 1-2, 5 tabs on days 3, 4 tabs on day 4, 3 tabs on day 5, 2 tabs on day 6, 1 tab on day 7 hydrocodone-acetaminophen 5-325 mg tablet 1 tab PO Q6H PRN (Reason: pain) Qty: 14 0RF valacyclovir [Valtrex] 1 gram tablet 1,000 mg PO Q8H 7 Days Qty: 21 0RF No Action oxycodone 5 mg tablet 5 mg PO Q8H PRN (Reason: pain) Qty: 20 0RF melatonin 5 mg Tablet 5 mg PO BEDTIME PRN (Reason: Sleep) Cbd Gummies 1 ea PO PRN alprazolam 0.5 mg tablet 0.5 mg PO DAILY PRN (Reason: Anxiety) cyclobenzaprine 5 mg tablet 5 mg PO DAILY hydrocodone-acetaminophen 5-325 mg tablet 1 tab PO Q6H PRN (Reason: pain) Qty: 20 0RF ondansetron 8 mg tablet,disintegrating 8 mg PO Q6H Qty: 14 0RF Rx Instructions: Take 1/2-1 tab every 6 hours as needed for nausea and vomiting tamsulosin [Flomax] 0.4 mg capsule 0.4 mg PO DAILY Qty: 30 0RF Discharge Orders: Discharge ED (Routine); Ordered 09/28/24 Ordered By: Muna Bah Referrals: Aleyda Jean-Baptiste FNP [Primary Care Provider, Family Practice] Patient Instructions: Damir (ED), Opioid Safety, Pain Management Print Language: Italian Coding Level of Care Code ED Director Data Analytics for Miriam Gamez
[2024-09-28 12:33] VITALS: BP 149/89; PULSE 84; RESP 16; O2SAT 97
== END 2024-09-28 12:34 | disposition home or self-care (01) ==
PROVIDERS: Emergency Provider Physician Assistant; PCP Nurse Practitioner Family
DX: B02.9 Zoster without complications (principal)
CPT/HCPCS: 99283

== ENCOUNTER 2024-11-08 09:52 | Emergency (ER) | payer BC, MEDICAID, SELFPAY ==
--- OUTSIDE RECORDS SUMMARY | 2024-02-21 08:00 | XMS_ITS ---
Author Organization [facility] Address [address] [facility] [place] [id number] Care Team Providers Care Social Media Senior Associate Name Role Phone Junito Oswald Unavailable [phone] REASON FOR VISIT L URS Stone Manip Stent Placement @ [phone] Encounters Encounter Location Date Provider Diagnosis [facility] [address] [place] [address] 02/21/2024 Junito Oswald Plan Of Treatment No Information Progress Notes * Arlyn LAWSONDOB:1970 (54 yo F)Acc No.[id number]:02/21/2024 Patient: Arlyn BLUE Provider: Carolina Oswald MD :1970 A ge:53 Y S ex:Female Date:02/21/2024 Address:[facility] [address] [facility] * * Electronic signature of Domingo Oswald MD on 11/08/2024 at 09:58 AM CDT Sign off status: Pending * Provider: Carolina Oswald MD Date: Generated for Flaco staton/Teena/eTmarcellsmitting on: 0 11/08/2024 09:58 AM CDT
--- OUTSIDE RECORDS SUMMARY | 2024-04-08 12:00 | XMS_ITS ---
Author Organization [facility] Address [address] [place] [address] Care Team Providers Care Veneer Supervisor Name Role Phone Aleyda Jean-Baptiste APRN Primary Care Provider MART Hankins [phone] REASON FOR VISIT 6 wks w/ kub/rosetta Encounters Encounter Location Date Provider Diagnosis [facility] [address] [facility] [place] [address] 04/08/2024 MART OSWALD Plan Of Treatment No Information Progress Notes * Arlyn LAWSON RDOB: 3 (54 yo F)Acc No.[id number]:04/08/2024 Progress Notes Patient: Arlyn BLUE Provider: Carolina Oswald MD :1970 A ge:53 Y S ex:Female Date:04/08/2024 Address:[facility] [address] [place], [place] Pcp:Aleyda Jean-Baptiste APRN Subjective: * Chief Complaints: * 1 . 6 wks w/ kub/rosetta. * Medical History: Objective: * Vitals: Assessment: Plan: * Treatment: * Billing Information: * Visit Code: * Procedure Codes: * Electronic signature of DONET OSWALD MD on 11/08/2024 at 09:58 AM CDT Sign off status: Pending * Provider: Carolina Oswald MD Date: 1 06/09/2023 Generated for Flaco staton/Teena/Marie on: 0 11/08/2024 09:58 AM CDT
--- OUTSIDE RECORDS SUMMARY | 2024-05-26 08:40 | XMS_ITS ---
Author Organization [facility] [employer] Address [address] [place] [address] Care Team Providers Care Edge Beader Name Role Phone Aleyda Jean-Baptiste APRN Primary Care Provider JUNITO Hankins Unavailable [phone] Junito Madrid Unavailable [phone] REASON FOR VISIT 6 wks w/ kub/rosetta Encounters Encounter Location Date Provider Diagnosis [facility] [address] [facility] [place] [address] 05/26/2024 Junito Madrid Plan Of Treatment No Information Progress Notes * Arlyn LAWSON RDOB: 3 (54 yo F)Acc No.[id number]:05/26/2024 Progress Notes Patient: Charly PURI Arlyn Morgan Provider: Carolina Madrid APRN :1970 A ge:53 Y S ex:Female Date:05/26/2024 Address:[address] [facility] [place] Pcp:Aleyda Jean-Baptiste APRN Subjective: * Chief Complaints: * 1 . 6 wks w/ kub/rosetta. * Medical History: Objective: * Vitals: Assessment: Plan: * Treatment: * Billing Information: * Visit Code: * Procedure Codes: * Electronic signature of Domingo Madrid APRN on 11/08/2024 at 09:58 AM CDT Sign off status: Pending * Provider: Carolina Madrid APRN Date: 0 05/26/2024 Generated for Flaco staton/Teena/Marie on: 0 11/08/2024 09:58 AM CDT
--- OUTSIDE RECORDS SUMMARY | 2024-08-05 23:59 | XMS_ITS | Continuity of Care Document ---
Author Name [facility] Address [address] [place] [address] Organization [facility] Care Team Providers Care Cad Design Engineer Name Role Phone [facility] Unavailable Unavailable Problems Problem Status Onset [...] (disorder) Diagnosis Spasm (finding) Diagnosis Jump from [facility] (finding) Diagnosis Procedure carried out on subject (situation) Diagnosis Procedure not done (context-dependent category) Diagnosis Allergies, Adverse Reactions, Alerts Substance Category Reaction Severity Reaction type Status Date Reported Comments Source Wellbutrin Assertion Moderate Drug allergy Active [facility] [place] Effexor Assertion Swelling of bilateral lower limbs Drug allergy Active [facility] PROzac Assertion Moderate Drug allergy Active [facility] [place] Latex Assertion Moderate Allergy to substance Active [facility] [place] Bee Venom Assertion Allergy to substance Active [facility] Mold Assertion Allergy to substance Active [facility] traZODone Assertion Instability of gait Drug allergy Active [facility] es KlonoPIN Assertion Moderate Drug allergy Active [facility] [place] Zofran Assertion Drug [facility] [place] Results Order Name Results Value Reference Range Date Interpretation Comments Source GENERAL CHEMISTRY ALT-SGPT 23 U/L 10 - 40 08/05 16:36 :00 [facility] GENERAL CHEMISTRY T Bili 0.49 mg/dL 0.30 - 1.20 08/05 16:36 :00 [facility] GENERAL CHEMISTRY Total Protein 6.9 g/dL 5.7 - 8.2 08/05 16:36 :00 [facility] GENERAL CHEMISTRY Creatinine, standardized 0.6 mg/dL 0.5 - 1.0 08/05 16:36 :00 Interpretive Data: Pgoxcd-wf-xgy e transgender patients on testosterone therapy should have results assessed using the male reference range. Vtqc-zy-gyypx e transgender patients on hormone-modul ating therapy clinical judgment is advisedfor assessment. [facility] GENERAL CHEMISTRY Estimated GFR for peds Not Calculated mL/min/1.7 3m 08/05 16:36 :00 Interpretive Data: The estimated GFR was calculated using the Aaron castanon Brenner equation (2009) . Reference: Pediatric GFR calculator at [employer] Website. [facility] GENERAL CHEMISTRY BUN 16 mg/dL 6 - 20 08/05 16:36 :00 [facility] GENERAL CHEMISTRY Calcium 9.6 mg/dL 8.3 - 10.6 04/02 /2025 16:36 :00 [facility] GENERAL CHEMISTRY Glucose Lvl 115 mg/dL 70 - 139 08/05 16:36 :00 [facility] GENERAL CHEMISTRY Chloride 112 mmol/L 98 - 107 08/05 16:36 :00 [facility] GENERAL CHEMISTRY Sodium 144 mmol/L 136 - 145 08/05 16:36 :00 [facility] GENERAL CHEMISTRY Estimated GFR for Adults 107 mL/min/1.7 3m 08/05 16:36 :00 Interpretive Data: Changed to CKD-EPI 2020 on 2020. [facility] GENERAL CHEMISTRY Alkaline Phosphatase 81 U/L 35 - 104 08/05 16:36 :00 [facility] GENERAL CHEMISTRY Potassium 3.8 mmol/L 3.5 - 5.1 08/05 16:36 :00 [facility] GENERAL CHEMISTRY CO2 21 mmol/L 20 - 31 08/05 16:36 :00 [facility] GENERAL CHEMISTRY Anion gap 15 mmol/L 0 - 20 08/05 16:36 :00 [facility] GENERAL CHEMISTRY AST-SGOT 19 U/L 08/05 16:36 :00 [facility] GENERAL CHEMISTRY Albumin 3.8 g/dL 3.4 - 5.0 08/05 16:36 :00 [facility] HEMATOLOGY PROFILES PLT 251 x10(9)/L 150 - 450 08/05 16:36 :00 [facility] HEMATOLOGY PROFILES WBC 5.05 x10(9)/L 3.50 - 10.50 08/05 16:36 :00 [facility] HEMATOLOGY PROFILES MPV 11.2 8.0 - 12.0 08/05 16:36 :00 [facility] HEMATOLOGY PROFILES RBC 4.95 x10(12)/L 3.90 - 5.03 08/05 16:36 :00 [facility] HEMATOLOGY PROFILES HGB 14.5 g/dL 12.0 - 15.5 08/05 16:36 :00 Interpretive Data: Yzbvbd-wh-ggf e transgender patients on testosterone therapy should have results assessed using the male reference range. Smwi-vv-pcuuz e transgender patients on hormone-modul ating therapy clinical judgment is advisedfor assessment. [facility] HEMATOLOGY PROFILES HCT 44.1 % 34.9 - 44.5 08/05 16:36 :00 Interpretive Data: Oyaybg-oo-kha e transgender patients on testosterone therapy should have results assessed using the male reference range. Tjzl-cu-rmbsh e transgender patients on hormone-modul ating therapy clinical judgment is advisedfor assessment. [facility] HEMATOLOGY PROFILES MCV 89.1 fL 81.6 - 98.3 08/05 16:36 :00 [facility] HEMATOLOGY PROFILES MCH 29.3 pg 26.0 - 33.0 08/05 16:36 :00 [facility] HEMATOLOGY PROFILES MCHC 32.9 g/dL 32.0 - 36.0 08/05 16:36 :00 [facility] HEMATOLOGY PROFILES RDW CV 13.2 % 11.9 - 15.5 08/05 16:36 :00 [facility] HEMATOLOGY PROFILES RDW SD 42.7 fL 36.4 - 46.3 08/05 16:36 :00 [facility] HEMATOLOGY PROFILES % Nucleated RBCs 0.0 % 08/05 16:36 :00 [facility] HEMATOLOGY PROFILES Absolute Nucleated RBCs 0.0 x10(9)/L 0.0 - 0.0 08/05 16:36 :00 Interpretive Data: Normal values not established in patients less than 18 years old. [facility] HEMATOLOGY PROFILES % Neutrophils 54.0 % 08/05 16:36 :00 [facility] HEMATOLOGY PROFILES % Lymphocytes 33.1 % 08/05 16:36 :00 [facility] HEMATOLOGY PROFILES % Monocytes 8.3 % 08/05 16:36 :00 [facility] HEMATOLOGY PROFILES % Eosinophils 3.8 % 08/05 16:36 :00 [facility] HEMATOLOGY PROFILES Abs Eosinophils 0.19 x10(9)/L 0.05 - 0.50 08/05 16:36 :00 [facility] HEMATOLOGY PROFILES Abs Basophils 0.03 x10(9)/L 0.00 - 0.30 08/05 16:36 :00 [facility] HEMATOLOGY PROFILES Abs Immature Granulocytes 0.01 x10(9)/L 0.00 - 0.03 08/05 16:36 :00 [facility] HEMATOLOGY PROFILES % Basophils 0.6 % 08/05 16:36 :00 [facility] HEMATOLOGY PROFILES % Immature Granulocytes 0.20 % 0.02 - 0.42 08/05 16:36 :00 [facility] HEMATOLOGY PROFILES Absolute Granulocytes 2.73 x10(9)/L 1.70 - 7.00 08/05 16:36 :00 [facility] HEMATOLOGY PROFILES Abs Lymphocytes 1.67 x10(9)/L 0.90 - 2.90 08/05 16:36 :00 [facility] HEMATOLOGY PROFILES Abs Monocytes 0.42 x10(9)/L 0.30 - 0.90 08/05 16:36 :00 [facility] XR Chest XR Chest XR General [...] Signed on: 08/05/24 14:37 08/05 14:17 :00 [facility] [place] MRI Femur Right MRI Femur Right MRI/MRA [...] Signed on: 08/05/24 22:16 08/05 12:43 :18 [facility] [place] XR Chest XR Chest XR General Diagnostic Accession # Exam Date/Time Procedure Ordering Provider [id number] 03/18/2024 14:00 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.] Signed on: 03/18/24 12:38 03/18 10:33 :20 [facility] GENERAL CHEMISTRY AST-SGOT 20 U/L 01/23 18:25 :00 [facility] GENERAL CHEMISTRY Albumin 3.8 g/dL 3.4 - 5.0 01/23 18:25 :00 [facility] GENERAL CHEMISTRY Alkaline Phosphatase 87 U/L 35 - 104 01/23 18:25 :00 [facility] GENERAL CHEMISTRY ALT-SGPT 19 U/L 10 - 40 01/23 18:25 :00 [facility] GENERAL CHEMISTRY BUN 20 mg/dL 6 - 20 01/23 18:25 :00 [facility] GENERAL CHEMISTRY Calcium 9.8 mg/dL 8.3 - 10.6 01/23 18:25 :00 [facility] GENERAL CHEMISTRY Glucose Lvl 111 mg/dL 70 - 139 01/23 18:25 :00 [facility] GENERAL CHEMISTRY Chloride 111 mmol/L 98 - 107 01/23 18:25 :00 [facility] GENERAL CHEMISTRY Sodium 142 mmol/L 136 - 145 01/23 18:25 :00 [facility] GENERAL CHEMISTRY Potassium 3.8 mmol/L 3.5 - 5.1 01/23 18:25 :00 [facility] GENERAL CHEMISTRY CO2 22 mmol/L 20 - 31 01/23 18:25 :00 [facility] GENERAL CHEMISTRY Anion gap 13 mmol/L 0 - 20 01/23 18:25 :00 [facility] GENERAL CHEMISTRY T Bili 0.86 mg/dL 0.30 - 1.20 01/23 18:25 :00 [facility] GENERAL CHEMISTRY Total Protein 7.0 g/dL 5.7 - 8.2 01/23 18:25 :00 [facility] GENERAL CHEMISTRY Creatinine, standardized 0.6 mg/dL 0.5 - 1.0 01/23 18:25 :00 Interpretive Data: Xfjiij-sf-xap e transgender patients on testosterone therapy should have results assessed using the male reference range. Znlw-yp-cxect e transgender patients on hormone-modul ating therapy clinical judgment is advisedfor assessment. [facility] GENERAL CHEMISTRY Estimated GFR for Adults 107 mL/min/1.7 3m 01/23 18:25 :00 Interpretive Data: Changed to CKD-EPI 2020 on 2020. [facility] GENERAL CHEMISTRY Estimated GFR for peds Not calculated 01/23 18:25 :00 Interpretive Data: The estimated GFR was calculated using the Aaron castanon Brenner equation (2009) . Reference: Pediatric GFR calculator at [employer] Website. [facility] HEMATOLOGY PROFILES WBC 4.36 x10(9)/L 3.50 - 10.50 01/23 18:25 :00 [facility] HEMATOLOGY PROFILES RBC 4.54 x10(12)/L 3.90 - 5.03 01/23 18:25 :00 [facility] HEMATOLOGY PROFILES HGB 13.3 g/dL 12.0 - 15.5 01/23 18:25 :00 Interpretive Data: Cixsea-yd-qkk e transgender patients on testosterone therapy should have results assessed using the male reference range. Uibu-rv-ekfdg e transgender patients on hormone-modul ating therapy clinical judgment is advisedfor assessment. [facility] HEMATOLOGY PROFILES HCT 40.2 % 34.9 - 44.5 01/23 18:25 :00 Interpretive Data: Yktlrq-xw-mwq e transgender patients on testosterone therapy should have results assessed using the male reference range. Dqly-iy-xpkxt e transgender patients on hormone-modul ating therapy clinical judgment is advisedfor assessment. [facility] HEMATOLOGY PROFILES MCV 88.5 fL 81.6 - 98.3 01/23 18:25 :00 [facility] HEMATOLOGY PROFILES MCH 29.3 pg 26.0 - 33.0 01/23 18:25 :00 [facility] HEMATOLOGY PROFILES MCHC 33.1 g/dL 32.0 - 36.0 01/23 18:25 :00 [facility] HEMATOLOGY PROFILES RDW CV 13.2 % 11.9 - 15.5 01/23 18:25 :00 [facility] HEMATOLOGY PROFILES RDW SD 42.8 fL 36.4 - 46.3 01/23 18:25 :00 [facility] HEMATOLOGY PROFILES PLT 257 x10(9)/L 150 - 450 01/23 18:25 :00 [facility] HEMATOLOGY PROFILES MPV 11.4 8.0 - 12.0 01/23 18:25 :00 [facility] HEMATOLOGY PROFILES % Nucleated RBCs 0.0 % 01/23 18:25 :00 [facility] HEMATOLOGY PROFILES Absolute Nucleated RBCs 0.0 x10(9)/L 0.0 - 0.0 01/23 18:25 :00 Interpretive Data: Normal values not established in patients less than 18 years old. [facility] HEMATOLOGY PROFILES % Neutrophils 45.6 % 01/23 18:25 :00 [facility] HEMATOLOGY PROFILES % Lymphocytes 40.4 % 01/23 18:25 :00 [facility] HEMATOLOGY PROFILES % Monocytes 11.2 % 01/23 18:25 :00 [facility] HEMATOLOGY PROFILES % Eosinophils 2.1 % 01/23 18:25 :00 [facility] HEMATOLOGY PROFILES % Basophils 0.5 % 01/23 18:25 :00 [facility] HEMATOLOGY PROFILES % Immature Granulocytes 0.20 % 0.02 - 0.42 01/23 18:25 :00 [facility] HEMATOLOGY PROFILES Absolute Granulocytes 1.99 x10(9)/L 1.70 - 7.00 01/23 18:25 :00 [facility] HEMATOLOGY PROFILES Abs Lymphocytes 1.76 x10(9)/L 0.90 - 2.90 01/23 18:25 :00 [facility] HEMATOLOGY PROFILES Abs Monocytes 0.49 x10(9)/L 0.30 - 0.90 01/23 18:25 :00 [facility] HEMATOLOGY PROFILES Abs Eosinophils 0.09 x10(9)/L 0.05 - 0.50 01/23 18:25 :00 [facility] HEMATOLOGY PROFILES Abs Basophils 0.02 x10(9)/L 0.00 - 0.30 01/23 18:25 :00 [facility] HEMATOLOGY PROFILES Abs Immature Granulocytes 0.01 x10(9)/L 0.00 - 0.03 01/23 18:25 :[address] [facility] [address] Chest CT Chest CT Scan/CT Angio Accession # Exam Date/Time Procedure Ordering Provider [id number] 11/13/2023 14:[address] Chest Jeferson Jones MD Reason For Exam (CT Chest) eval for mets, hx of sarcoma Report EXAMINATIO N: CT Chest with IV contrast INDICATION : eval for mets, hx of sarcoma COMPARISON : July 31, 2023 TECHNIQUE: Spiral CT was obtained from the jugular notch through the posterior costophren ic recess. 3-D MIPS, sagittal and coronal reformats were obtained. FINDINGS: LUNGS/PLEU RA: The pulmonary parenchyma appears within normal limits. Stable left upper lobe sub-5 mm nodule on image 48, series 3. 2 perifissur al nodules in the right lung on images 89 and 92, are also stable. No new or enlarging nodules are visualized . The airways are patent. No pneumothor ax. No pleural effusion. No focal pleural lesion. MEDIASTINU M: Subcentime ter mediastina l and bilateral hilar nodes are similar. No definite pathologic mediastina l or hilar lymphadeno briana. The thoracic aorta is normal in caliber. The pulmonary arteries are normal in caliber. The heart is normal in size. No pericardia l effusion. The visualized thyroid is unremarkab le. The visualized esophagus is unremarkab le. AXILLA/SOF T TISSUE: Prominent right axillary nodes, measuring up to 14 mm, stable. No pathologic supraclavi cular or axillary lymphadeno briana. Regional soft tissues are within normal limits. Left subclavian Mediport. UPPER ABDOMEN: Enlarged portacaval nodes are similar. BONES: No evidence of acute fractures or aggressive osseous lesions. IMPRESSION : 1. Multiple bilateral pulmonary nodules are stable. No new or enlarging nodule. 2. Stable nonspecifi c right axillary adenopathy . Subcentime ter mediastina l and bilateral hilar nodes are also similar. 3. Stable prominent upper abdominal adenopathy . I have personally reviewed the images and attest to the contents of this report. * * *Final Report* * * Electronic ally Signed by: Mirna Walker MD Signed on: 11/13/23 15:52 11/12 14:08 :48 [facility] MRI Femur Right MRI Femur Right MRI/MRA Accession # Exam Date/Time Procedure Ordering Provider [id number] 11/13/2023 13:53 CDT MRI Femur Right Jeferson Jones MD Reason For Exam (MRI Femur Right) f/u Sarcoma right extremity, 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c e Report MRI right femur. HISTORY: Follow-up sarcoma. TECHNIQUE: Multiplana r images were obtained before and after the contrast. COMPARISON : July 31, 2023. April 24, 2023. FINDINGS: Sigmoid diverticul osis is identified . Bone marrow signal is appropriat e. Edema is identified to quadriceps muscular predominan tly in the vastus lateralis likely from prior treatment or surgery. No focal mass is identified . No recurrent tumor is identified . IMPRESSION : No evidence of recurrent mass. I have personally reviewed the images and attest to the contents of this report. * * *Final Report* * * Electronic ally Signed by: Segundo Kapoor MD Signed on: 11/13/23 15:54 11/12 13:12 :12 [facility] Consultation Notes Results Value Date Source Emergency Services Note Basic Informatio n Chief Complaint pt was seen in [facility] with hypotension, but is not at arrival [...] of treated pleomorphic sarcoma. GI referral to [facility] in [facility] for colonoscopy. [1] Previous Treatment Oncology [...] to the orthopedic oncology clinic at the [facility]. 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 -End may, referral made to radiation oncologist in [facility]. Completed radiation therapy approximately 08/30/2022, stop with [...] and descending colon. Referred for colonoscopy at [facility] in [place]. No evidence of recurrent sarcoma. [3] -09/23/2023 [...] Sebastian MD Primary Care Physician: Aleyda Jean-Baptiste [facility]HAVIORAL HEALTH TECH Visit Date Visit Date: 08/05/2024 [1-2] Oncology [...] Quintin Sebastian MD Primary Care Physician: Aleyda JeanB-aptiste BEHAVIORAL HEALTH TECH 08/05/2024 Orthopaedic Clinic Note Diagnosis: Right anterior [...] since her last appointment. Patient is seeing CV/CVN CV TSC SYSTEM OPERATOR on 03/23. 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 GI referral to [facility] in [facility] for colonoscopy. [2] Previous Treatment Oncology [...] to the orthopedic oncology clinic at the [facility]. 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 -End of May, referral made to radiation oncologist in [facility]. Completed radiation therapy approximately 08/30/2022, stop with [...] and descending colon. Referred for colonoscopy at [facility] in [place]. No evidence of recurrent sarcoma. [3] -09/23/2023 [...] arrange follow-up appointment with CT chest with med on clinic same day. Problem List/Past Medical [...] Sebastian MD Primary Care Physician: Aleyda Jean-Baptiste BEHAVIORAL HEALTH TECH Visit Date Visit Date: 01/24/2024 [1] Oncology Office Visit Note *; Quintin Sebastian MD 07/31/2023 16:54 CDT [2] Oncology Office Visit Note *; Quintin Sebastian MD 07/31/2023 16:54 CDT [3] Oncology Office Visit Note *; Quintin Sebastian MD 07/31/2023 16:54 CDT [4] CT Chest; Mirna Walker MD 11/13/2023 14:25 CDT 01/24/2024 Orthopaedic Clinic Note Diagnosis: right anterior thigh sarcoma Procedure: Wide excision right anterior thigh sarcoma, greater than 5 cm (10/23/22) HPI: The patient presents for a 1 year postop visit. Patient recently had a colonoscopy that led to her diagnosis with diverticulitis. Today, she has 0/10 pain and has been doing well postoperatively. She reports that her pain has gotten better since last appointment. Patient was seeing Dr. Sebastian for her cancer treatment, but has not followed up with him recently. No new acute concerns. She does question port removal which she states Dr. Sebastian was attempting to remove however this was stopped by her primary care apparently. She also has a scheduled CV/CVN CV TSC SYSTEM OPERATOR appointment for her CV/CVN CV TSC SYSTEM OPERATOR findings that were recently found and in question. Physical Exam: No current measurement data available. Vital Signs (most recent within last year) Temperature 36.3 (07/31/23 14:07) Heart Rate 104 (07/31/23 14:07) Resp Rate 20 (07/31/23 14:07) NIBP 124/68 (07/31/23 14:07) SpO2 99 (07/31/23 14:07) Pain Score 0 (11/13/23 15:02) Well healed leg anterior thigh incision. There is no erythema, warmth, or drainage. Full left leg extension. 5-/5 leg extension strength. Normal gait. No inguinal adenopathy. No palpable masses. Pathology: Specimen(s) Received RIGHT THIGH MASS - [...] Out Radiology: MRI of the right femur were obtained today and independently interpreted by myself. These demonstrate: Post surgical changes with decreasing muscle edema compared to prior MRI. No nodule enhancement. CT of the chest was obtained today and independently interpreted by myself today. This demonstrated: Unchanged pulmonary nodules compared to previous chest CT Impression: Doing well after wide excision right anterior thigh sarcoma, greater than 5 cm (10/23/22), neoadjuvant radiotherapy and chemotherapy Plan: Patient is doing well postoperatively and has seen improvement in her pain. I explained that her imaging today shows no concerning findings. There is no evidence of recurrent or metastatic disease. Patient inquired about chemo port being removed, and I suggested patient contact her PCP to have order placed to remove port. As she had it placed in [place], she should be able to have it removed there as well. Patient should continue with radiographic and clinical surveillance to ensure no recurrent or metastatic disease. She will continue to work on range of motion and strengthening.. I have answered all the patient's questions. Patient has indicated understanding and agreement with this plan. The visit required complex medical management through an ongoing care relationship with the patient. I will see the patient back in 4 months with repeat MRI and chest XR. Attending Physician: Jeferson Jones MD Primary Care Physician: Aleyda Jean-Baptiste [facility] This document was scribed for Dr. Jeferson Jones by Ana Hurtado, on 11/13/23 16:27:37 I performed a history and physical examination of the patient. I reviewed the portion of the note documented by the scribe in my presence and it accurately reflects my service for this date of service. I personally reviewed and updated the physical examination, radiographic findings, and plan where necessary. 11/13/2023 Vital Signs Vital Sign Value Date Comments Source Heart Rate 79 bpm 08/05/2024 21:17:33 [facility] SpO2 95 % 08/05/2024 21:17:32 [facility] SpO2 93 % 08/05/2024 21:10:33 [facility] Heart Rate 77 bpm 08/05/2024 21:10:32 [facility] SpO2 95 % 08/05/2024 20:59:55 [facility] Heart Rate 74 bpm 08/05/2024 20:59:54 [facility] SBP NIBP 113 mm[Hg] 08/05/2024 20:43:29 [facility] DBP NIBP 59 mm[Hg] 08/05/2024 20:43:29 [facility] Mean NIBP 66 mm[Hg] 08/05/2024 20:43:29 [facility] SpO2 93 % 08/05/2024 20:39:56 [facility] Heart Rate 77 bpm 08/05/2024 20:39:55 [facility] Temperature (Celsius) 36.3 Chrissie 08/05/2024 20:18:00 [facility] SBP NIBP 134 mm[Hg] 08/05/2024 20:18:00 [facility] DBP NIBP 92 mm[Hg] 08/05/2024 20:18:00 [facility] Weight (kg) 103.6 kg 08/05/2024 20:18:00 [facility] Respiratory Rate 16 breaths/min 08/05/2024 20:18:00 [facility] SBP NIBP 62 mm[Hg] 08/05/2024 19:47:00 [facility] DBP NIBP 38 mm[Hg] 08/05/2024 19:47:00 [facility] Weight (kg) 103.7 kg 08/05/2024 19:47:00 [facility] Temperature (Celsius) 36.3 Chrissie 08/05/2024 19:47:00 [facility] SpO2 96 % 08/05/2024 19:47:00 [facility] Respiratory Rate 20 breaths/min 08/05/2024 19:47:00 [facility] Heart Rate 89 bpm 08/05/2024 19:47:00 [facility] Temperature (Celsius) 36.1 Chrissie 08/05/2024 19:11:00 [facility] BSA Aron 2.09 03/18/2024 19:48:00 [facility] BMI 38.6 kg/m2 03/18/2024 19:48:00 [facility] Weight (kg) 103.9 kg 03/18/2024 19:48:00 [facility] Temperature (Celsius) 36.5 Chrissie 03/18/2024 19:48:00 [facility] Height (cm) 164.1 cm 03/18/2024 19:48:00 [facility] Temperature (Celsius) 36.0 Chrissie 01/24/2024 19:00:00 [facility] Heart Rate 86 bpm 01/24/2024 19:00:00 [facility] SBP NIBP 109 mm[Hg] 01/24/2024 19:00:00 [facility] DBP NIBP 59 mm[Hg] 01/24/2024 19:00:00 [facility] Weight (kg) 102 kg 01/24/2024 19:00:00 [facility] SpO2 97 % 01/24/2024 19:00:00 [facility] Encounters Location Location Details Encounter Type Encounter Number Reason For Visit Attending Provider ADM Date DC Date Status Source [facility] Outpatient [id number] Jeferson Jones 11/12 17:19 :41 11/13 04:59 :59 [facility] Oncology Clinic [id number] Jeferson Jones 11/12 19:52 :34 11/13 04:59 :59 [facility] Out[facility] [id number] Quintin Sebastian 01/23 18:04 :31 01/24 04:59 :59 [facility] [id number] Quintin Sebastian 01/23 18:05 :06 01/24 04:59 :59 [facility] Outpatient [id number] f/u Sarcoma right extremity , 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 ce Jeferson Jones 03/18 12:18 :44 03/18 23:59 :59 Active [place] [facility] Outpatient [id number] Quintin Sebastian 03/18 16:24 :45 03/19 05:59 :59 [facility] [id number] Jeferson Jones 03/18 19:39 :36 03/19 05:59 :59 [facility] [id number] Quintin Sebastian 08/05 16:30 :58 08/06 04:59 :59 [facility] Outpatient [id number] Jeferson Jones 08/05 17:11 :17 08/06 04:59 :59 [place] [facility] On[facility] Clinic [id number] Jeferson Jones 08/05 19:06 :13 08/06 04:59 :59 [facility] [id number] Quintin Sebastian 08/05 19:38 :14 08/06 04:59 :59 [facility] Emergency [id number] Norma Dennison 08/05 20:13 :49 08/05 23:13 :00 [facility] Social History Social History Date Source No data available for this section 08/06/2024 [facility] No data available for this section 08/05/2024 [facility] No data available for this section 03/19/2024 [facility] No data available for this section 01/25/2024 [facility] No data available for this section 11/14/2023 [facility]
--- OUTSIDE RECORDS SUMMARY | 2024-11-08 09:58 | XMS_ITS | Patient Health Record ---
Author Organization [facility] Address [address] [place] [id number] Care Team Providers Care Brick Tester Name Role Phone Junito Oswald [phone] Results Component Value Reference Range Notes RETROGRADE PYELOGRAM Reviewed date:02/27/2024 04:49:52 PM Interpretation: Performing Lab: Notes/Report: [facility] [address] [facility] [place] [address] DIAGNOSTIC RADIOLOGY REPORT NAME: LUCILA LAWSON VISIT DATE: 02/21/24 : 1970 SEX / AGE: F / 53 ORDERING PHY: JUNITO OSWALD MD PRIMARY CARE PHY: JUNITO OSWALD MD MED REC #: [id number] PT TYPE: DEP SDC Exam Performed: 02/21/24 1558 REPORT STATUS: Signed RETROGRADE PYELOGRAM FINDINGS/IMPRESSION: Fluoroscopic images provided for Dr. Oswald. TRANSCRIBED BY: Sherry No TRANSCRIBED BY DATE/TIME: 02/21/241927 DICTATED BY: James Curran DO DICTATED DATE/TIME: 02/21/24 1613 ELECTRONICALLY SIGNED BY: James Curran DO SIGNED DATE/TIME: 02/25/24 3191 Copies To: JUNITO OSWALD MD [facility]YS[facility] Reviewed date:03/03/2024 02:15:12 PM Interpretation: Performing Lab:[facility] Notes/Report: Has specimen been collected/obtained? Y SPECIMEN SOURCE LEFT URETER COMPOSITION 1: SEE NOTE Calcium Oxalate Dihydrate (Weddellite) 40% Calcium Oxalate Monohydrate (Whewellite) 30% Carbonate Apatite (Dahllite) 30% WEIGHT: 0.022 This test was developed and its analytical performance characteristics have been determined by [employer]. It has not been cleared or approved by FDA. This assay has been validated pursuant to the CLIA regulations and is used for clinical purposes. THIS TEST WAS PERFORMED AT: [facility] [address] [place] [address] ARI WILLIAMSON MD,PHD,TOLU Reason For Referral No Information Encounters Encounter Location Date Provider Diagnosis [facility] [address] [place], [place] [address] 02/21/2024 Junito Oswald Plan Of Treatment No Information
--- OUTSIDE RECORDS SUMMARY | 2024-11-08 09:58 | XMS_ITS ---
Author Organization [facility] Address [address] 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 Past Treatment and Therapy Plans No past plan information found. Lifetime Dose Tracking * Chemical Lifetime Dose Automatic Entry Manual Entr y Total DLP 425 DLP 425 DLP 0 DLP CTDIvol Max 7.4 mGy 7.4 mGy 0 mGy CTDIvol Min 7.4 mGy 7.4 mGy 0 mGy Resolved Problems Problem Noted Date Diagnosed Date Resolved Date PAF (paroxysmal atrial fibrillation) 01/01/2023 05/07/2023
--- OUTSIDE RECORDS SUMMARY | 2024-11-08 09:58 | XMS_ITS | Patient Health Record ---
Author Organization [facility] Address [address] [place] [address] Care Team Providers Care Marketing Operations Manager Name Role Phone Aleyda Jean-Baptiste APRN Primary Care Provider UnavailJUNITO Castañeda Unavailable [phone] ERENDIRA MCGREGOR Unavailable [phone] Junito Madrid Unavailable [phone] Allergies Allergen (clinical drug ingredient) Drug/Non Drug Allergy documented on EMR Reaction Allergy Type Onset Date Status Effexor Unknown Drug Allergy Active fluoxetine PROzac Unknown Drug Allergy Active Wellbutrin Unknown Drug Allergy Active Zofran migraine Drug Allergy Active clonazepam Clonazepam Unknown Drug Allergy Activ e Latex Latex Unknown Allergy Active trazodone Trazodone Unknown Drug Allergy Active Results Component Value Reference Range Notes US Renal w/bladder--[id number] Reviewed date:03/24/2024 05:29:54 PM Interpretation: Performing Lab: Notes/Report: See Below For Report US Renal w/bladder Read See Below For Report Urinalysis, Routine Reviewed date:02/26/2024 01:46:06 PM Interpretation: Performing Lab: Notes/Report: Urine-Color dark yellow Appearance cloudy Glucose - Bilirubin - Ketones - Specific [place] 1.030 Occult Blood 3+ pH 6.0 Urine Protein 2+ Urobilinogen,Semi-Qn - Nitrite, Urine - WBC Esterase 2+ Urinalysis, Routine Reviewed date:02/19/2024 01:38:27 PM Interpretation: Performing Lab: Notes/Report: Urine-Color Dark yellow Appearance clear Glucose - Bilirubin - Ketones - Specific [place] 1.030 Occult Blood 1+ pH 5.5 Urine Protein - Urobilinogen,Semi-Qn - Nitrite, Urine - WBC Esterase - Urinalysis Gross Exam - zzzAbdomen AP Reviewed date:03/24/2024 05:29:45 PM Interpretation: Performing Lab: Notes/Report: See Below For Report Abdomen AP Read See Below For Report Reason For Referral No Information Medications Medication SIG (Take, Route, Frequency, Duration) Notes Start Date End Date Status HYDROcodone-Acetaminophen 5-325 MG 1 tablet as needed Orally every 6 hrs Active Tamsulosin HCl 0.4 MG 1 capsule Orally O nce a day Active ALPRAZolam 0.5 MG 1 tablet Orally Twic e a day Active Cephalexin 500 MG 1 capsule Orally rudy ry 6 hrs Active Social History Tobacco Use: Social History Observation Description Date Details (start date - stop date) Former Smoker NA - NA Tobacco Control (Standard) Question Answer Notes Tobacco use: Former smoker How long has it been since you last smoked? Grea ter than 10 years Problems Problem Type SNOMED Code ICD Code Onset Dates Problem Status W/U Status Risk Notes Problem Ureteral stone with hydronephrosis (N13.2) Active confirmed Problem Nephrolithiasis (05036517) Nephrolithiasis (N20.0) Active confirmed Vital Signs Heart Rate 93 /min 02/26/2024 Temperature 97.9 degrees Fahrenheit 02/19/2024 Blood pressure diastolic 89 mm Hg 02/26/2024 Height-cm 170.18 cm 02/26/2024 Weight-kg 97.52 kg 02/26/2024 Height 67 in 02/26/2024 Blood pressure systolic 147 mm Hg 02/26/2024 Weight 215 lbs 02/26/2024 BMI 33.67 kg/m2 02/26/2024 Procedures Procedure Date Ordered Date Performed Result Body Sit e Bladder Scan 02/19/2024 02/19/2024 N/A Encounters Encounter Location Date Provider Diagnosis [facility] [address] [place] [address] 05/26/2024 Junito Vang [facility] [address] [place] [address] 02/19/2024 Junito Madrid Nephrolithiasis N20. 0 ; Ureteral stone with hydronephrosis N13.2 and Left flank pain R10.9 [facility] [address] [facility] [place] [address] 02/26/2024 JUNITO MONTES Foreign body in othe r parts of genitourinary tract, initial encounter T19.8XXA ; Nephrolithiasis N20.0 ; Ureteral stone with hydronephrosis N13.2 and Left flank pain R10.9 [facility] [address] [place] [address] [facility] [address] [place] [address] 02/19/2024 ERENDIRA MCGREGOR Preop testing Z01.81 8 and Ureteral stone with hydronephrosis N13.2 [facility] [address] [place] [address] 02/20/2024 JUNITO MONTES [facility] [address] [place] [address] 02/24/2024 Junito Mercy [facility] [address] [place] [address] 02/27/2024 JUNITO MONTES Nephrolithiasis N20. 0 Assessments Encounter Date Diagnosis (ICD Code) Assessment Notes Treatment Notes Treatment Clinical Notes Section Notes 02/27/2024 Nephrolithiasis (ICD-10 - N20.0) 02/26/2024 Foreign body in other parts of genitourinary tract, initial encounter (ICD-10 - T19.8XXA) Patient will follow-up in 6 weeks with KUB and Renal US to evaluate for calcifications and occult hydronephrosis respectively. 02/26/2024 Nephrolithiasis (ICD-10 - N20.0) Patient will follow-up in 6 weeks with KUB and Renal US to evaluate for calcifications and occult hydronephrosis respectively. 02/19/2024 Ureteral stone with hydronephrosis (ICD-10 - N13.2) I reviewed previous imaging along with radiology report and discussed findings with patient as seen on [facility]. There is a LEFT mid-distal ureteral stone measuring about 4x5 mm with significant hydronephrosis. Patient is currently doing well with pain control. However, I discussed the option of continuing with trial of passage versus moving forward to the OR. Flomax, strainers, and hydration reinforced. Patient has prescription now. UA test with trace hematuria. Understands the unfavorable chances of passing a stone this size, but it is certainly possible. We also reviewed surgical options, and discuss moving forward with LEFT URS stone manip and ureteral stent placement. Patient is in agreement. Given everything discussed and symptoms, we discussed on how the procedure was performed, and we also had further discussion with risks/benefits/alt ernatives and postprocedural expectations. Presurgical and what to expect postoperatively was also hand delivered to the patient during this visit. The plan is to have this done as soon as possible given symptoms. Patient is agreeable and is eager to have done. Patient is to go to the ER versus clinic depending on severity of symptoms. For now, no further workup or investigation at this time, and further recommendations following the procedure. All questions that were asked, were answered. Patient satisfied with this plan. 02/19/2024 Nephrolithiasis (ICD-10 - N20.0) I reviewed previous imaging along with radiology report and discussed findings with patient as seen on [facility]. There is a LEFT mid-distal ureteral stone measuring about 4x5 mm with significant hydronephrosis. Patient is currently doing well with pain control. However, I discussed the option of continuing with trial of passage versus moving forward to the OR. Flomax, strainers, and hydration reinforced. Patient has prescription now. UA test with trace hematuria. Understands the unfavorable chances of passing a stone this size, but it is certainly possible. We also reviewed surgical options, and discuss moving forward with LEFT URS stone manip and ureteral stent placement. Patient is in agreement. Given everything discussed and symptoms, we discussed on how the procedure was performed, and we also had further discussion with risks/benefits/alt ernatives and postprocedural expectations. Presurgical and what to expect postoperatively was also hand delivered to the patient during this visit. The plan is to have this done as soon as possible given symptoms. Patient is agreeable and is eager to have done. Patient is to go to the ER versus clinic depending on severity of symptoms. For now, no further workup or investigation at this time, and further recommendations following the procedure. All questions that were asked, were answered. Patient satisfied with this plan. 02/19/2024 Preop testing (ICD-10 - Z01.818) 02/19/2024 Left flank pain (ICD-10 - R10.9) I reviewed previous imaging along with radiology report and discussed findings with patient as seen on [facility]. There is a LEFT mid-distal ureteral stone measuring about 4x5 mm with significant hydronephrosis. Patient is currently doing well with pain control. However, I discussed the option of continuing with trial of passage versus moving forward to the OR. Flomax, strainers, and hydration reinforced. Patient has prescription now. UA test with trace hematuria. Understands the unfavorable chances of passing a stone this size, but it is certainly possible. We also reviewed surgical options, and discuss moving forward with LEFT URS stone manip and ureteral stent placement. Patient is in agreement. Given everything discussed and symptoms, we discussed on how the procedure was performed, and we also had further discussion with risks/benefits/alt ernatives and postprocedural expectations. Presurgical and what to expect postoperatively was also hand delivered to the patient during this visit. The plan is to have this done as soon as possible given symptoms. Patient is agreeable and is eager to have done. Patient is to go to the ER versus clinic depending on severity of symptoms. For now, no further workup or investigation at this time, and further recommendations following the procedure. All questions that were asked, were answered. Patient satisfied with this plan. 02/19/2024 Ureteral stone with hydronephrosis (ICD-10 - N13.2) 02/26/2024 Ureteral stone with hydronephrosis (ICD-10 - N13.2) Patient will follow-up in 6 weeks with KUB and Renal US to evaluate for calcifications and occult hydronephrosis respectively. 02/26/2024 Left flank pain (ICD-10 - R10.9) Patient will follow-up in 6 weeks with KUB and Renal US to evaluate for calcifications and occult hydronephrosis respectively. Plan Of Treatment Pending Test Test Name Order Date KUB, X-Ray: Abdomen, Kidney, Urete r, bladder 02/27/2024 Electrocardiogram, 12 Lead Tracing-[id number] 02/19/2024 Insurance Providers Payer Name Payer Address Payer Phone Subscriber Number Group Number Insured Name Patient Relationship to Insured Coverage Start Date Coverage End Date [place] Medicaid [address] [place], [place] [id number] [phone] [id number] Arlyn Lawson Self - patient is the insured Medical (General) History Medical History History ICD Code Anxiety Soft tissue carcinoma Kidney stones Recurrent UTI Surgical History Surgery Date(Month/Year) cholecystectomy 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
--- OUTSIDE RECORDS SUMMARY | 2024-11-08 09:58 | XMS_ITS | Clinical Summary ---
Author Organization [facility] Address [address] [facility] [address] Attn: Epic Prelude ADT LILIANE MARTE [address] Care Team Providers Care Human Resources Benefits Administrator Name Role Phone Chris Meade MD Primary Care Provider [phone] Allergies Active Allergy Reactions Criticality Noted Date Comments Bee Venom Protein (Honey Bee) Anaphylaxis High 10/17 Bupropion Unknown 11/23/2013 Bupropion Hcl Unknown 09/27/2022 Clonazepam Unknown 11/23/2013 Fluoxetine Unknown 09/27/2022 Latex Itching Low 11/23/2013 Mold Unknown 05/07/2023 Trazodone Weakness Low 07/15/2023 Trazodone-Dietary Supp No.8 Unknown 11/24/19 14 Venlafaxine Unknown 11/23/2013 Medications multivitamin/iro n/folic acid (CENTRUM WOMEN ORAL) Take by mouth. Activ e OMEGA-3 FATTY ACIDS-FISH OIL ORAL Take 1,000 mg by mouth daily. Active CALCIUM-MAGNESIU M-ZINC ORAL Take by mouth. Take 3 tablets by mouth daily Active triamcinolone acetonide (KENALOG) 0.1 % Cream APPLY CREAM EXTERNALLY TO RASH ONCE DAILY NEEDED 2 Active rhubarb root extract (ESTROVEN CMPLT MENOPAUSE RLF ORAL) Take by mouth. Activ e lidocaine (LIDODERM) 5 % Adhesive Patch, MedicatedIndicat ions:Undifferent iated pleomorphic sarcoma (CMS/HCC) Apply 1 Patch to affected area every 24 hours. 30 Patch 3 2 Active traMADoL (ULTRAM) 50 mg tablet Take 50 mg by mouth every 6 hours as needed. 3 Active Narcan 4 mg/actuation [place], Non-Aerosol CALL 911. SPR CONTENTS OF ONE SPRAYER (0.1ML) INTO ONE NOSTRIL. REPEAT IN 2-3 MIN IF SYMPTOMS OF OPIOID EMERGENCY PERSIST, ALTERNATE NOSTRILS 3 Active cholecalciferol, Vitamin D3, (VITAMIN D3) 25 mcg (1,000 unit) Capsule daily. 4 Active vitamin E 1,000 unit Capsule daily. 4 Active ondansetron (ZOFRAN) 4 mg Tablet Take 1 Tablet by mouth every 6 hours. 4 Active cyclobenzaprine (FLEXERIL) 5 mg TabletIndication s:Cancer associated pain Take 1 Tablet (5 mg) by mouth nightly as needed for Spasm. 30 Tablet 2 4 Active tamsulosin (FLOMAX) 0.4 mg capsule Take 0.4 mg by mouth daily. Active doxepin (SINEquan) 10 mg capsuleIndicatio ns:Insomnia, unspecified type Take 1 Capsule (10 mg) by mouth daily at bedtime. 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 Abdominal pain, chronic, epigastric 11/23/2013 GERD (gastroesophageal reflux disease) 4 Dysphagia 11/23/2013 NAFLD (nonalcoholic fatty liver disease) 014 Resolved Problems Problem Noted Date Diagnosed Date Resolved Date PAF (paroxysmal atrial fibrillation) 01/01/2023 05/07/2023 Encounters Date Type Department Care Team Description 10/21/2024 External Device Data STL ABSTRACTION Provider, Abstract 10/20/2024 External Device Data STL ABSTRACTION Provider, Abstract 08/24/2024 Results Follow-Up [facility] Medicine [place] [address] [place] [id number] Chris Meade MD MAMMO 3D CIERA SCREEN BILAT W OR WO CAD 08/18/2024 2:16 PM CDT - 08/18/2024 11:59 PM CDT Hospital Encounter [facility] Mammography [place] [address] [place] [id number] Aleyda Jean-Baptiste FNP Discharge Disposition: Home or Self Care from Last 3 Months Family History Medical History Relation Name Comments Unknown Father Ovarian Cancer Maternal Aunt Ovarian Cancer Maternal Cousin Atrial fibrillation Mother Hypertension Mother Ovarian Cancer Mother Colon Cancer Neg Hx Relation Name Status Comments Father Maternal Aunt Maternal Cousin Alive Mother Social History Tobacco Use Types Packs/Day Years Used Date Smoking Tobacco: Former Cigarettes 0.5 8 0 06/11/2002 - 06/11/2010 Smokeless Tobacco: Never Tobacco Cessation:Counseling Given: No Alcohol Use Standard Drinks/Week Comments No 0 (1 standard drink = 0.6 oz pur e alcohol) Feeling Safe Answer Date Recorded Are you in a relationship wi th someone who hurts you emotionally and/or physically? No 09/11/2023 Comments No Sex and Gender Information Value Date Recorded Sex Assigned at Not on file Legal Sex Female 5:03 AM CRANE ENGINEER Gender Identity Not on file Sexual Orientation Not on file Last Filed Vital Signs Vital Sign Reading Time Taken Comments Blood Pressure 128/82 04/06/2024 9:18 AM CRANE ENGINEER Pulse 78 04/06/2024 9:18 AM CRANE ENGINEER Temperature 36.3 C (97.4 F) 04/06/2024 9:18 AM CRANE ENGINEER Respiratory Rate 18 04/06/2024 9:18 AM CRANE ENGINEER Oxygen Saturation 99% 04/06/2024 9:18 AM CRANE ENGINEER Inhaled Oxygen Concentration - - Weight 104.8 kg (231 lb) 04/06/2024 9:18 AM CRANE ENGINEER Height 170.2 cm (5' 7 ) 04/06/2024 9:18 AM CRANE ENGINEER Body Mass Index 36.18 04/06/2024 9:18 AM CRANE ENGINEER Plan of Treatment Upcoming Encounters Date Type Department Care Team (Late st Contact Info) Description 02/15/2025 1:00 PM CDT Office Visit [facility] [address] [phone] Chris Meade MD [address] [place] [address] Health Maintenance Due Date Last Done Comments Pre-Diabetes and Diabetes Screening 1970 DTAP/TDAP/TD VACCINES (1 - Tdap) 10/20/1991 HEPATITIS B VACCINES (1 of 3 - 19+ 3-dose series) 10/20/1991 Preventative Visit-Managed Medicaid 10/20/1991 FIT-DNA Q 3 years 2017 FIT/FOBT Q 1 year 2017 Flex Sig/CT Colonography Q 5 years 2017 ZOSTER VACCINE (1 of 2) 2022 INFLUENZA VACCINE (#1) 2024 , 02/14/2024, 05/07/2023, Additional history exists BREAST CANCER SCREENING 08/18/2025 08/18/2024, 11/22 PAP SMEAR 12/18/2026 12/19/2023 CERVICAL CANCER SCREENING 12/18/2028 HPV/Cotest (21-29) 12/18/2028 12/19/2023 HPV/Cotest (30-65) 12/18/2028 12/19/2023 COLORECTAL SCREENING 09/10/2033 09/11/2023, 09/11/19 24 Colorectal Cancer Screening 09/10/2033 Procedures Procedure Name Priority Date/Time Associated Diagnosis Comments MAMMO 3D CIERA SCREEN BILAT W OR WO CAD Routine 08/18/2024 2:30 PM CDT Screening mammogram, encounter for CERV/VAG CYTO SCREEN PAP W/HPV Routine 12/19/2023 2:51 PM CDT Screening for cervical cancer COLONOSCOPY REPORT 09/11/2023 2: 50 PM CDT from Last 3 Months or Most Recently Relevant to Health Maintenance Results * MAMMO 3D CIERA SCREEN BILAT W OR WO CAD (08/18/2024 2:30 PM CDT) Anatomical Region Laterality Modality Breast Bilateral Mammography, Dig ital Radiography Impressions 08/24/2024 1:50 AM CDT : No mammographic evidence of malignancy. BI-RADS ASSESSMENT: 1 - Negative RECOMMENDATION: Routine annual screening mammography. Narrative 08/24/2024 1:50 AM CDT EXAM: MAMMO SCRN BILAT 3D CIERA W OR WO CAD INDICATION: Screening COMPARISON: 02/04/2023 MAMMO PRIOR STUDY and 11/22/2021 MAMMO PRIOR STUDY BREAST COMPOSITION: There are scattered areas of fibroglandular density. FINDINGS: RIGHT BREAST: There are no suspicious masses, calcifications, or areas of architectural distortion. LEFT BREAST: There are no suspicious masses, calcifications, or areas of architectural distortion. Aleyda Jean-Baptiste BLEACH BOILER PACKER MAMMO ORDERABLES Final Result * CERV/VAG CYTO SCREEN PAP W/HPV (12/19/2023 2:51 PM CDT) CLINICAL INFORMATION [facility] Comment:Routine exam LAST MENSTRUAL PERIOD [facility] Comment:NONE GIVEN PREV PAP: [facility] Comment:NONE GIVEN PREV BX: [facility] Comment:NONE GIVEN SOURCE [facility] Comment:Endocervix ADEQUACY: [facility] Comment: Satisfactory for evaluation. Endocervical/transformation zone component present. Age and/or menstrual status not provided PAP INTERP [facility] Comment: Cytology Results: Negative for intraepithelial lesion or malignancy. COMMENT (PAP TEST) [facility] [place] Comment: This Pap test has been evaluated with computer assisted technology. ORACLE BPM DEVELOPER: Last Chavez Comment: MEF, CT(ASCP) CT screening location: [place] [address] [address] LILIANE Roasrio [address] REVIEW ORACLE BPM DEVELOPER: Candi Chavez Comment: ABC, CT(ASCP) CT screening location: [place] [address] Administration LILIANE Rosario146 EXPLANATORY NOTE [facility] [place] Comment: EXPLANATORY NOTE: The Pap is a screening test for cervical cancer. It is not a diagnostic test and is subject to false negative and false positive results. It is most reliable when a satisfactory sample, regularly obtained, is submitted with relevant clinical findings and history, and when the Pap result is evaluated along with historic and current clinical information. HPV E6/E7 Not Detected Not Detected [employer] [place] Comment: Methodology: Manufacturing Finance Manager-Mediated Amplification This assay detects E6/E7 viral messenger RNA (mRNA) from 14 high-risk HPV types (16,18,31,33,35,39,45,51,52,56,58,59,66,68). Cervical sources are required for HPV testing. If a vaginal source from a patient who has had a total hysterectomy with removal of cervix was submitted, please contact the testing laboratory for alternative testing options. For additional information, please refer to http://education.Biomoti/faq/GSA552y3 (This link if provided for information/ educational purposes only.) Test Performed at: [facility] [address] [place] [address] Alex REYES Genital SWAB OF ENDOCERVIX / Unknown 12/19/2023 2:51 PM CDT 12/20/2023 8:59 AM CDT Michelle Sales NP PATHOLOGY/CYTOLOGY ORDERABL ES Final Result [facility] [phone] [facility] [address] [place] [address] * COLONOSCOPY REPORT (09/11/2023 2:50 PM CDT) Narrative Procedure Note Lucio Jones MD - 09/11/2023 2:50 PM CDT [facility] GI Patient Name: Arlyn Lawson Procedure Date: 09/11/2023 Date of : 1970 Admit Type: Outpatient Age: 52 Attending MD: Lucio Jones , , Procedure: Colonoscopy Indications: Screening for colorectal malignant neoplasm Providers: Lucio Jones Referring MD: Quintin Sebastian MD, Aleyda Jean-Baptiste Medicines: Monitored Anesthesia Care Complications: No immediate complications. Procedure: Pre-Anesthesia Assessment: - The risks and benefits of the procedure and the sedation options and risks were discussed with the patient. All questions were answered and informed consent was obtained. - ASA Grade Assessment: II - A patient with mild systemic disease. After I obtained informed consent, the scope was passed under direct vision. Throughout the procedure, the patient's blood pressure, pulse, and oxygen saturations were monitored continuously. The Colonoscope was introduced through the anus and advanced to 7 cm into the ileum. The colonoscopy was performed without difficulty. The patient tolerated the procedure well. The quality of the bowel preparation was adequate. Estimated Blood Loss: Estimated blood loss: none. Findings: The perianal and digital rectal examinations were normal. Many diverticula were found in the sigmoid colon. The exam was otherwise without abnormality on direct and retroflexion views. The terminal ileum appeared normal. Impression: - Diverticulosis in the sigmoid colon. - The examination was otherwise normal on direct and retroflexion views. - The examined portion of the ileum was normal. - No specimens collected. Recommendation: - Repeat colonoscopy in 10 years for screening purposes. Lucio Jones, 09/11/2023 2:50:02 PM Number of Addenda: 0 Note Initiated On: 09/11/2023 2:19 PM Scope Withdrawal Time 0 hours 10 minutes 15 seconds Scope In: 2:28:57 PM Scope Out: 2:45:41 PM [address] [place], [place] Lucio Jones MD GI PROCEDURE ORDERABLES Final Result from Last 3 Months or Most Recently Relevant to Health Maintenance Insurance MEDICAID [place] Advance Directives For more information, please contact: [phone] * Full Code (Latest Code Status on File) Date Activated Date Inactivated Comments 09/11/2023 1:06 PM 09/11/2023 5:32 PM Care Teams Human Resources Benefits Administrator Relationship Specialty Start Date End Date Chris Meade MD [address] [phone] PCP - General Family Practice 07/22/23
[2024-11-08 10:02] VITALS: BP 107/71; PULSE 87; RESP 18; TEMP 36.8; O2SAT 97; BMI 34.4
--- NOTE | 2024-11-08 10:08 | CTR_ITS ---
PROCEDURE INFORMATION: Exam: CT Abdomen And Pelvis With Contrast Exam date and time: 11/08/2024 10:34 AM Age: 54 years old Clinical indication: Abdominal pain; Localized; Left; Additional info: Abd pain TECHNIQUE: Imaging protocol: Computed tomography of the abdomen and pelvis with contrast. Radiation optimization: All CT scans at this facility use at least one of these dose optimization techniques: automated exposure control; mA and/or kV adjustment per patient size (includes targeted exams where dose is matched to clinical indication); or iterative reconstruction. Contrast material: OMNIPAQUE 350; Contrast volume: 100 ml; Contrast route: INTRAVENOUS (IV); COMPARISON: CT abdomen pelvis wo con [id number] 02/25/2024 11:36 AM RADIATION DOSE METRICS: Total DLP (mGy-cm): 1051.23 FINDINGS: Diaphragm: Small hiatal hernia. Liver: The liver measures 16.9 cm in length. Gallbladder and biliary ducts: Post cholecystectomy changes are seen. Pancreas: Normal. No ductal dilation. Spleen: Normal. No splenomegaly. Adrenal glands: Normal. No mass. Kidneys and ureters: Right renal parapelvic cysts. Stomach and bowel: There is bowel wall thickening with pericolonic inflammatory changes involving the sigmoid colon. Diverticulosis noted in this area. Diffuse diverticulosis is seen. No small bowel loop dilatation. Appendix: Appendix is normal. Intraperitoneal space: Unremarkable. No free air. No significant fluid collection. Vasculature: Unremarkable. No abdominal aortic aneurysm. Lymph nodes: Shotty retroperitoneal lymph nodes. Urinary bladder: Unremarkable as visualized. Reproductive: Unremarkable as visualized. Bones/joints: Unremarkable. No acute fracture. Soft tissues: Unremarkable. CT/CT abdomen pelvis w con* [id number] IMPRESSION: 1. Findings suggest acute diverticulitis involving the sigmoid colon. No abscess. 2. Hepatomegaly. 3. Small hiatal hernia. 4. Diffuse diverticulosis is seen. COMMENTS: Consistent with the [employer] [employer]'s Incidental Findings Committee white paper (J Am Valencia Radiol 2018): Any incidental renal lesion less than 1 cm or classified as too small to characterize, or any incidental cystic renal lesion characterized as simple-appearing, is likely benign. No follow-up imaging is recommended for these lesions per consensus recommendations based on imaging criteria.
--- NOTE | 2024-11-08 10:09 | W.ED.ANXIETY ---
HPI - Anxiety General: Chief Complaint: Anxiety Stated Complaint: possible panic attack, abd pain, nausea Time Seen by Provider: 11/08/24 09:58 Source: patient Mode of arrival: ambulatory Limitations: no limitations History of Present Illness: 54-year-old female states she has had some left lower abdominal pain and flank pain started today. States she has had a history of diverticulitis worried she is having diverticulitis flare. She states she also feels quite anxious as her is here being seen in the ER and states she feels like she is having a panic attack. She is tearful and anxious here. She rates her abdominal pain as 6 out of 10 denies any vomiting or diarrhea she denies any chest pain Associated symptoms: Deny chest pain, chills, fever(s), headache(s), nausea or vomiting Related Data Home Medications ?Medication ?Instructions ?Recorded ?Confirmed Cbd Gummies 1 ea PO PRN 10/14/23 07/02/24 melatonin 5 mg tablet 5 mg PO BEDTIME PRN Sleep 10/14/23 07/02/24 alprazolam 0.5 mg tablet 0.5 mg PO DAILY PRN Anxiety 02/13/24 07/02/24 cyclobenzaprine 5 mg tablet 5 mg PO DAILY 02/13/24 07/02/24 Previous Rx's ?Medication ?Instructions ?Recorded hydrocodone 5 mg-acetaminophen 325 1 tab PO Q6H PRN pain #20 tabs 02/13/24 mg tablet ondansetron 8 mg disintegrating 8 mg PO Q6H #14 tabs 02/13/24 tablet tamsulosin 0.4 mg capsule (Flomax) 0.4 mg PO DAILY #30 caps 02/13/24 oxycodone 5 mg tablet 5 mg PO Q8H PRN pain #20 tabs 02/25/24 hydrocodone 5 mg-acetaminophen 325 1 tab PO Q6H PRN pain #14 tabs 09/28/24 mg tablet ciprofloxacin HCl 500 mg tablet 500 mg PO BID #14 tabs 11/08/24 (Cipro) metronidazole 500 mg tablet 500 mg PO Q8H 7 days #21 tabs 11/08/24 Allergies Allergy/AdvReac Type Severity Reaction Status Date / Time bee venom protein (honey bee) Allergy ALGY-Anaphy Verified 11/08/24 10:06 laxis bupropion (From Wellbutrin) Allergy Unknown Verified 11/08/24 10:06 clonazepam (From Klonopin) Allergy ADR-Irritab Verified 11/08/24 10:06 le fluoxetine (From Prozac) Allergy ADR-Irritab Verified 11/08/24 10:06 le latex Allergy ALGY-Rash Verified 11/08/24 10:06 ondansetron (From Zofran) Allergy Unknown Verified 11/08/24 10:06 trazodone Allergy ADV-Weaknes Verified 11/08/24 10:06 s venlafaxine (From Effexor) Allergy Unknown Verified 11/08/24 10:06 Review of Systems Const: Denies: fever(s), chills, body aches or change in appetite ENMT: Denies: throat pain or dental pain Card: Denies: chest pain Resp: Denies: dyspnea GI: Reports: abdominal pain; Denies: nausea, vomiting or diarrhea Musc: Denies: neck pain or back pain Skin/Breast: Denies: rash Neuro: Denies: headache(s) Psych: Reports: anxiety PFSH ED PFSH: Medical History Urolithiasis Left ureteral calculus GERD (gastroesophageal reflux disease) 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 Surgical History Status post laparoscopic Kellie fundoplication (10/27/19) Laparoscopic paraesophageal hernia repair with mesh placement and Niesen fundoplication with intraoperative EGD History of tubal ligation History of cholecystectomy Family History Father Dementia Brother CAD (coronary artery disease) Other Cancer Diabetes Hyperlipidemia Hypertension Psychiatric illness Stroke Denies family history of Clotting disorder Chronic kidney disease (CKD) Suicide Anesthesia complication Bleeding disorder Lung disease Social History Smoking and tobacco/nicotine status: never used tobacco/nicotine Alcohol intake: current Alcohol intake frequency: holidays/special occasions only Physical Exam Const: COMMON NORMALS: patient oriented x3 HENMT: COMMON NORMALS: normocephalic and atraumatic HEAD & SCALP: normocephalic and atraumatic Eye: COMMON NORMALS: conjunctivae normal CONJUNCTIVA: Yes conjunctivae normal Neck/C-Spine: COMMON NORMALS: full ROM and supple Chest: COMMONS NORMALS: normal inspection of the chest Resp: COMMON NORMALS: normal respiratory effort, No retractions, No use of accessory muscles and clear to auscultation bilaterally AUSCULTATION: clear to auscultation bilaterally Cardio: COMMON NORMALS: regular rate, regular rhythm and No murmurs present (Cardio) RATE: regular rate RHYTHM: regular rhythm GI: COMMON NORMALS: Normal to inspection, nondistended, normoactive bowel sounds present, Soft to palpation and no masses PALPATION: Yes Soft to palpation and Yes Tenderness to palpation present (GI) Details: LLQ Extremity: COMMON NORMALS: normal to inspection and full ROM Neuro: COMMON NORMALS: patient oriented x3, moves all extremities and no focal motor deficits Psych: COMMON NORMALS: mental status grossly normal, Normal thought process present and cooperative MOOD & AFFECT: Yes anxious THOUGHT PROCESS: Normal thought process present Skin: COMMON NORMALS: no rashes or lesions noted and no wounds GENERAL SKIN EXAM: no rashes or lesions noted Course Vital Signs: Vital signs: Vital Signs Temperature 98.2 F 11/08/24 10:02 Pulse Rate 87 11/08/24 10:02 Respiratory Rate 20 H 11/08/24 10:23 Blood Pressure 107/71 11/08/24 10:02 Pulse Oximetry 97 11/08/24 10:23 Oxygen Delivery Me thod Room Air 11/08/24 10:02 MDM - Anxiety Medical Decision Making Patient presents here with abdominal pain CT does show diverticulitis she is well-appearing here white count is normal we will place her on antibiotics outpatient she is return if worsening she understands agrees to plan. Medical Records I reviewed the patient's medical records. Lab Data I reviewed the patient's lab results. 11/08/24 10:13 11/08/24 10:13 Radiology Impressions Abdomen/Pelvis CT 11/08/24 10:08 IMPRESSION: 1. Findings suggest acute diverticulitis involving the sigmoid colon. No abscess. 2. Hepatomegaly. 3. Small hiatal hernia. 4. Diffuse diverticulosis is seen. COMMENTS: Consistent with the [place] [employer]'s Incidental Findings Committee white paper (J Am Valencia Radiol 2018): Any incidental renal lesion less than 1 cm or classified as too small to characterize, or any incidental cystic renal lesion characterized as simple-appearing, is likely benign. No follow-up imaging is recommended for these lesions per consensus recommendations based on imaging criteria. Laboratory Results WBC 12.53 10^3/uL (3.29-11.43) H 11/08/24 10:13 RBC 4.66 10^6/uL (3.85-5.65) 11/08/24 10:13 Hgb 13.80 g/dL (11.27-16.99) 11/08/24 10:13 Hct 42.3 % (36-47) 11/08/24 10:13 MCV 90.8 fl (85-98) 11/08/24 10:13 MCH 29.6 pg (27-33) 11/08/24 10:13 MCHC 32.6 g/dL (30-55) 11/08/24 10:13 RDW 13.1 % (12.1-15.1) 11/08/24 10:13 Plt Count 322 10^3/cmm (157-399) 11/08/24 10:13 MPV 10.6 fL (7.4-10.4) H 11/08/24 10:13 Neut % (Auto) 80.0 % 11/08/24 10:13 Lymph % (Auto) 10.9 % 11/08/24 10:13 [place] % (Auto) 7.3 % 11/08/24 10:13 Eos % (Auto) 1.3 % 11/08/24 10:13 Baso % (Auto) 0.2 % 11/08/24 10:13 Neut # (Auto) 10.03 10^3/uL (1.8-7.7) H 11/08/24 10:13 Lymph # (Auto) 1.4 10^3/uL (0.8-4.8) 11/08/24 10:13 [place] # (Auto) 0.9 10^3/uL (0.2-0.9) 11/08/24 10:13 Eos # (Auto) 0.2 10^3/uL (0.0-0.8) 11/08/24 10:13 Baso # (Auto) 0.0 10^3/uL (0.0-0.1) 11/08/24 10:13 Nucleated RBC % (auto) 0 % 11/08/24 10:13 Nucleated RBCs # 0.0 /100WBC 11/08/24 10:13 Sodium 138 mmol/L (136-145) 11/08/24 10:13 Potassium 4.5 mmol/L (3.5-5.1) 11/08/24 10:13 Chloride 105 mmol/L (98-107) 11/08/24 10:13 Carbon Dioxide 17 mmol/L (22-29) L 11/08/24 10:13 Anion Gap 20.5 (5-19) H 11/08/24 10:13 BUN 10 mg/dL (6-20) 11/08/24 10:13 Creatinine 0.6 mg/dL (0.5-0.9) 11/08/24 10:13 GFR Calculation 105.0 mL/min (90-130) 11/08/24 10:13 Glucose 102 mg/dL (65-115) 11/08/24 10:13 Calculated Osmolality 285 mOsm/kg (285-295) 11/08/24 10:13 Calcium 9.4 mg/dL (8.5-10.5) 11/08/24 10:13 Total Bilirubin 0.6 mg/dL (0.15-1.2) 11/08/24 10:13 AST 19 U/L (0-32) 11/08/24 10:13 ALT 22 U/L (0-33) 11/08/24 10:13 Alkaline Phosphatase 79 U/L (35-105) 11/08/24 10:13 Total Protein 7.5 g/dL (6.6-8.7) 11/08/24 10:13 Albumin 4.0 g/dL (3.5-5.2) 11/08/24 10:13 Globulin 3.5 g/dL (1.3-4.6) 11/08/24 10:13 Lipase 39 U/L (13-60) 11/08/24 10:13 All radiology interpretation(s) finalized by discharge Discharge Plan Discharge Patient Disposition: Home Clinical Impression: Diverticulitis Condition: Stable Prescriptions: New metronidazole 500 mg tablet 500 mg PO Q8H 7 Days Qty: 21 0RF ciprofloxacin HCl [Cipro] 500 mg tablet 500 mg PO BID Qty: 14 0RF No Action oxycodone 5 mg tablet 5 mg PO Q8H PRN (Reason: pain) Qty: 20 0RF melatonin 5 mg Tablet 5 mg PO BEDTIME PRN (Reason: Sleep) Cbd Gummies 1 ea PO PRN alprazolam 0.5 mg tablet 0.5 mg PO DAILY PRN (Reason: Anxiety) cyclobenzaprine 5 mg tablet 5 mg PO DAILY hydrocodone-acetaminophen 5-325 mg tablet 1 tab PO Q6H PRN (Reason: pain) Qty: 20 0RF ondansetron 8 mg tablet,disintegrating 8 mg PO Q6H Qty: 14 0RF Rx Instructions: Take 1/2-1 tab every 6 hours as needed for nausea and vomiting tamsulosin [Flomax] 0.4 mg capsule 0.4 mg PO DAILY Qty: 30 0RF hydrocodone-acetaminophen 5-325 mg tablet 1 tab PO Q6H PRN (Reason: pain) Qty: 14 0RF Discharge Orders: Discharge ED (Routine); Ordered 11/08/24 Ordered By: José Miguel Caballero Referrals: Aleyda Jean-Baptiste FNP [Primary Care Provider, Family Practice] - 4-7 days Discharge Diet: Advance as tolerated Discharge Activity: Resume usual activity Patient Instructions: Diverticulitis (ED), Opioid Safety Print Language: Greenlandic Coding Level of Care Code ED Credentials Specialist for Miriam Gamez
[2024-11-08 10:23] VITALS: RESP 20; O2SAT 97
[2024-11-08] MEDS: LORazepam 1 MG/0.5 ML injection IVP (10:23)
[2024-11-08] MEDS: morphine 4 mg/mL SDV 1 mL IVP (10:23)
[2024-11-08 10:24] LABS: Hematocrit 42.3 % (36-47); Hemoglobin 13.80 g/dL (11.27-16.99); Mean Corpuscular HGB Conc 32.6 g/dL (30-55); Mean Corpuscular Hemoglobin 29.6 pg (27-33); Mean Corpuscular Volume 90.8 fl (85-98); Nucleated Red Blood Cells % 0 %; Platelet Count 322 10^3/cmm (157-399); Red Blood Count 4.66 10^6/uL (3.85-5.65); White Blood Count 12.53 10^3/uL (3.29-11.43)
[2024-11-08] MEDS: iohexol 350 mg/mL 500 mL Btl (per mL) IV (10:37)
[2024-11-08 10:56] LABS: Alanine Aminotransferase 22 U/L (0-33); Albumin Level 4.0 g/dL (3.5-5.2); Alkaline Phosphatase 79 U/L (35-105); Anion Gap 20.5 (5-19); Aspartate Amino Transferase 19 U/L (0-32); Blood Urea Nitrogen 10 mg/dL (6-20); Calcium 9.4 mg/dL (8.5-10.5); Carbon Dioxide 17 mmol/L (22-29); Chloride 105 mmol/L (98-107); Creatinine Clr Calc Pharmacy 133.1094; Globulin 3.5 g/dL (1.3-4.6); Glucose 102 mg/dL (65-115); Lipase 39 U/L (13-60); Osmolality Calculated 285 mOsm/kg (285-295); Potassium 4.5 mmol/L (3.5-5.1); Sodium 138 mmol/L (136-145); Total Protein 7.5 g/dL (6.6-8.7)
[2024-11-08 11:18] VITALS: BP 131/104; PULSE 85; O2SAT 99
== END 2024-11-08 11:19 | disposition home or self-care (01) ==
PROVIDERS: Emergency Provider Emergency Medicine; PCP Nurse Practitioner Family
DX: K57.92 Diverticulitis of intestine, part unspecified, without perforation or abscess without bleeding (principal)
CPT/HCPCS: 74177; 80053; 83690; 85025; 96374; 96375; 99285; J2060; J2270; J9999

== ENCOUNTER 2024-11-13 13:45 | Emergency (ER) | payer BC, MEDICAID, SELFPAY ==
--- OUTSIDE RECORDS SUMMARY | 2024-02-21 08:00 | XMS_ITS ---
Author Organization [facility] Address [address] [facility] [place] [id number] Care Team Providers Care Unit Coordinator Name Role Phone Junito Oswald Unavailable [phone] REASON FOR VISIT L URS Stone Manip Stent Placement @ [phone] Encounters Encounter Location Date Provider Diagnosis [facility] [address] [place] [address] 02/21/2024 Junito Oswald Plan Of Treatment No Information Progress Notes * Arlyn LAWSONDOB:1970 (54 yo F)Acc No.[id number]:02/21/2024 Patient: Arlyn BLUE Provider: Carolina Oswald MD :1970 A ge:53 Y S ex:Female Date:02/21/2024 Address:[facility] [address] [facility] * * Electronic signature of Domingo Oswald MD on 11/13/2024 at 01:52 PM CDT Sign off status: Pending * Provider: Carolina Oswald MD Date: Generated for Flaco staton/Teena/eTmarcellsmitting on: 0 11/13/2024 01:52 PM CDT
--- OUTSIDE RECORDS SUMMARY | 2024-04-08 12:00 | XMS_ITS ---
Author Organization [facility] Address [address] [place] [address] Care Team Providers Care Behavior Support Specialist Name Role Phone Aleyda Jean-Baptiste APRN Primary Care Provider MART Hankins [phone] REASON FOR VISIT 6 wks w/ kub/rosetta Encounters Encounter Location Date Provider Diagnosis [facility] [address] [place] [facility] [address] 04/08/2024 MART OSWALD Plan Of Treatment No Information Progress Notes * Arlyn LAWSON RDOB: 3 (54 yo F)Acc No.[id number]:04/08/2024 Progress Notes Patient: Arlyn BLUE Provider: Carolina Oswadl MD :1970 A ge:53 Y S ex:Female Date:04/08/2024 Address:[facility] [place] [place] Pcp:Aleyda Jean-Baptiste APRN Subjective: * Chief Complaints: * 1 . 6 wks w/ kub/rosetta. * Medical History: Objective: * Vitals: Assessment: Plan: * Treatment: * Billing Information: * Visit Code: * Procedure Codes: * Electronic signature of DONTE OSWALD MD on 11/13/2024 at 01:52 PM CDT Sign off status: Pending * Provider: Carolina Oswald MD Date: 1 06/09/2023 Generated for Flaco staton/Teena/Marie on: 0 11/13/2024 01:52 PM CDT
--- OUTSIDE RECORDS SUMMARY | 2024-05-26 08:40 | XMS_ITS ---
Author Organization [facility] [employer] Address [address] [place] [address] Care Team Providers Care Tool Maker Name Role Phone Aleyda Jean-Baptiste APRN Primary Care Provider JUNITO Hankins Unavailable [phone] Junito Madrid Unavailable [phone] REASON FOR VISIT 6 wks w/ kub/rosetta Encounters Encounter Location Date Provider Diagnosis [facility] [address] [place] [address] 05/26/2024 Junito Madrid Plan Of Treatment No Information Progress Notes * Arlyn LAWSON RDOB: 3 (54 yo F)Acc No.[id number]:05/26/2024 Progress Notes Patient: Charly PURI Arlyn Morgan Provider: Carolina Madrid APRN :1970 A ge:53 Y S ex:Female Date:05/26/2024 Address:[address] [facility] Pcp:Aleyda Jean-Baptiste APRN Subjective: * Chief Complaints: * 1 . 6 wks w/ kub/rosetta. * Medical History: Objective: * Vitals: Assessment: Plan: * Treatment: * Billing Information: * Visit Code: * Procedure Codes: * Electronic signature of Domingo Madrid APRN on 11/13/2024 at 01:52 PM CDT Sign off status: Pending * Provider: Carolina Madrid APRN Date: 0 05/26/2024 Generated for Flaco staton/Teena/Marie on: 0 11/13/2024 01:52 PM CDT
--- OUTSIDE RECORDS SUMMARY | 2024-08-05 23:59 | XMS_ITS | Continuity of Care Document ---
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 08/05/2024 Diagnosis Migraine (disorder) 08/05/2024 Diagnosis Body mass index 30+ - obesity (finding) Active Condition Added by Discern Rule PROB_ADD_BMI Malignant tumor of lower limb (disorder) Active Condition Obesity (disorder) Active Condition A dded by Discern Rule PROB_ADD_BMI Encounter for antineoplastic chemotherapy Active Diagnosis 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 Diagnosis Nausea with vomiting, unspecified Active Diagnosis Chest pain, unspecified Active Diagnosis Persons encountering health services in other specified circumstances Active Diagnosis Nausea and vomiting (disorder) Diagnosis History of - Disorder (context-dependent category) Diagnosis Long-term current use of anticoagulant (situation) Diagnosis Encounter for other preprocedural examination Active Diagnosis Obesity (disorder) Diagnosis Obese class I (finding) Diagnosis Anxiety disorder (disorder) Diagnosis Long-term current use of drug therapy (situation) Diagnosis Allergy to substance (disorder) Diagnosis Drug allergy (disorder) Diagnosis Encounter for adjustment and management of vascular access device Active Diagnosis Chest pain (finding) Diagnosis 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) Diagnosis Procedure carried out on subject (situation) Diagnosis Pain due to neoplastic disease (finding) Diagnosis Iron deficiency anemia (disorder) Diagnosis Thrombocytosis (disorder) Diagnosis Kidney stone (disorder) Diagnosis Patient encounter status (finding) Diagnosis Diverticula of intestine (disorder) Diagnosis Migraine, unspecified, not intractable, without status migrainosus Active Diagnosis Primary malignant neoplasm of right lower limb Diagnosis Urinary tract infectious disease (disorder) Diagnosis Adverse reaction to drug (disorder) Diagnosis Spasm (finding) Diagnosis Jump from [facility] (finding) Diagnosis Procedure carried out on subject (situation) Diagnosis Procedure not done (context-dependent category) Diagnosis Allergies, Adverse Reactions, Alerts Substance Category Reaction Severity Reaction type Status Date Reported Comments Source Wellbutrin Assertion Moderate Drug allergy Active [facility] Effexor Assertion Swelling of bilateral lower limbs Drug allergy Active [facility] PROzac Assertion Moderate Drug allergy [facility] [place] Latex Assertion Moderate Allergy to substance Active [facility] [place] Bee Venom Assertion Allergy to substance Active [facility] Mold Assertion Allergy to substance Active [facility] traZODone Assertion Instability of gait Drug allergy Active [facility] KlonoPIN Assertion Moderate Drug allergy Active [facility] [place] Zofran Assertion Drug [facility] [place] Results Order Name Results Value Reference Range Date Interpretation Comments Source GENERAL CHEMISTRY ALT-SGPT 23 U/L 10 - 40 08/05 16:36 :00 [facility] GENERAL CHEMISTRY T Bili 0.49 mg/dL 0.30 - 1.20 08/05 16:36 :00 [facility] GENERAL CHEMISTRY Total Protein 6.9 g/dL 5.7 - 8.2 08/05 16:36 :00 [facility] GENERAL CHEMISTRY Creatinine, standardized 0.6 mg/dL 0.5 - 1.0 08/05 16:36 :00 Interpretive Data: Rddtyy-uf-dgx e transgender patients on testosterone therapy should have results assessed using the male reference range. Abzm-nh-nonjd e transgender patients on hormone-modul ating therapy clinical judgment is advisedfor assessment. [facility] GENERAL CHEMISTRY Estimated GFR for peds Not Calculated mL/min/1.7 3m 08/05 16:36 :00 Interpretive Data: The estimated GFR was calculated using the Aaron castanon Brenner equation (2009) . Reference: Pediatric GFR calculator at [employer] Website. [facility] GENERAL CHEMISTRY BUN 16 mg/dL 6 - 20 08/05 16:36 :00 [facility] GENERAL CHEMISTRY Calcium 9.6 mg/dL 8.3 - 10.6 04/02 /2025 16:36 :00 [facility] GENERAL CHEMISTRY Glucose Lvl 115 mg/dL 70 - 139 08/05 16:36 :00 [facility] GENERAL CHEMISTRY Chloride 112 mmol/L 98 - 107 08/05 16:36 :00 [facility] GENERAL CHEMISTRY Sodium 144 mmol/L 136 - 145 08/05 16:36 :00 [facility] GENERAL CHEMISTRY Estimated GFR for Adults 107 mL/min/1.7 3m 08/05 16:36 :00 Interpretive Data: Changed to CKD-EPI 2020 on 2020. [facility] GENERAL CHEMISTRY Alkaline Phosphatase 81 U/L 35 - 104 08/05 16:36 :00 [facility] GENERAL CHEMISTRY Potassium 3.8 mmol/L 3.5 - 5.1 08/05 16:36 :00 [facility] GENERAL CHEMISTRY CO2 21 mmol/L 20 - 31 08/05 16:36 :00 [facility] GENERAL CHEMISTRY Anion gap 15 mmol/L 0 - 20 08/05 16:36 :00 [facility] GENERAL CHEMISTRY AST-SGOT 19 U/L 08/05 16:36 :00 [facility] GENERAL CHEMISTRY Albumin 3.8 g/dL 3.4 - 5.0 08/05 16:36 :00 [facility] HEMATOLOGY PROFILES PLT 251 x10(9)/L 150 - 450 08/05 16:36 :00 [facility] HEMATOLOGY PROFILES WBC 5.05 x10(9)/L 3.50 - 10.50 08/05 16:36 :00 [facility] HEMATOLOGY PROFILES MPV 11.2 8.0 - 12.0 08/05 16:36 :00 [facility] HEMATOLOGY PROFILES RBC 4.95 x10(12)/L 3.90 - 5.03 08/05 16:36 :00 [facility] HEMATOLOGY PROFILES HGB 14.5 g/dL 12.0 - 15.5 08/05 16:36 :00 Interpretive Data: Xghtyr-md-fhi e transgender patients on testosterone therapy should have results assessed using the male reference range. Jvyp-bz-cgqtb e transgender patients on hormone-modul ating therapy clinical judgment is advisedfor assessment. [facility] HEMATOLOGY PROFILES HCT 44.1 % 34.9 - 44.5 08/05 16:36 :00 Interpretive Data: Jxukuz-sa-kuy e transgender patients on testosterone therapy should have results assessed using the male reference range. Dgqf-ex-rdapx e transgender patients on hormone-modul ating therapy clinical judgment is advisedfor assessment. [facility] HEMATOLOGY PROFILES MCV 89.1 fL 81.6 - 98.3 08/05 16:36 :00 [facility] HEMATOLOGY PROFILES MCH 29.3 pg 26.0 - 33.0 08/05 16:36 :00 [facility] HEMATOLOGY PROFILES MCHC 32.9 g/dL 32.0 - 36.0 08/05 16:36 :00 [facility] HEMATOLOGY PROFILES RDW CV 13.2 % 11.9 - 15.5 08/05 16:36 :00 [facility] HEMATOLOGY PROFILES RDW SD 42.7 fL 36.4 - 46.3 08/05 16:36 :00 [facility] HEMATOLOGY PROFILES % Nucleated RBCs 0.0 % 08/05 16:36 :00 [facility] HEMATOLOGY PROFILES Absolute Nucleated RBCs 0.0 x10(9)/L 0.0 - 0.0 08/05 16:36 :00 Interpretive Data: Normal values not established in patients less than 18 years old. [facility] HEMATOLOGY PROFILES % Neutrophils 54.0 % 08/05 16:36 :00 [facility] HEMATOLOGY PROFILES % Lymphocytes 33.1 % 08/05 16:36 :00 [facility] HEMATOLOGY PROFILES % Monocytes 8.3 % 08/05 16:36 :00 [facility] HEMATOLOGY PROFILES % Eosinophils 3.8 % 08/05 16:36 :00 [facility] HEMATOLOGY PROFILES Abs Eosinophils 0.19 x10(9)/L 0.05 - 0.50 08/05 16:36 :00 [facility] HEMATOLOGY PROFILES Abs Basophils 0.03 x10(9)/L 0.00 - 0.30 08/05 16:36 :00 [facility] HEMATOLOGY PROFILES Abs Immature Granulocytes 0.01 x10(9)/L 0.00 - 0.03 08/05 16:36 :00 [facility] HEMATOLOGY PROFILES % Basophils 0.6 % 08/05 16:36 :00 [facility] HEMATOLOGY PROFILES % Immature Granulocytes 0.20 % 0.02 - 0.42 08/05 16:36 :00 [facility] HEMATOLOGY PROFILES Absolute Granulocytes 2.73 x10(9)/L 1.70 - 7.00 08/05 16:36 :00 [facility] HEMATOLOGY PROFILES Abs Lymphocytes 1.67 x10(9)/L 0.90 - 2.90 08/05 16:36 :00 [facility] HEMATOLOGY PROFILES Abs Monocytes 0.42 x10(9)/L 0.30 - 0.90 08/05 16:36 :00 [facility] XR Chest XR Chest XR General Diagnostic Accession # Exam Date/Time Procedure Ordering Provider [id number] 08/05/2024 14:25 CDT XR Chest Robert CORRAL, Jeferson Bedoya Reason For Exam (XR Chest) follow up Report EXAMINATIO N: XR Chest INDICATION : follow up VIEWS: 2 COMPARISON : 03/18/2024 FINDINGS: Normal cardiomedi astinal silhouette . No focal parenchyma l process. No pleural effusions. No pneumothor ax. No acute osseous abnormalit ies. IMPRESSION : No acute cardiopulm onary findings. I have personally reviewed the images and attest to the contents of this report. * * *Final Report* * * Electronic ally Signed by: Lul CORRAL, Dante Osuna Signed on: 08/05/24 14:37 08/05 14:17 :00 [facility] MRI Femur Right MRI Femur Right MRI/MRA Accession # Exam Date/Time Procedure Ordering Provider [id number] 08/05/2024 14:00 CDT MRI Femur Right Robert CORRAL, Jeferson Bedoya Reason For Exam (MRI Femur Right) f/u Sarcoma right extremity, 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c e Report EXAMINATIO N: MRI right femur without and with intravenou s contrast INDICATION : f/u Sarcoma right extremity, 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c e. TECHNIQUE: Multiseque nce, multiplana r MR images of the right femur were obtained. COMPARISON : MRI femur 03/18/2024 , PET/CT 07/21/2022, right femur radiograph 12/25/2021 FINDINGS: Postsurgic al changes along the lateral thigh muscles with scarring and mild edema along the vastus lateralis fatty atrophy. No recurrent mass. No lymphadeno briana. Mild right gluteal tendinopat hy and small volume of fluid in the trochanter ic bursa. Mild ischiofemo ral narrowing to 1.3 cm with quadratus femoris atrophy but no significan t muscle edema, possibly from chronic mild ischiofemo ral impingemen t. Remaining muscles of the thigh are normal in size and signal intensity. No abnormal marrow signal. Contralate ral left thigh is unremarkab le on the coronal images. IMPRESSION : No MR findings to suggest tumor recurrence . I have personally reviewed the images and attest to the contents of this report. * * *Final Report* * * Electronic ally Signed by: Karol CORRAL, Naomi Pyle Signed on: 08/05/24 22:16 08/05 12:43 :18 [facility] [place] XR Chest XR Chest XR General Diagnostic Accession # Exam Date/Time Procedure Ordering Provider [id number] 03/18/2024 14:00 [facility] XR Chest Jeferson Jones MD Reason For Exam (XR Chest) Follow up exam Report EXAMINATIO N: XR Chest INDICATION : Follow up exam VIEWS: 2 COMPARISON : Portable chest radiograph 04/17/2020 , CT chest 03/18/2024 FINDINGS: Left-sided Port-A-Cat h with distal tip terminatin g at the junction of the SVC and azygos vein. Normal cardiomedi astinal silhouette . No focal parenchyma l process. No pleural effusions. No pneumothor ax. No acute osseous abnormalit ies. IMPRESSION : No acute cardiopulm onary findings. I have personally reviewed the images and attest to the contents of this report. * * *Final Report* * * Electronic ally Signed by: Lul CORRAL, Dante Osuna Signed on: 03/18/24 15:04 03/18 13:56 :09 [facility] MRI Femur Right MRI Femur Right MRI/MRA Accession # Exam Date/Time Procedure Ordering Provider [id number] 03/18/2024 14:30 [facility]IST MRI Femur Right Jeferson Jones MD Reason For Exam (MRI Femur Right) f/u Sarcoma right extremity, 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c e Report EXAM: MRI right femur with and without contrast INDICATION : Sarcoma surveillan ce COMPARISON STUDIES: Multiple priors most recent 10/14/2023 FINDINGS: Postsurgic al changes are again noted along the vastus lateralis muscle with scarring and mild edema within the vastus lateralis with minimal fatty atrophy without recurrent nodular soft tissue mass or nodular enhancemen t to suggest recurrence . Remaining muscles and soft tissues are normal in size and signal intensity without mass or significan t incidental finding. Bone marrow signal is preserved. Large field-of-v iew imaging of the hip joints is unremarkab le. No significan t incidental finding within the visualized pelvis. IMPRESSION : No MR evidence for tumor recurrence . I have personally reviewed the images and attest to the contents of this report. * * *Final Report* * * Electronic ally Signed by: Herbert CORRAL, Roel Christianson Signed on: 03/19/24 07:37 03/18 12:41 :03 [facility] [place] [facility] Chest CT Chest CT Scan/CT Angio Accession # Exam Date/Time Procedure Ordering Provider [id number] 03/18/2024 11:[address] Chest Quintin Sebastian MD Reason For Exam (CT Chest) f/u sarcoma Report EXAMINATIO N: CT Chest with IV contrast INDICATION : f/u sarcoma COMPARISON : 11/13/2023 TECHNIQUE: Spiral CT was obtained from the jugular notch through the posterior costophren ic recess. 3-D MIPS, sagittal and coronal reformats were obtained. FINDINGS: LUNGS/PLEU RA: The pulmonary parenchyma appears within normal limits. Stable left upper lobe 4 mm nodule image #48/5, 3 mm nodule image #63/5, 4 mm image #72/5, 5 mm image #76/5 and nodules along the minor fissure measuring 4 mm image #88/5 and 4 mm image #90/5. No new or enlarging nodules or masses. The airways are patent. No pneumothor ax. No pleural effusion. No focal pleural lesion. MEDIASTINU M: Unchanged left-sided port with its tip in the SVC at its junction with the azygos vein. No mediastina l or hilar lymphadeno briana. The thoracic aorta is normal in caliber. The pulmonary arteries are normal in caliber. The heart is normal in size. No pericardia l effusion. No significan t coronary atheroscle rosis. The visualized thyroid is unremarkab le. The visualized esophagus is unremarkab le. AXILLA/SOF T TISSUE: No supraclavi cular or axillary lymphadeno briana. Normal sized axillary lymph nodes. Regional soft tissues are within normal limits. UPPER ABDOMEN: Cholecyste ctomy changes within the upper abdomen. Unchanged portacaval enlarged lymph nodes. Otherwise unremarkab le partially visualized upper abdomen. BONES: No evidence of acute fractures or aggressive osseous lesions. IMPRESSION : 1. Stable pulmonary nodules. No new or enlarging nodules or masses. 2. Stable mediastina l portacaval lymphadeno briana. I have personally reviewed the images and attest to the contents of this report. * * *Final Report* * * Electronic ally Signed by: Lul CORRAL, Dante Osuna Signed on: 03/18/24 12:38 03/18 10:33 :20 [facility] GENERAL CHEMISTRY AST-SGOT 20 U/L 01/23 18:25 :00 [facility] GENERAL CHEMISTRY Albumin 3.8 g/dL 3.4 - 5.0 01/23 18:25 :00 [facility] GENERAL CHEMISTRY Alkaline Phosphatase 87 U/L 35 - 104 01/23 18:25 :00 [facility] GENERAL CHEMISTRY ALT-SGPT 19 U/L 10 - 40 01/23 18:25 :00 [facility] GENERAL CHEMISTRY BUN 20 mg/dL 6 - 20 01/23 18:25 :00 [facility] GENERAL CHEMISTRY Calcium 9.8 mg/dL 8.3 - 10.6 01/23 18:25 :00 [facility] GENERAL CHEMISTRY Glucose Lvl 111 mg/dL 70 - 139 01/23 18:25 :00 [facility] GENERAL CHEMISTRY Chloride 111 mmol/L 98 - 107 01/23 18:25 :00 [facility] GENERAL CHEMISTRY Sodium 142 mmol/L 136 - 145 01/23 18:25 :00 [facility] GENERAL CHEMISTRY Potassium 3.8 mmol/L 3.5 - 5.1 01/23 18:25 :00 [facility] GENERAL CHEMISTRY CO2 22 mmol/L 20 - 31 01/23 18:25 :00 [facility] GENERAL CHEMISTRY Anion gap 13 mmol/L 0 - 20 01/23 18:25 :00 [facility] GENERAL CHEMISTRY T Bili 0.86 mg/dL 0.30 - 1.20 01/23 18:25 :00 [facility] GENERAL CHEMISTRY Total Protein 7.0 g/dL 5.7 - 8.2 01/23 18:25 :00 [facility] GENERAL CHEMISTRY Creatinine, standardized 0.6 mg/dL 0.5 - 1.0 01/23 18:25 :00 Interpretive Data: Lsxfpy-ot-gzb e transgender patients on testosterone therapy should have results assessed using the male reference range. Ywvk-kl-qgdcm e transgender patients on hormone-modul ating therapy clinical judgment is advisedfor assessment. [facility] GENERAL CHEMISTRY Estimated GFR for Adults 107 mL/min/1.7 3m 01/23 18:25 :00 Interpretive Data: Changed to CKD-EPI 2020 on 2020. [facility] GENERAL CHEMISTRY Estimated GFR for peds Not calculated 01/23 18:25 :00 Interpretive Data: The estimated GFR was calculated using the Aaron castanon Brenner equation (2009) . Reference: Pediatric GFR calculator at [employer] Website. [facility] HEMATOLOGY PROFILES WBC 4.36 x10(9)/L 3.50 - 10.50 01/23 18:25 :00 [facility] HEMATOLOGY PROFILES RBC 4.54 x10(12)/L 3.90 - 5.03 01/23 18:25 :00 [facility] HEMATOLOGY PROFILES HGB 13.3 g/dL 12.0 - 15.5 01/23 18:25 :00 Interpretive Data: Chmbsl-br-muv e transgender patients on testosterone therapy should have results assessed using the male reference range. Usae-ue-dcrig e transgender patients on hormone-modul ating therapy clinical judgment is advisedfor assessment. [facility] HEMATOLOGY PROFILES HCT 40.2 % 34.9 - 44.5 01/23 18:25 :00 Interpretive Data: Otemtw-ei-jzc e transgender patients on testosterone therapy should have results assessed using the male reference range. Lcyl-vz-womcu e transgender patients on hormone-modul ating therapy clinical judgment is advisedfor assessment. [facility] HEMATOLOGY PROFILES MCV 88.5 fL 81.6 - 98.3 01/23 18:25 :00 [facility] HEMATOLOGY PROFILES MCH 29.3 pg 26.0 - 33.0 01/23 18:25 :00 [facility] HEMATOLOGY PROFILES MCHC 33.1 g/dL 32.0 - 36.0 01/23 18:25 :00 [facility] HEMATOLOGY PROFILES RDW CV 13.2 % 11.9 - 15.5 01/23 18:25 :00 [facility] HEMATOLOGY PROFILES RDW SD 42.8 fL 36.4 - 46.3 01/23 18:25 :00 [facility] HEMATOLOGY PROFILES PLT 257 x10(9)/L 150 - 450 01/23 18:25 :00 [facility] HEMATOLOGY PROFILES MPV 11.4 8.0 - 12.0 01/23 18:25 :00 [facility] HEMATOLOGY PROFILES % Nucleated RBCs 0.0 % 01/23 18:25 :00 [facility] HEMATOLOGY PROFILES Absolute Nucleated RBCs 0.0 x10(9)/L 0.0 - 0.0 01/23 18:25 :00 Interpretive Data: Normal values not established in patients less than 18 years old. [facility] HEMATOLOGY PROFILES % Neutrophils 45.6 % 01/23 18:25 :00 [facility] HEMATOLOGY PROFILES % Lymphocytes 40.4 % 01/23 18:25 :00 [facility] HEMATOLOGY PROFILES % Monocytes 11.2 % 01/23 18:25 :00 [facility] HEMATOLOGY PROFILES % Eosinophils 2.1 % 01/23 18:25 :00 [facility] HEMATOLOGY PROFILES % Basophils 0.5 % 01/23 18:25 :00 [facility] HEMATOLOGY PROFILES % Immature Granulocytes 0.20 % 0.02 - 0.42 01/23 18:25 :00 [facility] HEMATOLOGY PROFILES Absolute Granulocytes 1.99 x10(9)/L 1.70 - 7.00 01/23 18:25 :00 [facility] HEMATOLOGY PROFILES Abs Lymphocytes 1.76 x10(9)/L 0.90 - 2.90 01/23 18:25 :00 [facility] HEMATOLOGY PROFILES Abs Monocytes 0.49 x10(9)/L 0.30 - 0.90 01/23 18:25 :00 [facility] HEMATOLOGY PROFILES Abs Eosinophils 0.09 x10(9)/L 0.05 - 0.50 01/23 18:25 :00 [facility] HEMATOLOGY PROFILES Abs Basophils 0.02 x10(9)/L 0.00 - 0.30 01/23 18:25 :00 [facility] HEMATOLOGY PROFILES Abs Immature Granulocytes 0.01 x10(9)/L 0.00 - 0.03 01/23 18:25 :00 [facility] Consultation Notes Results Value Date Source Emergency Services Note Basic Informatio n Chief Complaint pt was seen in [facility] with hypotension, but is not at arrival to triage. pt reports migraine not receiving chemo History of Present Illness Patient is a 53-year-old woman with PMH of migraines, right lower extremity sarcoma c urrently in remission. She states that she has had a worsening migraine for the last several days, it has not been alleviated by her typical regimen of rest, heating pad, Excedrin, Benadryl. Patient was out today being seen by her orthopedic surgeon and oncologist for readmission visit, her oncologist noted that she had a very low blood pressure and recommended that she present to the ED for further workup. Patient endorses that over the last several days she has had a building headache on the right side of her head, behind her eye, this is the typical area for her pain she also endorses right-sided neck pain with nausea and recently poor p.o. intake. Patient also endorses blurry vision, photophobia, phonophobia which are all typical for her migraines. She denies any weakness, dizziness, numbness, tingling, fevers, chills, chest pain, back pain, shortness of breath, abdominal pain, vomiting, Review of Systems Negative except as noted in HPI Physical Exam Vitals and Measurements T: 36.3 C HR: 79 RR: 16 BP: 113/59 SpO2: 95% WT: 103.6 kg General: moderate distress, uncomfortable appearing, alert and oriented. Head: normocephalic, atraumatic. Eyes: PERRL. Ears: atraumatic, no discharge. Nose: atraumatic, no epistaxis or drainage. Mouth: mucosa moist, no oropharyngeal erythema or exudate, no oral lacerations, uvula midline. Throat: trachea midline. Neck: Right paraspinal hypertonicity, tender to palpation, no midline tenderness.. Chest: symmetric chest rise, nontender to palp. Cardiovasculature: RRR with no M/R/G, cap refill < 2 sec, extremities warm and well perfused. Respiratory: CTAB, no increased WOB. Abdomen: flat, soft, nontender to palpation without guarding or rebound. MSK: all limbs moving freely w/o pain or restriction, no swelling or obvious deformity. Neuro: CN II-XII intact without focal deficit, following commands, no focal deficits, sensation intact b/l UE/LE, strength 5/5 b/l UE/LE. Psych: cooperative, appropriate mood and affect. Procedure Medical Decision Making Acute problems addressed: Migraine Chronic Problems noted/addressed: Migraines, right lower extremity sarcoma s/p resection, chemotherapy, and radiation Differentials include but not limited to: Tension headache, migraine, cluster headache, mets, IIH, intracranial bleed, meningitis, encephalitis, Independent interpretation by this provider: Labs Other sources: at bedside, orthopedic note, oncology note Notable discussions: Discussed all test results, follow-up planning, return precautions, medication management, etc. Specialists consulted: None Summary: Patient is a 53-year-old female with a PMH of migraines, soft tissue sarcoma. She presents today with a migraine that is lasted several days, and has not responded to her typical treatments. Patient had hypotension at oncologist office and was sent to emergency department for further workup. She denies any infectious symptoms, red flag headache symptoms. Patient states that this is much like one of her typical migraines but more intense and longer lasting. She states that she has not needed to come to the hospital for migraine treatments since she was in her 20s. On physical exam patient is resting comfortably in a dark room, she appears uncomfortable. Patient is currently normotensive. Heart is RRR, lungs CTAB, abdomen S/NT/ND. Pupils are PERRL, EOMI intact without pain, cranial nerves II through XII intact, strength 5/5 and sensation intact B/L UE/LE. Physical exam is otherwise unremarkable. Patient already had CBC and CMP drawn today for her other physician appointments. They show no leukocytosis, no anemia, no significant electrolyte abnormalities. No need for additional labs at this time Will treat patient with migraine cocktail and reassess, if patient has not had significant improvement we will consider head imaging at that time. On reevaluation partway through patient's migraine cocktail she states that she has significantly improved. On reevaluation after completing migraine cocktail patient states that pain is now a 1/10 and she is ready to go home. Patient remained hemodynamically stable and normotensive throughout her stay in department, she is stable for discharge home. Discussed follow-up with PCP to discuss other migraine treatment/prophylaxis. Also discussed ED return precautions if symptoms worsen or new concerning symptoms arise. Patient is amenable to this plan Disposition: Discharged home Reexamination/Reevaluation Assessment/Plan 1. Migraine Patient Education Migraine Headache: Prophylaxis: Deciding About Migraine Headache Follow Up With When Contact Information Return to Emergency Department Additional Instructions: If symptoms worsen or new concerning symptoms arise Follow up with primary care provider Within 5 to 7 days Additional Instructions: if symptoms persist Medication Reconciliation Unchanged apixaban (Eliquis (apixaban) 2.5 mg oral tablet)2.5 Milligram Oral Twice daily for 30 Days. Take twice daily to help prevent blood clots.. Refills: 0. cyclobenzaprine (cyclobenzaprine 5 mg oral tablet)1 tab(s) Oral At bedtime as needed Muscle Spasm. docusate (docusate sodium 100 mg oral tablet)1 tab(s) Oral Twice daily for 7 Days. take with plenty of water while taking narcotic pain medication. Refills: 0. lidocaine topical (lidocaine 5% patch)Topical Daily. melatonin (Melatonin 3 mg oral tablet)1 tab(s) Oral At bedtime. multivitamin with minerals (Centrum Silver Women's oral tablet)1 tab(s) Oral Daily. promethazine (promethazine 25 mg oral tablet)25 Milligram Oral Every 6 hours as needed Nausea for 3 Days. Refills: 0. traMADol (traMADol 50 mg oral tablet)1 Tablet(s) Oral PRN. ED Forms 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 Procedure/Surgical History Medication Administration Given dexAMETHAsone iv, 10 mg, Slow IV Push diphenhydrAMINE, 25 mg, Slow IV Push ketorolac, 15 mg, IV Push magnesium sulfate 2 g/50 mL IVPB for migraine, 2 g, IV Compazine, 10 mg, Slow IV Push NS (bolus), 1000 mL, IV Bolus Allergies KlonoPIN (Moderate) Latex (Moderate) PROzac (Moderate) Wellbutrin (Moderate) Bee Venom Effexor Swelling of bilateral lower limbs Mold Zofran traZODone Instability of gait Social History Smoking Status Former smoker quit longer than 12 months Family History Lab Results Lab Results Test Name Test Result Date/Time WBC 5.05 x10(9)/L 08/05/2024 11:36 CDT RBC 4.95 x10(12)/L 08/05/2024 11:36 CDT HGB 14.5 g/dL 08/05/2024 11:36 CDT HCT 44.1 % 08/05/2024 11:36 CDT MCV 89.1 fL 08/05/2024 11:36 CDT MCH 29.3 pg 08/05/2024 11:36 CDT MCHC 32.9 g/dL 08/05/2024 11:36 CDT RDW SD 42.7 fL 08/05/2024 11:36 CDT RDW CV 13.2 % 08/05/2024 11:36 CDT PLT 251 x10(9)/L 08/05/2024 11:36 CDT MPV 11.2 08/05/2024 11:36 CDT % Neutrophils 54.0 % 08/05/2024 11:36 CDT Absolute Granulocytes 2.73 x10(9)/L 08/05/2024 11:36 CDT % Immature Granulocytes 0.20 % 08/05/2024 11:36 CDT Abs Immature Granulocytes 0.01 x10(9)/L 08/05/2024 11:36 CDT % Lymphocytes 33.1 % 08/05/2024 11:36 CDT Abs Lymphocytes 1.67 x10(9)/L 08/05/2024 11:36 CDT % Monocytes 8.3 % 08/05/2024 11:36 CDT Abs Monocytes 0.42 x10(9)/L 08/05/2024 11:36 CDT % Eosinophils 3.8 % 08/05/2024 11:36 CDT Abs Eosinophils 0.19 x10(9)/L 08/05/2024 11:36 CDT % Basophils 0.6 % 08/05/2024 11:36 CDT Abs Basophils 0.03 x10(9)/L 08/05/2024 11:36 CDT % Nucleated RBCs 0.0 % 08/05/2024 11:36 CDT Absolute Nucleated RBCs 0.0 x10(9)/L 08/05/2024 11:36 CDT Sodium 144 mmol/L 08/05/2024 11:36 CDT Potassium 3.8 mmol/L 08/05/2024 11:36 CDT Chloride 112 mmol/L 08/05/2024 11:36 CDT CO2 21 mmol/L 08/05/2024 11:36 CDT Anion gap 15 mmol/L 08/05/2024 11:36 CDT Glucose Lvl 115 mg/dL 08/05/2024 11:36 CDT BUN 16 mg/dL 08/05/2024 11:36 CDT Creatinine, standardized 0.6 mg/dL 08/05/2024 11:36 CDT Estimated GFR for Adults 107 mL/min/1.73m 08/05/2024 11:36 CDT Estimated GFR for peds Not Calculated 08/05/2024 11:36 CDT Calcium 9.6 mg/dL 08/05/2024 11:36 CDT Total Protein 6.9 g/dL 08/05/2024 11:36 CDT Albumin 3.8 g/dL 08/05/2024 11:36 CDT T Bili 0.49 mg/dL 08/05/2024 11:36 CDT Alkaline Phosphatase 81 U/L 08/05/2024 11:36 CDT AST-SGOT 19 U/L 08/05/2024 11:36 CDT ALT-SGPT 23 U/L 08/05/2024 11:36 CDT Diagnostic Results ECG Attestation by Norma Dennison MD on August 09, 2024 02:59 I personally saw and evaluated the patient. I discussed the management with the resident and reviewed the resident&rsquo;s note. I agree with the documented findings and plan of care. 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 GI referral to [facility] in [facility] for colonoscopy. [1] Previous Treatment Oncology History - 03/02/22 Ortho Clinic note: An orthopedic consultation was requested by the patient's primary care provider listed at the bottom of this document, for this 51-year-old female who was seen for a right thigh mass. Recent testing consisted of x-rays and MRI as well as CT scan. Patient develop pain in her right thigh after an event in August 2021 where she fell and hit her thigh against a piece of furniture. This was apparently a reasonably high energy mechanism as she states that she broke the piece of furniture which was made of wood. At that time, she noticed a small swelling in her thigh and presented to her primary care physician shortly thereafter. At the time x-rays were taken which were read as negative as well as a DVT ultrasound which was negative for DVT per the patient. Patient was given a course of physical therapy and followed up with her primary due to expansion of the mass and no help with therapy. Subsequently, advanced imaging with CT and MRI were obtained which demonstrated a large mass in the anterior aspect of the thigh concerning for possible malignancy and as such, the patient was referred to the orthopedic oncology clinic at the [facility]. 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 -End may, referral made to radiation oncologist in [facility]. 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 [1] -10/23/22 wide local excision right anterior thigh sarcoma. FINAL DIAGNOSIS: SOFT TISSUE, RIGHT THIGH MASS, (EXCISION): PLEOMORPHIC SPINDLE CELL SARCOMA SHOWING APPROXIMATELY 80% NECROSIS AND FIBROSIS MAXIMUM DIMENSION - 12 CM CLOSEST OPERATIVE MARGIN (SUPERFICIAL) - 0.15MM -04/2023: No clinical or laboratory evidence of recurrent sarcoma. -07/31/2023: Left-sided abdominal discomfort. Started on empiric antibiotics for diverticulitis. MRI pelvis demonstrated abnormality within left colon at junction of sigmoid and descending colon. Referred for colonoscopy at [facility] in [place]. No evidence of recurrent sarcoma. [3] -09/23/2023 colonoscopy demonstrating diverticulosis and otherwise negative. -11/13/2023: CT chest showing stable multiple small lung nodules. [2] HPI (Interval History) Returns for follow-up checkup were treated soft tissue sarcoma. Already seen by orthopedic oncology clinic. Planing of migraine headache which is going on for several days. Symptoms are present despite Excedrin Migraine formula and Benadryl. She is nauseated and not able to eat or drink much. She was able to eat earlier today. No aura or neurologic symptoms. She is feeling somewhat lightheaded. She does not have her promethazine with her for the trip home. No pain in the right thigh. No cough or shortness of breath. Review of Systems As per distress screening tool scanned to chart reviewed with patient. Complete review of system otherwise unremarkable unless described above. Physical Exam Vitals and Measurements T: 36.3 C HR: 89 RR: 20 BP: 62/38 SpO2: 96% WT: 103.7 kg PS = 2 General appearance: Appears uncomfortable. No obvious orthostatism. No acute respiratory distress. Skin: Normal. HEENT: Normal. Neck: Normal Lymph nodes: Normal. Chest: Clear to auscultation. Heart: Regular rate and rhythm without murmur. Abdomen: Soft, nontender, nondistended without mass or organomegaly. Extremities: No edema, nothing obvious for DVT. Musculoskeletal: Postoperative changes from wide local excision on the right anterior thigh with no palpable abnormality Breast: Not examined. Neurologic: Grossly nonfocal. Assessment/Plan No clinical or radiographic evidence of recurrent disease. Migraine with hypotension and relatively low pulse. Pulse is only 89 with a blood pressure of 62/38. Prescription sent for promethazine so she can take for her trip home. However, given how bad she is feeling and low blood pressure, she needs to be evaluated in the emergency room for IV fluids and further assessment before driving home. Initially reluctant but she did agree to be taken to emergency room. Return to medical oncology clinic in 6 months with lab and CT chest. 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 Procedure/Surgical History Medications apixaban(Eliquis (apixaban) 2.5 mg oral tablet), 2.5 mg, Oral, bid cyclobenzaprine(cyclobenzaprine 5 mg oral tablet), 5 mg= 1 Tablet(s), Oral, At Bedtime, PRN docusate(docusate sodium 100 mg oral tablet), 100 mg= 1 Tablet(s), Oral, bid lidocaine topical(lidocaine 5% patch), Topical, Daily melatonin(Melatonin 3 mg oral tablet), 3 mg= 1 Tablet(s), Oral, At Bedtime multivitamin with minerals(Centrum Silver Women's oral tablet), 1 Tablet(s), Oral, Daily promethazine(promethazine 25 mg oral tablet), 25 mg, Oral, q6h, PRN traMADol(traMADol 50 mg oral tablet), See Instructions Allergies KlonoPIN (Moderate) Latex (Moderate) PROzac (Moderate) Wellbutrin (Moderate) Bee Venom Effexor Swelling of bilateral lower limbs Mold Zofran traZODone Instability of gait Social History Smoking Status Former smoker quit longer than 12 months Family History Immunizations Health Maintenance Lab Results CBC (08/05/24) WBC 5.05 Hgb 14.5 Hct 44.1 MCV 89.1 PLT 251 Auto Differential % nRBC 0.0 Absolute nRBC 0.0 % Neutrophils 54.0 Absolute Neut 2.73 % Im Granulocyt .20 Absolute Im Gra 0.01 % Lymphocytes 33.1 % Monocytes 8.3 % Eosinophils 3.8 % Basophils 0.6 Comprehensive Metabolic Panel (08/05/24) Na+ 144 K+ 3.8 Cl- H 112 CO2 21 Anion gap 15 GLU 115 BUN 16 Creat 0.6 Estimated GFR f 107 Estimated GFR f Not Calculated Ca 9.6 Alk Phos 81 AST 19 ALT 23 T Bili 0.49 Total Protein 6.9 Alb 3.8 Hemolysis Index 0 Icteria Index 0 Lipemia Index 0 Diagnostic Results Chest x-ray healed no lung nodules. MRI right femur revealed no evidence of recurrent disease. 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 No fever, chills, weight loss, or night sweats. Today, patient reports 0/10 pain and has been doing well overall since her last appointment. Denies any pain or issues with her right thigh. No new masses. She has a follow up appointment with Dr. Sebastian later today. No new acute concerns. For HPI and pain assessment info, please reference the patient s Pain Assessment form reviewed by myself today and entered in the EMR. 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 Vitals: Vital Signs (most recent within last year) Temperature 36.5 (03/18/24 13:48) Heart Rate 86 (01/24/24 14:00) NIBP 109/59 (01/24/24 14:00) SpO2 97 (01/24/24 14:00) Pain Score 0 (03/18/24 13:48) Measurements Documented in Past 12 Months Height (cm): 164.1 cm (03/18/24) Weight (kg): 103.9 kg (03/18/24) BMI: 38.6 kg/m2 (03/18/24) Physical Examination: General: 53 year old female in NAD Resp: breathing nonlabored Skin: intact, no skin changes Neuro: well coordinated, oriented to person, place and time Psych: normal mood and affect, no agitation, confusion, or depression Heme/Lymph: no inguinal adenopathy MSK: assistance - none Gait - normal Right lower extremity: Inspection: No erythema or increased warmth. No visible mass. No swelling. Well healed anterior thigh incision. Palpation: No palpable masses Active range of motion - Full range of motion Strength - 5-/5 quadriceps strength Sensation is intact to light touch. Radiology: MRI of the right femur was obtained today (08/05/24) and independently interpreted by myself today. This demonstrated: No nodular enhancement to suggest recurrence Radiographs of the chest were obtained today (08/05/24) and independently interpreted by myself. These demonstrate: No acute cardiopulmonary process Pathology: Specimen(s) Received RIGHT THIGH MASS - FRESH FINAL DIAGNOSIS: SOFT TISSUE, RIGHT THIGH MASS, (EXCISION): PLEOMORPHIC SPINDLE CELL SARCOMA SHOWING APPROXIMATELY 80% NECROSIS AND FIBROSIS MAXIMUM DIMENSION - 12 CM CLOSEST OPERATIVE MARGIN (SUPERFICIAL) - 0.15MM By this signature, I attest that the above diagnosis is based upon my personal examination of the tissue and slides (and/or other material indicated in the diagnosis), per policy. A resident was involved in the pathologic evaluation of this case, I have reviewed and edited the findings of the resident. Marquis Coon M.D. Electronically Signed Out Impression/Plan: Doing well after wide excision right anterior thigh sarcoma, greater than 5 cm (10/23/22), neoadjuvant radiotherapy and chemotherapy, no evidence of recurrence or metastatic disease Ms. Lawson is a 53 year old female returning to clinic for routine follow up. Patient reports that she has been doing well over and denies any right thigh pain. MRI, radiographs, and clinical findings were discussed with the patient. Imaging shows no nodular enhancement to suggest recurrence and no acute cardiopulmonary process. We will continue to follow patient with radiographic surveillance and clinical observation on a routine basis to monitor for recurrence and metastatic disease. I will see patient back in 6 months with right femur MRI and chest XR, unless chest CT is order by medical oncology. I have answered all the patient's questions. Patient has indicated understanding and agreement with this plan. The visit required complex medical management through an ongoing care relationship with the patient. Follow up: in 6 months with right femur MRI and chest XR, unless chest CT is ordered by medical oncology. This document was scribed for Dr. Jeferson Jones by Ana Hurtado, on 08/05/24 14:11:04 I performed a history and physical examination of the patient. I reviewed the portion of the note documented by the scribe in my presence and it accurately reflects my service for this date of service. I personally reviewed and updated the physical examination, radiographic findings, and plan where necessary. Attending Physician: Jeferson Jones MD Original Referring Provider: Quintin Sebastian MD Primary Care Physician: Aleyda Jean-Baptiste [facility] 08/05/2024 Orthopaedic Clinic Note Diagnosis: Right anterior thigh sarcoma Procedure: Wide excision right anterior thigh sarcoma, greater than 5 cm (10/23/22) History of present illness: This is a 53-year-old female who is returning to clinic today for routine follow up. No fever, chills, weight loss, or night sweats. Today, patient reports 0/10 pain and has been doing well overall since her last appointment. Patient is seeing [facility] on 03/23. Patient still has her chemotherapy port. No new acute concerns. For HPI and pain assessment info, please reference the patient s Pain Assessment form reviewed by myself today and entered in the EMR. 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 Vitals: Vital Signs (most recent within last year) Temperature 36.0 (01/24/24 14:00) Heart Rate 86 (01/24/24 14:00) Resp Rate 20 (07/31/23 14:07) NIBP 109/59 (01/24/24 14:00) SpO2 97 (01/24/24 14:00) Pain Score 0 (01/24/24 14:00) Measurements Documented in Past 12 Months Height (cm): 167.6 cm (07/31/23) Weight (kg): 102 kg (01/24/24) BMI: 37.8 kg/m2 (07/31/23) Physical Examination: General: 53 year old female in NAD Resp: breathing nonlabored Skin: intact, no skin changes Neuro: well coordinated, oriented to person, place and time Psych: normal mood and affect, no agitation, confusion, or depression Heme/Lymph: no inguinal lymphadenopathy MSK: assistance - none, Gait - normal Right upper extremity: Inspection: No erythema or increased warmth. Well healed anterior thigh incision. No swelling. Palpation: Mass - no palpable masses. Strength - 5-/5 quadriceps strength Sensation is intact to light touch. Reflexes are normal. Pathology: Specimen(s) Received RIGHT THIGH MASS - FRESH FINAL DIAGNOSIS: SOFT TISSUE, RIGHT THIGH MASS, (EXCISION): PLEOMORPHIC SPINDLE CELL SARCOMA SHOWING APPROXIMATELY 80% NECROSIS AND FIBROSIS MAXIMUM DIMENSION - 12 CM CLOSEST OPERATIVE MARGIN (SUPERFICIAL) - 0.15MM By this signature, I attest that the above diagnosis is based upon my personal examination of the tissue and slides (and/or other material indicated in the diagnosis), per policy. A resident was involved in the pathologic evaluation of this case, I have reviewed and edited the findings of the resident. Marquis Coon M.D. Electronically Signed Out Radiology: MRI of the right femur was obtained today (03/18/24) and independently interpreted by myself today. This demonstrated: No obvious nodular enhancement to suggest recurrence. Does have some post surgical and atrophy changes in the mastous lateralis region CT of the chest was obtained today (03/18/24) and independently interpreted by myself. These demonstrate: No acute pulmonary process Excess trays demonstrates no acute cardiopulmonary process. This was reviewed and interpreted. Impression/Plan: Doing well after wide excision right anterior thigh sarcoma, greater than 5 cm (10/23/22), neoadjuvant radiotherapy and chemotherapy Ms. Lawson is a 53 year old female returning to clinic for routine follow up. MRI, CT, and clinical findings were discussed with the patient. Imaging shows no evidence of recurrence or metastatic disease. We we continue to monitor with radiographic surveillance and clinical observation untill patient is 5 years post op. I will see patient back in 6 months with right femur MRI and chest XR, unless chest CT is order by medical oncology. I sent Dr. Sebastian patient's previous note and encouraged her to follow up with him in regard to discussion of having her chemotherapy port removed. I have answered all the patient's questions. Patient has indicated understanding and agreement with this plan. The visit required complex medical management through an ongoing care relationship with the patient. Follow up: in 4 months with right femur MRI and chest XR, unless chest CT is ordered by medical oncology. This document was scribed for Dr. Jeferson Jones by Ana Hurtado, on 03/18/24 13:44:54 I performed a history and physical examination of the patient. I reviewed the portion of the note documented by the scribe in my presence and it accurately reflects my service for this date of service. I personally reviewed and updated the physical examination, radiographic findings, and plan where necessary. 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 GI referral to [facility] in [facility] for colonoscopy. [2] Previous Treatment Oncology History - 03/02/22 Ortho Clinic note: An orthopedic consultation was requested by the patient's primary care provider listed at the bottom of this document, for this 51-year-old female who was seen for a right thigh mass. Recent testing consisted of x-rays and MRI as well as CT scan. Patient develop pain in her right thigh after an event in August 2021 where she fell and hit her thigh against a piece of furniture. This was apparently a reasonably high energy mechanism as she states that she broke the piece of furniture which was made of wood. At that time, she noticed a small swelling in her thigh and presented to her primary care physician shortly thereafter. At the time x-rays were taken which were read as negative as well as a DVT ultrasound which was negative for DVT per the patient. Patient was given a course of physical therapy and followed up with her primary due to expansion of the mass and no help with therapy. Subsequently, advanced imaging with CT and MRI were obtained which demonstrated a large mass in the anterior aspect of the thigh concerning for possible malignancy and as such, the patient was referred to the orthopedic oncology clinic at the [facility]. 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 -End of May, referral made to radiation oncologist in [facility]. 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 [1] -10/23/22 wide local excision right anterior thigh sarcoma. FINAL DIAGNOSIS: SOFT TISSUE, RIGHT THIGH MASS, (EXCISION): PLEOMORPHIC SPINDLE CELL SARCOMA SHOWING APPROXIMATELY 80% NECROSIS AND FIBROSIS MAXIMUM DIMENSION - 12 CM CLOSEST OPERATIVE MARGIN (SUPERFICIAL) - 0.15MM -04/2023: No clinical or laboratory evidence of recurrent sarcoma. -07/31/2023: Left-sided abdominal discomfort. Started on empiric antibiotics for diverticulitis. MRI pelvis demonstrated abnormality within left colon at junction of sigmoid and descending colon. Referred for colonoscopy at [facility] in [place]. No evidence of recurrent sarcoma. [3] -09/23/2023 colonoscopy demonstrating diverticulosis and otherwise negative. -11/13/2023: CT chest showing stable multiple small lung nodules. HPI (Interval History) Returns for follow-up. Overall doing well with no new problems or complaints. Still little bit of dizziness in the morning. Mild right hip soreness. But she is able to get up from the floor now. Mild fatigue. Occasional tightness noted in the throat area. No shortness of breath or cough. No wheeze. No other new problems or complaints. Reviewed colonoscopy report from September and CT chest from November. Review of Systems As per distress screening tool scanned to chart reviewed with patient. Complete review of system otherwise unremarkable unless described above. Physical Exam Vitals and Measurements T: 36.0 C HR: 86 BP: 109/59 SpO2: 97% WT: 102 kg PS = 0-1 General appearance: Appears well and in no acute distress Skin: Normal. HEENT: Normal. Neck: Normal Lymph nodes: Normal. Chest: Clear to auscultation. Heart: Regular rate and rhythm without murmur. Abdomen: Soft, nontender, nondistended without mass or organomegaly. Extremities: No edema, nothing obvious for DVT. Musculoskeletal: Postoperative changes from right thigh resection. No new palpable abnormalities. Breast: Not examined. Neurologic: Grossly nonfocal. Assessment/Plan No clinical evidence of progressive disease. Reviewed CT scan from 2 months ago. Colonoscopy done and negative. Continue observation. She is going to need follow-up CT chest in the near future. She has appointment with orthopedic oncology clinic on 03/18/2024. Will arrange follow-up appointment with CT chest with [facility] on clinic same day. 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 Procedure/Surgical History Medications apixaban(Eliquis (apixaban) 2.5 mg oral tablet), 2.5 mg, Oral, bid cyclobenzaprine(cyclobenzaprine 5 mg oral tablet), 5 mg= 1 Tablet(s), Oral, At Bedtime, PRN docusate(docusate sodium 100 mg oral tablet), 100 mg= 1 Tablet(s), Oral, bid lidocaine topical(lidocaine 5% patch), Topical, Daily melatonin(Melatonin 3 mg oral tablet), 3 mg= 1 Tablet(s), Oral, At Bedtime multivitamin with minerals(Centrum Silver Women's oral tablet), 1 Tablet(s), Oral, Daily promethazine(promethazine 25 mg oral tablet), 25 mg, Oral, q6h, PRN traMADol(traMADol 50 mg oral tablet), See Instructions Allergies KlonoPIN (Moderate) Latex (Moderate) PROzac (Moderate) Wellbutrin (Moderate) Bee Venom Effexor Swelling of bilateral lower limbs Mold traZODone Instability of gait Social History Smoking Status Former smoker quit longer than 12 months Family History Immunizations Health Maintenance Lab Results CBC (07/31/23) WBC 9.07 Hgb 13.3 Hct 41.7 MCV 90.3 PLT 308 Auto Differential % nRBC 0.0 Absolute nRBC 0.0 % Neutrophils 78.6 Absolute Neut H 7.13 % Im Granulocyt .20 Absolute Im Gra 0.02 % Lymphocytes 13.7 % Monocytes 6.4 % Eosinophils 0.9 % Basophils 0.2 Comprehensive Metabolic Panel (01/24/24) Na+ 142 K+ 3.8 Cl- H 111 CO2 22 Anion gap 13 GLU 111 BUN 20 Creat 0.6 Estimated GFR f 107 Estimated GFR f Not calculated Ca 9.8 Alk Phos 87 AST 20 ALT 19 T Bili 0.86 Total Protein 7.0 Alb 3.8 Hemolysis Index 0 Icteria Index 0 Lipemia Index 0 Diagnostic Results (11/13/2023 14:[address] Chest) IMPRESSION: 1. Multiple bilateral pulmonary nodules are stable. No new or enlarging nodule. 2. Stable nonspecific right axillary adenopathy. Subcentimeter mediastinal and bilateral hilar nodes are also similar. 3. Stable prominent upper abdominal adenopathy. [4] Visit Information Provider Names Attending Physician: Quintin Sebastian MD Primary Care Physician: Aleyda Jean-Baptiste [employer]ACHINE OPERATOR Visit Date Visit Date: 01/24/2024 [1] Oncology Office Visit Note *; Quintin Sebastian MD 07/31/2023 16:54 CDT [2] Oncology Office Visit Note *; Quintin Sebastian MD 07/31/2023 16:54 CDT [3] Oncology Office Visit Note *; Quinitn Sebastian MD 07/31/2023 16:54 CDT [4] CT Chest; Mirna Walker MD 11/13/2023 14:25 CDT 01/24/2024 Vital Signs Vital Sign Value Date Comments Source Heart Rate 79 bpm 08/05/2024 21:17:33 [facility] SpO2 95 % 08/05/2024 21:17:32 [facility] SpO2 93 % 08/05/2024 21:10:33 [facility] Heart Rate 77 bpm 08/05/2024 21:10:32 [facility] SpO2 95 % 08/05/2024 20:59:55 [facility] Heart Rate 74 bpm 08/05/2024 20:59:54 [facility] SBP NIBP 113 mm[Hg] 08/05/2024 20:43:29 [facility] DBP NIBP 59 mm[Hg] 08/05/2024 20:43:29 [facility] Mean NIBP 66 mm[Hg] 08/05/2024 20:43:29 [facility] SpO2 93 % 08/05/2024 20:39:56 [facility] Heart Rate 77 bpm 08/05/2024 20:39:55 [facility] Temperature (Celsius) 36.3 Chrissie 08/05/2024 20:18:00 [facility] SBP NIBP 134 mm[Hg] 08/05/2024 20:18:00 [facility] DBP NIBP 92 mm[Hg] 08/05/2024 20:18:00 [facility] Weight (kg) 103.6 kg 08/05/2024 20:18:00 [facility] Respiratory Rate 16 breaths/min 08/05/2024 20:18:00 [facility] SBP NIBP 62 mm[Hg] 08/05/2024 19:47:00 [facility] DBP NIBP 38 mm[Hg] 08/05/2024 19:47:00 [facility] Weight (kg) 103.7 kg 08/05/2024 19:47:00 [facility] Temperature (Celsius) 36.3 Chrissie 08/05/2024 19:47:00 [facility] SpO2 96 % 08/05/2024 19:47:00 [facility] Respiratory Rate 20 breaths/min 08/05/2024 19:47:00 [facility] Heart Rate 89 bpm 08/05/2024 19:47:00 [facility] Temperature (Celsius) 36.1 Chrissie 08/05/2024 19:11:00 [facility] BSA Aron 2.09 03/18/2024 19:48:00 [facility] BMI 38.6 kg/m2 03/18/2024 19:48:00 [facility] Weight (kg) 103.9 kg 03/18/2024 19:48:00 [facility] Temperature (Celsius) 36.5 Chrissie 03/18/2024 19:48:00 [facility] Height (cm) 164.1 cm 03/18/2024 19:48:00 [facility] Temperature (Celsius) 36.0 Chrissie 01/24/2024 19:00:00 [facility] Heart Rate 86 bpm 01/24/2024 19:00:00 [facility] SBP NIBP 109 mm[Hg] 01/24/2024 19:00:00 [facility] DBP NIBP 59 mm[Hg] 01/24/2024 19:00:00 [facility] Weight (kg) 102 kg 01/24/2024 19:00:00 [facility] SpO2 97 % 01/24/2024 19:00:00 [facility] Encounters Location Location Details Encounter Type Encounter Number Reason For Visit Attending Provider ADM Date DC Date Status Source [facility] Outpatient [id number] Quintin Sebastian 01/23 18:04 :31 01/24 04:59 :59 [facility] [id number] Quintin Sebastian 01/23 18:05 :06 01/24 04:59 :59 [facility] Outpatient [id number] f/u Sarcoma right extremity , 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 ce Jeferson Jones 03/18 12:18 :44 03/18 23:59 :59 Active [facility] Outpatient [id number] Quintin Sebastian 03/18 16:24 :45 03/19 05:59 :59 [facility] On[facility] Clinic [id number] Jeferson Jones 03/18 19:39 :36 03/19 05:59 :59 Replaced by [facility] Outpatient [id number] Quintin Sebastian 08/05 16:30 :58 08/06 04:59 :59 [facility] [id number] Jeferson Jones 08/05 17:11 :17 08/06 04:59 :59 [facility] [id number] Jeferson Jones 08/05 19:06 :13 08/06 04:59 :59 [facility] Medical Oncology Clinic [id number] Quintin Sebastian 08/05 19:38 :14 08/06 04:59 :59 [facility] [id number] Norma Dennison 08/05 20:13 :49 08/05 23:13 :00 [facility] Social History Social History Date Source No data available for this section 08/06/2024 [facility] No data available for this section 08/05/2024 [facility] No data available for this section 03/19/2024 [facility] No data available for this section 01/25/2024 [facility]
[2024-11-13 13:50] VITALS: BP 141/87; PULSE 81; RESP 16; TEMP 36.7; O2SAT 97; BMI 34.4
--- OUTSIDE RECORDS SUMMARY | 2024-11-13 13:52 | XMS_ITS | Patient Health Record ---
Author Organization [facility] Address [address], [place] [address] Care Team Providers Care Skin Installer Name Role Phone Junito Oswald Unavailable [phone] Results Component Value Reference Range Notes STONE ANALYSIS Reviewed date:03/03/2024 02:15:12 PM Interpretation: Performing Lab:[facility] Notes/Report: Has specimen been collected/obtained? Y SPECIMEN SOURCE LEFT URETER COMPOSITION 1: SEE NOTE Calcium Oxalate Dihydrate (Weddellite) 40% Calcium Oxalate Monohydrate (Whewellite) 30% Carbonate Apatite (Dahllite) 30% WEIGHT: 0.022 This test was developed and its analytical performance characteristics have been determined by [employer]. It has not been cleared or approved by FDA. This assay has been validated pursuant to the CLIA regulations and is used for clinical purposes. THIS TEST WAS PERFORMED AT: [email or web address] [address] [place] [address] ARI WILLIAMSON MD,PHD,TOLU RETROGRADE PYELOGRAM Reviewed date:02/27/2024 04:49:52 PM Interpretation: Performing Lab: Notes/Report: [facility] [address] [place] [address] DIAGNOSTIC RADIOLOGY REPORT NAME: LUCILA TREVINO VISIT DATE: 02/21/24 : 1970 SEX / AGE: F / 53 ORDERING PHY: JUNITO OSWALD MD PRIMARY CARE PHY: JUNITO OSWALD MD MED REC #: [id number] PT TYPE: DEP SDC Exam Performed: 02/21/24 1558 REPORT STATUS: Signed RETROGRADE PYELOGRAM FINDINGS/IMPRESSION: Fluoroscopic images provided for Dr. Oswald. TRANSCRIBED BY: Sherry No TRANSCRIBED BY DATE/TIME: 02/21/241927 DICTATED BY: James Curran DO DICTATED DATE/TIME: 02/21/24 1613 ELECTRONICALLY SIGNED BY: James Curran DO SIGNED DATE/TIME: 02/25/24 7937 Copies To: JUNITO OSWALD MD Reason For Referral No Information Encounters Encounter Location Date Provider Diagnosis [facility] [address] [facility] [address] [place] Kumar [address] 02/21/2024 Junito Oswald Plan Of Treatment No Information
--- OUTSIDE RECORDS SUMMARY | 2024-11-13 13:52 | XMS_ITS | Patient Health Record ---
Author Organization [facility] Address [address] [place] [address] Care Team Providers Care Stave Log Cut Off Saw Operator Name Role Phone Aleyda Jean-Baptiste APRN Primary Care Provider UnavailJUNITO Castañeda Unavailable [phone] ERENDIRA MCGREGOR Unavailable [phone] Junito Madrid Unavailable [phone] Allergies Allergen (clinical drug ingredient) Drug/Non Drug Allergy documented on EMR Reaction Allergy Type Onset Date Status Effexor Unknown Drug Allergy Active fluoxetine PROzac Unknown Drug Allergy Active Wellbutrin Unknown Drug Allergy Active Zofran migraine Drug Allergy Active clonazepam Clonazepam Unknown Drug Allergy Activ e Latex Latex Unknown Allergy Active trazodone Trazodone Unknown Drug Allergy Active Results Component Value Reference Range Notes zzzAbdomen AP Reviewed date:03/24/2024 05:29:45 PM Interpretation: Performing Lab: Notes/Report: See Below For Report Abdomen AP Read See Below For Report US Renal w/bladder--[id number] Reviewed date:03/24/2024 05:29:54 PM Interpretation: Performing Lab: Notes/Report: See Below For Report US Renal w/bladder Read See Below For Report Urinalysis, Routine Reviewed date:02/26/2024 01:46:06 PM Interpretation: Performing Lab: Notes/Report: Urine-Color dark yellow Appearance cloudy Glucose - Bilirubin - Ketones - Specific Durham 1.030 Occult Blood 3+ pH 6.0 Urine Protein 2+ Urobilinogen,Semi-Qn - Nitrite, Urine - WBC Esterase 2+ Urinalysis, Routine Reviewed date:02/19/2024 01:38:27 PM Interpretation: Performing Lab: Notes/Report: Urine-Color Dark yellow Appearance clear Glucose - Bilirubin - Ketones - Specific Durham 1.030 Occult Blood 1+ pH 5.5 Urine Protein - Urobilinogen,Semi-Qn - Nitrite, Urine - WBC Esterase - Urinalysis Gross Exam - Reason For Referral No Information Medications Medication [...] with hydronephrosis (N13.2) Active confirmed Problem Nephrolithiasis (50023955) Nephrolithiasis (N20.0) Active confirmed Vital Signs Heart [...] N/A Encounters Encounter Location Date Provider Diagnosis [facility] [address] [place] [address] 05/26/2024 Junito Vang [employer], [facility] [address] [place] [address] 02/19/2024 Junito Madrid Nephrolithiasis N20. 0 ; Ureteral stone with hydronephrosis N13.2 and Left flank pain R10.9 [facility], [facility] [address] [place] [address] 02/26/2024 JUNITO MONTES Foreign body in othe r parts of genitourinary tract, initial encounter T19.8XXA ; Nephrolithiasis N20.0 ; Ureteral stone with hydronephrosis N13.2 and Left flank pain R10.9 [facility] [address] [place] [address] 02/17/2024 ERENDRIA MCGREGOR [facility] [address] [place] [address] 02/19/2024 ERENDIRA MCGREGOR Preop testing Z01.81 8 and Ureteral stone with hydronephrosis N13.2 [facility] [address] [place] [address] 02/20/2024 JUNITO MONTES [facility] [address] [place] [address] 02/24/2024 Junito Mercy [facility], [facility] [address] [place] [address] 02/27/2024 JUNITO MONTES Nephrolithiasis N20. 0 Assessments Encounter Date Diagnosis (ICD Code) Assessment Notes Treatment Notes Treatment Clinical Notes Section Notes 02/19/2024 Preop testing (ICD-10 - Z01.818) 02/27/2024 Nephrolithiasis (ICD-10 - N20.0) 02/26/2024 Foreign [...] answered. Patient satisfied with this plan. 02/19/2024 Left flank pain (ICD-10 - R10.9) [...] were answered. Patient satisfied with this plan. 02/26/2024 Ureteral stone with hydronephrosis (ICD-10 - N13.2) Patient will follow-up in 6 weeks with KUB and Renal US to evaluate for calcifications and occult hydronephrosis respectively. 02/19/2024 Ureteral stone with hydronephrosis (ICD-10 - N13.2) 02/26/2024 Left flank pain (ICD-10 - R10.9) Patient will follow-up in 6 weeks with KUB and Renal US to evaluate for calcifications and occult hydronephrosis respectively. Plan Of Treatment Pending Test Test Name Order Date KUB, X-Ray: Abdomen, Kidney, Urete r, bladder 02/27/2024 Electrocardiogram, 12 Lead Tracing-[id number] 02/19/2024 Insurance Providers Payer Name Payer Address Payer Phone Subscriber Number Group Number Insured Name Patient Relationship to Insured Coverage Start Date Coverage End Date CT Medicaid [address] [place], [place] [id number] Arlyn Lawson Self - patient is the insured Medical (General) History Medical History History ICD Code Anxiety Soft tissue carcinoma Kidney stones Recurrent UTI Surgical History Surgery Date(Month/Year) cholecystectomy 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
--- OUTSIDE RECORDS SUMMARY | 2024-11-13 13:53 | XMS_ITS ---
Author Organization [facility] Address [address] [place]: Epic Prelude ADT [place] [address] Care Team Providers Care Senior Java Engineer Name Role Phone Chris Meade MD Primary Care Provider [phone] Active Problems Problem Noted Date Diagnosed Date [...]
--- OUTSIDE RECORDS SUMMARY | 2024-11-13 13:53 | XMS_ITS | Encounter Summary ---
Author Organization [facility] Address [address] [place] [address] Care Team Providers Care Label Pinker Name Role Phone Chris Meade MD Primary Care Provider [phone] Reason for Visit * Reason Comments Clinical Consult Before Scheduling Encounter Details Date Type Department Care Team (Late st Contact Info) Description 11/13/2024 Telephone [facility] [place] [address] [address] Chris Meade MD [address] [address] Clinical Consult Before Scheduling Social History Tobacco Use Types Packs/Day Years Used Date Smoking Tobacco: Former Cigarettes 0.5 8 0 06/11/2002 - 06/11/2010 Smokeless Tobacco: Never Alcohol Use Standard Drinks/Week Comments No 0 (1 standard drink = 0.6 oz pur e alcohol) Feeling Safe Answer Date Recorded Are you in a relationship wi th someone who hurts you emotionally and/or physically? 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 She is reporting tingling left side of face and difficulty walking with left leg. She also reports trouble coming up with the correct words and trouble swallowing. Pt's hashusband with her. Signee offered to call an ambulance for patient but patient states spouse can drive her to ER. Signee advised her to go to ER for eval due to the current symptoms. Pt is agreeable. Sharita Price LPN, 11/13/2024 1:23 PM * Telephone Encounter - Margie Goodwin - 11/13/2024 1:19 PM CDT Copied from [facility] #[id number]. Topic: Symptomatic Care >> Nov 13, 2024 1:11 PM Margie Walker wrote: Has this patient seen any provider (current or former) at the requested clinic in the past? Yes, Select the appropriate age range and symptom Patient has symptoms and is seeking care. Caller Name: Arlyn Lawson Callback Number: Telephone Information: Call Notes: tingling in left side of face, trouble swallowing, feet feel like she is stepping on pins - left side- and speech is slurred Age Range/Symptom: Adult 18+ - Impaired or Slurred Speech, one side of face drooping, loss of sensation, numbness, or paralysis Transferred to N line and answered call. documented in this encounter Plan of Treatment Upcoming Encounters Date Type Department Care Team (Late st Contact Info) Description 02/15/2025 1:00 PM CDT Office Visit [address] [address] Chris Meade MD [address] [phone] documented as of this encounter Visit Diagnoses Not on filedocumented in this encounter Care Teams Label Pinker Relationship Specialty Start Date End Date Chris Meade MD [address] [address] PCP - General Family Practice 07/22/23 documented as of this encounter
--- OUTSIDE RECORDS SUMMARY | 2024-11-13 13:53 | XMS_ITS | Clinical Summary ---
Author Organization [facility] Address [address] Attn: Epic Prelude ADT [place] [address] Care Team Providers Care Cardiovascular Or Nurse Name Role Phone Chris Meade MD Primary Care Provider [phone] Allergies Active Allergy Reactions Criticality Noted Date [...] as needed. 3 Active Narcan 4 mg/actuation [place], Non-Aerosol CALL 911. SPR CONTENTS OF ONE [...] Encounters Date Type Department Care Team Description 11/13/2024 Telephone [facility] [address] [phone] Chris Meade MD Clinical Consult Before Scheduling 10/21/2024 External Device Data STL ABSTRACTION Provider, Abstract 10/20/2024 External Device Data STL ABSTRACTION Provider, Abstract 08/24/2024 Results Follow-Up [facility] [address] [phone] Chris Meade MD MAMMO 3D CIERA SCREEN BILAT W OR WO CAD 08/18/2024 2:16 PM CDT - 08/18/2024 11:59 PM CDT Hospital Encounter [facility] [address] [place] [phone] Aleyda Jean-Baptiste FNP Discharge Disposition: Home or [...] on file 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 Gender Identity Not on file Sexual Orientation Not on file Last Filed Vital Signs Vital Sign Reading Time Taken Comments Blood Pressure 128/82 04/06/2024 9:18 AM LIFT MECHANIC Pulse 78 04/06/2024 9:18 AM LIFT MECHANIC Temperature 36.3 C (97.4 F) 04/06/2024 9:18 AM LIFT MECHANIC Respiratory Rate 18 04/06/2024 9:18 AM LIFT MECHANIC Oxygen Saturation 99% 04/06/2024 9:18 AM LIFT MECHANIC Inhaled Oxygen Concentration - - Weight 104.8 kg (231 lb) 04/06/2024 9:18 AM LIFT MECHANIC Height 170.2 cm (5' 7 ) 04/06/2024 9:18 AM LIFT MECHANIC Body Mass Index 36.18 04/06/2024 9:18 AM LIFT MECHANIC Plan of Treatment Upcoming Encounters Date Type Department Care Team (Late st Contact Info) Description 02/15/2025 1:00 PM CDT Office Visit [facility] [address] [address] Chris Meade MD [address] [address] Health Maintenance Due Date Last Done [...] or areas of architectural distortion. Aleyda Jean-Baptiste [facility] MAMMO ORDERABLES Final Result * CERV/VAG CYTO SCREEN PAP W/HPV (12/19/2023 2:51 PM CDT) CLINICAL INFORMATION [facility] Comment:Routine exam LAST MENSTRUAL PERIOD [facility] Comment:NONE GIVEN PREV PAP: [facility] Comment:NONE GIVEN PREV BX: [facility] Comment:NONE GIVEN SOURCE [facility] Comment:Endocervix ADEQUACY: [facility] Comment: Satisfactory for evaluation. Endocervical/transformation zone component present. Age and/or menstrual status not provided PAP INTERP [facility] Comment: Cytology Results: Negative for intraepithelial lesion or malignancy. COMMENT (PAP TEST) [facility] [place] Comment: This Pap test has been evaluated with computer assisted technology. DUST BOX WORKER: [facility] Comment: MEF, CT(ASCP) CT screening location: [place] [address] [address] [place] [address] REVIEW DUST BOX WORKER: [facility] Justin Chavez Comment: ABC, CT(ASCP) CT screening location: [place] [address] [place] [address] EXPLANATORY NOTE Que Justin Chavez Comment: EXPLANATORY NOTE: The Pap is a [...] information. HPV E6/E7 Not Detected Not Detected [facility] [employer] Chavez Comment: Methodology: Fire Warden-Mediated Amplification This assay detects E6/E7 viral messenger RNA (mRNA) from 14 high-risk HPV types (16,18,31,33,35,39,45,51,52,56,58,59,66,68). Cervical sources are required for HPV testing. If a vaginal source from a patient who has had a total hysterectomy with removal of cervix was submitted, please contact the testing laboratory for alternative testing options. For additional information, please refer to http://education.Daegis/faq/XTT906z7 (This link if provided for information/ educational purposes only.) Test Performed at: [facility] [address] [address] Alex REYES Genital SWAB OF ENDOCERVIX / Unknown 12/19/2023 2:51 PM CDT 12/20/2023 8:59 AM CDT Michelle Sales NP PATHOLOGY/CYTOLOGY ORDERABL ES Final Result [facility] [phone] [facility] [address] [address] [phone] * COLONOSCOPY REPORT (09/11/2023 2:50 PM CDT) Narrative Procedure Note Lucio Jones MD - 09/11/2023 2:50 PM CDT [facility] GI Patient Name: Arlyn Lawson Procedure [...] PM Scope Out: 2:45:41 PM [address] [place], [place] Lucio Jones MD GI PROCEDURE ORDERABLES Final Result from Last 3 Months or Most Recently Relevant to Health Maintenance Insurance MEDICAID [place] Member Subscriber Plan / Payer (Ef fective 2023-Present) Name:Arlyn Lawson Relation to Subscriber:Self Name:Arlyn Lawson Payer ID:Not on file Group ID:Not on file Type:Medicaid Address: [address] [address] Advance Directives For more information, please contact: [phone] * Full Code (Latest Code Status on File) Date Activated Date Inactivated Comments 09/11/2023 1:06 PM 09/11/2023 5:32 PM Care Teams Cardiovascular Or Nurse Relationship Specialty Start Date End Date Chris Meade MD [address] [phone] PCP - General Family Practice 07/22/23
--- NOTE | 2024-11-13 14:16 | CT_ITS ---
WS: [id number] Exam: CT head wo con* [id number] Date/Time of Exam: 11/13/2024 2:16 PM Reason For Exam: non-specific neuro symptoms DLP: 1032.[address] scans at [facility] use at least one of these dose optimization techniques: automated exposure control; mA and/or kV adjustment per patient size (includes targeted exams where dose is matched to clinical indication); or iterative reconstruction. There was no sign of acute intracranial bleed or space-occupying mass. The ventricles and basal cisterns are normal in size. No extra-axial fluid collection. Unremarkable brainstem and cerebellum. The skull is intact. The mastoids and facial sinuses are clear. Normal orbits and optic globes. Normal soft tissues. CT/CT head wo con* [id number] IMPRESSION: 1. Unremarkable noncontrast CT scan of the brain.
--- NOTE | 2024-11-13 14:17 | W.ED.NEUROSD ---
Documented by User: ALICE Noe 11/13/24 15:09 HPI - Neuro Symptoms/Deficit General: Chief Complaint: Neuro Symptoms/Deficit Stated Complaint: pos stroke symptoms Time Seen by Provider: 11/13/24 14:05 Source: patient and family Mode of arrival: ambulatory Limitations: no limitations History of Present Illness: Patient is a 54-year-old female who presents to the ED today with nonspecific complaints. She states over the past several weeks she has been having intermittent episodes of [id number] to the left side of her face and the bottom of her left foot. She is also having some difficulty swallowing over the past several weeks as well. She complains of brain fog that has been present for a long time . She states today she had an episode of where she felt like her speech sounded like I was drunk . This was reportedly approximately an hour before arrival and has resolved at time of my examination. She is not complaining of any weakness to her extremities. She has not noted any visual changes. She does suffer from chronic migraines. NIH upon arrival is 0. Onset (ago): week(s) Relieving factors: none Exacerbating factors: none On Anticoagulants: No Associated symptoms: Deny chest pain, headache(s), malaise, nausea or vomiting Treatments Prior to Arrival: none Related Data Home Medications ?Medication ?Instructions ?Recorded ?Confirmed Cbd Gummies 1 ea PO PRN 10/14/23 07/02/24 melatonin 5 mg tablet 5 mg PO BEDTIME PRN Sleep 10/14/23 07/02/24 alprazolam 0.5 mg tablet 0.5 mg PO DAILY PRN Anxiety 02/13/24 07/02/24 cyclobenzaprine 5 mg tablet 5 mg PO DAILY 02/13/24 07/02/24 Previous Rx's ?Medication ?Instructions ?Recorded hydrocodone 5 mg-acetaminophen 325 1 tab PO Q6H PRN pain #20 tabs 02/13/24 mg tablet ondansetron 8 mg disintegrating 8 mg PO Q6H #14 tabs 02/13/24 tablet tamsulosin 0.4 mg capsule (Flomax) 0.4 mg PO DAILY #30 caps 02/13/24 oxycodone 5 mg tablet 5 mg PO Q8H PRN pain #20 tabs 02/25/24 hydrocodone 5 mg-acetaminophen 325 1 tab PO Q6H PRN pain #14 tabs 09/28/24 mg tablet ciprofloxacin HCl 500 mg tablet 500 mg PO BID #14 tabs 11/08/24 (Cipro) metronidazole 500 mg tablet 500 mg PO Q8H 7 days #21 tabs 11/08/24 Allergies Allergy/AdvReac Type Severity Reaction Status Date / Time bee venom protein (honey bee) Allergy ALGY-Anaphy Verified 11/08/24 10:06 laxis bupropion (From Wellbutrin) Allergy Unknown Verified 11/08/24 10:06 clonazepam (From Klonopin) Allergy ADR-Irritab Verified 11/08/24 10:06 le fluoxetine (From Prozac) Allergy ADR-Irritab Verified 11/08/24 10:06 le latex Allergy ALGY-Rash Verified 11/08/24 10:06 ondansetron (From Zofran) Allergy Unknown Verified 11/08/24 10:06 trazodone Allergy ADV-Weaknes Verified 11/08/24 10:06 s venlafaxine (From Effexor) Allergy Unknown Verified 11/08/24 10:06 Review of Systems Const: Denies: fever(s), chills, body aches, fatigue or malaise Eyes: Denies: change in vision, blurry vision, photophobia, floaters or seeing flashes ENMT: Denies: throat pain, odynophagia, nasal discharge, nasal congestion or sinus pain Card: Denies: chest pain or palpitations Resp: Denies: dyspnea GI: Denies: abdominal pain, nausea, vomiting or diarrhea Musc: Denies: neck pain, back pain, extremity pain, extremity swelling or joint swelling Skin/Breast: Denies: rash Neuro: Reports: sensory changes (intermittently x weeks to L face/foot), Slurred speech present (resolved) and other (brain fog); Denies: headache(s), weakness in extremities, lack of coordination, difficulty walking, behavioral changes or seizure-like activity PFSH ED PFSH: Medical History Urolithiasis Left ureteral calculus GERD (gastroesophageal reflux disease) 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 Surgical History Status post laparoscopic Kellie fundoplication (10/27/19) Laparoscopic paraesophageal hernia repair with mesh placement and Niesen fundoplication with intraoperative EGD History of tubal ligation History of cholecystectomy Family History Father Dementia Brother CAD (coronary artery disease) Other Cancer Diabetes Hyperlipidemia Hypertension Psychiatric illness Stroke Denies family history of Clotting disorder Chronic kidney disease (CKD) Suicide Anesthesia complication Bleeding disorder Lung disease Social History Smoking and tobacco/nicotine status: never used tobacco/nicotine Alcohol intake: current Alcohol intake frequency: holidays/special occasions only NIH stroke score NIHSS: Level Of Consciousness - 1a: 0 Level Of Consciousness Questions - 1b: Both Correct Level Of Consciousness Commands - 1c: Both Correct Best Gaze - 2: Normal Visual Stokes - 3: No Visual Loss Facial Palsy - 4: Normal Motor Arm Right - 5: No Drift Motor Arm Left - 5: No Drift Motor Leg Right - 6: No Drift Motor Leg Left - 6: No Drift Limb Ataxia - 7: Absent Sensory - 8: Normal Best Language - 9: No Aphasia Dysarthia - 10: Normal Extinction And Inattention - 11: 0 Score: Total Score: 0 Physical Exam Const: COMMON NORMALS: no acute distress, average body habitus, patient oriented x3, no limitations, healthy appearing, alert and well nourished GENERAL APPEARANCE: cooperative ORIENTATION/CONSCIOUSNESS: Yes awake, Yes oriented to person, Yes oriented to place and Yes oriented to time HENMT: COMMON NORMALS: normocephalic and atraumatic HEAD & SCALP: normal to inspection, normocephalic and atraumatic Eye: COMMON NORMALS: Equal, round and reactive pupils present and EOMs intact bilaterally GENERAL EYE: appearance normal, both eyes and all related structures and normal light reflex PUPIL: Yes Equal, round and reactive pupils present DIRECT OPHTHALMOSCOPY: Yes normal light reflex Neck/C-Spine: COMMON NORMALS: full ROM, no lymphadenopathy, supple, no meningeal signs, no JVD, Thyroid normal and No carotid bruits GENERAL: Yes normal visual inspection THYROID: Thyroid normal Chest: COMMONS NORMALS: normal inspection of the chest and normal palpation of entire chest wall Resp: COMMON NORMALS: normal respiratory effort and clear to auscultation bilaterally AUSCULTATION: clear to auscultation bilaterally Cardio: COMMON NORMALS: no JVD, regular rate and regular rhythm RATE: regular rate RHYTHM: regular rhythm GI: COMMON NORMALS: Normal to inspection, nondistended, normoactive bowel sounds present, Soft to palpation, non-tender, No hepatosplenomegaly present and no masses PALPATION: Yes Soft to palpation and Yes No hepatosplenomegaly present : COMMON NORMALS: Yes no CVA tenderness BLADDER/KIDNEY EXAM: Yes no CVA tenderness Back/Pelvis: COMMON NORMALS: no CVA tenderness and thoracic and lumbar spine normal to inspection Extremity: COMMON NORMALS: normal to inspection GENERAL: Yes normal exam except as noted Neuro: ABUNDIO COMA SCALE: document GCS findings Abundio coma scale eye opening: Spontaneous Paton coma scale verbal response: Orientated Paton coma scale motor response: Obey commands Abundio coma scale total score: 15 COMMON NORMALS: patient oriented x3, CN's II-XII intact bilaterally, moves all extremities, no focal motor deficits, no sensory deficits noted and gait normal SENSORIUM/ORIENTATION: Yes alert, Yes oriented to person, Yes oriented to place and Yes oriented to time MENINGEAL SIGNS: Yes no meningeal signs COORDINATION/BALANCE: [id number] test normal and sduq-ni-[id number] test normal SPEECH: speech normal GAIT: Yes Normal gait present MOTOR EXAM: 5/5 motor strength present throughout COORDINATION: [id number]-[id number] test normal and wcnf-ax-lcxl test normal Skin: COMMON NORMALS: no rashes or lesions noted GENERAL SKIN EXAM: no rashes or lesions noted Course Vital Signs: Vital signs: Vital Signs Temperature 98.1 F 11/13/24 13:50 Pulse Rate 81 11/13/24 13:50 Respiratory Rate 16 11/13/24 13:50 Blood Pressure 141/87 11/13/24 13:50 Pulse Oximetry 97 11/13/24 13:50 Oxygen Delivery Me thod Room Air 11/13/24 13:50 MDM - Neuro Symptoms/Deficit Lab Data 11/13/24 14:43 11/13/24 14:[address] 11/13/24 14:16 IMPRESSION: 1. Unremarkable noncontrast CT scan of the brain. Laboratory Results WBC 4.79 10^3/uL (3.29-11.43) 11/13/24 14:43 RBC 4.05 10^6/uL (3.85-5.65) 11/13/24 14:43 Hgb 12.20 g/dL (11.27-16.99) 11/13/24 14:43 Hct 37.3 % (36-47) 11/13/24 14:43 MCV 92.1 fl (85-98) 11/13/24 14:43 MCH 30.1 pg (27-33) 11/13/24 14:43 MCHC 32.7 g/dL (30-55) 11/13/24 14:43 RDW 13.2 % (12.1-15.1) 11/13/24 14:43 Plt Count 285 10^3/cmm (157-399) 11/13/24 14:43 MPV 10.9 fL (7.4-10.4) H 11/13/24 14:43 Neut % (Auto) 58.3 % 11/13/24 14:43 Lymph % (Auto) 24.8 % 11/13/24 14:43 Churchill % (Auto) 12.3 % 11/13/24 14:43 Eos % (Auto) 4.0 % 11/13/24 14:43 Baso % (Auto) 0.4 % 11/13/24 14:43 Neut # (Auto) 2.79 10^3/uL (1.8-7.7) 11/13/24 14:43 Lymph # (Auto) 1.2 10^3/uL (0.8-4.8) 11/13/24 14:43 Churchill # (Auto) 0.6 10^3/uL (0.2-0.9) 11/13/24 14:43 Eos # (Auto) 0.2 10^3/uL (0.0-0.8) 11/13/24 14:43 Baso # (Auto) 0.0 10^3/uL (0.0-0.1) 11/13/24 14:43 Nucleated RBC % (auto) 0 % 11/13/24 14:43 Nucleated RBCs # 0.0 /100WBC 11/13/24 14:43 PT 12.40 SECONDS (12.1-14.9) 11/13/24 14:43 INR 0.87 (0.8-1.2) 11/13/24 14:43 APTT 24.8 SECONDS (23.9-36.7) 11/13/24 14:43 Sodium 143 mmol/L (136-145) 11/13/24 14:43 Potassium 3.7 mmol/L (3.5-5.1) 11/13/24 14:43 Chloride 110 mmol/L (98-107) H 11/13/24 14:43 Carbon Dioxide 20 mmol/L (22-29) L 11/13/24 14:43 Anion Gap 16.7 (5-19) 11/13/24 14:43 BUN 15 mg/dL (6-20) 11/13/24 14:43 Creatinine 0.7 mg/dL (0.5-0.9) 11/13/24 14:43 GFR Calculation 87.9 mL/min (90-130) L 11/13/24 14:43 Glucose 93 mg/dL (65-115) 11/13/24 14:43 Calculated Osmolality 297 mOsm/kg (285-295) H 11/13/24 14:43 Calcium 9.1 mg/dL (8.5-10.5) 11/13/24 14:43 Total Bilirubin 0.3 mg/dL (0.15-1.2) 11/13/24 14:43 AST 17 U/L (0-32) 11/13/24 14:43 ALT 17 U/L (0-33) 11/13/24 14:43 Alkaline Phosphatase 59 U/L (35-105) 11/13/24 14:43 Total Protein 6.5 g/dL (6.6-8.7) L 11/13/24 14:43 Albumin 3.5 g/dL (3.5-5.2) 11/13/24 14:43 Globulin 3.0 g/dL (1.3-4.6) 11/13/24 14:43 Urine Color Yellow (Yellow) 11/13/24 14:54 Urine Appearance Clear (CLEAR) 11/13/24 14:54 Urine pH 6.0 (5-7) 11/13/24 14:54 Ur Specific [place] 1.026 (1.005-1.030) 11/13/24 14:54 Urine Protein Negative (Negative) 11/13/24 14:54 Urine Glucose (UA) Negative (Normal) 11/13/24 14:54 Urine Ketones Negative (Negative) 11/13/24 14:54 Urine Blood Negative (Negative) 11/13/24 14:54 Urine Nitrate Negative (Negative) 11/13/24 14:54 Urine Bilirubin Negative (Negative) 11/13/24 14:54 Urine Urobilinogen 1.0 mg/dL (Negative) 11/13/24 14:54 Ur Leukocyte Esterase Trace (Negative) A 11/13/24 14:54 Urine RBC 0-2 /hpf (0-2) 11/13/24 14:54 Urine WBC 0-5 /hpf (0-5) 11/13/24 14:54 Ur Squamous Epith Cells 0-5 /hpf (0-5) 11/13/24 14:54 Amorphous Sediment Not Reportable 11/13/24 14:54 Urine Bacteria None seen /hpf (NONE) 11/13/24 14:54 Hyaline Casts 0-4 /lpf H 11/13/24 14:54 Urine Opiates Screen Positive ng/mL (Negative) H 11/13/24 14:54 Ur Barbiturates Screen Negative ng/mL (Negative) 11/13/24 14:54 Ur Phencyclidine Scrn Negative ng/mL (Negative) 11/13/24 14:54 Ur Amphetamines Screen Negative ng/mL (Negative) 11/13/24 14:54 U Benzodiazepines Scrn Negative ng/mL (Negative) 11/13/24 14:54 Urine Cocaine Screen Negative ng/mL (Negative) 11/13/24 14:54 U Marijuana (THC) Screen Negative ng/mL (Negative) 11/13/24 14:54 Discharge Plan Discharge Patient Disposition: Home Clinical Impression: Atypical migraine, Creatinine elevation Condition: Stable Prescriptions: No Action oxycodone 5 mg tablet 5 mg PO Q8H PRN (Reason: pain) Qty: 20 0RF metronidazole 500 mg tablet 500 mg PO Q8H 7 Days Qty: 21 0RF ciprofloxacin HCl [Cipro] 500 mg tablet 500 mg PO BID Qty: 14 0RF melatonin 5 mg Tablet 5 mg PO BEDTIME PRN (Reason: Sleep) Cbd Gummies 1 ea PO PRN alprazolam 0.5 mg tablet 0.5 mg PO DAILY PRN (Reason: Anxiety) cyclobenzaprine 5 mg tablet 5 mg PO DAILY hydrocodone-acetaminophen 5-325 mg tablet 1 tab PO Q6H PRN (Reason: pain) Qty: 20 0RF ondansetron 8 mg tablet,disintegrating 8 mg PO Q6H Qty: 14 0RF Rx Instructions: Take 1/2-1 tab every 6 hours as needed for nausea and vomiting tamsulosin [Flomax] 0.4 mg capsule 0.4 mg PO DAILY Qty: 30 0RF hydrocodone-acetaminophen 5-325 mg tablet 1 tab PO Q6H PRN (Reason: pain) Qty: 14 0RF Discharge Orders: Discharge ED (Routine); Ordered 11/13/24 Ordered By: Karmen Farley Referrals: Aleyda Jean-Baptiste FNP [Primary Care Provider, Family Practice] Patient Instructions: Dehydration (ED), Acute Headache (DC), Patient Portal & Mo Instructions Activity Restrictions/Additional Instructions: Increase fluid intake. Noncaffeinated beverage, at least 1 L in the next 2 hours. Case management will contact you regarding follow-up with neurology Return to ED for worsening symptoms Print Language: Irish Coding Level of Care Code ED Occupational Therapy Teacher for Chg Fwd Documented by User: ALICE Guadarrama 11/13/24 16:21 HPI - Neuro Symptoms/Deficit General: Chief Complaint: Neuro Symptoms/Deficit Stated Complaint: pos stroke symptoms Time Seen by Provider: 11/13/24 14:05 Related Data Home Medications ?Medication ?Instructions ?Recorded ?Confirmed Cbd Gummies 1 ea PO PRN 10/14/23 07/02/24 melatonin 5 mg tablet 5 mg PO BEDTIME PRN Sleep 10/14/23 07/02/24 alprazolam 0.5 mg tablet 0.5 mg PO DAILY PRN Anxiety 02/13/24 07/02/24 cyclobenzaprine 5 mg tablet 5 mg PO DAILY 02/13/24 07/02/24 Previous Rx's ?Medication ?Instructions ?Recorded hydrocodone 5 mg-acetaminophen 325 1 tab PO Q6H PRN pain #20 tabs 02/13/24 mg tablet ondansetron 8 mg disintegrating 8 mg PO Q6H #14 tabs 02/13/24 tablet tamsulosin 0.4 mg capsule (Flomax) 0.4 mg PO DAILY #30 caps 02/13/24 oxycodone 5 mg tablet 5 mg PO Q8H PRN pain #20 tabs 02/25/24 hydrocodone 5 mg-acetaminophen 325 1 tab PO Q6H PRN pain #14 tabs 09/28/24 mg tablet ciprofloxacin HCl 500 mg tablet 500 mg PO BID #14 tabs 11/08/24 (Cipro) metronidazole 500 mg tablet 500 mg PO Q8H 7 days #21 tabs 11/08/24 Allergies Allergy/AdvReac Type Severity Reaction Status Date / Time bee venom protein (honey bee) Allergy ALGY-Anaphy Verified 11/08/24 10:06 laxis bupropion (From Wellbutrin) Allergy Unknown Verified 11/08/24 10:06 clonazepam (From Klonopin) Allergy ADR-Irritab Verified 11/08/24 10:06 le fluoxetine (From Prozac) Allergy ADR-Irritab Verified 11/08/24 10:06 le latex Allergy ALGY-Rash Verified 11/08/24 10:06 ondansetron (From Zofran) Allergy Unknown Verified 11/08/24 10:06 trazodone Allergy ADV-Weaknes Verified 11/08/24 10:06 s venlafaxine (From Effexor) Allergy Unknown Verified 11/08/24 10:06 PFSH ED PFSH: Medical History Urolithiasis Left ureteral calculus GERD (gastroesophageal reflux disease) 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 Surgical History Status post laparoscopic Kellie fundoplication (10/27/19) Laparoscopic paraesophageal hernia repair with mesh placement and Niesen fundoplication with intraoperative EGD History of tubal ligation History of cholecystectomy Family History Father Dementia Brother CAD (coronary artery disease) Other Cancer Diabetes Hyperlipidemia Hypertension Psychiatric illness Stroke Denies family history of Clotting disorder Chronic kidney disease (CKD) Suicide Anesthesia complication Bleeding disorder Lung disease Social History (Reviewed 07/11/25 @ 15:07 by FLYNN Noe Smoking and tobacco/nicotine status: never used tobacco/nicotine Alcohol intake: current Alcohol intake frequency: holidays/special occasions only NIH stroke score Score: Total Score: 0 Physical Exam Neuro: ABUNDIO COMA SCALE: document GCS findings Paton coma scale total score: 15 Course Vital Signs: Vital signs: Vital Signs Temperature 98.1 F 11/13/24 13:50 Pulse Rate 81 11/13/24 13:50 Respiratory Rate 16 11/13/24 13:50 Blood Pressure 141/87 11/13/24 13:50 Pulse Oximetry 97 11/13/24 13:50 Oxygen Delivery Me thod Room Air 11/13/24 13:50 MDM - Neuro Symptoms/Deficit Medical Decision Making Patient is 54-year-old female with paresthesia to left face, and left-sided foot, ongoing, for several weeks, with negative CT scans here. Today, patient had some word finding and different vague symptoms. On laboratory data, her creatinine is slightly elevated from her baseline, up about 0.2. This does not qualify for LEA/ARF, however would make a difference in hydration level with her association of symptoms. Patient does believe that this could be the case as well. She does have chronic migraines which could be atypical migraine. She would like to follow-up with neurology regarding her paresthesias and her migraine. All of her questions answered to her satisfaction. She will increase her fluid intake in the next 2 hours Lab Data 11/13/24 14:43 11/13/24 14:[address] 11/13/24 14:16 IMPRESSION: 1. Unremarkable noncontrast CT scan of the brain. Laboratory Results WBC 4.79 10^3/uL (3.29-11.43) 11/13/24 14:43 RBC 4.05 10^6/uL (3.85-5.65) 11/13/24 14:43 Hgb 12.20 g/dL (11.27-16.99) 11/13/24 14:43 Hct 37.3 % (36-47) 11/13/24 14:43 MCV 92.1 fl (85-98) 11/13/24 14:43 MCH 30.1 pg (27-33) 11/13/24 14:43 MCHC 32.7 g/dL (30-55) 11/13/24 14:43 RDW 13.2 % (12.1-15.1) 11/13/24 14:43 Plt Count 285 10^3/cmm (157-399) 11/13/24 14:43 MPV 10.9 fL (7.4-10.4) H 11/13/24 14:43 Neut % (Auto) 58.3 % 11/13/24 14:43 Lymph % (Auto) 24.8 % 11/13/24 14:43 Churchill % (Auto) 12.3 % 11/13/24 14:43 Eos % (Auto) 4.0 % 11/13/24 14:43 Baso % (Auto) 0.4 % 11/13/24 14:43 Neut # (Auto) 2.79 10^3/uL (1.8-7.7) 11/13/24 14:43 Lymph # (Auto) 1.2 10^3/uL (0.8-4.8) 11/13/24 14:43 Churchill # (Auto) 0.6 10^3/uL (0.2-0.9) 11/13/24 14:43 Eos # (Auto) 0.2 10^3/uL (0.0-0.8) 11/13/24 14:43 Baso # (Auto) 0.0 10^3/uL (0.0-0.1) 11/13/24 14:43 Nucleated RBC % (auto) 0 % 11/13/24 14:43 Nucleated RBCs # 0.0 /100WBC 11/13/24 14:43 PT 12.40 SECONDS (12.1-14.9) 11/13/24 14:43 INR 0.87 (0.8-1.2) 11/13/24 14:43 APTT 24.8 SECONDS (23.9-36.7) 11/13/24 14:43 Sodium 143 mmol/L (136-145) 11/13/24 14:43 Potassium 3.7 mmol/L (3.5-5.1) 11/13/24 14:43 Chloride 110 mmol/L (98-107) H 11/13/24 14:43 Carbon Dioxide 20 mmol/L (22-29) L 11/13/24 14:43 Anion Gap 16.7 (5-19) 11/13/24 14:43 BUN 15 mg/dL (6-20) 11/13/24 14:43 Creatinine 0.7 mg/dL (0.5-0.9) 11/13/24 14:43 GFR Calculation 87.9 mL/min (90-130) L 11/13/24 14:43 Glucose 93 mg/dL (65-115) 11/13/24 14:43 Calculated Osmolality 297 mOsm/kg (285-295) H 11/13/24 14:43 Calcium 9.1 mg/dL (8.5-10.5) 11/13/24 14:43 Total Bilirubin 0.3 mg/dL (0.15-1.2) 11/13/24 14:43 AST 17 U/L (0-32) 11/13/24 14:43 ALT 17 U/L (0-33) 11/13/24 14:43 Alkaline Phosphatase 59 U/L (35-105) 11/13/24 14:43 Total Protein 6.5 g/dL (6.6-8.7) L 11/13/24 14:43 Albumin 3.5 g/dL (3.5-5.2) 11/13/24 14:43 Globulin 3.0 g/dL (1.3-4.6) 11/13/24 14:43 Urine Color Yellow (Yellow) 11/13/24 14:54 Urine Appearance Clear (CLEAR) 11/13/24 14:54 Urine pH 6.0 (5-7) 11/13/24 14:54 Ur Specific [place] 1.026 (1.005-1.030) 11/13/24 14:54 Urine Protein Negative (Negative) 11/13/24 14:54 Urine Glucose (UA) Negative (Normal) 11/13/24 14:54 Urine Ketones Negative (Negative) 11/13/24 14:54 Urine Blood Negative (Negative) 11/13/24 14:54 Urine Nitrate Negative (Negative) 11/13/24 14:54 Urine Bilirubin Negative (Negative) 11/13/24 14:54 Urine Urobilinogen 1.0 mg/dL (Negative) 11/13/24 14:54 Ur Leukocyte Esterase Trace (Negative) A 11/13/24 14:54 Urine RBC 0-2 /hpf (0-2) 11/13/24 14:54 Urine WBC 0-5 /hpf (0-5) 11/13/24 14:54 Ur Squamous Epith Cells 0-5 /hpf (0-5) 11/13/24 14:54 Amorphous Sediment Not Reportable 11/13/24 14:54 Urine Bacteria None seen /hpf (NONE) 11/13/24 14:54 Hyaline Casts 0-4 /lpf H 11/13/24 14:54 Urine Opiates Screen Positive ng/mL (Negative) H 11/13/24 14:54 Ur Barbiturates Screen Negative ng/mL (Negative) 11/13/24 14:54 Ur Phencyclidine Scrn Negative ng/mL (Negative) 11/13/24 14:54 Ur Amphetamines Screen Negative ng/mL (Negative) 11/13/24 14:54 U Benzodiazepines Scrn Negative ng/mL (Negative) 11/13/24 14:54 Urine Cocaine Screen Negative ng/mL (Negative) 11/13/24 14:54 U Marijuana (THC) Screen Negative ng/mL (Negative) 11/13/24 14:54 All radiology interpretation(s) finalized by discharge ED provider radiology interpretation(s): no acute Discharge Plan Discharge Patient Disposition: Home Clinical Impression: Atypical migraine, Creatinine elevation Condition: Stable Prescriptions: No Action oxycodone 5 mg tablet 5 mg PO Q8H PRN (Reason: pain) Qty: 20 0RF metronidazole 500 mg tablet 500 mg PO Q8H 7 Days Qty: 21 0RF ciprofloxacin HCl [Cipro] 500 mg tablet 500 mg PO BID Qty: 14 0RF melatonin 5 mg Tablet 5 mg PO BEDTIME PRN (Reason: Sleep) Cbd Gummies 1 ea PO PRN alprazolam 0.5 mg tablet 0.5 mg PO DAILY PRN (Reason: Anxiety) cyclobenzaprine 5 mg tablet 5 mg PO DAILY hydrocodone-acetaminophen 5-325 mg tablet 1 tab PO Q6H PRN (Reason: pain) Qty: 20 0RF ondansetron 8 mg tablet,disintegrating 8 mg PO Q6H Qty: 14 0RF Rx Instructions: Take 1/2-1 tab every 6 hours as needed for nausea and vomiting tamsulosin [Flomax] 0.4 mg capsule 0.4 mg PO DAILY Qty: 30 0RF hydrocodone-acetaminophen 5-325 mg tablet 1 tab PO Q6H PRN (Reason: pain) Qty: 14 0RF Discharge Orders: Discharge ED (Routine); Ordered 11/13/24 Ordered By: Karmen Farley Referrals: Aleyda Jean-Baptiste FNP [Primary Care Provider, Family Practice] Patient Instructions: Dehydration (ED), Acute Headache (DC), Patient Portal & Mo Instructions Activity Restrictions/Additional Instructions: Increase fluid intake. Noncaffeinated beverage, at least 1 L in the next 2 hours. Case management will contact you regarding follow-up with neurology Return to ED for worsening symptoms Print Language: Irish Coding Level of Care Code ED Occupational Therapy Teacher for Miriam Gamez
[2024-11-13 15:09] LABS: Hematocrit 37.3 % (36-47); Hemoglobin 12.20 g/dL (11.27-16.99); Mean Corpuscular HGB Conc 32.7 g/dL (30-55); Mean Corpuscular Hemoglobin 30.1 pg (27-33); Mean Corpuscular Volume 92.1 fl (85-98); Nucleated Red Blood Cells % 0 %; Platelet Count 285 10^3/cmm (157-399); Red Blood Count 4.05 10^6/uL (3.85-5.65); White Blood Count 4.79 10^3/uL (3.29-11.43)
[2024-11-13 15:09] LABS: Glucose Urine UA Negative (Normal); Nitrate Urine Negative (Negative); Specific Gravity, Urine 1.026 (1.005-1.030)
[2024-11-13 15:12] LABS: Add Urine Microscopic? YES
[2024-11-13 15:17] LABS: PCP Screen Urine Negative (Negative)
[2024-11-13 15:26] LABS: Alanine Aminotransferase 17 U/L (0-33); Albumin Level 3.5 g/dL (3.5-5.2); Alkaline Phosphatase 59 U/L (35-105); Anion Gap 16.7 (5-19); Aspartate Amino Transferase 17 U/L (0-32); Blood Urea Nitrogen 15 mg/dL (6-20); Calcium 9.1 mg/dL (8.5-10.5); Carbon Dioxide 20 mmol/L (22-29); Chloride 110 mmol/L (98-107); Creatinine Clr Calc Pharmacy 114.0937; Globulin 3.0 g/dL (1.3-4.6); Glucose 93 mg/dL (65-115); Osmolality Calculated 297 mOsm/kg (285-295); Potassium 3.7 mmol/L (3.5-5.1); Sodium 143 mmol/L (136-145); Total Protein 6.5 g/dL (6.6-8.7)
[2024-11-13 15:29] LABS: INR 0.87 (0.8-1.2); Prothrombin Time 12.40 SECONDS (12.1-14.9)
[2024-11-13 15:30] LABS: Partial Thromboplastin Time 24.8 SECONDS (23.9-36.7)
[2024-11-13 16:33] VITALS: BP 157/82; PULSE 78; RESP 16; O2SAT 96
--- NOTE | 2024-11-13 18:11 | DCPLANNER ---
messages neuro for er f/u
== END 2024-11-13 16:35 | disposition home or self-care (01) ==
PROVIDERS: Emergency Provider Physician Assistant; PCP Nurse Practitioner Family
DX: G43.809 Other migraine, not intractable, without status migrainosus (principal); R94.4 Abnormal results of kidney function studies
CPT/HCPCS: 36415; 70450; 80053; 80306; 81001; 85025; 85610; 85730; 99284

== ENCOUNTER → 2024-12-02 10:16 | Outpatient (BNVA) | payer BC, MEDICAID, SELFPAY | PROVIDERS: PCP Nurse Practitioner Family; Referring Provider Physician Assistant; Visit Provider Psychiatry & Neurology Neurology | DX: G43.909 Migraine, unspecified, not intractable, without status migrainosus (principal) | CPT/HCPCS: 36415; 82306; 82465; 82607; 82746; 83735; 83921; 84439; 84443; 85049; 85384; 85610; 85730 ==

== ENCOUNTER 2024-12-11 09:17 | Outpatient (CLI) | payer BC, MEDICAID, SELFPAY ==
--- NOTE | 2024-12-11 09:30 | MR_ITS ---
WS: [id number] MRI HEAD WITH CONTRAST TECHNIQUE: Sagittal T1, T2 axial, T2 axial FLAIR, axial susceptibility weighted imaging, axial diffusion weighted images, and coronal T2 images were obtained. Pre and post-T1 axial and post T1 coronal images. ADC and FSPGR images. CLINICAL INFORMATION: G43.909 - Migraine, unspecified, not intractable, without... COMPARISON: CT 11/13/2024 FINDINGS: No evidence of restricted diffusion to suggest acute ischemia. No suspicious intracranial signal abnormalities. No significant parenchymal volume loss. Normal posterior fossa. Normal vascular flow voids at the skull base. No extra- axial fluid collections. Paranasal sinuses and mastoid air cells are well aerated. No hemosiderin. No abnormal gadolinium enhancement. Normal dural venous sinuses. MR/MR head wo/w con [id number] IMPRESSION: Some images degraded by motion 1. No evidence of restricted diffusion to suggest acute ischemia. 2. No suspicious intracranial signal abnormalities. No significant parenchymal volume loss. 3. No hemosiderin on susceptibility-weighted images. 4. No abnormal gadolinium enhancement. 5. No other acute findings.
[2024-12-11] MEDS: gadobenate dimeglumine 20 mL vial IV (09:58)
--- NOTE | 2024-12-11 10:45 | USCV_ITS ---
Arlyn Lawson Age: 54 Gender: F : 1970 Exam Date: 12/11/2024 10:47 Ordering Phys: Chang Bansal MD Technologist: [facility] [place]am [place] [facility] [place]ication: migraine Risk Factors: Previous Vascular Surgery: Right Brachial BP: / Left Brachial BP: / Right Left Velocity (cm/s) Spectral Plaque Velocity (cm/s) Spectral Plaque Syst/Diast Broadening Syst/Diast Broadening 64.60/ 19.30 Prox CCA 63.40 / 14.30 75.00/ 27.10 Mid CCA 76.40 / 19.00 76.30/ 25.80 Distal CCA 56.00 / 23.10 50.80/ 22.40 Prox ICA 41.10 / 15.10 48.20/ 25.10 Mid ICA 52.20 / 26.40 47.60/ 21.10 Distal ICA 68.90 / 32.90 68.50 ECA 58.40 0.70 ICA/CCA 1.20 Antegrade Vertebral Antegrade 38.40/ 17.50 cm/s 41.10/ 13.80 cm/s Tri Subclavian Tri 62.70 97.50 FINDINGS Comparison: none available. No significant elevation of systolic or diastolic velocities. No significant amount of calcified plaque or intimal thickening identified. Waveforms are normal. CONCLUSIONS Normal carotid doppler ultrasound. Dr. Iwona Ramesh DO (Electronically Signed) Final Date: 11 December 2024 11:09 S
== END 2024-12-11 09:18 | disposition home or self-care (01) ==
LOC: RAD 09:17
PROVIDERS: PCP Nurse Practitioner Family; Visit Provider Psychiatry & Neurology Neurology
DX: G43.909 Migraine, unspecified, not intractable, without status migrainosus (principal); I48.91 Unspecified atrial fibrillation
CPT/HCPCS: 70553; 93880; A9577

== ENCOUNTER 2024-12-23 19:23 | Emergency (ER) | payer BC, MEDICAID, SELFPAY ==
--- OUTSIDE RECORDS SUMMARY | 2024-02-21 08:00 | XMS_ITS ---
Author Organization [facility] Address [address] [facility] [place] [id number] Care Team Providers Care Outreach Librarian Name Role Phone Junito Oswald Unavailable [phone] REASON FOR VISIT L URS Stone Manip Stent Placement @ [phone] Encounters Encounter Location Date Provider Diagnosis [facility] [address] [place] [address] 02/21/2024 Junito Oswald Plan Of Treatment No Information Progress Notes * Arlyn LAWSONDOB:1970 (54 yo F)Acc No.[id number]:02/21/2024 Patient: Arlyn BLUE Provider: Carolina Oswald MD :1970 A ge:53 Y S ex:Female Date:02/21/2024 Address:[facility] [address] [facility] * * Electronic signature of Domingo Oswald MD on 12/23/2024 at 07:37 PM CDT Sign off status: Pending * Provider: Carolina Oswald MD Date: Generated for lFaco staton/Teena/eTmarcellsmitting on: 0 12/23/2024 07:37 PM CDT
--- OUTSIDE RECORDS SUMMARY | 2024-04-08 12:00 | XMS_ITS ---
Author Organization [facility] Address [address] [place] [address] Care Team Providers Care Fitness Services Manager Name Role Phone Aleyda Jean-Baptiste APRN Primary Care Provider MART Hankins [phone] REASON FOR VISIT 6 wks w/ kub/rosetta Encounters Encounter Location Date Provider Diagnosis [facility] [address] [place] [facility] [place] [address] 04/08/2024 MART OSWALD Plan Of Treatment No Information Progress Notes * Arlyn LAWSON RDOB: 3 (54 yo F)Acc No.[id number]:04/08/2024 Progress Notes Patient: Arlyn BLUE Provider: Carolina Oswald MD :1970 A ge:53 Y S ex:Female Date:04/08/2024 Address:[facility] [address] [facility] Pcp:Aleyda Jean-Baptiste APRN Subjective: * Chief Complaints: * 1 . 6 wks w/ kub/rosetta. * Medical History: Objective: * Vitals: Assessment: Plan: * Treatment: * Billing Information: * Visit Code: * Procedure Codes: * Electronic signature of DONTE OSWALD MD on 12/23/2024 at 07:37 PM CDT Sign off status: Pending * Provider: Carolina Oswald MD Date: 06/09/2023 Generated for Flaco staton/Teena/Marie on: 0 12/23/2024 07:37 PM CDT
--- OUTSIDE RECORDS SUMMARY | 2024-05-26 08:40 | XMS_ITS ---
Author Organization [facility] [employer] Address [address] [place] [address] Care Team Providers Care Drapery Examiner Name Role Phone Aleyda Jean-Baptiste APRN Primary Care Provider JUNITO Hankins Unavailable [phone] Junito Madrid Unavailable [phone] REASON FOR VISIT 6 wks w/ kub/rosetta Encounters Encounter Location Date Provider Diagnosis [facility] [address] [place] [address] 05/26/2024 Junito Madrid Plan Of Treatment No Information Progress Notes * Arlyn LAWSON RDOB: 3 (54 yo F)Acc No.[id number]:05/26/2024 Progress Notes Patient: Charly PURI Arlyn Morgan Provider: Carolina Madrid APRN :1970 A ge:53 Y S ex:Female Date:05/26/2024 Address:[address] [facility] Pcp:Aleyda Jean-aBptiste APRN Subjective: * Chief Complaints: * 1 . 6 wks w/ kub/rosetta. * Medical History: Objective: * Vitals: Assessment: Plan: * Treatment: * Billing Information: * Visit Code: * Procedure Codes: * Electronic signature of Domingo Madrid APRN on 12/23/2024 at 07:37 PM CDT Sign off status: Pending * Provider: Carolina Madrid APRN Date: 0 05/26/2024 Generated for Flaco staton/Teena/Marie on: 0 12/23/2024 07:37 PM CDT
--- OUTSIDE RECORDS SUMMARY | 2024-08-05 23:59 | XMS_ITS | Continuity of Care Document ---
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 08/05/2024 Diagnosis Follow-up status (finding) 08/05/2024 Diagnosis Migraine (disorder) 08/05/2024 Diagnosis Body mass index 30+ - obesity (finding) Active Condition Added by Discern Rule PROB_ADD_BMI Malignant tumor of lower limb (disorder) Active Condition Obesity (disorder) Active Condition A dded by Discern Rule PROB_ADD_BMI History of - Disorder (context-dependent category) Diagnosis Long-term current use of anticoagulant (situation) Diagnosis Nausea and vomiting (disorder) Diagnosis Anxiety disorder (disorder) Diagnosis Obesity (disorder) Diagnosis Obese class I (finding) Diagnosis Long-term current use of drug therapy (situation) Diagnosis Allergy to substance (disorder) Diagnosis Drug allergy (disorder) Diagnosis Chest pain (finding) Diagnosis Procedure carried out on subject (situation) Diagnosis 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) Diagnosis Pain due to neoplastic disease (finding) Diagnosis Iron deficiency anemia (disorder) Diagnosis Thrombocytosis (disorder) Diagnosis Kidney stone (disorder) Diagnosis Patient encounter status (finding) Diagnosis Diverticula of intestine (disorder) Diagnosis Primary malignant neoplasm of right lower limb Diagnosis Urinary tract infectious disease (disorder) Diagnosis Adverse reaction to drug (disorder) Diagnosis Spasm (finding) Diagnosis [facility] (finding) Diagnosis 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 Diagnosis Encounter for antineoplastic chemotherapy Active Diagnosis Chest pain, unspecified Active Diagnosis Nausea with vomiting, unspecified Active Diagnosis Persons encountering health services in other specified circumstances Active Diagnosis Encounter for other preprocedural examination Active Diagnosis Encounter for adjustment and management of vascular access device Active Diagnosis Migraine, unspecified, not intractable, without status migrainosus Active Diagnosis Procedure carried out on subject (situation) Diagnosis Procedure not done (context-dependent category) Diagnosis Allergies, Adverse Reactions, Alerts Substance Category Reaction Severity Reaction type Status Date Reported Comments Source Wellbutrin Assertion Moderate Drug allergy Active [facility] [place] Effexor Assertion Swelling of bilateral lower limbs Drug allergy Active [facility] Latex Assertion Moderate Allergy to substance [facility] [place] Bee Venom Assertion Allergy to substance Active [facility] Mold Assertion Allergy to substance Active [facility] traZODone Assertion Instability of gait Drug allergy Active [facility] es KlonoPIN Assertion Moderate Drug allergy Active [facility] [place] PROzac Assertion Moderate Drug allergy Active [facility] [place] Zofran Assertion Drug allergy [facility] [place] Results Order Name Results Value Reference Range Date Interpretation Comments Source GENERAL CHEMISTRY ALT-SGPT 23 U/L 10 - 40 08/05 16:36 :00 [facility] GENERAL CHEMISTRY T Bili 0.49 mg/dL 0.30 - 1.20 08/05 16:36 :00 [facility] GENERAL CHEMISTRY Total Protein 6.9 g/dL 5.7 - 8.2 08/05 16:36 :00 [facility] GENERAL CHEMISTRY Creatinine, standardized 0.6 mg/dL 0.5 - 1.0 08/05 16:36 :00 Interpretive Data: Yirkmt-wj-fko e transgender patients on testosterone therapy should have results assessed using the male reference range. Lirk-qa-zyros e transgender patients on hormone-modul ating therapy clinical judgment is advisedfor assessment. [facility] GENERAL CHEMISTRY Estimated GFR for peds Not Calculated mL/min/1.7 3m 08/05 16:36 :00 Interpretive Data: The estimated GFR was calculated using the Aaron castanon Brenner equation (2009) . Reference: Pediatric GFR calculator at [employer] Website. [facility] GENERAL CHEMISTRY BUN 16 mg/dL 6 - 20 08/05 16:36 :00 [facility] GENERAL CHEMISTRY Calcium 9.6 mg/dL 8.3 - 10.6 04/02 /2025 16:36 :00 [facility] GENERAL CHEMISTRY Glucose Lvl 115 mg/dL 70 - 139 08/05 16:36 :00 [facility] GENERAL CHEMISTRY Chloride 112 mmol/L 98 - 107 08/05 16:36 :00 [facility] GENERAL CHEMISTRY Sodium 144 mmol/L 136 - 145 08/05 16:36 :00 [facility] GENERAL CHEMISTRY Estimated GFR for Adults 107 mL/min/1.7 3m 08/05 16:36 :00 Interpretive Data: Changed to CKD-EPI 2020 on 2020. [facility] GENERAL CHEMISTRY Alkaline Phosphatase 81 U/L 35 - 104 08/05 16:36 :00 [facility] GENERAL CHEMISTRY Potassium 3.8 mmol/L 3.5 - 5.1 08/05 16:36 :00 [facility] GENERAL CHEMISTRY CO2 21 mmol/L 20 - 31 08/05 16:36 :00 [facility] GENERAL CHEMISTRY Anion gap 15 mmol/L 0 - 20 08/05 16:36 :00 [facility] GENERAL CHEMISTRY AST-SGOT 19 U/L 08/05 16:36 :00 [facility] GENERAL CHEMISTRY Albumin 3.8 g/dL 3.4 - 5.0 08/05 16:36 :00 [facility] HEMATOLOGY PROFILES PLT 251 x10(9)/L 150 - 450 08/05 16:36 :00 [facility] HEMATOLOGY PROFILES WBC 5.05 x10(9)/L 3.50 - 10.50 08/05 16:36 :00 [facility] HEMATOLOGY PROFILES MPV 11.2 8.0 - 12.0 08/05 16:36 :00 [facility] HEMATOLOGY PROFILES RBC 4.95 x10(12)/L 3.90 - 5.03 08/05 16:36 :00 [facility] HEMATOLOGY PROFILES HGB 14.5 g/dL 12.0 - 15.5 08/05 16:36 :00 Interpretive Data: Nvlruk-sl-syf e transgender patients on testosterone therapy should have results assessed using the male reference range. Rypi-le-khhsc e transgender patients on hormone-modul ating therapy clinical judgment is advisedfor assessment. [facility] HEMATOLOGY PROFILES HCT 44.1 % 34.9 - 44.5 08/05 16:36 :00 Interpretive Data: Njcpkc-bd-clp e transgender patients on testosterone therapy should have results assessed using the male reference range. Pfjr-dv-vlbch e transgender patients on hormone-modul ating therapy clinical judgment is advisedfor assessment. [facility] HEMATOLOGY PROFILES MCV 89.1 fL 81.6 - 98.3 08/05 16:36 :00 [facility] HEMATOLOGY PROFILES MCH 29.3 pg 26.0 - 33.0 08/05 16:36 :00 [facility] HEMATOLOGY PROFILES MCHC 32.9 g/dL 32.0 - 36.0 08/05 16:36 :00 [facility] HEMATOLOGY PROFILES RDW CV 13.2 % 11.9 - 15.5 08/05 16:36 :00 [facility] HEMATOLOGY PROFILES RDW SD 42.7 fL 36.4 - 46.3 08/05 16:36 :00 [facility] HEMATOLOGY PROFILES % Nucleated RBCs 0.0 % 08/05 16:36 :00 [facility] HEMATOLOGY PROFILES Absolute Nucleated RBCs 0.0 x10(9)/L 0.0 - 0.0 08/05 16:36 :00 Interpretive Data: Normal values not established in patients less than 18 years old. [facility] HEMATOLOGY PROFILES % Neutrophils 54.0 % 08/05 16:36 :00 [facility] HEMATOLOGY PROFILES % Lymphocytes 33.1 % 08/05 16:36 :00 [facility] HEMATOLOGY PROFILES % Monocytes 8.3 % 08/05 16:36 :00 [facility] HEMATOLOGY PROFILES % Eosinophils 3.8 % 08/05 16:36 :00 [facility] HEMATOLOGY PROFILES Abs Eosinophils 0.19 x10(9)/L 0.05 - 0.50 08/05 16:36 :00 [facility] HEMATOLOGY PROFILES Abs Basophils 0.03 x10(9)/L 0.00 - 0.30 08/05 16:36 :00 [facility] HEMATOLOGY PROFILES Abs Immature Granulocytes 0.01 x10(9)/L 0.00 - 0.03 08/05 16:36 :00 [facility] HEMATOLOGY PROFILES % Basophils 0.6 % 08/05 16:36 :00 [facility] HEMATOLOGY PROFILES % Immature Granulocytes 0.20 % 0.02 - 0.42 08/05 16:36 :00 [facility] HEMATOLOGY PROFILES Absolute Granulocytes 2.73 x10(9)/L 1.70 - 7.00 08/05 16:36 :00 [facility] HEMATOLOGY PROFILES Abs Lymphocytes 1.67 x10(9)/L 0.90 - 2.90 08/05 16:36 :00 [facility] HEMATOLOGY PROFILES Abs Monocytes 0.42 x10(9)/L 0.30 - 0.90 08/05 16:36 :00 [facility] XR Chest XR Chest XR General Diagnostic [...] Signed on: 08/05/24 14:37 08/05 14:17 :00 [facility] [place] MRI Femur Right MRI Femur Right MRI/MRA [...] Signed on: 08/05/24 22:16 08/05 12:43 :18 [facility] [place] XR Chest XR Chest XR General Diagnostic Accession # Exam Date/Time Procedure Ordering Provider [id number] 03/18/2024 14:00 [employer] XR Chest Jeferson Jones MD Reason For [...] Signed on: 03/18/24 15:04 03/18 13:56 :09 [facility] [place] MRI Femur Right MRI Femur Right MRI/MRA Accession # Exam Date/Time Procedure Ordering Provider [id number] 03/18/2024 14:30 [employer] MRI Femur Right Jeferson Jones MD Reason [...] Signed on: 03/19/24 07:37 03/18 12:41 :03 [facility] [place] [facility] CT Chest CT Scan/CT Angio Accession # Exam Date/Time Procedure Ordering Provider [id number] 03/18/2024 11:16 [employer] CT Chest Quintin Sebastian MD Reason For [...] Signed on: 03/18/24 12:38 03/18 10:33 :20 [facility] GENERAL CHEMISTRY AST-SGOT 20 U/L 01/23 18:25 :00 [facility] GENERAL CHEMISTRY Albumin 3.8 g/dL 3.4 - 5.0 01/23 18:25 :00 [facility] GENERAL CHEMISTRY Alkaline Phosphatase 87 U/L 35 - 104 01/23 18:25 :00 [facility] GENERAL CHEMISTRY ALT-SGPT 19 U/L 10 - 40 01/23 18:25 :00 [facility] GENERAL CHEMISTRY BUN 20 mg/dL 6 - 20 01/23 18:25 :00 [facility] GENERAL CHEMISTRY Calcium 9.8 mg/dL 8.3 - 10.6 01/23 18:25 :00 [facility] GENERAL CHEMISTRY Glucose Lvl 111 mg/dL 70 - 139 01/23 18:25 :00 [facility] GENERAL CHEMISTRY Chloride 111 mmol/L 98 - 107 01/23 18:25 :00 [facility] GENERAL CHEMISTRY Sodium 142 mmol/L 136 - 145 01/23 18:25 :00 [facility] GENERAL CHEMISTRY Potassium 3.8 mmol/L 3.5 - 5.1 01/23 18:25 :00 [facility] GENERAL CHEMISTRY CO2 22 mmol/L 20 - 31 01/23 18:25 :00 [facility] GENERAL CHEMISTRY Anion gap 13 mmol/L 0 - 20 01/23 18:25 :00 [facility] GENERAL CHEMISTRY T Bili 0.86 mg/dL 0.30 - 1.20 01/23 18:25 :00 [facility] GENERAL CHEMISTRY Total Protein 7.0 g/dL 5.7 - 8.2 01/23 18:25 :00 [facility] GENERAL CHEMISTRY Creatinine, standardized 0.6 mg/dL 0.5 - 1.0 01/23 18:25 :00 Interpretive Data: Dtlsnp-kw-jmd e transgender patients on testosterone therapy should have results assessed using the male reference range. Sluk-qg-udewm e transgender patients on hormone-modul ating therapy clinical judgment is advisedfor assessment. [facility] GENERAL CHEMISTRY Estimated GFR for Adults 107 mL/min/1.7 3m 01/23 18:25 :00 Interpretive Data: Changed to CKD-EPI 2020 on 2020. [facility] GENERAL CHEMISTRY Estimated GFR for peds Not calculated 01/23 18:25 :00 Interpretive Data: The estimated GFR was calculated using the Aaron castanon Brenner equation (2009) . Reference: Pediatric GFR calculator at [employer] Website. [facility] HEMATOLOGY PROFILES WBC 4.36 x10(9)/L 3.50 - 10.50 01/23 18:25 :00 [facility] HEMATOLOGY PROFILES RBC 4.54 x10(12)/L 3.90 - 5.03 01/23 18:25 :00 [facility] HEMATOLOGY PROFILES HGB 13.3 g/dL 12.0 - 15.5 01/23 18:25 :00 Interpretive Data: Gqxvox-rp-pjz e transgender patients on testosterone therapy should have results assessed using the male reference range. Mqus-yk-gnyta e transgender patients on hormone-modul ating therapy clinical judgment is advisedfor assessment. [facility] HEMATOLOGY PROFILES HCT 40.2 % 34.9 - 44.5 01/23 18:25 :00 Interpretive Data: Htecie-rx-onz e transgender patients on testosterone therapy should have results assessed using the male reference range. Wcyu-ok-hgjof e transgender patients on hormone-modul ating therapy clinical judgment is advisedfor assessment. [facility] HEMATOLOGY PROFILES MCV 88.5 fL 81.6 - 98.3 01/23 18:25 :00 [facility] HEMATOLOGY PROFILES MCH 29.3 pg 26.0 - 33.0 01/23 18:25 :00 [facility] HEMATOLOGY PROFILES MCHC 33.1 g/dL 32.0 - 36.0 01/23 18:25 :00 [facility] HEMATOLOGY PROFILES RDW CV 13.2 % 11.9 - 15.5 01/23 18:25 :00 [facility] HEMATOLOGY PROFILES RDW SD 42.8 fL 36.4 - 46.3 01/23 18:25 :00 [facility] HEMATOLOGY PROFILES PLT 257 x10(9)/L 150 - 450 01/23 18:25 :00 [facility] HEMATOLOGY PROFILES MPV 11.4 8.0 - 12.0 01/23 18:25 :00 [facility] HEMATOLOGY PROFILES % Nucleated RBCs 0.0 % 01/23 18:25 :00 [facility] HEMATOLOGY PROFILES Absolute Nucleated RBCs 0.0 x10(9)/L 0.0 - 0.0 01/23 18:25 :00 Interpretive Data: Normal values not established in patients less than 18 years old. [facility] HEMATOLOGY PROFILES % Neutrophils 45.6 % 01/23 18:25 :00 [facility] HEMATOLOGY PROFILES % Lymphocytes 40.4 % 01/23 18:25 :00 [facility] HEMATOLOGY PROFILES % Monocytes 11.2 % 01/23 18:25 :00 [facility] HEMATOLOGY PROFILES % Eosinophils 2.1 % 01/23 18:25 :00 [facility] HEMATOLOGY PROFILES % Basophils 0.5 % 01/23 18:25 :00 [facility] HEMATOLOGY PROFILES % Immature Granulocytes 0.20 % 0.02 - 0.42 01/23 18:25 :00 [facility] HEMATOLOGY PROFILES Absolute Granulocytes 1.99 x10(9)/L 1.70 - 7.00 01/23 18:25 :00 [facility] HEMATOLOGY PROFILES Abs Lymphocytes 1.76 x10(9)/L 0.90 - 2.90 01/23 18:25 :00 [facility] HEMATOLOGY PROFILES Abs Monocytes 0.49 x10(9)/L 0.30 - 0.90 01/23 18:25 :00 [facility] HEMATOLOGY PROFILES Abs Eosinophils 0.09 x10(9)/L 0.05 - 0.50 01/23 18:25 :00 [facility] HEMATOLOGY PROFILES Abs Basophils 0.02 x10(9)/L 0.00 - 0.30 01/23 18:25 :00 [facility] HEMATOLOGY PROFILES Abs Immature Granulocytes 0.01 x10(9)/L 0.00 - 0.03 01/23 18:25 :00 [facility] Consultation Notes Results Value Date Source Emergency Services Note Basic Informatio n Chief Complaint pt was seen in [facility] with hypotension, but is not at arrival [...] of treated pleomorphic sarcoma. GI referral to [facility] in [facility] for colonoscopy. [1] [...] to the orthopedic oncology clinic at the [facility]. 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 -End may, referral made to radiation oncologist in [facility]. Completed radiation therapy approximately 08/30/2022, stop [...] and descending colon. Referred for colonoscopy at [facility] in [place]. No evidence of recurrent sarcoma. [3] -09/23/2023 [...] Sebastian MD Primary Care Physician: Aleyda Jean-Baptiste WIRELESS OPERATOR Visit Date Visit Date: 08/05/2024 [1-2] Oncology Office Visit Note *; Quintin eSbastian MD 01/24/2024 13:05 CDT [1-2] Oncology Office [...] Provider: Quintin Sebastian MD Primary Care Physician: Aledya Jean-Baptiste [facility] 08/05/2024 Orthopaedic Clinic Note Diagnosis: Right anterior [...] since her last appointment. Patient is seeing GRADER TENDER on 03/23. 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 GI referral to [facility] in [facility] for colonoscopy. [2] [...] to the orthopedic oncology clinic at the [facility]. 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 -End of May, referral made to radiation oncologist in [facility]. Completed radiation therapy approximately 08/30/2022, stop [...] and descending colon. Referred for colonoscopy at [facility] in [place]. No evidence of recurrent sarcoma. [3] -09/23/2023 [...] arrange follow-up appointment with CT chest [facility] clinic same day. Problem List/Past Medical [...] Sebastian MD Primary Care Physician: Aleyda Jean-Baptiste WIRELESS OPERATOR Visit Date Visit Date: 01/24/2024 [1] Oncology Office Visit Note *; Quintin Sebastian MD 07/31/2023 16:54 CDT [2] Oncology Office Visit Note *; Quintin Sebastian MD 07/31/2023 16:54 CDT [3] Oncology Office Visit Note *; Quintin Sebastian MD 07/31/2023 16:54 CDT [4] CT Chest; Mirna Walker MD 11/13/2023 14:25 CDT 01/24/2024 Vital Signs Vital Sign Value Date Comments Source Heart Rate 79 bpm 08/05/2024 21:17:33 [facility] SpO2 95 % 08/05/2024 21:17:32 [facility] SpO2 93 % 08/05/2024 21:10:33 [facility] Heart Rate 77 bpm 08/05/2024 21:10:32 [facility] SpO2 95 % 08/05/2024 20:59:55 [facility] Heart Rate 74 bpm 08/05/2024 20:59:54 [facility] SBP NIBP 113 mm[Hg] 08/05/2024 20:43:29 [facility] DBP NIBP 59 mm[Hg] 08/05/2024 20:43:29 [facility] Mean NIBP 66 mm[Hg] 08/05/2024 20:43:29 [facility] SpO2 93 % 08/05/2024 20:39:56 [facility] Heart Rate 77 bpm 08/05/2024 20:39:55 [facility] Temperature (Celsius) 36.3 Chrissie 08/05/2024 20:18:00 [facility] SBP NIBP 134 mm[Hg] 08/05/2024 20:18:00 [facility] DBP NIBP 92 mm[Hg] 08/05/2024 20:18:00 [facility] Weight (kg) 103.6 kg 08/05/2024 20:18:00 [facility] Respiratory Rate 16 breaths/min 08/05/2024 20:18:00 [facility] SBP NIBP 62 mm[Hg] 08/05/2024 19:47:00 [facility] DBP NIBP 38 mm[Hg] 08/05/2024 19:47:00 [facility] Weight (kg) 103.7 kg 08/05/2024 19:47:00 [facility] Temperature (Celsius) 36.3 Chrissie 08/05/2024 19:47:00 [facility] SpO2 96 % 08/05/2024 19:47:00 [facility] Respiratory Rate 20 breaths/min 08/05/2024 19:47:00 [facility] Heart Rate 89 bpm 08/05/2024 19:47:00 [facility] Temperature (Celsius) 36.1 Chrissie 08/05/2024 19:11:00 [facility] BSA Aron 2.09 03/18/2024 19:48:00 [facility] BMI 38.6 kg/m2 03/18/2024 19:48:00 [facility] Weight (kg) 103.9 kg 03/18/2024 19:48:00 [facility] Temperature (Celsius) 36.5 Chrissie 03/18/2024 19:48:00 [facility] Height (cm) 164.1 cm 03/18/2024 19:48:00 [facility] Temperature (Celsius) 36.0 Chrissie 01/24/2024 19:00:00 [facility] Heart Rate 86 bpm 01/24/2024 19:00:00 [facility] SBP NIBP 109 mm[Hg] 01/24/2024 19:00:00 [facility] DBP NIBP 59 mm[Hg] 01/24/2024 19:00:00 [facility] Weight (kg) 102 kg 01/24/2024 19:00:00 [facility] SpO2 97 % 01/24/2024 19:00:00 [facility] Encounters Location Location Details Encounter Type Encounter Number Reason For Visit Attending Provider ADM Date DC Date Status Source [facility] Outpatient [id number] Quintin Sebastian 01/23 18:04 :31 01/24 04:59 :59 [facility] [id number] Quintin Sebastian 01/23 18:05 :06 01/24 04:59 :59 [facility] Outpatient [id number] f/u Sarcoma right extremity , 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 ce Jeferson Jones 03/18 12:18 :44 03/18 23:59 :59 [facility] Outpatient [id number] Quintin Sebastian 03/18 16:24 :45 03/19 05:59 :59 [facility] [id number] Jeferson Jones 03/18 19:39 :36 03/19 05:59 :59 [facility] Outpatient [id number] Quintin Sebastian 08/05 16:30 :58 08/06 04:59 :59 [facility] [place] Outpatient [id number] Jeferson Jones 08/05 17:11 :17 08/06 04:59 :59 [facility] [id number] Jeferson Jones 08/05 19:06 :13 08/06 04:59 :59 [facility] [id number] Quintin Sebastian 08/05 19:38 :14 08/06 04:59 :59 [facility] Emergency [id number] Norma Dennison 08/05 20:13 :49 08/05 23:13 :00 [facility] Social History Social History Date Source No data available for this section 08/06/2024 [facility] No data available for this section 08/05/2024 [facility] No data available for this section 03/19/2024 [facility] No data available for this section 01/25/2024 [facility]
[2024-12-23] VITALS (7 sets, daily range): BP systolic 118–152; BP diastolic 63–100; PULSE 62–79; RESP 18–22; TEMP 36.7; O2SAT 92–98; BMI 34.4
--- OUTSIDE RECORDS SUMMARY | 2024-12-23 19:36 | XMS_ITS | Patient Health Record ---
Author Organization [employer], [facility] Address [address] [place] [address] Care Team Providers Care Movement Assembly Final Inspector Name Role Phone Aleyda Jean-Baptiset APRN Primary Care Provider UnavailJUNITO Castañeda Unavailable [phone] ERENDIRA MCGREGOR Unavailable [phone] Junito Madrid Unavailable [phone] Allergies Allergen (clinical drug ingredient) Drug/Non Drug [...] Component Value Reference Range Notes US Renal w/bladder--[id number] Reviewed date:03/24/2024 05:29:54 PM Interpretation: Performing Lab: Notes/Report: See Below For Report US Renal w/bladder Read See Below For Report zzzAbdomen AP Reviewed date:03/24/2024 05:29:45 PM Interpretation: Performing Lab: Notes/Report: See Below For Report Abdomen AP Read See Below For Report Urinalysis, Routine Reviewed date:02/19/2024 01:38:27 PM Interpretation: Performing Lab: Notes/Report: Urine-Color Dark yellow Appearance clear Glucose - Bilirubin - Ketones - Specific [place] 1.030 Occult Blood 1+ pH 5.5 Urine Protein - Urobilinogen,Semi-Qn - Nitrite, Urine - WBC Esterase - Urinalysis Gross Exam - Urinalysis, Routine Reviewed date:02/26/2024 01:46:06 PM Interpretation: Performing Lab: Notes/Report: Urine-Color dark yellow Appearance cloudy Glucose - Bilirubin - Ketones - Specific [place] 1.030 Occult Blood 3+ pH 6.0 Urine Protein 2+ Urobilinogen,Semi-Qn - Nitrite, Urine - WBC Esterase 2+ Reason For Referral No Information Medications Medication [...] with hydronephrosis (N13.2) Active confirmed Problem Nephrolithiasis (50727038) Nephrolithiasis (N20.0) Active confirmed Vital Signs Heart [...] N/A Encounters Encounter Location Date Provider Diagnosis [employer], [facility] [address] [place] [address] 05/26/2024 Junito Vang [facility], [facility] [address] [place] [address] 02/19/2024 Junito Madrid Nephrolithiasis N20. 0 ; Ureteral stone with hydronephrosis N13.2 and Left flank pain R10.9 [facility], [facility] [address] [place] [address] 02/26/2024 JUNITO MONTES Foreign body in othe r parts of genitourinary tract, initial encounter T19.8XXA ; Nephrolithiasis N20.0 ; Ureteral stone with hydronephrosis N13.2 and Left flank pain R10.9 [facility] [address] [place] [address] 02/17/2024 [facility] [address] [place] [address] 02/19/2024 [facility] Z01.81 8 and Ureteral stone with hydronephrosis N13.2 [facility] [address] [place] [address] 02/20/2024 JUNITO MONTES [facility] [address] [place] [address] 02/24/2024 Junito Mercy [facility], [facility] [address] [place] [address] 02/27/2024 JUNITO MONTES Nephrolithiasis N20. 0 Assessments Encounter Date Diagnosis (ICD Code) Assessment Notes Treatment Notes Treatment Clinical Notes Section Notes 02/26/2024 Foreign body in other parts of genitourinary tract, initial encounter (ICD-10 - T19.8XXA) Patient will follow-up in 6 weeks with KUB and Renal US to evaluate for calcifications and occult hydronephrosis respectively. 02/26/2024 Nephrolithiasis (ICD-10 - N20.0) Patient will follow-up in 6 weeks with KUB and Renal US to evaluate for calcifications and occult hydronephrosis respectively. 02/19/2024 Preop testing (ICD-10 - Z01.818) 02/27/2024 Nephrolithiasis (ICD-10 - N20.0) 02/19/2024 Ureteral stone with hydronephrosis (ICD-10 - [...] Urete r, bladder 02/27/2024 Electrocardiogram, 12 Lead Tracing-[id number] 02/19/2024 Insurance Providers Payer Name Payer Address Payer Phone Subscriber Number Group Number Insured Name Patient Relationship to Insured Coverage Start Date Coverage End Date CT Medicaid [address] [place], [place] [id number] Arlyn Lawson Self - patient is the insured Medical (General) History Medical History History ICD Code Anxiety Soft tissue carcinoma Kidney stones Recurrent UTI Surgical History Surgery Date(Month/Year) cholecystectomy 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
--- OUTSIDE RECORDS SUMMARY | 2024-12-23 19:37 | XMS_ITS ---
Author Organization [facility] Address [address] [place]: Epic Prelude ADT [place] [address] Care Team Providers Care Plastic Frame Inserter Name Role Phone Chris Meade MD Primary Care Provider [phone] Active Problems Problem Noted Date Diagnosed Date [...]
--- OUTSIDE RECORDS SUMMARY | 2024-12-23 19:37 | XMS_ITS | Clinical Summary ---
Author Organization [facility] Address [address] Attn: Epic Prelude ADT [place] [address] Care Team Providers Care Cafeteria Counter Attendant Name Role Phone Chris Meade MD Primary Care Provider [phone] Allergies Active Allergy Reactions Criticality Noted Date [...] as needed. 3 Active Narcan 4 mg/actuation [place], Non-Aerosol CALL 911. SPR CONTENTS OF ONE [...] Encounters Date Type Department Care Team Description 12/22/2024 External Device Data [facility] ABSTRACTION Provider, Abstract 11/18/2024 External Device Data [facility] ABSTRACTION Provider, Abstract 11/18/2024 External Device Data [facility]STRACTION Provider, Abstract 11/18/2024 External Device Data [facility]STRACTION Provider, Abstract 11/13/[address] [address] Chris Meade MD Clinical Consult Before Scheduling 10/21/2024 External Device Data [facility] ABSTRACTION Provider, Abstract 10/20/2024 External Device Data [facility] ABSTRACTION Provider, Abstract from Last 3 Months Family History Medical [...] drink = 0.6 oz pur e alcohol) Comments No Sex and Gender Information Value Date Recorded Sex Assigned at Not on file Legal Sex Female 5:03 AM SOFTWARE LICENSING EXECUTIVE Gender Identity Not on file Sexual Orientation Not on file Last Filed Vital Signs Vital Sign Reading Time Taken Comments Blood Pressure 128/82 04/06/2024 9:18 AM SOFTWARE LICENSING EXECUTIVE Pulse 78 04/06/2024 9:18 AM SOFTWARE LICENSING EXECUTIVE Temperature 36.3 C (97.4 F) 04/06/2024 9:18 AM SOFTWARE LICENSING EXECUTIVE Respiratory Rate 18 04/06/2024 9:18 AM SOFTWARE LICENSING EXECUTIVE Oxygen Saturation 99% 04/06/2024 9:18 AM SOFTWARE LICENSING EXECUTIVE Inhaled Oxygen Concentration - - Weight 104.8 kg (231 lb) 04/06/2024 9:18 AM SOFTWARE LICENSING EXECUTIVE Height 170.2 cm (5' 7 ) 04/06/2024 9:18 AM SOFTWARE LICENSING EXECUTIVE Body Mass Index 36.18 04/06/2024 9:18 AM SOFTWARE LICENSING EXECUTIVE Plan of Treatment Upcoming Encounters Date Type Department Care Team (Late st Contact Info) Description 02/15/2025 1:00 PM CDT Office Visit [address] [place] [address] Chris Meade MD [address] [place] [address] Health Maintenance Due Date Last Done Comments [...] or areas of architectural distortion. Aleyda Jean-Baptiste ARTIFICIAL STONE APPLICATOR MAMMO ORDERABLES Final Result * CERV/VAG CYTO SCREEN PAP W/HPV (12/19/2023 2:51 PM CDT) CLINICAL INFORMATION [facility] [place] Comment:Routine exam LAST MENSTRUAL PERIOD [facility] [place] Comment:NONE GIVEN PREV PAP: [facility] [place] Comment:NONE GIVEN PREV BX: [facility] [place] Comment:NONE GIVEN SOURCE [facility] [place] Comment:Endocervix ADEQUACY: [facility] [place] Comment: Satisfactory for evaluation. Endocervical/transformation zone component present. Age and/or menstrual status not provided PAP INTERP [facility] [place] Comment: Cytology Results: Negative for intraepithelial lesion or malignancy. COMMENT (PAP TEST) [facility] [place] Comment: This Pap test has been evaluated with computer assisted technology. SHARK BIOLOGIST: Last Chavez Comment: MEF, CT(ASCP) CT screening location: [place] [address] [address] [place] [address] RE[address] SHARK BIOLOGIST: Candi Chavez Comment: ABC, CT(ASCP) CT screening location: [place] [address] [address] [place] [address] [address] NOTE [address] Justin Chavez Comment: EXPLANATORY NOTE: The Pap [...] information. HPV E6/E7 Not Detected Not Detected [email or web address] [place] Comment: Methodology: Knot Borer-Mediated Amplification This assay detects E6/E7 viral messenger RNA (mRNA) from 14 high-risk HPV types (16,18,31,33,35,39,45,51,52,56,58,59,66,68). Cervical sources are required for HPV testing. If a vaginal source from a patient who has had a total hysterectomy with removal of cervix was submitted, please contact the testing laboratory for alternative testing options. For additional information, please refer to http://education.Latio/faq/FKO214q9 (This link if provided for information/ educational purposes only.) Test Performed at: [facility] [address] [place] [address] Alex REYES Genital SWAB OF ENDOCERVIX / Unknown 12/19/2023 2:51 PM CDT 12/20/2023 8:59 AM CDT Michelle Sales NP PATHOLOGY/CYTOLOGY ORDERABL ES Final Result [facility] [phone] [facility] [address] [place] [address] * COLONOSCOPY REPORT (09/11/2023 2:50 PM CDT) Narrative Procedure Note Lucio Jones MD - 09/11/2023 2:50 PM CDT [facility] GI Patient Name: Arlyn Lawson Procedure Date: [...] PM Scope Out: 2:45:41 PM [address], [place] Lucio Jones MD GI PROCEDURE ORDERABLES Final Result from Last 3 Months or Most Recently Relevant to Health Maintenance Insurance MEDICA[place] Advance Directives For more information, please contact: [phone] * Full Code (Latest Code Status on File) Date Activated Date Inactivated Comments 09/11/2023 1:06 PM 09/11/2023 5:32 PM Care Teams Cafeteria Counter Attendant Relationship Specialty Start Date End Date Chris Meade MD [address] [address] PCP - General Family Practice 07/22/23
--- OUTSIDE RECORDS SUMMARY | 2024-12-23 19:37 | XMS_ITS | Patient Health Record ---
Author Organization [facility] Address [address] [place], [place] [address] Care Team Providers Care Button Breaker Name Role Phone Junito Oswald Unavailable [phone] Results Component Value Reference Range Notes STONE ANALYSIS Reviewed date:03/03/2024 02:15:12 PM Interpretation: Performing Lab:[facility] Notes/Report: Has specimen been collected/obtained? Y SPECIMEN SOURCE LEFT URETER COMPOSITION 1: SEE NOTE Calcium Oxalate Dihydrate (Weddellite) 40% Calcium Oxalate Monohydrate (Whewellite) 30% Carbonate Apatite (Dahllite) 30% WEIGHT: 0.022 This test was developed and its analytical performance characteristics have been determined by [employer]. It has not been cleared or approved by FDA. This assay has been validated pursuant to the CLIA regulations and is used for clinical purposes. THIS TEST WAS PERFORMED AT: [facility] [address] [place] [address] ARI WILLIAMSON MD,PHD,TOLU RETROGRADE PYELOGRAM Reviewed date:02/27/2024 04:49:52 PM Interpretation: Performing Lab: Notes/Report: [facility] [address] [place] [address] DIAGNOSTIC RADIOLOGY REPORT NAME: LUCILA TREVINO VISIT DATE: 02/21/24 : 1970 SEX / AGE: F / 53 ORDERING PHY: JUNITO OSWALD MD PRIMARY CARE PHY: JUNITO OSWALD MD MED REC #: [id number] PT TYPE: DEP SDC Exam Performed: 02/21/24 1558 REPORT STATUS: Signed RETROGRADE PYELOGRAM FINDINGS/IMPRESSION: Fluoroscopic images provided for Dr. Oswald. TRANSCRIBED BY: Sherry No TRANSCRIBED BY DATE/TIME: 02/21/241927 DICTATED BY: James Curran DO DICTATED DATE/TIME: 02/21/24 1613 ELECTRONICALLY SIGNED BY: James Curran DO SIGNED DATE/TIME: 02/25/24 1540 Copies To: JUNITO OSWALD MD Reason For Referral No Information Encounters Encounter Location Date Provider Diagnosis [facility] [address] [facility] [address] [place] [address] 02/21/2024 Junito Oswald Plan Of Treatment No Information
--- OUTSIDE RECORDS SUMMARY | 2024-12-23 19:37 | XMS_ITS | Encounter Summary ---
Author Organization [facility] Address [address] [place] [address] Care Team Providers Care Recreation Superintendent Name Role Phone Chris Meade MD Primary Care Provider [phone] Encounter Details Date Type Department Care Team (Late st Contact Info) Description 12/22/2024 External Device Data [facility] ABSTRACTION Provider, Abstract NO ADDRESS ON FILE Social History Tobacco Use Types Packs/Day Years Used Date Smoking Tobacco: Former Cigarettes 0.5 8 0 06/11/2002 - 06/11/2010 Smokeless Tobacco: Never Alcohol Use Standard Drinks/Week Comments No 0 (1 standard drink = 0.6 oz pur e alcohol) Comments No Sex and Gender Information Value Date Recorded Sex Assigned at Not on file Legal Sex Female 5:03 AM OPTICS TEST TECHNICIAN Gender Identity Not on file Sexual Orientation Not on file documented as of this encounter Plan of Treatment Upcoming Encounters Date Type Department Care Team (Late st Contact Info) Description 02/15/2025 1:00 PM CDT Office Visit [facility] [place] [address] [address] Chris Meade MD [address] [address] documented as of this encounter Visit Diagnoses Not on filedocumented in this encounter Care Teams Recreation Superintendent Relationship Specialty Start Date End Date Chris Meade MD [address] [address] PCP - General Family Practice 07/22/23 documented as of this encounter
--- NOTE | 2024-12-23 21:06 | CTR_ITS ---
PROCEDURE INFORMATION: Exam: CT Abdomen And Pelvis Without Contrast Exam date and time: 12/23/2024 10:18 PM Age: 54 years old Clinical indication: Abdominal pain; Flank; Left lower quadrant (llq); Prior surgery; Surgery date: 6+ months; Surgery type: Gb, hernia, stent left kidney; Additional info: Llq/flank pain TECHNIQUE: Imaging protocol: Computed tomography of the abdomen and pelvis without contrast. Radiation optimization: All CT scans at this facility use at least one of these dose optimization techniques: automated exposure control; mA and/or kV adjustment per patient size (includes targeted exams where dose is matched to clinical indication); or iterative reconstruction. COMPARISON: CT abdomen pelvis w con* [id number] 11/08/2024 10:34 AM RADIATION DOSE METRICS: Total DLP (mGy-cm): 992.2 FINDINGS: Lungs: The lung bases are clear. Diaphragm: Chronic small hiatus hernia. Liver: Normal. No mass. Gallbladder and biliary ducts: The gallbladder is surgically absent. Pancreas: Normal. No ductal dilation. Spleen: Normal. No splenomegaly. Adrenal glands: Normal. No mass. Kidneys and ureters: Normal. No hydronephrosis. Stomach and bowel: There are numerous diverticula in the descending and sigmoid colon. There is persisting and perhaps slightly increased inflammation around diverticula in the distal descending colon. There is pericolonic fatty stranding but no abscess or perforation. No free air. Small bowel is normal. Appendix: No evidence of appendicitis. Intraperitoneal space: See Stomach and bowel finding. Vasculature: Unremarkable. No abdominal aortic aneurysm. Lymph nodes: Unremarkable. No enlarged lymph nodes. Urinary bladder: Unremarkable as visualized. Reproductive: The uterus and ovaries are normal for age. Bones/joints: Unremarkable. No acute fracture. Soft tissues: Incidental small fatty umbilical hernia. CT/CT abdomen pelvis wo con [id number] IMPRESSION: Persisting and slightly increased acute diverticulitis in the distal descending colon. No perforation or abscess.
[2024-12-23 21:10] LABS: Hematocrit 41.4 % (36-47); Hemoglobin 13.60 g/dL (11.27-16.99); Mean Corpuscular HGB Conc 32.9 g/dL (30-55); Mean Corpuscular Hemoglobin 29.1 pg (27-33); Mean Corpuscular Volume 88.5 fl (85-98); Platelet Count 270 10^3/cmm (157-399); Red Blood Count 4.68 10^6/uL (3.85-5.65); White Blood Count 5.19 10^3/uL (3.29-11.43)
--- NOTE | 2024-12-23 21:25 | ED_ITS ---
HPI - Abdominal Pain 2 General: Chief Complaint: Abdominal Pain Stated Complaint: Lt abd pain History of Present Illness: Patient is 54-year-old female reports to ED with worsening left lower quadrant left flank pain x 3 days. She is only consumed liquids last 3 days. She has nausea, and vomiting today. No change in stool. Patient had diverticulitis diagnosis 11/08 and patient states this feels like similar prodrome. No fever or chills. Associated Symptoms: Reports diarrhea, nausea and vomiting; Denies constipation, fever(s), heartburn, hematochezia and syncope Related Data Home Medications ?Medication ?Instructions ?Recorded ?Confirmed melatonin 5 mg tablet 5 mg PO BEDTIME PRN Sleep 12/02/24 Previous Rx's ?Medication ?Instructions ?Recorded ergocalciferol (vitamin D2) 1,250 1,250 mcg PO Q7D 3 m onths #13 caps 12/02/24 mcg (50,000 unit) capsule rimegepant 75 mg disintegrating 75 mg PO .QOD 30 days #16 tabs 12/02/24 tablet (Nurtec ODT) amoxicillin-potassium clavulanate 1 tab PO Q12H 10 day s #20 tabs 12/23/24 1,000 mg-62.5 mg tablet,ext.rel 12hr prochlorperazine maleate 5 mg 5 mg PO Q8H PRN nausea a nd 12/23/24 tablet (Compazine) vomiting #20 tabs Allergies Allergy/AdvReac Type Severity Reaction Status Date / Time bee venom protein (honey bee) Allergy ALGY-Anaphy Verified 12/02/24 08:53 laxis bupropion (From Wellbutrin) Allergy Unknown Verified 12/02/24 08:53 clonazepam (From Klonopin) Allergy ADR-Irritab Verified 12/02/24 08:53 le fluoxetine (From Prozac) Allergy ADR-Irritab Verified 12/02/24 08:53 le latex Allergy ALGY-Rash Verified 12/02/24 08:53 ondansetron (From Zofran) Allergy Unknown Verified 12/02/24 08:53 trazodone Allergy ADV-Weaknes Verified 12/02/24 08:53 s venlafaxine (From Effexor) Allergy Unknown Verified 12/02/24 08:53 Review of Systems 2 Const: Denies: fever(s), change in weight or fatigue Eyes: Reports: change in vision, photophobia and eye discomfort; Denies: blurry vision, blind spots, seeing flashes or other (Glaucoma) ENMT: Denies: odynophagia, hoarseness, change in hearing, tinnitus or sinus pain Card: Denies: chest pain, palpitations, syncope or other (Calf cramps) Resp: Denies: dyspnea, non-productive cough, wheezing or hemoptysis GI: Reports: abdominal pain, nausea, vomiting and diarrhea; Denies: heartburn, constipation or hematochezia : Denies: urinary frequency or urinary incontinence Musc: Denies: neck pain, muscle weakness or other (Muscle pain) Skin/Breast: Denies: rash, new lesions or breast mass Neuro: Denies: headache(s), numbness in extremities, weakness in extremities, sensory changes, difficulty walking or seizure-like activity Psych: Denies: depression, irritability, memory loss, difficulty concentrating or other (Personality changes) Endo: Denies: polyuria, polydipsia, excessive sweating or change in body appearance Axel/Lymph: Denies: easy bruising, easy bleeding or enlarged lymph nodes PFSH ED 2 PFSH: Medical History (Updated 12/23/24 @ 23:16 by ALICE Guadarrama) Urolithiasis Left ureteral calculus GERD (gastroesophageal reflux disease) 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 Surgical History Status post laparoscopic Kellie fundoplication (10/27/19) Laparoscopic paraesophageal hernia repair with mesh placement and Niesen fundoplication with intraoperative EGD History of tubal ligation History of cholecystectomy Family History Father Dementia Brother CAD (coronary artery disease) Other Cancer Diabetes Hyperlipidemia Hypertension Psychiatric illness Stroke Denies family history of Clotting disorder Chronic kidney disease (CKD) Suicide Anesthesia complication Bleeding disorder Lung disease Social History (Updated 12/02/24 @ 08:55 by Lc Jackson LPN) Smoking and tobacco/nicotine status: former use of tobacco/nicotine Alcohol intake: current Alcohol intake frequency: holidays/special occasions only Physical Exam 2 Const: COMMON NORMALS: no acute distress, average body habitus, patient oriented x3, no limitations, healthy appearing, alert and well nourished EXAM LIMITATIONS: altered mental status GENERAL APPEARANCE: cooperative and comfortable HENMT: COMMON NORMALS: normocephalic, atraumatic and Normal external nose present HEAD & SCALP: normocephalic and atraumatic FACE & SINUS: normal facial exam, sinuses nontender and face symmetric NOSE: Normal external nose present and Normal nares present Neck/C-Spine: COMMON NORMALS: full ROM, no lymphadenopathy, supple and no meningeal signs Lymph: LYMPHATIC: no lymphadenopathy noted Chest: COMMONS NORMALS: normal inspection of the chest and normal palpation of entire chest wall Resp: COMMON NORMALS: normal respiratory effort, No retractions and clear to auscultation bilaterally AUSCULTATION: clear to auscultation bilaterally Cardio: COMMON NORMALS: regular rhythm RHYTHM: regular rhythm GI: COMMON NORMALS: Soft to palpation and No hepatosplenomegaly present P ALPATION: Yes Soft to palpation, Yes Tenderness to palpation present (GI) Details: LLQ and Yes No hepatosplenomegaly present : BLADDER/KIDNEY EXAM: Yes CVA tenderness on the left Back/Pelvis: GENERAL BACK: Yes CVA tenderness Extremity: COMMON NORMALS: normal to inspection, full ROM and capillary refill normal Neuro: COMMON NORMALS: patient oriented x3 SENSORIUM/ORIENTATION: Yes alert MENINGEAL SIGNS: Yes no meningeal signs Psych: COMMON NORMALS: mental status grossly normal, Normal thought process present, cooperative, normal affect and speech normal SPEECH: Yes normal speech THOUGHT PROCESS: Normal thought process present Skin: COMMON NORMALS: no rashes or lesions noted, no wounds and turgor normal GENERAL SKIN EXAM: no rashes or lesions noted and turgor normal Course 2 Vital Signs: Vital signs: Vital Signs Temperature 98.1 F 12/23/24 19:32 Pulse Rate 62 12/23/24 23:57 Respiratory Rate 18 12/23/24 23:09 Blood Pressure 123/63 12/23/24 23:57 Pulse Oximetry 96 12/23/24 23:57 Oxygen Delivery Me thod Room Air 12/23/24 20:53 MDM - Abdominal Pain Medical Decision Making Patient is a 54-year-old female with repeat diverticulitis in the last 2 months. First was observed on 11/08, and today. Discussed with patient my concerns of diverticulitis. No abscess was seen. Discussed with patient close follow-up with primary care, and possibly surgeon referral for Selena procedure with these concerns. Patient is to take antibiotics as directed, antiemetics, and has pain medication. She will come back to ED if she continues to have issues. Prolonged clear liquid diet was ordered as well as full liquid diet prior to advancing to a bland/diverticular diet. Lab Data 12/23/24 21:12/23/24 21: Labs/Radiology: Radiology Impressions Abdomen/Pelvis CT 12/23/24 21:06 IMPRESSION: Persisting and slightly increased acute diverticulitis in the distal descending colon. No perforation or abscess. Laboratory Results WBC 5.19 10^3/uL (3.29-11.43) 12/23/24: RBC 4.68 10^6/uL (3.85-5.65) 12/23/24 21: Hgb 13.60 g/dL (11.27-16.99) 12/23/24: Hct 41.4 % (36-47) 12/23/24 21: MCV 88.5 fl (85-98) 12/23/24 21: MCH 29.1 pg (27-33) 12/23/24 21: MCHC 32.9 g/dL (30-55) 12/23/24 21: RDW 13.2 % (12.1-15.1) 12/23/24 21: Plt Count 270 10^3/cmm (157-399) 12/23/24 21: MPV 11.1 fL (7.4-10.4) H 12/23/24 21:01 Lymph % (Auto) Not Reportable 12/23/24 21: [place] % (Auto) Not Reportable 12/23/24 21:01 Lymph # (Auto) Not Reportable 12/23/24 21: [place] # (Auto) Not Reportable 12/23/24 21: Total Counted 100 (0-100) 12/23/24 21: Atypical Lymphs % 23.0 % (0-5) H 12/23/24 21:01 Absolute Neutrophils 2.6 10^3/cmm (1.4-6.5) 12/23/24 21: Segmented Neutrophils 50 % 12/23/24 21:01 Band Neutrophils 0.0 % 12/23/24 21:01 Absolute Lymphocytes 2.3 10^3/cmm (1.2-3.4) 12/23/24 21:01 Lymphocytes (Manual) 22 % 12/23/24 21:01 Monocytes (Manual) 4.0 % 12/23/24 21:01 Absolute Monocytes 0.2 10^3/cmm (0.1-0.6) 12/23/24 21:01 Eosinophils (Manual) 1 % 12/23/24 21: Absolute Eosinophils 0.1 10^3/cmm (0.0-0.7) 12/23/24 21:01 Basophils (Manual) 0.0 % 12/23/24 21: Absolute Basophils 0.0 10^3/cmm (0.0-0.2) 12/23/24 21: Platelet Estimate Normal (Normal) 12/23/24 21:01 Sodium 140 mmol/L (136-145) 12/23/24 21: Potassium 3.7 mmol/L (3.5-5.1) 12/23/24 21: Chloride 105 mmol/L (98-107) 12/23/24 21: Carbon Dioxide 21 mmol/L (22-29) L 12/23/24 21:01 Anion Gap 17.7 (5-19) 12/23/24 21:01 BUN 13 mg/dL (6-20) 12/23/24 21:01 Creatinine 0.8 mg/dL (0.5-0.9) 12/23/24 21: GFR Calculation 75.3 mL/min (90-130) L 12/23/24 21: Glucose 104 mg/dL (65-115) 12/23/24 21: Calculated Osmolality 290 mOsm/kg (285-295) 12/23/24 21: Calcium 9.8 mg/dL (8.5-10.5) 12/23/24 21: Total Bilirubin 1.1 mg/dL (0.15-1.2) 12/23/24 21:01 AST 20 U/L (0-32) 12/23/24 21:01 ALT 21 U/L (0-33) 12/23/24 21:01 Alkaline Phosphatase 83 U/L (35-105) 12/23/24 21:01 Total Protein 7.4 g/dL (6.6-8.7) 12/23/24 21: Albumin 4.2 g/dL (3.5-5.2) 12/23/24 21: Globulin 3.2 g/dL (1.3-4.6) 12/23/24 21: Lipase 32 U/L (13-60) 12/23/24 21: HCG, Qual Negative (Negative) 12/23/24 21: Urine Color Dark yellow (Yellow) A 12/23/24 21:51 Urine Appearance Cloudy (CLEAR) A 12/23/24 21:51 Urine pH 5.0 (5-7) 12/23/24 21:51 Ur Specific [place] 1.033 (1.005-1.030) H 12/23/24 21:51 Urine Protein Trace (Negative) A 12/23/24 21:51 Urine Glucose (UA) Negative (Normal) 12/23/24 21:51 Urine Ketones Trace (Negative) 12/23/24 21:51 Urine Blood Negative (Negative) 12/23/24 21:51 Urine Nitrate Negative (Negative) 12/23/24 21:51 Urine Bilirubin 1+ (Negative) H 12/23/24 21:51 Urine Urobilinogen 1.0 mg/dL (Negative) 12/23/24 21:51 Ur Leukocyte Esterase Trace (Negative) A 12/23/24 21:51 Urine RBC 6-10 /hpf (0-2) 12/23/24 21:51 Urine WBC 0-4 /hpf (0-5) H 12/23/24 21:51 Ur Squamous Epith Cells 0-4 /hpf (0-5) H 12/23/24 21:51 Calcium Oxalate Crystal 15-25 /hpf H 12/23/24 21:51 Amorphous Sediment Not Reportable 12/23/24 21:51 Urine Bacteria Trace /hpf (NONE) 12/23/24 21:51 Hyaline Casts 0-4 /lpf H 12/23/24 21:51 All radiology interpretation(s) finalized by discharge Discharge Plan Discharge Patient Disposition: Home Clinical Impression: Diverticulitis Condition: Stable Prescriptions: New amoxicillin-pot clavulanate 1,000-62.5 mg tablet extended release 12 hr 1 tab PO Q12H 10 Days Qty: 20 0RF prochlorperazine maleate [Compazine] 5 mg tablet 5 mg PO Q8H PRN (Reason: nausea and vomiting) Qty: 20 0RF No Action Nurtec ODT 75 mg tablet,disintegrating 75 mg PO .QOD 30 Days Qty: 16 3RF ergocalciferol (vitamin D2) 1,250 mcg (50,000 unit) capsule 1,250 mcg PO Q7D 90 Days Qty: 13 3RF melatonin 5 mg Tablet 5 mg PO BEDTIME PRN (Reason: Sleep) Discharge Orders: Discharge ED (Routine); Ordered 12/23/24 Ordered By: Karmen Farley Referrals: Aleyda Jean-Baptiste FNP [Primary Care Provider, Family Practice] Discharge Diet: Clear Liquid Discharge Activity: Resume usual activity Patient Instructions: Clear Liquid Diet (ED), Diverticulitis Diet (ED), Full Liquid Diet (DC), Patient Portal & Mo Instructions Activity Restrictions/Additional Instructions: Close follow-up with your primary care physician in the next 2-5 days Clear liquid diet x 3 days Then advance to full liquid diet x 1-2 days prior to utilizing a bland diet Take medication as prescribed. You indicated you already had pain medication, and nausea medication. I did send in additional nausea medication. Utilize your antibiotics as prescribed. Take probiotic or active culture yogurt to avoid infectious diarrhea Return to ED with worsening pain, ongoing nausea, vomiting, diarrhea, fever greater than 100.4 ?F Print Language: Maori Coding Level of Care Code ED Roller Inspector And Mender for Miriam Gamez
[2024-12-23 21:28] LABS: Alanine Aminotransferase 21 U/L (0-33); Albumin Level 4.2 g/dL (3.5-5.2); Alkaline Phosphatase 83 U/L (35-105); Anion Gap 17.7 (5-19); Aspartate Amino Transferase 20 U/L (0-32); Blood Urea Nitrogen 13 mg/dL (6-20); Calcium 9.8 mg/dL (8.5-10.5); Carbon Dioxide 21 mmol/L (22-29); Chloride 105 mmol/L (98-107); Creatinine Clr Calc Pharmacy 99.8320; Globulin 3.2 g/dL (1.3-4.6); Glucose 104 mg/dL (65-115); Lipase 32 U/L (13-60); Osmolality Calculated 290 mOsm/kg (285-295); Potassium 3.7 mmol/L (3.5-5.1); Sodium 140 mmol/L (136-145); Total Protein 7.4 g/dL (6.6-8.7)
[2024-12-23 21:46] LABS: HCG, Serum Qual Negative (Negative)
[2024-12-23 21:52] LABS: Absolute Segmented Neutrophil 2.6 10/cmm (1.6-7.1); Atypical Lymphs 23.0 % (0-5); Band Neutrophils Absolute 0.0 10^3/cmm (0.0-1.2); Slide Review Slide Review Perform; Total Cells Counted 100 (0-100)
[2024-12-23] MEDS: orphenadrine 30 mg/mL Inj 2 mL 60 MG IV (21:52)
[2024-12-23] MEDS: diphenhydrAMINE 50 mg/mL SDV 1mL IVP (21:52)
[2024-12-23 22:01] LABS: Glucose Urine UA Negative (Normal); Nitrate Urine Negative (Negative)
[2024-12-23 22:13] LABS: Add Urine Microscopic? YES
[2024-12-23 22:55] LABS: Specific Gravity, Urine 1.033 (1.005-1.030); UA Manual Slide Review YES; UA Slide Review UA Slide Review Perf
[2024-12-23] MEDS: piperacillin-tazobactam 4.5 GM in sodium chloride 0.9% (plus) 50 ML IV (23:09)
[2024-12-23] MEDS: morphine 4 mg/mL SDV 1 mL IVP (23:09)
== END 2024-12-23 23:57 | disposition home or self-care (01) ==
PROVIDERS: Emergency Medicine; Emergency Provider Physician Assistant; PCP Nurse Practitioner Family
DX: K57.92 Diverticulitis of intestine, part unspecified, without perforation or abscess without bleeding (principal); Z87.891 Personal history of nicotine dependence
CPT/HCPCS: 36415; 74176; 80053; 81001; 83690; 84703; 85007; 85025; 96374; 96375; 99285; J1200; J2270; J2360; J2543